=== PATIENT | female | born 2000 | race Caucasian/White ===

== ENCOUNTER 2022-12-29 16:07 | Emergency (ER) | payer BC, SELFPAY ==
--- NOTE | 2022-12-29 16:08 | US_ITS ---
[address] [address] Patient Name: EVELYN BRADLEY MRN: [id number] date: 2000 Sex: F Assigned Patient Location: ER Current Patient Location: ER Accession/Order Number: [id number] Exam Date: 12/29/2022 17:16 Report Date: 12/29/2022 18:11 At the request of: ERICA MYLES Procedure: US OB transvaginal PROCEDURE: US OB transvaginal, 12/29/2022 5:16 PM EST CLINICAL INDICATIONS: [Encounter for first trimester , vaginal bleeding for one day, pelvic pain 1 para 0 LMP 11/18/2022 Expected gestational age by LMP: 5 weeks 6 days Expected ROD by LMP: 08/25/2023 COMPARISON: None TECHNIQUE: Transvaginal first trimester obstetric sonogram, grayscale color and spectral evaluation. FINDINGS: Uterus: Intrauterine gestational saclike structure is identified. There are subtle structures within. A possible yolk sac measures up to 0.6 cm. A possible embryonic pole measures 0.2 cm. Cardiac activity could not be documented. Perigestational hemorrhage is not evident. Mean gestational sac size: 0.34 cm Embryonic crown-rump length: 0.18 cm Sonographic gestational age: Out of the available reference data range Cervix estimated at 3.2 cm. Maternal right ovary: 4.7 x 4.7 x 4.3 cm. Volume 49 mL. A 3.8 x 3.7 x 3.8 centimeters corpus luteal cyst is considered. Maternal left ovary: 1.8 x 1.7 x 2.2 cm. Volume 4 mL. Normal sonographic morphology. US/US OB transvaginal IMPRESSION: 1. Probable intrauterine uncertain viability. Intrauterine gestational saclike structure is identified. There are subtle structures within possibly early yolk sac or embryonic pole although poorly demonstrated. Cardiac activity could not be documented. Gestational sac size is below the available reference data for gestational age assessment. 14 day follow-up sonography needed. 2. No perigestational hemorrhage 3. 3.8 cm maternal right ovarian corpus luteal cyst 4. Normal maternal left ovarian sonographic morphology. Electronically authenticated by: ROXIE HALE Date: 12/29/2022 18:11
[2022-12-29 16:12] VITALS: BP 150/93; PULSE 75; RESP 14; TEMP 36.4; O2SAT 100; BMI 21.0
--- NOTE | 2022-12-29 16:21 | ED_ITS ---
HPI - General Chief complaint: Vaginal Bleeding Stated complaint: ISSUES 5 WEEKS Time Seen by Provider: 12/29/22 16:08 Source: patient Mode of arrival: walk-in Limitations: no limitations History of Present Illness HPI Narrative: patient is a 22-year-old female who presents to the emergency department for the evaluation of cramping and spotting at approximately 5-6 weeks of . Patient has not had her 1st TELE[employer] appointment yet. She states several days ago she had some low abdominal cramping which has resolved. She states in the last day she has developed spotting with wiping after urinating. She has not saturated a pad, she has not had any clots. No fevers or vomiting. No other urinary symptoms. Related Data Home Medications Medication Instructions Recorded Confirmed No Known Home Medications 12/29/22 12/29/22 Allergies Allergy/AdvReac Type Severity Reaction Status Date / Time No Known Drug Allergies Allergy Verified 12/29/22 16:15 Review of Systems ROS Constitutional Denies: fever or chills Ears, nose, mouth, and throat Denies: throat pain or nasal congestion Respiratory Denies: shortness of breath Gastrointestinal Reports: abdominal pain; Denies: nausea, vomiting or diarrhea Genitourinary Reports: pelvic pain and vaginal bleeding; Denies: painful urination Musculoskeletal Denies: back pain Integumentary/Breast Denies: rash Endocrine Denies: excessive urination Exam Narrative Exam Narrative: Gen.: Awake, alert, in no distress Head: Normocephalic, atraumatic ENT: Moist mucous membranes Respiratory: No respiratory distress Gastrointestinal: Abdomen is soft, nondistended and nontender to palpation; no CVA or flank tenderness Extremities: Moves extremities equally Psych: Normal mood and affect Neuro: No focal neuro deficit Skin: Warm, dry, intact Constitutional Vital Signs, click to edit/add: Last Vital Signs Temp 97.5 F L 12/29/22 16:12 Pulse 75 12/29/22 16:12 Resp 14 12/29/22 16:12 BP 150/93 H 12/29/22 16:12 Pulse Ox 100 12/29/22 16:12 O2 Del Method Room Air 12/29/22 16:12 Course Vital Signs Vital signs: Vital Signs Temperature 97.5 F L 12/29/22 16:12 Pulse Rate 75 12/29/22 16:12 Respiratory Rate 14 12/29/22 16:12 Blood Pressure 150/93 H 12/29/22 16:12 Pulse Oximetry 100 12/29/22 16:12 Oxygen Delivery Method Room Air 12/29/22 16:12 Temperature 97.5 F L 12/29/22 16:12 Pulse Rate 75 12/29/22 16:12 Respiratory Rate 14 12/29/22 16:12 Blood Pressure 150/93 H 12/29/22 16:12 Pulse Oximetry 100 12/29/22 16:12 Oxygen Delivery Method Room Air 12/29/22 16:12 MDM - OB/Uterine Contractions MDM Narrative Medical decision making narrative: labs show a quantitative hCG level at seven hundred, no evidence of urinary tract infection, patient with Rh positive blood type. Transvaginal ultrasound shows suspected intrauterine gestation with no evidence of ectopic , based on hCG levels and ultrasound, patient was informed that she is likely earlier in her then she realized, possibly implantation bleeding. Follow-up with [employer] office for repeat quantitative hCG levels. Return to the Emergency Room if symptoms change or worsen. Medical Records Attestation: I reviewed the patient's medical records. Lab Data Attestation: I reviewed the patient's lab results. Labs: Lab Results 12/29/22 12/29/22 Range/Units 16:15 16:22 HCG, Quant 761 mIU/mL Urine Color Lt. yellow (YELLOW) Urine Clarity Clear (CLEAR) Urine pH 6.0 (5.0-9.0) Ur Specific [place] 1.015 (1.005-1.025) Urine Protein Negative (NEG/TRACE) mg/dL Urine Glucose (UA) Negative (NEGATIVE) mg/dL Urine Ketones 40 A (NEGATIVE) mg/dL Urine Occult Blood Moderate A (NEGATIVE) Urine Nitrite Negative (NEGATIVE) Urine Bilirubin Negative (NEGATIVE) Urine Urobilinogen 1.0 (0.2-1.0) EU/dL Ur Leukocyte Esterase Negative (NEGATIVE) Urine RBC 2-5 A (0-2) #/HPF Urine WBC None seen (NONE SEEN) #/HPF Ur Squamous Epith Cells Moderate A (NONE/RARE) #/LPF Urine Crystals None seen (None Seen) #/HPF Urine Bacteria Trace A (NONE SEEN) #/HPF Urine Casts None seen (NONE SEEN) #/LPF Urine Mucus Trace A (NONE SEEN) Ur Culture Indicated? No Blood Type O Positive Discharge Plan Discharge Chief Complaint: Vaginal Bleeding Clinical Impression: Vaginal bleeding in Patient Disposition: Home, Self-Care Time of Disposition Decision: 18:26 Condition: Good Prescriptions / Home Meds: No Action No Known Home Medications Instructions: Threatened Miscarriage (ED) Stand Alone Forms: Portal Instructions Referrals: Chino Laguna DO [Physician] - As soon as possible SHRUTI TURNER [Primary Care Provider] - 1 week
[2022-12-29 16:31] LABS: Bilirubin Urine NEGATIVE (NEGATIVE); Blood Urine MODERATE (NEGATIVE); Clarity Urine CLEAR (CLEAR); Color Urine LT. YELLOW (YELLOW); Glucose Urine UA NEGATIVE (NEGATIVE); Ketones Urine 40 mg/dL (NEGATIVE); Leukocyte Esterase Urine NEGATIVE (NEGATIVE); Nitrite Urine NEGATIVE (NEGATIVE); Protein Urine NEGATIVE (NEG/TRACE); Specific Gravity Urine 1.015 (1.005-1.025)
[2022-12-29 16:32] LABS: Urine Microscopic Indicated YES
[2022-12-29 16:44] LABS: WBC Urine NONE SEEN #/HPF (NONE SEEN)
[2022-12-29 16:45] LABS: Bacteria Urine TRACE #/HPF (NONE SEEN); Cast Seen? NONE SEEN #/LPF (NONE SEEN); Crystals Seen? None Seen #/HPF (None Seen); Mucus Urine TRACE (NONE SEEN); Squamous Epithelial Cell Urine MODERATE #/LPF (NONE/RARE); Urine Culture Indicated NO
[2022-12-29 16:49] LABS: HCG Quantitative 761 mIU/mL
--- OUTSIDE RECORDS SUMMARY | 2023-02-02 19:30 | XMS_ITS | CCD ---
Author Name Unknown Address [facility] [address] [place] [address] Organization [facility] Care Team Providers Care Thread Checker Name Role Phone ELINOR PALOMO Consulting Unavailable ELINOR PALOMO Admitting Unavailable ELINOR PALOMO Attending Unavailable EBONY SWENSON Attending Unavailable Problems Problem Classification Problem Date Documented Da te Episodic/Chronic Anxiety disorders (4 sources) State of emotional shock and stress, unspecified; Translations: [STATE EMOTIONAL SHOCK AND STRESS UNS] Onset: 01-23-2019 Chronic Results Test Name Value Interpretation Reference Range Facil ity ACETAMINOPHENon 01-23-2019 Acetaminophen [Mass/Vol] <1.0 Critically low 10.1-30 .0 [facility] Comment on above: Performed By: #### A CET #### [facility] [address] [place], [place] [id number] Lou Ml CBC AUTO DIFFon 01-23-2019 Basophils (Bld) [#/Vol] 0.1 103/ul Normal 0.0-0.1 [facility] Comment on above: Performed By: #### C BC #### [facility] [address] [place] [id number] Lou Ml Basophils/100 WBC (Bld) 0.7 % Normal 0.2-2.0 [facility] Comment on above: Performed By: #### C BC #### [facility] [address] [place] [id number] Lou Ml Eosinophils (Bld) [#/Vol] 0.1 103/ul Normal 0.0-0.7 [facility] Comment on above: Performed By: #### C BC #### [facility] [address] [place], [place] [id number] Lou Ml Eosinophils/100 WBC (Bld) 1.0 % Normal 0.9-7.0 [facility] Comment on above: Performed By: #### C BC #### [facility] [address] [place], [place] [id number] Lou Bull Erythrocyte distribution wid th (RBC) [Ratio] 12.2 % Normal 11.0-15.0 [facility] Comment on above: Performed By: #### C BC #### [facility] [address] [place] [address] Lou Ml Hematocrit (Bld) [Volume fraction] 37.6 % Normal 3 6.0-48.0 [facility] Comment on above: Performed By: #### C BC #### [facility] [address] [place] [address] Lou Ml Hemoglobin (Bld) [Mass/Vol] 13.0 g/dL Normal 12.0-16. 0 [facility] Comment on above: Performed By: #### C BC #### [facility] [address] [place] [address] Lourex Cisnerosen IG # 0.03 10e3/ul Normal 0.00-0.03 [facility] Comment on above: Performed By: #### C BC #### [facility] [address] [place] [address] Lou Cisnerosen IG % 0.3 % Normal 0.0-0.5 [facility] Comment on above: Performed By: #### C BC #### [facility] [address] [place] [address] Lou Ml Lymphocytes (Bld) [#/Vol] 2.9 103/ul Normal 1.2-3.8 [facility] Comment on above: Performed By: #### C BC #### [facility] [address] [place], [place] [id number] Lou Ml Lymphocytes/100 WBC (Bld) 32.3 % Normal 20.5-60.0 [facility] Comment on above: Performed By: #### C BC #### [facility] [address] [place] [address] Lou Bull MANUAL DIFF REQ NO Normal [facility] Comment on above: Performed By: #### C BC #### [facility] [address] [place], [place] [id number] Lou Bull MCH (RBC) [Entitic mass] 31.6 pg Normal 26.7-34.0 [facility] Comment on above: Performed By: #### C BC #### [facility] [address] [place], [place] [id number] Lou Bull MCHC (RBC) [Mass/Vol] 34.6 g/dL Normal 29.9-35.2 [facility] Comment on above: Performed By: #### C BC #### [facility] [address] [place] [address] Lou Bull MCV (RBC) [Entitic vol] 91.5 fL Normal 79.1-95.6 [facility] Comment on above: Performed By: #### C BC #### [facility] [address] [place] [address] oLu Bull Monocytes (Bld) [#/Vol] 0.6 103/ul Normal 0.3-0.8 [facility] Comment on above: Performed By: #### C BC #### [facility] [address] [place] [address] Lou Bull Monocytes/100 WBC (Bld) 6.4 % Normal 1.7-12.0 [facility] Comment on above: Performed By: #### C BC #### [facility] [address] [place], [place] [address] Lou Ml Neutrophils (Bld) [#/Vol] 5.3 103/ul Normal 1.4-6.5 [facility] Comment on above: Performed By: #### C BC #### [facility] [address] [place], [place] [address] Lou Ml Neutrophils/100 WBC (Bld) 59.3 % Normal 43.0-75.0 [facility] Comment on above: Performed By: #### C BC #### [facility] [address] [place] [address] Lou Ml Platelet mean volume (Bld) [ Entitic vol] 10.6 fL Normal 9.5-13.5 [facility] Comment on above: Performed By: #### C BC #### [facility] [address] [place], [place] [address] Lou Ml Platelets (Bld) [#/Vol] 220 103/ul Normal 150-450 [facility] Comment on above: Performed By: #### C BC #### [facility] [address] [place], [place] [address] Lou Ml RBC (Bld) [#/Vol] 4.11 106/ul Normal 3.40-5.30 [facility] Comment on above: Performed By: #### C BC #### [facility] [address] [place], [place] [address] Lou Ml WBC (Bld) [#/Vol] 8.9 103/ul Normal 4.0-11.0 [facility] Comment on above: Performed By: #### C BC #### [facility] [address] [place], [place] [address] Lou Ml DRUG SCREEN RAPID (URINE)on 01-23-2019 AMP Negative Normal NEGATIVE [facility] Comment on above: Performed By: #### D RUGRPD #### [facility] [address] [place], [place] [address] Lou Ml BAR Negative Normal NEGATIVE [facility] Comment on above: Performed By: #### D RUGRPD #### [facility] [address] [place], [place] [address] Lou Ml BUP Negative Normal NEGATIVE [facility] Comment on above: Performed By: #### D RUGRPD #### [facility] [address] [place], [place] [address] Lou Ml BZO Negative Normal NEGATIVE [facility] Comment on above: Performed By: #### D RUGRPD #### [facility] [address] [place], [place] [address] Lou Ml BRITTON Negative Normal NEGATIVE [facility] Comment on above: Performed By: #### D RUGRPD #### [facility] [address] [place] [address] Lou Ml CUT-OFFS SEE BELOW Normal [facility] [place] [facility] Comment on above: Result Comment: AMP (Amphetamine): 500ng/mL, BAR (Barbituates): 200 ng/mL, BZO (Benzodiazepines): 150 ng/mL, BUP (Buprenorphine): 10 ng/mL, BRITTON (Cocaine): 150 ng/mL, mAMP (Methamphetamine): 500 ng/mL, MTD (Methadone): 200 ng/mL, OPI (Opiates): 100 ng/mL or 2000 ng/mL, OXY (Oxycodone): 100 ng/mL, PCP (Phencyclidine): 25 ng/mL, PPX (Propoxyphene): 300 ng/mL, THC (Cannabinoids): 50 ng/mL, TCA (Trycyclic Antidepressants): 300 ng/mL Performed By: #### Larry RUGRPD #### [facility] [address] [place] [address] Lou Ml DRUG CUT HEADER DRUG CLASS TEST SYST EM CUT-OFF CONCENTRATIONS ARE FOLLOWS: Normal [facility] Comment on above: Performed By: #### D RUGRPD #### [facility] [address] [place] [address] Lou Ml mAMP Negative Normal NEGATIVE [facility] [place] [facility] Comment on above: Performed By: #### Larry RUGRPD #### [facility] [address] [place] [address] Lou Ml MTD Negative Normal NEGATIVE [facility] [place] [facility] Comment on above: Performed By: #### D RUGRPD #### [facility] [address] [place] [address] Lou Ml OPI Negative Normal NEGATIVE [facility] [place] [facility] Comment on above: Performed By: #### D RUGRPD #### [facility] [address] [place] [address] Lou Ml OXY Negative Normal NEGATIVE [facility] [place] [facility] Comment on above: Performed By: #### Larry RUGRPD #### [facility] [address] [place] [address] Lou Bull PCP Negative Normal NEGATIVE [facility] [place] [facility] Comment on above: Performed By: #### D RUGRPD #### [facility] [address] [place], [place] [address] Lou Bull PPX Negative Normal NEGATIVE [facility] [place] [facility] Comment on above: Performed By: #### D RUGRPD #### [facility] [address] [place] [address] Lou Bull TCA Negative Normal NEGATIVE [facility] [place] [facility] Comment on above: Performed By: #### D RUGRPD #### [facility] [address] [place] [address] Lourex Bull THC Positive Normal NEGATIVE [facility] [place] [facility] Comment on above: Performed By: #### D RUGRPD #### [facility] [address] [place] [address] Lou Bull ETHANOL (BLD ALC)on 01-24-20 19 Ethanol [Mass/Vol] mg/dL Normal [facility] Comment on above: Performed By: #### E TH #### [facility] [address] [place], [place] [address] Lou Bull Ethanol [Mass/Vol] NOTE: 80 mg/dl is th e legal limit for a blood alcohol level Normal [facility] Comment on above: Performed By: #### E TH #### [facility] [address] [place], [place] [address] Lou Bull URon 01-23-2019 , QUAL Negative Normal NEGATIVE [facility] Comment on above: Performed By: #### P REGU #### [facility] [address] [place] [address] Lou Bull PROF 14(COMP METB)on 019 Age - Reported Normal [facility] Comment on above: Performed By: #### C MP #### [facility] [address] [place], [place] [address] Lou Bull Albumin [Mass/Vol] 4.3 g/dL Normal 3.5-5.0 [facility] Comment on above: Performed By: #### C MP #### [facility] [address] [place], [place] [address] Lou Ml Albumin/Globulin [Mass ratio] 1.6 {ratio} Normal [facility] Comment on above: Performed By: #### C MP #### [facility] [address] [place], [place] [address] Lou Ml ALP [Catalytic activity/Vol] 66 U/L Normal 65-260 [facility] Comment on above: Performed By: #### C MP #### [facility] [address] [place], [place] [address] Lou Ml ALT [Catalytic activity/Vol] 22 U/L Normal 9-52 [facility] Comment on above: Performed By: #### C MP #### [facility] [address] [place], [place] [address] Lou Ml Anion gap [Moles/Vol] 11.4 mmol/L Normal [facility] Comment on above: Performed By: #### C MP #### [facility] [address] [place], [place] [address] Lou Ml AST [Catalytic activity/Vol] 16 U/L Normal 14-36 [facility] Comment on above: Performed By: #### C MP #### [facility] [address] [place], [place] [address] Lou Ml Bilirubin Ql (U) 0.6 mg/dL Normal 0.2-1.3 [facility] Comment on above: Performed By: #### C MP #### [facility] [address] [place], [place] [address] Lou Ml Calcium [Mass/Vol] 9.7 mg/dL Normal 8.4-10.2 [facility] Comment on above: Performed By: #### C MP #### [facility] [address] [place], [place] [address] Lou Ml Chloride [Moles/Vol] 103 mmol/L Normal 98-107 [facility] Comment on above: Performed By: #### C MP #### [facility] [address] [place], [place] [address] Lou Ml CO2 [Moles/Vol] 27.2 mmol/L Normal 22.0-30.0 [facility] Comment on above: Performed By: #### C MP #### [facility] [address] [place], [place] [address] Lou Ml Creatinine [Mass/Vol] 0.59 mg/dL Normal 0.52-1.04 [facility] Comment on above: Performed By: #### C MP #### [facility] [address] [place] [id number] Lou Ml EGFR-AF GHANAIAN Normal >=60 [facility] Comment on above: Performed By: #### C MP #### [facility] [address] [place] [id number] Lou Ml EGFR-NON AF GHANAIAN Normal >=60 [facility] Comment on above: Performed By: #### C MP #### [facility] [address] [place] [address] Lou Ml Globulin (S) [Mass/Vol] 2.7 g/dL Normal [facility] Comment on above: Performed By: #### C MP #### [facility] [address] [place] [id number] Lou Ml Glucose [Mass/Vol] 90 mg/dL Normal 74-106 [facility] Comment on above: Performed By: #### C MP #### [facility] [address] [place] [address] Lou Ml Potassium [Moles/Vol] 3.6 mmol/L Normal 3.4-5.0 [facility] Comment on above: Performed By: #### C MP #### [facility] [address] [place], [place] [address] Lou Ml Protein [Mass/Vol] 7.0 g/dL Normal 6.1-8.2 [facility] Comment on above: Performed By: #### C MP #### [facility] [address] [place] [id number] Lou Ml Sodium [Moles/Vol] 138 mmol/L Normal 137-145 [facility] Comment on above: Performed By: #### C MP #### [facility] [address] [place], [place] [address] Lou Bull Urea nitrogen [Mass/Vol] 16.0 mg/dL Normal 6.4-19.3 [facility] Comment on above: Performed By: #### C MP #### [facility] [address] [place], [place] [address] Lou Bull Urea nitrogen/Creatinine [Mass ratio] 27.1 mg/mg Normal [facility] Comment on above: Performed By: #### C MP #### [facility] [address] [place], [place] [address] Lou Bull SALICYLATEon 01-23-2019 SALICYLATE 6.5 mg/dL Normal <=20.0 [facility] Comment on above: Performed By: #### S ALYC #### [facility] [address] [place], [place] [address] Lou Bull Encounters Encounter Date Encounter Type Care Provider Facility Start: 01-20-2023 End: 01-20-2023 ambulatory EBONY SWENSON Not Available Start: 01-23-2019 End: 01-23-2019 Patient encounter procedure ELINOR PALOMO Facility:[facility] Payers Date Payer Category Payer Unknown [id number] 2001 Unknown [id number] 1978 Unknown [id number] 1959 Unknown [id number] Summary Purpose Family History No Family History Records FoundNo Family History Records Found Advance Directives No Advanced Directives Records FoundNo Advanced Directives Records Found Additional Source Comments INFORMATION SOURCE (unrecogn ized section and content) DATE CREATED AUTHOR 01/25/2019 [facility] DATE CREATED AUTHOR AUTHOR'S ORGANIZ ATION 01/22/[address] [facility] EPIC FOR RECORDS PERTAINING TO PATIENTS WHO ARE OR HAVE BEEN ENROLLED IN A CHEMICAL DEPENDENCY/SUBSTANCEABUSE PROGRAM, SOME INFORMATION MAY BE OMITTED. This clinical summary was aggregated from multiple sources. Caution should be exercised in using it in the provision of clinical care. This summary normalizes information from multiple sources, and as a consequence, information in this document may materially change the coding, format and clinical context of patient data. In addition, data may be omitted in some cases. CLINICAL DECISIONS SHOULD BE BASED ON THE PRIMARY CLINICAL RECORDS. [facility] [employer] [facility]. provides no warranty or guarantee of the accuracy or completeness of information in this document.
== END 2022-12-29 18:32 | disposition home or self-care (01) ==
PROVIDERS: Physician Assistant; Emergency Provider Emergency Medicine; PCP Family Medicine
DX: O20.9 Hemorrhage in early pregnancy, unspecified (principal); Z3A.01 Less than 8 weeks gestation of pregnancy
CPT/HCPCS: 36415; 76817; 81001; 84702; 86900; 86901; 99285

== ENCOUNTER 2022-12-31 13:30 | Outpatient (OUT) | payer BC, SELFPAY ==
[2022-12-31 14:44] LABS: HCG Quantitative 769 mIU/mL
== END 2022-12-31 13:31 | disposition home or self-care (01) ==
PROVIDERS: PCP Family Medicine; Visit Provider Obstetrics & Gynecology
DX: O20.9 Hemorrhage in early pregnancy, unspecified (principal)
CPT/HCPCS: 36415; 84702

== ENCOUNTER 2023-01-02 06:49 | Outpatient (OUT) | payer BC, SELFPAY ==
[2023-01-02 08:06] LABS: HCG Quantitative 137 mIU/mL
== END 2023-01-02 06:50 | disposition home or self-care (01) ==
LOC: LAB 06:49
PROVIDERS: PCP Family Medicine; Visit Provider Obstetrics & Gynecology
DX: O20.9 Hemorrhage in early pregnancy, unspecified (principal); Z3A.00 Weeks of gestation of pregnancy not specified
CPT/HCPCS: 36415; 84702

== ENCOUNTER 2023-12-09 13:38 | Outpatient (OUT) | payer BC, SELFPAY ==
--- NOTE | 2023-12-09 13:40 | US_ITS ---
[address] [address] Patient Name: EVELYN BRADLEY MRN: [id number] date: 2000 Sex: F Assigned Patient Location: [facility] Current Patient Location: Accession/Order Number: [id number] Exam Date: 12/09/2023 13:40 Report Date: 12/10/2023 06:25 At the request of: EBONY SWENSON Procedure: US OB transvaginal EXAMINATION: US OB transvaginal HISTORY: MISSED MENSES COMPARISON: No relevant comparison available. FINDINGS: GESTATIONAL SAC: Present and normal appearing. YOLK SAC: Present and normal appearing. POLE: Present and normal appearing. CARDIAC: Present. UTERUS: Normal size and appearance. OVARIES: Right: Corpus lutein cyst. Left: Normal. CERVIX: 4.2 cm in length and closed. CUL-DE-SAC: Normal. OTHER: None. AGE BY LMP: 8 weeks 2 days ROD BY LMP: 07/18/2024 AGE BY US CRL: 8 weeks 0 days ROD BY US CRL: 07/20/2024 US/US OB transvaginal IMPRESSION: 1. Single live intrauterine . Electronically authenticated by: RIDGE JOHANSEN Date: 12/10/2023 06:25
--- OUTSIDE RECORDS SUMMARY | 2023-12-09 13:55 | XMS_ITS | CCD ---
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 [address], [place] [address] Lou Ml CBC AUTO DIFFon 01-23-2019 Basophils (Bld) [#/Vol] 0.1 103/ul Normal 0.0-0.1 [facility] Comment on above: Performed By: #### C BC #### [facility] [address], [place] [address] Lou Ml Basophils/100 WBC (Bld) 0.7 % Normal 0.2-2.0 [facility] Comment on above: Performed By: #### C BC #### [facility] [address], [place] [address] Lou Ml Eosinophils (Bld) [#/Vol] 0.1 103/ul Normal 0.0-0.7 [facility] Comment on above: Performed By: #### C BC #### [facility] [address], [place] [address] Lou Ml Eosinophils/100 WBC (Bld) 1.0 % Normal 0.9-7.0 [facility] Comment on above: Performed By: #### C BC #### [facility] [address] [place] [address] Lou Ml Erythrocyte distribution width (RBC) [Ratio] 12.2 % Normal 11.0-15.0 [facility] Comment on above: Performed By: #### C BC #### [facility] [address] [place] [address] Lou Ml Hematocrit (Bld) [Volume fraction] 37.6 % Normal 36.0-48.0 [facility] Comment on above: Performed By: #### C BC #### [facility] [address] [place] [address] Lou Ml Hemoglobin (Bld) [Mass/Vol] 13.0 g/dL Normal 12.0-16.0 [facility] Comment on above: Performed By: #### C BC #### [facility] [address] [place] [address] Lou Ml IG # 0.03 10e3/ul Normal 0.00-0.03 [facility] Comment on above: Performed By: #### C BC #### [facility] [address] [place] [address] Lou Ml IG % 0.3 % Normal 0.0-0.5 [facility] Comment on above: Performed By: #### C BC #### [facility] [address] [place] [address] Lou Ml Lymphocytes (Bld) [#/Vol] 2.9 103/ul Normal 1.2-3.8 [facility] Comment on above: Performed By: #### C BC #### [facility] [address] [place], [place] [phone] Lou Ml Lymphocytes/100 WBC (Bld) 32.3 % Normal 20.5-60.0 [facility] Comment on above: Performed By: #### C BC #### [facility] [address] [place], [place] [phone] Lou Ml MANUAL DIFF REQ NO Normal [facility] Comment on above: Performed By: #### C BC #### [facility] [address], [place] [address] Lou Ml MCH (RBC) [Entitic mass] 31.6 pg Normal 26.7-34.0 [facility] Comment on above: Performed By: #### C BC #### [facility] [address], [place] [address] Lou Ml MCHC (RBC) [Mass/Vol] 34.6 g/dL Normal 29.9-35.[address] [facility] Comment on above: Performed By: #### C BC #### [facility] [address], [place] [address] Lou Ml MCV (RBC) [Entitic vol] 91.5 fL Normal 79.1-95.[address] [facility] Comment on above: Performed By: #### C BC #### [facility] [address] [place] [address] Lou Ml Monocytes (Bld) [#/Vol] 0.6 103/ul Normal 0.3-0.[address] [facility] Comment on above: Performed By: #### C BC #### [facility] [address] [place] [address] Lou Ml Monocytes/100 WBC (Bld) 6.4 % Normal 1.7-12.0 [facility] Comment on above: Performed By: #### C BC #### [facility] [address] [place] [address] Lou Ml Neutrophils (Bld) [#/Vol] 5.3 103/ul Normal 1.4-6.[address] [facility] Comment on above: Performed By: #### C BC #### [facility] [address], [place] [address] Lou Ml Neutrophils/100 WBC (Bld) 59.3 % Normal 43.0-75.[address] [facility] Comment on above: Performed By: #### C BC #### [facility] [address], [place] [address] Lou Ml Platelet mean volume (Bld) [Entitic vol] 10.6 fL Normal 9.5-13.5 [facility] Comment on above: Performed By: #### C BC #### [facility] [address] [place] [id number] Lourex Bull Platelets (Bld) [#/Vol] 220 103/ul Normal 150-[address] [facility] Comment on above: Performed By: #### C BC #### [facility] [address] [place] [phone] Lourex Cisnerosen RBC (Bld) [#/Vol] 4.11 106/ul Normal 3.40-5.30 [facility] Comment on above: Performed By: #### C BC #### [facility] [address] [place], [place] [phone] Lourex Cisnerosen WBC (Bld) [#/Vol] 8.9 103/ul Normal 4.0-11.0 [facility] Comment on above: Performed By: #### C BC #### [facility] [address] [place], [place] [phone] Lou Ml DRUG SCREEN RAPID (URINE)on 01-23-2019 AMP Negative Normal NEGATIVE [facility] Comment on above: Performed By: #### D RUGRPD #### [facility] [address] [place] [address] Lou Ml BAR Negative Normal NEGATIVE [facility] Comment on above: Performed By: #### D RUGRPD #### [facility] [address] [place], [place] [phone] Lou Ml BUP Negative Normal NEGATIVE [facility] Comment on above: Performed By: #### D RUGRPD #### [facility] [address] [place] [address] Lou Ml BZO Negative Normal NEGATIVE [facility] Comment on above: Performed By: #### D RUGRPD #### [facility] [address] [place] [address] Lou Ml BRITTON Negative Normal NEGATIVE [facility] Comment on above: Performed By: #### D RUGRPD #### [facility] [address] [place], [place] [phone] Lou Ml CUT-OFFS SEE BELOW Normal [facility] Comment on above: Result Comment: AMP (Amphetamine): 500ng/mL, BAR (Barbituates): 200 ng/mL, BZO (Benzodiazepines): 150 ng/mL, BUP (Buprenorphine): 10 ng/mL, BRITTON (Cocaine): 150 ng/mL, mAMP (Methamphetamine): 500 ng/mL, MTD (Methadone): 200 ng/mL, OPI (Opiates): 100 ng/mL or 2000 ng/mL, OXY (Oxycodone): 100 ng/mL, PCP (Phencyclidine): 25 ng/mL, PPX (Propoxyphene): 300 ng/mL, THC (Cannabinoids): 50 ng/mL, TCA (Trycyclic Antidepressants): 300 ng/mL Performed By: #### D RUGRPD #### [facility] [address] [place] [address] DRUG CUT HEADER DRUG CLASS TEST SYSTEM CUT-OFF CONCENTRATIONS ARE FOLLOWS: Normal [facility] Comment on above: Performed By: #### D RUGRPD #### [facility] [address] [place] [address] Lou Ml mAMP Negative Normal NEGATIVE [facility] Comment on above: Performed By: #### D RUGRPD #### [facility] [address] [place] [address] Lou Ml MTD Negative Normal NEGATIVE [facility] Comment on above: Performed By: #### D RUGRPD #### [facility] [address] [place] [address] Lou Ml OPI Negative Normal NEGATIVE [facility] Comment on above: Performed By: #### D RUGRPD #### [facility] [address] [place] [address] Lou Ml OXY Negative Normal NEGATIVE [facility] Comment on above: Performed By: #### D RUGRPD #### [facility] [address] [place] [address] Lou Ml PCP Negative Normal NEGATIVE [facility] Comment on above: Performed By: #### D RUGRPD #### [facility] [address] [place] [address] Lou Ml PPX Negative Normal NEGATIVE [facility] Comment on above: Performed By: #### D RUGRPD #### [facility] [address] [place] [address] Lou Ml TCA Negative Normal NEGATIVE [facility] Comment on above: Performed By: #### D RUGRPD #### [facility] [address] [place], [place] [phone] Lou Ml THC Positive Normal NEGATIVE [facility] Comment on above: Performed By: #### D RUGRPD #### [facility] [address] [place], [place] [phone] Lou Ml ETHANOL (BLD ALC)on 01-24-20 19 Ethanol [Mass/Vol] mg/dL Normal [facility] Comment on above: Performed By: #### E TH #### [facility] [address] [place] [address] Lou Ml Ethanol [Mass/Vol] NOTE: 80 mg/dl is the legal limit for a blood alcohol level Normal [facility] Comment on above: Performed By: #### E TH #### [facility] [address] [place] [address] Lou Ml URon 01-23-2019 , QUAL Negative Normal NEGATIVE [facility] Comment on above: Performed By: #### P REGU #### [facility] [address] [place] [address] Lou Bull PROF 14(COMP METB)on 019 Age - Reported Normal [facility] Comment on above: Performed By: #### C MP #### [facility] [address] [place] [address] Lou Ml Albumin [Mass/Vol] 4.3 g/dL Normal 3.5-5.0 [facility] Comment on above: Performed By: #### C MP #### [facility] [address] [place], [place] [phone] Lou Ml Albumin/Globulin [Mass ratio] 1.6 {ratio} Normal [facility] Comment on above: Performed By: #### C MP #### [facility] [address] [place], [place] [address] Lou Ml ALP [Catalytic activity/Vol] 66 U/L Normal 65-[address] [facility] Comment on above: Performed By: #### C MP #### [facility] [address] [place], [place] [address] Lou Ml ALT [Catalytic activity/Vol] 22 U/L Normal 9-[address] [facility] Comment on above: Performed By: #### C MP #### [facility] [address] [place] [id number] Lou Ml Anion gap [Moles/Vol] 11.4 mmol/L Normal [facility] Comment on above: Performed By: #### C MP #### [facility] [address] [place] [address] Lou Ml AST [Catalytic activity/Vol] 16 U/L Normal 14-[address] [facility] Comment on above: Performed By: #### C MP #### [facility] [address] [place] [address] Lou Ml Bilirubin Ql (U) 0.6 mg/dL Normal 0.2-1.3 [facility] Comment on above: Performed By: #### C MP #### [facility] [address] [place], [place] [phone] Lou Ml Calcium [Mass/Vol] 9.7 mg/dL Normal 8.4-10.2 [facility] Comment on above: Performed By: #### C MP #### [facility] [address] [place] [address] Lou Lm Chloride [Moles/Vol] 103 mmol/L Normal 98-[address] [facility] Comment on above: Performed By: #### C MP #### [facility] [address] [place], [place] [address] Lou Ml CO2 [Moles/Vol] 27.2 mmol/L Normal 22.0-30.0 [facility] Comment on above: Performed By: #### C MP #### [facility] [address] [place], [place] [address] Lou Ml Creatinine [Mass/Vol] 0.59 mg/dL Normal 0.52-1.[address] [facility] Comment on above: Performed By: #### C MP #### [facility] [address] [place] [id number] Lou Ml EGFR-AF [place] Normal >=60 [facility] Comment on above: Performed By: #### C MP #### [facility] [address] [place] [phone] Lou Ml EGFR-NON AF [place]IZ[place] Normal >=[address] [facility] Comment on above: Performed By: #### C MP #### [facility] [address] [place] [phone] Lou Ml Globulin (S) [Mass/Vol] 2.7 g/dL Normal [facility] Comment on above: Performed By: #### C MP #### [facility] [address] [place] [address] Lou Ml Glucose [Mass/Vol] 90 mg/dL Normal 74-106 [facility] Comment on above: Performed By: #### C MP #### [facility] [address] [place] [address] Lou Ml Potassium [Moles/Vol] 3.6 mmol/L Normal 3.4-5.[address] [facility] Comment on above: Performed By: #### C MP #### [facility] [address] [place] [address] Lou Ml Protein [Mass/Vol] 7.0 g/dL Normal 6.1-8.2 [facility] Comment on above: Performed By: #### C MP #### [facility] [address] [place] [address] Lou Ml Sodium [Moles/Vol] 138 mmol/L Normal 137-145 [facility] Comment on above: Performed By: #### C MP #### [facility] [address] [place], [place] [phone] Lou Ml Urea nitrogen [Mass/Vol] 16.0 mg/dL Normal 6.4-19.[address] [facility] Comment on above: Performed By: #### C MP #### [facility] [address] [place] [address] Lou Bull Urea nitrogen/Creatinine [Mass ratio] 27.1 mg/mg Normal [facility] Comment on above: Performed By: #### C MP #### [facility] [address], [place] [address] Lou Bull SALICYLATEon 01-23-2019 SALICYLATE 6.5 mg/dL Normal <=20.0 [facility] Comment on above: Performed By: #### S ALYC #### [facility] [address], [place] [address] Lou Bull Encounters Encounter Date Encounter Type Care Provider Facility Start: 01-20-2023 End: 01-20-2023 ambulatory EBONY MESSI Not Available Start: 01-23-2019 End: 01-23-2019 Patient encounter procedure ELINOR PALOMO Facility:[id number] Payers Date Payer Category Payer Unknown [id number] 2001 Unknown [id number] 1978 Unknown [id number] 1959 Unknown [id number] Summary Purpose Family History No Family History Records FoundNo Family History Records Found Advance Directives No Advanced Directives Records FoundNo Advanced Directives Records Found Additional Source Comments INFORMATION SOURCE (unrecogn ized section and content) DATE CREATED AUTHOR 01/25/2019 [facility] DATE CREATED AUTHOR AUTHOR'S ORGANIZ ATION 01/22/2023 [facility] EPIC FOR RECORDS PERTAINING [...] BE BASED ON THE PRIMARY CLINICAL RECORDS. [email or web address] provides no warranty or guarantee of the accuracy or completeness of information in this document.
== END 2023-12-09 13:39 | disposition home or self-care (01) ==
LOC: NOMS 13:38
PROVIDERS: PCP Family Medicine; Visit Provider Obstetrics & Gynecology
DX: Z34.91 Encounter for supervision of normal pregnancy, unspecified, first trimester (principal); Z3A.08 8 weeks gestation of pregnancy; N92.6 Irregular menstruation, unspecified
CPT/HCPCS: 76817

== ENCOUNTER 2024-01-03 09:50 | Outpatient (OUT) | payer BC, SELFPAY ==
--- OUTSIDE RECORDS SUMMARY | 2024-01-03 10:12 | XMS_ITS | CCD ---
Demographics Address [address] [place] [address] Preferred Language en Marital Status Single Scientologist Affiliation Unknown Race White Ethnic Group Unknown Author Organization [place] [facility] Care Team Providers Care Patient Representative Name Role Phone ELINOR PALOMO Consulting Unavailable ELINOR PALOMO Admitting Unavailable ELINOR PALOMO Attending Unavailable Cary Ocasio MD Primary Care Provider EBONY LAGUNA Attending Unavailable PCP, NOT IN SYSTEM Primary Care Unavailable HELLEN VERDIN Attending Unavailable Medications Current Medications Medication Drug Class(es) Dates Sig (Normalized) Sig (Original) ondansetron 4 mg disintegrating oral tablet (1 source) Serotonin-3 Receptor Antagonist Start: 12-09-2023 End: 01-08-2024 take 1 tablet by mouth every six hours for nausea ondansetron ODT (Zofran-ODT) 4 MG disintegrating tablet Indications: Nausea and vomiting in Take 1 tablet (4 mg) by mouth every 6 (six) hours if needed for nausea or vomiting 30 tablet 2 12/09/2023 01/08/2024 Active vitamin (Prenatabs Rx) 29-1 MG tablet (1 source) Start: 12-09-2023 End: 12-08-2024 take 1 tablet by mouth once daily vitamin (Prenatabs Rx) 29-1 MG tablet Indications: , unspecified gestational age Take 1 tablet by mouth Daily 360 tablet 12/09/2023 12/08/2024 Active Problems Active Problems Problem Classification Problem Date Documented Da te Episodic/Chronic Allergic reactions (1 source) Atopic dermatitis; Translations: [Other atopic dermatitis] Onset: 07-08-2022 07-08-2022 Chronic Anxiety disorders (5 sources) State of emotional shock and stress, unspecified; Translations: [Anxiety disorder] Onset: 01-23-2019 07-08-2022 Chronic Attention-deficit, conduct, and disruptive behavior disorders (1 source) Oppositional defiant disorder; Translations: [Oppositional defiant disorder] Onset: 07-08-2022 07-08-2022 Chronic Menstrual disorders (1 source) Missed period; Translations: [Irregular menstruation, unspecified] 12-09-2023 Chronic Mood disorders (2 sources) Mood disorder; Translations: [Unspecified mood [affective] disorder] Onset: 07-08-2022 07-08-2022 Chronic Nonspecific chest pain (1 source) Chest pain, unspecified; Translations: [Chest pain, unspecified] Onset: 12-28-2023 Episodic Other complications of (1 source) Vomiting of , unspecified; Translations: [Unspecified vomiting of , unspecified as to episode of care or not applicable] 12-09-2023 Episodic Other and delivery including normal (2 sources) ; Translations: [Encounter for supervision of normal , unspecified, unspecified trimester] 12-09-2023 Episodic Residual codes; unclassified (1 source) 11 weeks gestation of ; Translations: [11 weeks gestation of ] Onset: 12-28-2023 Episodic Syncope (2 sources) Syncope and collapse; Translations: [Syncope] Onset: 12-28-2023 Episodic Unclassified (1 source) Ill Onset: 12-28-2023 Past or Other Problems Problem Classification Problem Date Documented Da te Episodic/Chronic Poisoning by nonmedicinal substances (1 source) Toxic effect of ethyl alcohol; Translations: [Toxic effect of ethanol, accidental (unintentional), initial encounter] Onset: 07-08-2022 07-08-2022 Episodic Substance-related disorders (1 source) Cannabis-induced organic mental disorder; 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, unspecified with unspecified cannabis-induced disorder] Onset: 07-08-2022 07-08-2022 Episodic Results Test Name Value Interpretation Reference Range Facility BASIC METABOLIC PANLon 12-27 Anion gap [Moles/Vol] 8 mmol/L Normal 5-15 [facility] Comment on above: Performed By: #### C BCA, 97620-6, BMP #### [facility] ([id number]) [address] [place] [address], [place] [address] Calcium [Mass/Vol] 8.4 mg/dL Low 8.5-10.5 [facility] Comment on above: Performed By: #### C MARY GRACE, 01389-6, BMP #### [facility] ([id number]) [address] [place] [address] 32275 Chloride [Moles/Vol] 107 mmol/L Normal 98-109 [facility] Comment on above: Performed By: #### Dorothy BRODY, 46122-3, BMP #### [facility] ([id number]) [address] [place] [address] 48619 CO2 [Moles/Vol] 22 mmol/L Normal 22-32 [facility] Comment on above: Performed By: #### Dorothy BRODY, 74260-5, BMP #### [facility] ([id number]) [address] [place] [address] 46043 Creatinine [Mass/Vol] 0.38 mg/dL Low 0.40-1.00 [facility] Comment on above: Result Comment: METH OD TRACEABLE TO IDMS STANDARD Performed By: #### Dorothy BRODY, 61692-7, BMP #### [facility] ([id number]) [address] [place] [address] 97863 eGFR (CKD-EPI) NON-RACE DEPENDENT >90 Normal >59 [facility] Comment on above: Result Comment: Reported eGFR is based on the CKD-EPI 2020 equation that does not use a race coefficient. Performed By: #### C MARY GRACE, 88191-2, BMP #### [facility] ([id number]) [address] [place] [address] 21072 Glucose [Mass/Vol] 67 mg/dL Normal 65-99 [facility] Comment on above: Performed By: #### Dorothy BRODY, 30547-8, BMP #### [facility] ([id number]) [address] [place] [address] 91538 Potassium [Moles/Vol] 3.3 mmol/L Low 3.5-5.0 [facility] Comment on above: Performed By: #### Dorothy BRODY 06052-1, BMP #### [facility] ([id number]) [address] [place] [address] 25953 Sodium [Moles/Vol] 137 mmol/L Normal 134-146 [facility] Comment on above: Performed By: #### Dorothy BRODY 14079-7, BMP #### [facility] ([id number]) [address] [place] [address] 08094 Urea nitrogen [Mass/Vol] 11 mg/dL Normal 5-23 [facility] Comment on above: Performed By: #### Dorothy BRODY 44790-7, BMP #### [facility] ([id number]) [address] [place] [address] 93664 CBC AND AUTO DIFFon 12-28-19 24 ABSOLUTE BASOPHIL 0.0 X10E9/L Normal 0.0-0.2 [facility] Comment on above: Performed By: #### Dorothy BRODY 76146-9, BMP #### [facility] ([id number]) [address] [place] [address] 63020 ABSOLUTE NEUTROPHIL 5.6 X10E9/L Normal 1.5-6.6 [facility] Comment on above: Performed By: #### Dorothy BRODY 58162-5, BMP #### [facility] ([id number]) [address] [place] [address] 49456 Basophils/100 WBC (Bld) 0.6 % Normal [facility] Comment on above: Performed By: #### Dorothy BRODY 30700-3, BMP #### [facility] ([id number]) [address] [place] [address] 89354 Eosinophils (Bld) [#/Vol] 0.1 10*3/uL Normal 0.0-0.4 [facility] Comment on above: Performed By: #### Dorothy BRODY, 35808-9, BMP #### [facility] ([id number]) [address] [place] [address] 43952 Eosinophils/100 WBC (Bld) 0.8 % Normal [facility] Comment on above: Performed By: #### Dorothy BRODY 26253-3, BMP #### [facility] ([id number]) [address] [place] [address] 79921 Erythrocyte distribution width (RBC) [Ratio] 12.4 % Normal 11.5-15.0 [facility] Comment on above: Performed By: #### Dorothy BRODY 69116-0, BMP #### [facility] ([id number]) [address] [place] [address] 13699 Hematocrit (Bld) [Volume fraction] 33.5 % Low 35-47 [facility] Comment on above: Performed By: #### Dorothy BRODY 05273-3, BMP #### [facility] ([id number]) [address] [place] [address] 48605 Hemoglobin (Bld) [Mass/Vol] 11.7 g/dL Normal 11.7-15.5 [facility] Comment on above: Performed By: #### Dorothy BRODY 42081-9, BMP #### [facility] ([id number]) [address] [place] [address] 66534 Lymphocytes (Bld) [#/Vol] 1.5 10*3/uL Normal 1.0-3.5 [facility] Comment on above: Performed By: #### Dorothy BRODY 37028-3, BMP #### [facility] ([id number]) [address] [place] [address] 21110 Lymphocytes/100 WBC (Bld) 19.7 % Normal [facility] Comment on above: Performed By: #### Dorothy BRODY 03846-6, BMP #### [facility] ([id number]) [address] [place] [address] 61413 MCH (RBC) [Entitic mass] 32.9 pg Normal 27-34 [facility] Comment on above: Performed By: #### C MARY GRACE, 04061-0, BMP #### [facility] ([id number]) [address] [place] [address] 96385 MCHC (RBC) [Mass/Vol] 35.1 g/dL Normal 32-36 [facility] Comment on above: Performed By: #### C MARY GRACE, 23590-5, BMP #### [facility] ([id number]) [address] [place] [address] 19307 MCV (RBC) [Entitic vol] 94 fL Normal 80-100 [facility] Comment on above: Performed By: #### Dorothy BRODY 76074-4, BMP #### [facility] ([id number]) [address] [place] [address] 37960 Monocytes (Bld) [#/Vol] 0.3 10*3/uL Normal 0-0.9 [facility] Comment on above: Performed By: #### Dorothy BRODY, 73798-5, BMP #### [facility] ([id number]) [address] [place] [address] 27709 Monocytes/100 WBC (Bld) 4.2 % Normal [facility] Comment on above: Performed By: #### Dorothy BRODY, 29459-1, BMP #### [facility] ([id number]) [address] [place] [address] 15274 Neutrophils/100 WBC (Bld) 74.7 % Normal [facility] Comment on above: Performed By: #### Dorothy BRODY, 50738-0, BMP #### [facility] ([id number]) [address] [place] [address] 78251 Platelet mean volume (Bld) [Entitic vol] 9.1 fL Normal 7-12 [facility] Comment on above: Performed By: #### Dorothy BRODY 84397-5, BMP #### [facility] ([id number]) [address] [place] [address] 59695 Platelets (Bld) [#/Vol] 195 10*3/uL Normal 150-450 [facility] Comment on above: Performed By: #### Dorothy BRODY 73142-0, BMP #### [facility] ([id number]) [address] [place] [address] 63744 RBC COUNT 3.57 X10E12/L Low 3.80-5.20 [facility] Comment on above: Performed By: #### Dorothy BRODY 87025-2, BMP #### [facility] ([id number]) [address] [place] [address] 41792 WBC (Bld) [#/Vol] 7.5 10*3/uL Normal 4.0-11.0 [facility] Comment on above: Performed By: #### Dorothy BRODY 78549-1, BMP #### [facility] ([id number]) [address] [place] [address] 88466 Troponin I.cardiac High sens itivity method [Mass/Vol]on 12-28-2023 1 HOUR TROP I, HIGH SENSITIVITY <2 Normal <16 [facility] Comment on above: Performed By: #### 8 9579-7 #### [facility] ([id number]) [address] [place] [address] 59655 TROPONIN I, HIGH SENSITIVITY <2 Normal <16 [facility] Comment on above: Performed By: #### Dorothy BRODY 15725-5, BMP #### [facility] ([id number]) [address] [place] [address] 54880 HCG ( test) Ql (U)o n 12-09-2023 Interpretation and review of laboratory results Abnormal [facility] Preg Test, Ur Positive [facility] Urinalysis macro (dipstick) panel (U)on 12-09-2023 Bilirubin, UA Negative Negative - 4(70) +++ mg/dL [facility] Blood, UA Negative Negative - 50 Haroon/mcL [facility] Clarity, UA Clear [facility] Color, UA Yellow [facility] Glucose, UA Negative Negative - 1999(110) ++++ mg/dL [facility] Interpretation and review of laboratory results Normal [facility] Ketones, UA Negative Negative - 160(16) ++++ mg/dL [facility] Leukocytes, UA Negative Negative - 500+++ Robert/mcL [facility] Nitrite, UA Negative Negative - Positive [facility] pH, UA 7.5 5 - 9 [facility] e Protein, UA Negative Negative - 1999(20) ++++ mg/dL [facility] Spec Grav, UA 1.015 1 - 1.03 [facility] Urobilinogen, UA 0.2 0.2 - 12 mg/dL [facility] ACETAMINOPHENon 01-23-2019 Acetaminophen [Mass/Vol] <1.0 Critically low 10.1-30.[address] [facility] Comment on above: Performed By: #### A CET #### [facility] [address] [place] [address] 60165 Lou Ml CBC AUTO DIFFon 01-23-2019 Basophils (Bld) [#/Vol] 0.1 103/ul Normal 0.0-0.[address] [facility] Comment on above: Performed By: #### C BC #### [facility] [address] [place], [place] [address] Lou Ml Basophils/100 WBC (Bld) 0.7 % Normal 0.2-2.[address] [facility] Comment on above: Performed By: #### C BC #### [facility] [address] [place] [address] 02399 Lou Ml Eosinophils (Bld) [#/Vol] 0.1 103/ul Normal 0.0-0.[address] [facility] Comment on above: Performed By: #### C BC #### [facility] [address] [place], [place] [address] Lou Ml Eosinophils/100 WBC (Bld) 1.0 % Normal 0.9-7.0 [facility] Comment on above: Performed By: #### C BC #### [facility] [address] [place], [place] [address] Lou Ml Erythrocyte distribution width (RBC) [Ratio] 12.2 % Normal 11.0-15.[address] [facility] Comment on above: Performed By: #### C BC #### [facility] [address] [place], [place] [address] Lou Ml Hematocrit (Bld) [Volume fraction] 37.6 % Normal 36.0-48.0 [facility] Comment on above: Performed By: #### C BC #### [facility] [address] [place] [address] Lou Ml Hemoglobin (Bld) [Mass/Vol] 13.0 g/dL Normal 12.0-16.0 [facility] Comment on above: Performed By: #### C BC #### [facility] [address] [place], [place] [address] Lou Ml IG # 0.03 10e3/ul Normal 0.00-0.03 [facility] Comment on above: Performed By: #### C BC #### [facility] [address] [place] [address] Lou Ml IG % 0.3 % Normal 0.0-0.[address] [facility] Comment on above: Performed By: #### C BC #### [facility] [address] [place], [place] [address] Lou Ml Lymphocytes (Bld) [#/Vol] 2.9 103/ul Normal 1.2-3.[address] [facility] Comment on above: Performed By: #### C BC #### [facility] [address] [place], [place] [address] Lou Ml Lymphocytes/100 WBC (Bld) 32.3 % Normal 20.5-60.[address] [facility] Comment on above: Performed By: #### C BC #### [facility] [address] [place], [place] [address] Lou Ml MANUAL DIFF REQ NO Normal [facility] Comment on above: Performed By: #### C BC #### [facility] [address] [place], [place] [address] Lou Ml MCH (RBC) [Entitic mass] 31.6 pg Normal 26.7-34.[address] [facility] Comment on above: Performed By: #### C BC #### [facility] [address] [place] [address] 71087 Lou Ml MCHC (RBC) [Mass/Vol] 34.6 g/dL Normal 29.9-35.[address] [facility] Comment on above: Performed By: #### C BC #### [facility] [address] [place], [place] [address] Lou Ml MCV (RBC) [Entitic vol] 91.5 fL Normal 79.1-95.[address] [facility] Comment on above: Performed By: #### C BC #### [facility] [address] [place] [address] 90294 Lou Ml Monocytes (Bld) [#/Vol] 0.6 103/ul Normal 0.3-0.[address] [facility] Comment on above: Performed By: #### C BC #### [facility] [address] [place] [address] 27004 Lou Ml Monocytes/100 WBC (Bld) 6.4 % Normal 1.7-12.[address] [facility] Comment on above: Performed By: #### C BC #### [facility] [address] [place] [address] 03897 Lou Ml Neutrophils (Bld) [#/Vol] 5.3 103/ul Normal 1.4-6.[address] [facility] Comment on above: Performed By: #### C BC #### [facility] [address] [place], [place] [address] Lou Ml Neutrophils/100 WBC (Bld) 59.3 % Normal 43.0-75.[address] [facility] Comment on above: Performed By: #### C BC #### [facility] [address] [place] [address] 97544 Lou Ml Platelet mean volume (Bld) [Entitic vol] 10.6 fL Normal 9.5-13.5 [facility] Comment on above: Performed By: #### C BC #### [facility] [address] [place] [address] Lou Ml Platelets (Bld) [#/Vol] 220 103/ul Normal 150-[address] [facility] Comment on above: Performed By: #### C BC #### [facility] [address] [place], [place] [address] Lou Ml RBC (Bld) [#/Vol] 4.11 106/ul Normal 3.40-5.[address] [facility] Comment on above: Performed By: #### C BC #### [facility] [address] [place], [place] [address] Lou Ml WBC (Bld) [#/Vol] 8.9 103/ul Normal 4.0-11.0 [facility] Comment on above: Performed By: #### C BC #### [facility] [address] [place], [place] [address] Lou Ml DRUG SCREEN RAPID (URINE)on 01-23-2019 AMP Negative Normal NEGATIVE [facility] Comment on above: Performed By: #### D RUGRPD #### [facility] [address] [place], [place] [address] Lou Ml BAR Negative Normal NEGATIVE [facility] Comment on above: Performed By: #### D RUGRPD #### [facility] [address] [place], [place] [address] Lou Ml BUP Negative Normal NEGATIVE [facility] Comment on above: Performed By: #### D RUGRPD #### [facility] [address] [place], [place] [address] Lou Ml BZO Negative Normal NEGATIVE [facility] Comment on above: Performed By: #### D RUGRPD #### [facility] [address] [place], [place] [address] Lou Ml BRITTON Negative Normal NEGATIVE [facility] Comment on above: Performed By: #### D RUGRPD #### [facility] [address] [place] [address] Lou Ml CUT-OFFS SEE BELOW Normal [facility] Comment on above: Result Comment: AMP [...] Performed By: #### D RUGRPD #### [facility] [address] [place] [address] DRUG CUT HEADER DRUG CLASS TEST SYSTEM CUT-OFF CONCENTRATIONS ARE FOLLOWS: Normal [facility] Comment on above: Performed By: #### D RUGRPD #### [facility] [address] [place] [address] Lou Ml mAMP Negative Normal NEGATIVE [facility] Comment on above: Performed By: #### D RUGRPD #### [facility] [address] [place] [address] Lou Ml MTD Negative Normal NEGATIVE [facility] Comment on above: Performed By: #### D RUGRPD #### [facility] [address] [place] [address] Lou Ml OPI Negative Normal NEGATIVE [facility] Comment on above: Performed By: #### D RUGRPD #### [facility] [address] [place] [address] Lou Ml OXY Negative Normal NEGATIVE [facility] Comment on above: Performed By: #### D RUGRPD #### [facility] [address] [place] [address] Lou Ml PCP Negative Normal NEGATIVE [facility] Comment on above: Performed By: #### D RUGRPD #### [facility] [address] [place] [address] Lou Ml PPX Negative Normal NEGATIVE [facility] Comment on above: Performed By: #### D RUGRPD #### [facility] [address] [place] [address] Lou Ml TCA Negative Normal NEGATIVE [facility] Comment on above: Performed By: #### D RUGRPD #### [facility] [address] [place] [address] Lou Ml THC Positive Normal NEGATIVE [facility] Comment on above: Performed By: #### D RUGRPD #### [facility] [address] [place] [address] Lou Ml ETHANOL (BLD ALC)on 01-24-20 19 Ethanol [Mass/Vol] mg/dL Normal [facility] Comment on above: Performed By: #### E TH #### [facility] [address] [place] [address] Lou Ml Ethanol [Mass/Vol] NOTE: 80 mg/dl is the legal limit for a blood alcohol level Normal [facility] Comment on above: Performed By: #### E TH #### [facility] [address] [place] [address] Lou Ml URon 01-23-2019 , QUAL Negative Normal NEGATIVE [facility] Comment on above: Performed By: #### P REGU #### [facility] [address] [place] [address] Lourex Cisnerosen PROF 14(COMP METB)on 019 Age - Reported Normal [facility] Comment on above: Performed By: #### C MP #### [facility] [address] [place] [address] Lou Ml Albumin [Mass/Vol] 4.3 g/dL Normal 3.5-5.[address] [facility] Comment on above: Performed By: #### C MP #### [facility] [address] [place] [address] Lou Ml Albumin/Globulin [Mass ratio] 1.6 {ratio} Normal [facility] Comment on above: Performed By: #### C MP #### [facility] [address] [place] [address] Lou Ml ALP [Catalytic activity/Vol] 66 U/L Normal 65-260 [facility] Comment on above: Performed By: #### C MP #### [facility] [address] [place], [place] [address] Lou Ml ALT [Catalytic activity/Vol] 22 U/L Normal 9-52 [facility] Comment on above: Performed By: #### C MP #### [facility] [address] [place] [address] Lou Ml Anion gap [Moles/Vol] 11.4 mmol/L Normal [facility] Comment on above: Performed By: #### C MP #### [facility] [address] [place] [address] Lou Ml AST [Catalytic activity/Vol] 16 U/L Normal 14-36 [facility] Comment on above: Performed By: #### C MP #### [facility] [address] [place] [address] Lou Ml Bilirubin Ql (U) 0.6 mg/dL Normal 0.2-1.3 [facility] Comment on above: Performed By: #### C MP #### [facility] [address] [place] [address] Lou Ml Calcium [Mass/Vol] 9.7 mg/dL Normal 8.4-10.[address] [facility] Comment on above: Performed By: #### C MP #### [facility] [address] [place] [address] Lou Ml Chloride [Moles/Vol] 103 mmol/L Normal 98-107 [facility] Comment on above: Performed By: #### C MP #### [facility] [address] [place], [place] [address] Lou Ml CO2 [Moles/Vol] 27.2 mmol/L Normal 22.0-30.0 [facility] Comment on above: Performed By: #### C MP #### [facility] [address] [place] [address] Lou Ml Creatinine [Mass/Vol] 0.59 mg/dL Normal 0.52-1.[address] [facility] Comment on above: Performed By: #### C MP #### [facility] [address] [place] [address] Lou Ml EGFR-AF TUNISIAN Normal >=60 [facility] Comment on above: Performed By: #### C MP #### [facility] [address] [place], [place] [address] Lou Ml EGFR-NON AF TUNISIAN Normal >=[address] [facility] Comment on above: Performed By: #### C MP #### [facility] [address] [place] [address] Lou Ml Globulin (S) [Mass/Vol] 2.7 g/dL Normal [facility] Comment on above: Performed By: #### C MP #### [facility] [address] [place] [address] Lou Ml Glucose [Mass/Vol] 90 mg/dL Normal 74-106 [facility] Comment on above: Performed By: #### C MP #### [facility] [address] [place] [address] Lou Ml Potassium [Moles/Vol] 3.6 mmol/L Normal 3.4-5.[address] [facility] Comment on above: Performed By: #### C MP #### [facility] [address] [place] [address] Lou Ml Protein [Mass/Vol] 7.0 g/dL Normal 6.1-8.2 [facility] Comment on above: Performed By: #### C MP #### [facility] [address] [place] [address] Lou Ml Sodium [Moles/Vol] 138 mmol/L Normal 137-145 [facility] Comment on above: Performed By: #### C MP #### [facility] [address] [place] [address] Lou Ml Urea nitrogen [Mass/Vol] 16.0 mg/dL Normal 6.4-19.3 [facility] Comment on above: Performed By: #### C MP #### [facility] [address] [address] Lou Bull Urea nitrogen/Creatinine [Mass ratio] 27.1 mg/mg Normal [facility] Comment on above: Performed By: #### C MP #### [facility] [address] [id number] Lou Bull SALICYLATEon 01-23-2019 SALICYLATE 6.5 mg/dL Normal <=20.0 [facility] Comment on above: Performed By: #### S ALYC #### [facility] [address] [address] Lou Bull Vital Signs Date Time Vital Sign Value Performing Clinician Faci lity 12-09-2023 14:51-0400 Body mass index (BMI) [Ratio] 22.12 kg/m2 [facility] 12-09-2023 14:51-0400 Body weight 61.24 kg [facility] 12-09-2023 14:51-0400 Diastolic blood pressure 66 mm[Hg] [facility] 12-09-2023 14:51-0400 Systolic blood pressure 100 mm[Hg] [facility] Nurse [facility] Encounters Encounter Date Encounter Type Care Provider Facility Start: 12-28-2023 End: 12-28-2023 Emergency department patient visit NOT IN SYSTEM [facility] Start: 12-09-2023 End: 12-09-2023 ambulatory [facility] Luz Elena Nurse [facility] Comment on above: GA: 8w2d Start: 01-20-2023 End: 01-20-2023 ambulatory EBONY LUZ ELENA Not Available Start: 01-23-2019 End: 01-23-2019 Patient encounter procedure ELINOR PALOMO Facility:[facility]1 Procedures Date Procedure Procedure Detail Performing Clinician Start: 12-09-2023 Urnls dip stick/tabl et rgnt non-auto w/o micrscp Ebony Luz Elena DO Work Phone: Plan of Treatment Date Care Activity Detail Author Start: 01-10-2024 End: 01-10-2024 Patient encounter procedure 01/10/2024 1:40 PM EST Routine [facility] [address] [place] [id number] Ebony Laguna DO [address] [place] [address] [facility] Start: 12-09-2023 End: 12-08-2024 ABO/Rh ABO/Rh Lab Routine Missed menses , unspecified gestational age Expected: 12/09/2023 (Approximate), Expires: 12/08/2024 [facility] Comment on above: Expected: 12/09/2023 (Approximate), Expires: 12/08/2024 Start: 12-09-2023 End: 12-08-2024 Blood type and Indirect antibody screen panel - Blood Type and screen Lab Routine Missed menses , unspecified gestational age Expected: 12/09/2023 (Approximate), Expires: 12/08/2024 [facility] Work Phone: Comment on above: Expected: 12/09/2023 (Approximate), Expires: 12/08/2024 Start: 12-09-2023 End: 12-08-2024 Drugs of abuse panel - Urine by Screen method Rapid drug screen, urine Lab Routine , unspecified gestational age Encounter for supervision of normal first in first trimester Expected: 12/09/2023 (Approximate), Expires: 12/08/2024 [facility] Comment on above: Expected: 12/09/2023 (Approximate), Expires: 12/08/2024 Start: 12-09-2023 End: 12-08-2024 US Pelvis transvaginal US OB transvaginal Imaging Routine Missed menses Expected: 12/09/2023 (Approximate), Expires: 12/08/2024 [facility] Comment on above: Expected: 12/09/2023 (Approximate), Expires: 12/08/2024 Start: 10-17-2023 Influenza vaccination Influenza Vacc ine (#1) [facility] Bacteria identified in Urine by Culture Urine culture Microbiology Routine Missed menses Ordered: 12/09/2023 [facility] Comment on above: Ordered: 12/09/2023 CBC W Auto Different ial panel - Blood CBC and differential Lab Routine Missed menses , unspecified gestational age Ordered: 12/09/2023 [facility] Comment on above: Ordered: 12/09/2023 Hemoglobin A1c/Hemoglobin.total in Blood Hemoglobin A1c Lab Routine Missed menses , unspecified gestational age Ordered: 12/09/2023 [facility] Comment on above: Ordered: 12/09/2023 Hepatitis B virus surface Ag [Presence] in Serum or Plasma by Immunoassay Hepatitis B surface antigen Lab Routine Missed menses , unspecified gestational age Ordered: 12/09/2023 [facility] Comment on above: Ordered: 12/09/2023 Hepatitis C virus Ab [Presence] in Serum or Plasma by Immunoassay Hepatitis C antibody Lab Routine Missed menses , unspecified gestational age Ordered: 12/09/2023 [facility] Comment on above: Ordered: 12/09/2023 HIV-1/HIV-2 antigen/antibody combination immunoassay HIV-1 and HIV-2 antibodies Lab Routine Missed menses , unspecified gestational age Ordered: 12/09/2023 [facility] Comment on above: Ordered: 12/09/2023 Reagin Ab [Presence] in Serum by RPR RPR Lab Routine Missed menses , unspecified gestational age Ordered: 12/09/2023 [facility] Comment on above: Ordered: 12/09/2023 Rubella antibody, IgG Rubella an tibody, IgG Lab Routine Missed menses , unspecified gestational age Ordered: 12/09/2023 [facility] Comment on above: Ordered: 12/09/2023 Payers Date Payer Category Payer [facility] [id number] 2019 Unknown [id number] 2001 Unknown [id number] 2001 Unknown [id number] 2001 Unknown [id number] 1978 Unknown [id number] 1959 Unknown [id number] Social History Date Type Detail Facility Start: 01-19-2023 Tobacco smoking stat [facility] Smokes tobacco daily [facility] History of tobacco use Cigarette Smoker [facility] Start: 01-19-2023 Tobacco use and exposure Smokeless t obacco non-user [facility] Start: 12-09-2023 Alcoholic beverage intake Curr ent drinker of alcohol (finding) [facility] Start: 07-08-2022 End: 01-19-2023 History of Social function [facility] Start: 07-08-2022 End: 01-19-2023 Tobacco use panel [facility] Start: 07-08-2022 Alcohol Comment once a month [facility] Start: 10-26-2023 [facility] Start: 2001 Sex assigned at Not on file [facility] Start: 04-29-2022 Gender identity Identifies as female gender (finding) [facility] History of Present illness Narrative 12-09-2023 Meaghan Prado MA - 12/09/2023 2:00 PM EDT Note Date & Type Note Facility 12-09-2023 History of Presen t illness Narrative Reason for Appointment: Patient ID: Evelyn Carranza is a 23 y.o. female who presents for Amenorrhea Patient presents today for a Nurse OB Intake appointment. Patient is 8w2d with a Estimated Date of Delivery: 07/18/24 OB History Para Term AB Living 1 SAB IAB Ectopic Multiple Live Births # Outcome Date GA Lbr Miguelangel/2nd Weight Sex Type Anes PTL Lv 1 Current Current Medications: has a current medication list which includes the following prescription(s): ondansetron odt and vitamin. Medical History: Active Ambulatory Problems Diagnosis Date Noted Anxiety disorder 07/08/2022 Mood disorder ([facility]) 07/08/2022 Cannabis use, 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[facility]) 07/08/2022 Moderate episode of recurrent major depressive disorder ([facility]) 07/08/2022 Oppositional defiant disorder (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) 07/08/2022 Resolved Ambulatory Problems Diagnosis Date Noted No Resolved Ambulatory Problems Past Medical History: Diagnosis Date Hematuria UTI (urinary tract infection) 2001 Family History Problem Relation Name Age of Onset Alcohol abuse Father ADD / ADHD Brother Alcohol abuse Maternal Grandmother Cancer Maternal Grandmother Cancer Paternal Grandmother Alcohol abuse Paternal Grandfather Hypertension Paternal Grandfather Bipolar disorder Mother's Sister Social History Tobacco Use Smoking status: Every Day Types: Cigarettes Smokeless tobacco: Never Substance Use Topics Alcohol use: Yes Comment: once a month Drug use: Never History reviewed. No pertinent surgical history. No Known Allergies Vitals: Estimated body mass index is 22.12 kg/m as calculated from the following: Height as of 07/08/22: 5' 5.5 . Weight as of this encounter: 135 lb. BP: 100/66 Patient's last menstrual period was 10/12/2023. Assessment/Plan Diagnoses and all orders for this visit: Missed menses - Type and screen; Future - ABO/Rh; Future - CBC and differential - Hemoglobin A1c - RPR - Rubella antibody, IgG - Hepatitis B surface antigen - Hepatitis C antibody - HIV-1 and HIV-2 antibodies - Urine culture - US OB transvaginal; Future - POCT , urine manually resulted - POCT urinalysis dipstick manually resulted , unspecified gestational age - Type and screen; Future - ABO/Rh; Future - CBC and differential - Hemoglobin A1c - RPR - Rubella antibody, IgG - Hepatitis B surface antigen - Hepatitis C antibody - HIV-1 and HIV-2 antibodies - Rapid drug screen, urine; Future - vitamin (Prenatabs Rx) 29-1 MG tablet; Take 1 tablet by mouth Daily Encounter for supervision of normal first in first trimester - Rapid drug screen, urine; Future Nausea and vomiting in - ondansetron ODT (Zofran-ODT) 4 MG disintegrating tablet; Take 1 tablet (4 mg) by mouth every 6 (six) hours if needed for nausea or vomiting Nurse Note: Pt will contemplate if she will do [place]. Pt was advised if she does want [place] to have it done w/ labs so only poked one time. Pt verbally understood. Pt currently vapes daily and does marijuana. Pt has a h/o a miscarriage in 12/2022. Follow Up: Patient is to have labs drawn at directed and return to office for initial OB appointment with provider. Patient may call office as needed with any concerns or questions. Nurse Visit Completed by: Meaghan Prado MA documented in this encounter [facility] Evaluation note Note Date & Type Note Facility Evaluation note Diagnosis Missed menses , unspecified gestational age Encounter for supervision of normal first in first trimester Nausea and vomiting in Unspecified vomiting of , unspecified as to episode of care documented in this encounter [facility] Summary Purpose Family History No Family History Records FoundNo Family History Records FoundNo Family History Records Found Advance Directives No Advanced Directives Records FoundNo Advanced Directives Records FoundNo Advanced Directives Records Found Additional Source Comments INFORMATION SOURCE (unrecogn ized section and content) DATE CREATED AUTHOR 01/25/2019 [facility] DATE CREATED AUTHOR AUTHOR'S ORGANIZ ATION 12/11/2023 [facility] DATE CREATED AUTHOR AUTHOR'S ORGANIZ ATION 12/29/2023 [facility] Reason for Visit (unrecogniz ed section and content) Reason Comments Amenorrhea Care Teams (unrecognized sec tion and content) Patient Representative Relationship Specialty Start Date End Date Cary Ocasio MD [address] [place] [address] PCP - General Family Medicine 07/07/22 FOR RECORDS PERTAINING TO PATIENTS WHO ARE [...] BE BASED ON THE PRIMARY CLINICAL RECORDS. [facility] [employer] [facility]. provides no warranty or guarantee of the accuracy or completeness of information in this document.
[2024-01-03 10:50] LABS: Estimated Average Glucose 82 mg/dL; Glycohemoglobin A1C 4.5 % (4.5-6.2)
[2024-01-03 10:57] LABS: Basophils Percent Auto 0.3 % (0.2-2.0); Eosinophils Absolute Auto 0.3 10^3/uL (0.0-0.7); Eosinophils Percent Auto 2.2 % (0.9-7.0); Immature Granulocytes Abs Auto 0.04 10^3/uL (0.00-0.03); Immature Granulocytes Pct Auto 0.3 % (0.0-0.5); Lymphocytes Absolute Auto 1.4 10^3/uL (1.2-3.8); Lymphocytes Percent Auto 11.9 % (20.5-60.0); Mean Corpuscular HGB Conc 35.1 g/dL (29.9-35.2); Mean Corpuscular Hemoglobin 32.9 pg (26.7-34.0); Mean Corpuscular Volume 93.7 fL (81.0-99.0); Mean Platelet Volume 10.9 fL (9.5-13.5); Monocytes Absolute Auto 0.4 10^3/uL (0.3-0.8); Monocytes Percent Auto 3.4 % (1.7-12.0); Neutrophils Absolute Auto 9.5 10^3/uL (1.4-6.5); Neutrophils Percent Auto 81.9 % (43.0-75.0); Platelet Count 232 10^3/uL (150-450); Red Blood Count 3.95 10^6/uL (4.20-5.40); Red Cell Distribution Width 11.9 % (11.0-15.0); White Blood Count 11.7 10^3/uL (4.0-11.0)
[2024-01-03 12:16] LABS: Amphetamine Screen Urine NEGATIVE (NEGATIVE); Barbiturates Screen Urine NEGATIVE (NEGATIVE); Benzodiazepines Screen Urine NEGATIVE (NEGATIVE); Buprenorphine Screen Urine NEGATIVE (NEGATIVE); Cannabinoid Screen Urine POSITIVE (NEGATIVE); Cocaine Screen Urine NEGATIVE (NEGATIVE); Methadone Screen Urine NEGATIVE (NEGATIVE); Methamphetamines Screen Urine NEGATIVE (NEGATIVE); Opiate Screen Urine NEGATIVE (NEGATIVE); Oxycodone Screen Urine NEGATIVE (NEGATIVE); Phencyclidine Screen Urine NEGATIVE (NEGATIVE); Tricyclic Antidepressant Urine NEGATIVE (NEGATIVE)
[2024-01-03 14:29] LABS: BOX Test Reference Lab UNITY; BOX Test Sent Out UNITY
[2024-01-04 06:19] LABS: HBsAg Screen Negative (Negative); HCV Ab Non Reactive (Non Reactive); HIV Ab/p24 Ag Screen Non Reactive (Non Reactive)
[2024-01-04 07:08] LABS: Rubella Antibodies, IgG 2.02 index (Immune >0.99)
[2024-01-04 13:08] LABS: Rapid Plasma Reagin, Quant Non Reactive titer (NonRea<1:1)
== END 2024-01-03 09:51 | disposition home or self-care (01) ==
LOC: LAB 09:54
PROVIDERS: PCP Family Medicine; Visit Provider Obstetrics & Gynecology
DX: Z34.01 Encounter for supervision of normal first pregnancy, first trimester (principal); Z36.0 Encounter for antenatal screening for chromosomal anomalies; N92.6 Irregular menstruation, unspecified
CPT/HCPCS: 36415; 80307; 80349; 83036; 85025; 86592; 86762; 86803; 86850; 86900; 86901; 87086; 87340; 87389

== ENCOUNTER 2024-02-07 21:03 | Outpatient (REF) | payer BC, SELFPAY ==
--- OUTSIDE RECORDS SUMMARY | 2024-02-07 21:06 | XMS_ITS | CCD ---
Author Organization [facility] Care Team Providers Care Typing Bookkeeper Name Role Phone ELINOR PALOMO Consulting Unavailable ELINOR PALOMO Admitting Unavailable ELINOR PALOMO Attending Unavailable Cary Ocasio MD Primary Care Provider PCP, NOT IN SYSTEM Primary Care Unavailable HELLEN VERDIN Attending Unavailable EBONY LAGUNA Attending Unavailable EBONY LAGUNA Attending Unavailable Medications Current Medications Medication Drug Class(es) Dates Sig (Normalized) Sig (Original) metoclopramide 10 mg oral tablet (5 sources) Dopamine-2 Receptor Antagonist Start: 01-10-2024 End: 02-09-2024 metoclopramide (Reglan) 10 MG tablet Indications: Nausea and vomiting in Take 1 tablet (10 mg) by mouth in the morning and 1 tablet (10 mg) at noon and 1 tablet (10 mg) in the evening. Take before meals. Take 1 tablet by mouth 30 minutes prior to meals 3 times daily as needed for nausea.. 90 tablet 1 01/10/2024 02/09/2024 Active ondansetron 4 mg disintegrating oral tablet (4 sources) Serotonin-3 Receptor Antagonist Start: 12-09-2023 End: 01-26-2024 take 1 tablet by mouth every six hours for nausea ondansetron ODT (Zofran-ODT) 4 MG disintegrating tablet Indications: Nausea and vomiting in Take 1 tablet (4 mg) by mouth every 6 (six) hours if needed for nausea or vomiting 30 tablet 2 12/27/2023 01/26/2024 Active vitamin (Prenatabs Rx) 29-1 MG tablet (7 sources) Start: 12-09-2023 End: 12-08-2024 take 1 tablet by mouth once daily vitamin (Prenatabs Rx) 29-1 MG tablet Indications: , unspecified gestational age Take 1 tablet by mouth Daily 360 tablet 12/09/2023 12/08/2024 Active Problems Active Problems Problem Classification Problem Date Documented Da te Episodic/Chronic Allergic reactions (7 sources) Atopic dermatitis; Translations: [Other atopic dermatitis] Onset: 07-08-2022 07-08-2022 Chronic Anxiety disorders (11 sources) State of emotional shock and stress, unspecified; Translations: [Anxiety disorder] Onset: 01-23-2019 07-08-2022 Chronic Attention-deficit, conduct, and disruptive behavior disorders (7 sources) Oppositional defiant disorder; Translations: [Oppositional defiant disorder] Onset: 07-08-2022 07-08-2022 Chronic Menstrual disorders (1 source) Missed period; Translations: [Irregular menstruation, unspecified] 12-09-2023 Chronic Mood disorders (14 sources) Mood disorder; Translations: [Unspecified mood [affective] disorder] Onset: 07-08-2022 07-08-2022 Chronic Nonspecific chest pain (1 source) Chest pain, unspecified; Translations: [Chest pain, unspecified] Onset: 12-28-2023 Episodic Other complications of (3 sources) Vomiting of , unspecified; Translations: [Unspecified vomiting of , unspecified as to episode of care or not applicable] 12-09-2023 Episodic Other and delivery including normal (9 sources) ; Translations: [Encounter for supervision of normal , unspecified, unspecified trimester] Onset: 02-07-2024 12-09-2023 Episodic Other screening for suspected conditions (not mental disorders or infectious disease) (5 sources) Patient encounter status; Translations: [Encounter for other specified screening] Onset: 02-07-2024 02-07-2024 Episodic Residual codes; unclassified (1 source) 11 weeks gestation of ; Translations: [11 weeks gestation of ] Onset: 12-28-2023 Episodic Residual codes; unclassified (2 sources) Gestation period, 12 weeks; Translations: [12 weeks gestation of ] 01-10-2024 Episodic Residual codes; unclassified (5 sources) Gestation period, 16 weeks; Translations: [16 weeks gestation of ] Onset: 02-07-2024 02-07-2024 Episodic Syncope (2 sources) Syncope and collapse; Translations: [Syncope] Onset: 12-28-2023 Episodic Unclassified (1 source) Ill Onset: 12-28-2023 Past or Other Problems Problem Classification Problem Date Documented Da te Episodic/Chronic Poisoning by nonmedicinal substances (7 sources) Toxic effect of ethyl alcohol; Translations: [Toxic effect of ethanol, accidental (unintentional), initial encounter] Onset: 07-08-2022 07-08-2022 Episodic Substance-related disorders (7 sources) Cannabis-induced organic mental disorder; 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, unspecified with unspecified cannabis-induced disorder] Onset: 07-08-2022 07-08-2022 Episodic Results Test Name Value Interpretation Reference Range Facility Urinalysis macro (dipstick) panel (U)Ordered By: Kal Vera on 02-07-2024 Bilirubin, UA Negative Negative - 4(70) +++ mg/dL [facility] Work Phone: Blood, UA Negative Negative - 50 Haroon/mcL [facility] Work Phone: Clarity, UA Clear [facility] Work Phone: Color, UA Yellow [facility] Work Phone: Glucose, UA Negative Negative - 1999(110) ++++ mg/dL [facility] Work Phone: Interpretation and review of laboratory results Normal [facility] Work Phone: Ketones, UA Negative Negative - 160(16) ++++ mg/dL [facility] Work Phone: Leukocytes, UA Negative Negative - 500+++ Robert/mcL [facility] Work Phone: Nitrite, UA Negative Negative - Positive [facility] Work Phone: pH, UA 7.5 5 - 9 [facility] Work Phone: Protein, UA Negative Negative - 2000(20) ++++ mg/dL [facility] Work Phone: Spec Grav, UA 1.02 1 - 1.03 [facility] Work Phone: Urobilinogen, UA 1.0 0.2 - 12 mg/dL [facility] Work Phone: [facility] Work Phone: Urinalysis macro (dipstick) panel (U)on 01-10-2024 Bilirubin, UA Negative Negative - 4(70) +++ mg/dL [facility] Blood, UA Positive Negative - 50 Haroon/mcL [facility] Comment on above: trace Clarity, UA Clear [facility] Color, UA Yellow [facility] Glucose, UA Negative Negative - 1999(110) ++++ mg/dL [facility] Interpretation and review of laboratory results Abnormal [facility] Ketones, UA Negative Negative - 160(16) ++++ mg/dL [facility] Leukocytes, UA Negative Negative - 500+++ Robert/mcL [facility] Nitrite, UA Negative Negative - Positive [facility] pH, UA 7 5 - 9 [facility] Protein, UA Negative Negative - 1999(20) ++++ mg/dL [facility] Spec Grav, UA 1.025 1 - 1.03 [facility] Urobilinogen, UA 0.2 0.2 - 12 mg/dL [facility] CANNABINOID CONF, MS, URon 1 03-09-2023 CANNABINOID Positive Abnormal . [facility] CARBOXY THC CONF, MS, UR 446 ng/mL Cutoff=10 [facility] Comment on above: Performed at: [facility] [address] [place], [place] [id number] Breaker Machine Operator: Bala Carpenter PhD, Phone: [phone] Interpretation and review of laboratory results Abnormal [facility] ALL RUBELLA IGG ABon 024 RUBELLA ANTIBODIES, IGG 2.02 Immune >0.99 index [facility] Comment on above: Non-immune <0.90 Equivocal 0.90 - 0.99 Immune >0.99 Performed at: [facility] [address] [id number] Breaker Machine Operator: Colten Caceres PhD, Phone: [phone] HBSAG SCREENon 01-04-2024 HBSAG SCREEN Negative Negative [facility] Comment on above: Performed at: [facility] [address] [id number] Breaker Machine Operator: Colten Caceres PhD, Phone: [phone] HCV ANTIBODY RFX TO QUANT PC Kevin 01-04-2024 HCV AB Non-Reactive Non Reactive [facility] INTERPRETATION: Comment . [facility] Comment on above: Not infected with HC V unless early or acute infection is suspected (which may be delayed in an immunocompromised individual), or other evidence exists to indicate HCV infection. HIV AB/P24 AG WITH REFLEXon 01-04-2024 HIV AB/P24 AG SCREEN Non-Reactive Non Reactive [facility] Comment on above: HIV-1/HIV-2 antibodi es and HIV-1 p24 antigen were NOT detected. There is no laboratory evidence of HIV infection. HIV Negative Performed at: [address] [id number] Breaker Machine Operator: Colten Caceres PhD, Phone: [phone] No [facility] 01-[facility] RAPID PLASMA REAGIN, QUANTon 01-04-2024 RAPID PLASMA REAGIN, QUANT Non-Reactive NonRea<1:1 titer [facility] Comment on above: Please Note: This te st does not meet current guidelines for screening and diagnosis of syphilis. This test is intended for following treatment response in patients being treated for syphilis infection. To screen for syphilis infection, a reflex cascade that includes both RPR and a treponema-specific assay should be utilized, such as Treponema pallidum (Syphilis) Screening [place] (986294) or Rapid Plasma Reagin (RPR) Test With Reflex to Quantitative RPR and Confirmatory Treponema pallidum Antibodies (355839). Performed at: [address] [id number] Breaker Machine Operator: Colten Caceres PhD, Phone: [phone] URINE CULTURE, ROUTINEon Bacteria identified Cx Nom (U) Urine Culture, Routine [facility] Bacteria identified Cx Nom (U) Mixed urogenital татьяна [facility] Bacteria identified Cx Nom (U) Less than 10,000 colonies/mL [facility] Bacteria identified Cx Nom (U) Performed at: [facility] Bacteria identified Cx Nom (U) [address] [place] [phone] [facility] Bacteria identified Cx Nom (U) Breaker Machine Operator: Colten Caceres PhD, Phone: [phone] [facility] ALL CBC WITH AUTO DIFFon BASOPHILS ABSOLUTE AUTO 0 [facility] Basophils/100 WBC (Bld) 0.3 % 0.2 - 2.0 % [facility] Eosinophils/100 WBC (Bld) 2.2 % 0.9 - 7.0 % [facility] Erythrocyte distribution width (RBC) [Ratio] 11.9 % 11.0 - 15.0 % [facility] Hematocrit (Bld) [Volume fraction] 37 % 36.0 - 48.0 % [facility] Hemoglobin (Bld) [Mass/Vol] 13 g/dL 12.0 - 16.0 g/dL [facility] IMMATURE GRANULOCYTES ABS AUTO 0.04 High [facility] Immature granulocytes/100 WBC (Bld) 0.3 % 0.0 - 0.5 % [facility] Interpretation and review of laboratory results Abnormal [facility] LYMPHOCYTES ABSOLUTE AUTO 1.4 [facility] Lymphocytes/100 WBC (Bld) 11.9 % Low 20.5 - 60.0 % [facility] MCH (RBC) [Entitic mass] 32.9 pg 26.7 - 34.0 pg [facility] MCHC (RBC) [Mass/Vol] 35.1 g/dL 29.9 - 35.2 g/dL [facility] MCV (RBC) [Entitic vol] 93.7 fL 81.0 - 99.0 fL [facility] MONOCYTES ABSOLUTE AUTO 0.4 [facility] Monocytes/100 WBC (Bld) 3.4 % 1.7 - 12.0 % [facility] NEUTROPHILS ABSOLUTE AUTO 9.5 High [facility] Neutrophils/100 WBC (Bld) 81.9 % High 43.0 - 75.0 % [facility] Platelet mean volume (Bld) [Entitic vol] 10.9 fL 9.5 - 13.5 fL [facility] TBH EO # 0.3 [facility] TBH PLT 232 [facility] TB RBC 3.95 Low [facility] TB WBC 11.7 High [facility] ALL TYPE AND SCREENon 2023 ABO and Rh group Nom (Bld) Blood group O Rh(D) positive [facility]on 01-03-2024 BOX TEST SENT OUT [facility] BOX1 [facility] BOX2 01/03/24 [facility] MLR HEMOGLOBIN A1Con 024 Glucose [Mass/Vol] 82 mg/dL [facility] HbA1c (Bld) [Mass fraction] 4.5 % 4.5 - 6.2 % [facility] Comment on above: ADA RECOMMENDED LIMI T 4.0 - 6.0 ADA THERAPEUTIC TARGET < 7.0 ACTION SUGGESTED > 7.0 [facility] DRUG S[facility]EN RAPID (URINE )on 01-03-2024 AMPHETAMINE SCREEN URINE Negative NEGATIVE [facility] BARBITURATES SCREEN URINE Negative NEGATIVE [facility] BENZODIAZEPINES SCREEN URINE Negative NEGATIVE [facility] BUPRENORPHINE SCREEN URINE Negative NEGATIVE [facility] Comment on above: DRUG CLASS TEST SYST EM CUT-OFF CONCENTRATIONS ARE FOLLOWS: AMP (Amphetamine): 500 ng/mL BAR (Barbiturates): 200 ng/mL BZO (Benzodiazepines): 150 ng/mL BUP (Buprenorphine): 10 ng/mL BRITTON (Cocaine): 150 ng/mL mAMP (Methamphetamine): 500 ng/mL MTD (Methadone): 200 ng/mL OPI (Opiates): 100 ng/mL OXY (Oxycodone): 100 ng/mL PCP (Phencyclidine): 25 ng/mL THC (Cannabinoids): 50 ng/mL TCA (Trycyclic Antidepressants): 300 ng/mL CANNABINOID SCREEN URINE Positive Abnormal NEGATIVE [facility] COCAINE SCREEN URINE Negative NEGATIVE [facility] Interpretation and review of laboratory results Abnormal [facility] METHADONE SCREEN URINE Negative NEGATIVE [facility] METHAMPHETAMINES SCREEN URINE Negative NEGATIVE [facility] OPIATE SCREEN URINE Negative NEGATIVE [facility] OXYCODONE SCREEN URINE Negative NEGATIVE [facility] PHENCYCLIDINE SCREEN URINE Negative NEGATIVE [facility] TRICYCLIC ANTIDEPRESSANT URINE Negative NEGATIVE [facility] BASIC METABOLIC PANLon 12-27 Anion gap [Moles/Vol] 8 mmol/L Normal 5-15 [facility] Comment on above: Performed By: #### C MARY GRACE, 99218-5, BMP #### [facility] ([id number]) [address] [place] [address], [place] [address] Calcium [Mass/Vol] 8.4 mg/dL Low 8.5-10.5 [facility] Comment on above: Performed By: #### C MARY GRACE, 81545-5, BMP #### [facility] ([id number]) [address] [place] [address] Chloride [Moles/Vol] 107 mmol/L Normal 98-109 [facility] Comment on above: Performed By: #### C MARY GRACE, 49554-5, BMP #### [facility] ([id number]) [address] [place] [address]56 CO2 [Moles/Vol] 22 mmol/L Normal 22-32 [facility] Comment on above: Performed By: #### Dorothy BRODY, 25731-6, BMP #### [facility] ([id number]) [address] [place] [address]157 Creatinine [Mass/Vol] 0.38 mg/dL Low 0.40-1.00 [facility] Comment on above: Result Comment: METH OD TRACEABLE TO IDMS STANDARD Performed By: #### Dorothy BRODY, 58895-2, BMP #### [facility] ([id number]) [address] [place] [address]876 eGFR (CKD-EPI) NON-RACE DEPENDENT >90 Normal >59 [facility] Comment on above: Result Comment: Reported eGFR is based on the CKD-EPI 2021 equation that does not use a race coefficient. Performed By: #### Dorothy BRODY, 37889-2, BMP #### [facility] ([id number]) [address] [place] [address] Glucose [Mass/Vol] 67 mg/dL Normal 65-99 [facility] Comment on above: Performed By: #### Dorothy BRODY, 19727-1, BMP #### [facility] ([id number]) [address] [place] [address] Potassium [Moles/Vol] 3.3 mmol/L Low 3.5-5.0 [facility] Comment on above: Performed By: #### Dorothy BRODY, 92679-0, BMP #### [facility] ([id number]) [address] [place] [address] 18915 Sodium [Moles/Vol] 137 mmol/L Normal 134-146 [facility] Comment on above: Performed By: #### Dorothy BRODY, 82930-4, BMP #### [facility] ([id number]) [address] [place] [address]245 Urea nitrogen [Mass/Vol] 11 mg/dL Normal 5-23 [facility] Comment on above: Performed By: #### Dorothy BRODY 03060-0, BMP #### [facility] ([id number]) [address] [place] [address] CBC AND AUTO DIFFon 11-12-20 24 ABSOLUTE BASOPHIL 0.0 X10E9/L Normal 0.0-0.2 [facility] Comment on above: Performed By: #### Dorothy BRODY, 86277-4, BMP #### [facility] ([id number]) [address] [place] [address]79[address] ABSOLUTE NEUTROPHIL 5.6 X10E9/L Normal 1.5-6.6 [facility] Comment on above: Performed By: #### Dorothy BRODY 30035-5, BMP #### [facility] ([id number]) [address] [place] [address]4280 Basophils/100 WBC (Bld) 0.6 % Normal [facility] Comment on above: Performed By: #### Dorothy BRODY, 64739-7, BMP #### [facility] ([id number]) [address] [place] [address]04 Eosinophils (Bld) [#/Vol] 0.1 10*3/uL Normal 0.0-0.4 [facility] Comment on above: Performed By: #### Dorothy BRODY, 29123-2, BMP #### [facility] ([id number]) [address] [place] [address]258 Eosinophils/100 WBC (Bld) 0.8 % Normal [facility] Comment on above: Performed By: #### Dorothy BRODY, 24261-8, BMP #### [facility] ([id number]) [address] [place] [address] Erythrocyte distribution width (RBC) [Ratio] 12.4 % Normal 11.5-15.0 [facility] Comment on above: Performed By: #### Dorothy BRODY, 94491-4, BMP #### [facility] ([id number]) [address] [place] [address]29 Hematocrit (Bld) [Volume fraction] 33.5 % Low 35-47 [facility] Comment on above: Performed By: #### Dorothy BRODY 70297-4, BMP #### [facility] ([id number]) [address] [place] [address] 14863 Hemoglobin (Bld) [Mass/Vol] 11.7 g/dL Normal 11.7-15.5 [facility] Comment on above: Performed By: #### Dorothy BRODY, 12163-8, BMP #### [facility] ([id number]) [address] [place] [address] 98709 Lymphocytes (Bld) [#/Vol] 1.5 10*3/uL Normal 1.0-3.5 [facility] Comment on above: Performed By: #### Dorothy BRODY, 73998-9, BMP #### [facility] ([id number]) [address] [place] [address] 32805 Lymphocytes/100 WBC (Bld) 19.7 % Normal [facility] Comment on above: Performed By: #### Dorothy BRODY, 97268-5, BMP #### [facility] ([id number]) [address] [place] [address] 87265 MCH (RBC) [Entitic mass] 32.9 pg Normal 27-34 [facility] Comment on above: Performed By: #### Dorothy BRODY 51719-5, BMP #### [facility] ([id number]) [address] [place] [address] 70694 MCHC (RBC) [Mass/Vol] 35.1 g/dL Normal 32-36 [facility] Comment on above: Performed By: #### Dorothy BRODY 92395-5, BMP #### [facility] ([id number]) [address] [place] [address] 05857 MCV (RBC) [Entitic vol] 94 fL Normal 80-100 [facility] Comment on above: Performed By: #### Dorothy BRODY 80839-9, BMP #### [facility] ([id number]) [address] [place] [address]5825 Monocytes (Bld) [#/Vol] 0.3 10*3/uL Normal 0-0.9 [facility] Comment on above: Performed By: #### Dorothy BRODY 13765-0, BMP #### [facility] ([id number]) [address] [place] [address] 57984 Monocytes/100 WBC (Bld) 4.2 % Normal [facility] Comment on above: Performed By: #### Dorothy BRODY 83108-1, BMP #### [facility] ([id number]) [address] [place] [address] 52497 Neutrophils/100 WBC (Bld) 74.7 % Normal [facility] Comment on above: Performed By: #### Dorothy BRODY 29554-6, BMP #### [facility] ([id number]) [address] [place] [address] 32697 Platelet mean volume (Bld) [Entitic vol] 9.1 fL Normal 7-12 [facility] Comment on above: Performed By: #### Dorothy BRODY, 46757-9, BMP #### [facility] ([id number]) [address] [place] [address] 89281 Platelets (Bld) [#/Vol] 195 10*3/uL Normal 150-450 [facility] Comment on above: Performed By: #### Dorothy BRODY, 70566-9, BMP #### [facility] ([id number]) [address] [place] [address] 77648 RBC COUNT 3.57 X10E12/L Low 3.80-5.20 [facility] Comment on above: Performed By: #### Dorothy BRODY, 27373-2, BMP #### [facility] ([id number]) [address] [place] [address] 28458 WBC (Bld) [#/Vol] 7.5 10*3/uL Normal 4.0-11.0 [facility] Comment on above: Performed By: #### Dorothy BRODY, 05217-9, BMP #### [facility] ([id number]) [address] [place] [address] 45778 Troponin I.cardiac High sens itivity method [Mass/Vol]on 12-28-2023 1 HOUR TROP I, HIGH SENSITIVITY <2 Normal <16 [facility] Comment on above: Performed By: #### 8 9579-7 #### [facility] ([id number]) [address] [place] [address] 63386 TROPONIN I, HIGH SENSITIVITY <2 Normal <16 [facility] Comment on above: Performed By: #### Dorothy BRODY, 71160-9, BMP #### [facility] ([id number]) [address] [place] [address] 90753 HCG ( test) Ql (U)o n 12-09-2023 Interpretation and review of laboratory results Abnormal [facility] Preg Test, Ur Positive [facility] Urinalysis macro (dipstick) panel (U)on 12-09-2023 Bilirubin, UA Negative Negative - 4(70) +++ mg/dL [facility] Blood, UA Negative Negative - 50 Haroon/mcL [facility] Clarity, UA Clear [facility] Color, UA Yellow [facility] Glucose, UA Negative Negative - 1999(110) ++++ mg/dL [facility] Interpretation and review of laboratory results Normal [facility] Ketones, UA Negative Negative - 160(16) ++++ mg/dL [facility] Leukocytes, UA Negative Negative - 500+++ Robert/mcL [facility] Nitrite, UA Negative Negative - Positive [facility] pH, UA 7.5 5 - 9 [facility] Protein, UA Negative Negative - 1999(20) ++++ mg/dL [facility] Spec Grav, UA 1.015 1 - 1.03 [facility] Urobilinogen, UA 0.2 0.2 - 12 mg/dL [facility] ACETAMINOPHENon 01-23-2019 Acetaminophen [Mass/Vol] <1.0 Critically low 10.1-30.0 [facility] Comment on above: Performed By: #### A CET #### [facility] [address] [place], [place] [address] Lou Ml CBC AUTO DIFFon 01-23-2019 Basophils (Bld) [#/Vol] 0.1 103/ul Normal 0.0-0.1 [facility] Comment on above: Performed By: #### C BC #### [facility] [address] [place], [place] [address] Lou Ml Basophils/100 WBC (Bld) 0.7 % Normal 0.2-2.0 [facility] Comment on above: Performed By: #### C BC #### [facility] [address] [place], [place] [address] Lou Ml Eosinophils (Bld) [#/Vol] 0.1 103/ul Normal 0.0-0.7 [facility] Comment on above: Performed By: #### C BC #### [facility] [address] [place], [place] [address] Lou Ml Eosinophils/100 WBC (Bld) 1.0 % Normal 0.9-7.0 [facility] Comment on above: Performed By: #### C BC #### [facility] [address] [place] [address] Lou Ml Erythrocyte distribution width (RBC) [Ratio] 12.2 % Normal 11.0-15.0 [facility] Comment on above: Performed By: #### C BC #### [facility] [address] [place] [address] Lou Ml Hematocrit (Bld) [Volume fraction] 37.6 % Normal 36.0-48.0 [facility] Comment on above: Performed By: #### C BC #### [facility] [address] [place] [address] Lou Ml Hemoglobin (Bld) [Mass/Vol] 13.0 g/dL Normal 12.0-16.0 [facility] Comment on above: Performed By: #### C BC #### [facility] [address] [place] [address] Lou Ml IG # 0.03 10e3/ul Normal 0.00-0.03 [facility] Comment on above: Performed By: #### C BC #### [facility] [address] [place] [address] Lou Ml IG % 0.3 % Normal 0.0-0.5 [facility] Comment on above: Performed By: #### C BC #### [facility] [address] [place] [address] Lou Ml Lymphocytes (Bld) [#/Vol] 2.9 103/ul Normal 1.2-3.8 [facility] Comment on above: Performed By: #### C BC #### [facility] [address] [place], [place] [phone] Lou Ml Lymphocytes/100 WBC (Bld) 32.3 % Normal 20.5-60.0 [facility] Comment on above: Performed By: #### C BC #### [facility] [address] [place], [place] [phone] Lou Ml MANUAL DIFF REQ NO Normal [facility] Comment on above: Performed By: #### C BC #### [facility] [address] [place], [place] [address] Lou Ml MCH (RBC) [Entitic mass] 31.6 pg Normal 26.7-34.0 [facility] Comment on above: Performed By: #### C BC #### [facility] [address] [place], [place] [address] Lou Ml MCHC (RBC) [Mass/Vol] 34.6 g/dL Normal 29.9-35.[address] [facility] Comment on above: Performed By: #### C BC #### [facility] [address] [place], [place] [address] Lou Ml MCV (RBC) [Entitic vol] 91.5 fL Normal 79.1-95.[address] [facility] Comment on above: Performed By: #### C BC #### [facility] [address] [place] [address] Lou Ml Monocytes (Bld) [#/Vol] 0.6 103/ul Normal 0.3-0.[address] [facility] Comment on above: Performed By: #### C BC #### [facility] [address] [place] [address] Lou Ml Monocytes/100 WBC (Bld) 6.4 % Normal 1.7-12.[address] [facility] Comment on above: Performed By: #### C BC #### [facility] [address] [place] [address] Lou Ml Neutrophils (Bld) [#/Vol] 5.3 103/ul Normal 1.4-6.[address] [facility] Comment on above: Performed By: #### C BC #### [facility] [address] [place], [place] [address] Lou Ml Neutrophils/100 WBC (Bld) 59.3 % Normal 43.0-75.[address] [facility] Comment on above: Performed By: #### C BC #### [facility] [address] [place], [place] [address] Lou Ml Platelet mean volume (Bld) [Entitic vol] 10.6 fL Normal 9.5-13.5 [facility] Comment on above: Performed By: #### C BC #### [facility] [address] [phone] Lourex Bull Platelets (Bld) [#/Vol] 220 103/ul Normal 150-450 [facility] Comment on above: Performed By: #### C BC #### [facility] [address] [phone] Lourex Cisnerosen RBC (Bld) [#/Vol] 4.11 106/ul Normal 3.40-5.30 [facility] Comment on above: Performed By: #### C BC #### [facility] [address] [place], [place] [phone] Lourex Cisnerosen WBC (Bld) [#/Vol] 8.9 103/ul Normal 4.0-11.0 [facility] Comment on above: Performed By: #### C BC #### [facility] [address] [place], [place] [phone] Lou Ml DRUG SCREEN RAPID (URINE)on 01-23-2019 AMP Negative Normal NEGATIVE [facility] Comment on above: Performed By: #### D RUGRPD #### [facility] [address] [place] [address] Lou Ml BAR Negative Normal NEGATIVE [facility] Comment on above: Performed By: #### D RUGRPD #### [facility] [address] [place], [place] [phone] Lou Ml BUP Negative Normal NEGATIVE [facility] Comment on above: Performed By: #### D RUGRPD #### [facility] [address] [place] [address] Lou Ml BZO Negative Normal NEGATIVE [facility] Comment on above: Performed By: #### D RUGRPD #### [facility] [address] [place] [address] Lou Ml BRITTON Negative Normal NEGATIVE [facility] Comment on above: Performed By: #### D RUGRPD #### [facility] [address] [place], [place] [phone] Lou Ml CUT-OFFS SEE BELOW Normal [facility] Comment on above: Result Comment: AMP [...] ng/mL Performed By: #### D RUGRPD #### [facility] [address] [place] [address] DRUG CUT HEADER DRUG CLASS TEST SYST EM CUT-OFF CONCENTRATIONS ARE FOLLOWS: Normal [facility] Comment on above: Performed By: #### D RUGRPD #### [facility] [address] [place] [address] Lou Ml mAMP Negative Normal NEGATIVE [facility] Comment on above: Performed By: #### D RUGRPD #### [facility] [address] [place] [address] Lou Ml MTD Negative Normal NEGATIVE [facility] Comment on above: Performed By: #### D RUGRPD #### [facility] [address] [place] [address] Lou Lm OPI Negative Normal NEGATIVE [facility] Comment on above: Performed By: #### D RUGRPD #### [facility] [address] [place] [address] Lou Ml OXY Negative Normal NEGATIVE [facility] Comment on above: Performed By: #### D RUGRPD #### [facility] [address] [place] [address] Lou Ml PCP Negative Normal NEGATIVE [facility] Comment on above: Performed By: #### D RUGRPD #### [facility] [address] [place] [address] Lou Ml PPX Negative Normal NEGATIVE [facility] Comment on above: Performed By: #### D RUGRPD #### [facility] [address] [address] Lourex Bull TCA Negative Normal NEGATIVE [facility] Comment on above: Performed By: #### D RUGRPD #### [facility] [address] [phone] Lourex Bull THC Positive Normal NEGATIVE [facility] Comment on above: Performed By: #### D RUGRPD #### [facility] [address] [phone] Lou Bull ETHANOL (BLD ALC)on 01-24-20 19 Ethanol [Mass/Vol] mg/dL Normal [facility] Comment on above: Performed By: #### E TH #### [facility] [address] [place], [place] [phone] Lou Ml Ethanol [Mass/Vol] NOTE: 80 mg/dl is th e legal limit for a blood alcohol level Normal [facility] Comment on above: Performed By: #### E TH #### [facility] [address] [place] [address] Lourex Bull URon 01-23-2019 , QUAL Negative Normal NEGATIVE [facility] Comment on above: Performed By: #### P REGU #### [facility] [address] [place], [place] [phone] Lou Bull PROF 14(COMP METB)on 019 Age - Reported Normal [facility] Comment on above: Performed By: #### C MP #### [facility] [address] [place] [address] Lou Ml Albumin [Mass/Vol] 4.3 g/dL Normal 3.5-5.0 [facility] Comment on above: Performed By: #### C MP #### [facility] [address] [place], [place] [phone] Lourex Cisnerosen Albumin/Globulin [Mass ratio] 1.6 {ratio} Normal [facility] Comment on above: Performed By: #### C MP #### [facility] [address] [address] Lou Ml ALP [Catalytic activity/Vol] 66 U/L Normal 65-260 [facility] Comment on above: Performed By: #### C MP #### [facility] [address] [place], [place] [phone] Lou Ml ALT [Catalytic activity/Vol] 22 U/L Normal 9-52 [facility] Comment on above: Performed By: #### C MP #### [facility] [address] [phone] Lou Ml Anion gap [Moles/Vol] 11.4 mmol/L Normal [facility] Comment on above: Performed By: #### C MP #### [facility] [address] [place] [address] Lou Ml AST [Catalytic activity/Vol] 16 U/L Normal 14-36 [facility] Comment on above: Performed By: #### C MP #### [facility] [address] [place] [address] Lou Ml Bilirubin Ql (U) 0.6 mg/dL Normal 0.2-1.3 [facility] Comment on above: Performed By: #### C MP #### [facility] [address] [place], [place] [phone] Lou Ml Calcium [Mass/Vol] 9.7 mg/dL Normal 8.4-10.2 [facility] Comment on above: Performed By: #### C MP #### [facility] [address] [place] [address] Lou Ml Chloride [Moles/Vol] 103 mmol/L Normal 98-[address] [facility] Comment on above: Performed By: #### C MP #### [facility] [address] [place], [place] [phone] Lou Ml CO2 [Moles/Vol] 27.2 mmol/L Normal 22.0-30.0 [facility] Comment on above: Performed By: #### C MP #### [facility] [address] [place], [place] [phone] Lou Ml Creatinine [Mass/Vol] 0.59 mg/dL Normal 0.52-1.04 [facility] Comment on above: Performed By: #### C MP #### [facility] [address] [phone] Lou Ml EGFR-AF NAMIBIAN Normal >=60 [facility] Comment on above: Performed By: #### C MP #### [facility] [address] [phone] Lou Ml EGFR-NON AF NAMIBIAN Normal >=[address] [facility] Comment on above: Performed By: #### C MP #### [facility] [address] [place], [place] [address] Lou Ml Globulin (S) [Mass/Vol] 2.7 g/dL Normal [facility] Comment on above: Performed By: #### C MP #### [facility] [address] [place] [address] Lou Ml Glucose [Mass/Vol] 90 mg/dL Normal 74-106 [facility] Comment on above: Performed By: #### C MP #### [facility] [address] [place] [address] Lou Ml Potassium [Moles/Vol] 3.6 mmol/L Normal 3.4-5.[address] [facility] Comment on above: Performed By: #### C MP #### [facility] [address] [place], [place] [phone] Lou Ml Protein [Mass/Vol] 7.0 g/dL Normal 6.1-8.2 [facility] Comment on above: Performed By: #### C MP #### [facility] [address] [place] [address] Lou Ml Sodium [Moles/Vol] 138 mmol/L Normal 137-145 [facility] Comment on above: Performed By: #### C MP #### [facility] [address] [place], [place] [phone] Lou Ml Urea nitrogen [Mass/Vol] 16.0 mg/dL Normal 6.4-19.[address] [facility] Comment on above: Performed By: #### C MP #### [facility] [address] [address] Lou Bull Urea nitrogen/Creatinine [Mass ratio] 27.1 mg/mg Normal [facility] Comment on above: Performed By: #### C MP #### [facility] [address] [address] Lou Bull SALICYLATEon 01-23-2019 SALICYLATE 6.5 mg/dL Normal <=20.0 [facility] Comment on above: Performed By: #### S ALYC #### [facility] [address] [address] Lou Bull Vital Signs Date Time Vital Sign Value Performing Clinician Faci lity 02-07-2024 10:59-0500 Body mass index (BMI) [Ratio] 22.84 kg/m2 Daphnie VANCE Work Phone: [facility] 02-07-2024 10:59-0500 Body weight 63.23 kg Daphnie VANCE Work Phone: [facility] 02-07-2024 10:59-0500 Diastolic blood pressure 70 mm[Hg] Daphnie VANCE Work Phone: [facility] 02-07-2024 10:59-0500 Systolic blood pressure 110 mm[Hg] Daphnie VANCE Work Phone: [facility] 12-09-2023 14:51-0400 Body mass index (BMI) [Ratio] 22.12 kg/m2 [facility] 12-09-2023 14:51-0400 Body weight 61.24 kg [facility] 12-09-2023 14:51-0400 Diastolic blood pressure 66 mm[Hg] [facility] 12-09-2023 14:51-0400 Systolic blood pressure 100 mm[Hg] [facility] Nurse [facility] Healthcare Encounters Encounter Date Encounter Type Care Provider Facility Start: 02-07-2024 End: 02-07-2024 Bamboo flowsheet Daphnie VANCE Work Phone: [facility] Start: 02-07-2024 End: 02-07-2024 Bamboo flowsheet Daphnie VANCE Work Phone: [facility] Start: 02-07-2024 End: 02-07-2024 Patient encounter procedure Daphnie VANCE Work Phone: [facility] Start: 02-07-2024 End: 02-07-2024 Periodic preventive med est patient 18-39 yrs Daphnie VANCE Work Phone: [facility] Comment on above: 16 weeks gestation o f ; Second trimester ; Screening, , for anatomic survey; Well woman exam with routine gynecological exam Start: 01-10-2024 End: 01-10-2024 ambulatory EBONY LUZ ELENA Not Available Start: 01-10-2024 End: 01-10-2024 flow sheet Ebony Luz Elena DO Work Phone: [facility] Comment on above: First trimester preg carlos alberto; 12 weeks gestation of ; Nausea and vomiting in Start: 01-03-2024 End: 01-03-2024 Clinisync Result Encounter Generic External Data Provider [facility] Unsolicited Start: 01-03-2024 End: 01-03-2024 Clinisync Result Encounter Generic External Data Provider [facility] Unsolicited Start: 12-28-2023 End: 12-28-2023 Emergency department patient visit NOT IN SYSTEM PCP [facility] Start: 12-09-2023 End: 12-09-2023 ambulatory [facility] Luz Elena Nurse [facility] Comment on above: GA: 8w2d Start: 01-20-2023 End: 01-20-2023 ambulatory EBONY LUZ ELENA Not Available Start: 01-23-2019 End: 01-23-2019 Patient encounter procedure ELINOR PALOMO Facility: Procedures Date Procedure Procedure Detail Performing Clinician Start: 02-07-2024 Urnls dip stick/tabl et rgnt non-auto w/o micrscp Daphnie VANCE Work Phone: Start: 01-10-2024 Urnls dip stick/tabl et rgnt non-auto w/o micrscp Ebony Luz Elena DO Work Phone: Start: 01-03-2024 Antibody screen Generic Provider Start: 01-03-2024 ALL CBC WITH AUTO DIFF Ebony Luz Elena DO Work Phone: Start: 01-03-2024 ALL RUBELLA IGG AB Gene best External Data Provider Start: 01-03-2024 ALL TYPE AND SCREEN Cor ey Luz Elena DO Work Phone: Start: 01-03-2024 BOX TEST Generic Ex ternal Data Provider Start: 01-03-2024 HBSAG SCREEN Ebony mcintyre DO Work Phone: Start: 01-03-2024 HCV ANTIBODY RFX TO QUANT PCR Generic External Data Provider Start: 01-03-2024 HIV AB/P24 AG WITH REFLEX Generic External Data Provider Start: 01-03-2024 MLR HEMOGLOBIN A1C Gene best External Data Provider Start: 01-03-2024 RAPID PLASMA REAGIN, QUANT Ebony Laguna DO Work Phone: Start: 01-03-2024 Bacteria identified in Urine by Culture Generic External Data Provider Start: 01-03-2024 CANNABINOID CONF, MS, UR Ebony Laguna DO Work Phone: Start: 01-03-2024 TBH DRUG SCREEN RAPI D (URINE) Ebony Laguna DO Work Phone: Start: 12-09-2023 Urnls dip stick/tabl et rgnt non-auto w/o micrscp Ebony Laguna DO Work Phone: Plan of Treatment Date Care Activity Detail Author Start: 02-14-2024 End: 02-14-2024 Patient encounter procedure 02/14/2024 11:30 AM EST Routine [facility] [address] [place] [place] [phone] Daphnie Morrow PA [address] [place] [address] [facility] Start: 02-07-2024 End: 03-09-2024 Alpha fetoprotein, maternal Alpha fetoprotein, maternal Lab Routine Second trimester Expected: 02/07/2024 (Approximate), Expires: 03/09/2024 [facility] Comment on above: Expected: 02/07/2024 (Approximate), Expires: 03/09/2024 Start: 02-07-2024 End: 02-06-2025 US for US OB ANATOMY SINGLE W US OB CERVICAL LENGTH Imaging Routine Second trimester Screening, , for anatomic survey Expected: 02/07/2024 (Approximate), Expires: 02/06/2025 [facility] Comment on above: Expected: 02/07/2024 (Approximate), Expires: 02/06/2025 Start: 02-07-2024 End: 02-07-2024 Patient encounter procedure 02/07/2024 10:20 AM EST Routine [facility] [address] [place] [phone] Daphnie Morrow PA [address] [place], [place] [id number] 16 weeks gestation of ; Second trimester ; Screening, , for anatomic survey; Well woman exam with routine gynecological exam [facility] Comment on above: 16 weeks gestation o f ; Second trimester ; Screening, , for anatomic survey; Well woman exam with routine gynecological exam Start: 01-10-2024 End: 01-10-2024 Patient encounter procedure 01/10/2024 1:40 PM EST Routine [facility] [address] [place] [address] [place] [phone] Ebony Laguna DO [address] [place] [address] [facility] Start: 12-09-2023 End: 12-08-2024 ABO/Rh ABO/Rh Lab Routine Missed menses , unspecified gestational age Expected: 12/09/2023 (Approximate), Expires: 12/08/2024 [facility] Comment on above: Expected: 12/09/2023 (Approximate), Expires: 12/08/2024 Start: 12-09-2023 End: 12-08-2024 Blood type and Indirect antibody screen panel - Blood Type and screen Lab Routine Missed menses , unspecified gestational age Expected: 12/09/2023 (Approximate), Expires: 12/08/2024 [facility] Work Phone: Comment on above: Expected: 12/09/2023 (Approximate), Expires: 12/08/2024 Start: 12-09-2023 End: 12-08-2024 Drugs of abuse panel - Urine by Screen method Rapid drug screen, urine Lab Routine , unspecified gestational age Encounter for supervision of normal first in first trimester Expected: 12/09/2023 (Approximate), Expires: 12/08/2024 [facility] Comment on above: Expected: 12/09/2023 (Approximate), Expires: 12/08/2024 Start: 12-09-2023 End: 12-08-2024 US Pelvis transvaginal US OB transvaginal Imaging Routine Missed menses Expected: 12/09/2023 (Approximate), Expires: 12/08/2024 [facility] Comment on above: Expected: 12/09/2023 (Approximate), Expires: 12/08/2024 Start: 10-17-2023 Influenza vaccination Influenza Vacc ine (#1) [facility] Bacteria identified in Urine by Culture Urine culture Microbiology Routine Missed menses Ordered: 12/09/2023 [facility] Comment on above: Ordered: 12/09/2023 CBC W Auto Different ial panel - Blood CBC and differential Lab Routine Missed menses , unspecified gestational age Ordered: 12/09/2023 [facility] Comment on above: Ordered: 12/09/2023 CHLAMYDIA TRACHOMATI S (GENITO/STI) CHLAMYDIA TRACHOMATIS (GENITO/STI) Lab Routine 16 weeks gestation of Second trimester Well woman exam with routine gynecological exam Ordered: 02/07/2024 [facility] Comment on above: Ordered: 02/07/2024 Cytology Cervical or vaginal smear or scraping study Pap Smear Pathology and Cytology Routine 16 weeks gestation of Second trimester Well woman exam with routine gynecological exam Ordered: 02/07/2024 [facility] Work Phone: Comment on above: Ordered: 02/07/2024 Hemoglobin A1c/Hemoglobin.total in Blood Hemoglobin A1c Lab Routine Missed menses , unspecified gestational age Ordered: 12/09/2023 [facility] Comment on above: Ordered: 12/09/2023 Hepatitis B virus surface Ag [Presence] in Serum or Plasma by Immunoassay Hepatitis B surface antigen Lab Routine Missed menses , unspecified gestational age Ordered: 12/09/2023 [facility] Comment on above: Ordered: 12/09/2023 Hepatitis C virus Ab [Presence] in Serum or Plasma by Immunoassay Hepatitis C antibody Lab Routine Missed menses , unspecified gestational age Ordered: 12/09/2023 [facility] Comment on above: Ordered: 12/09/2023 HIV-1/HIV-2 antigen/antibody combination immunoassay HIV-1 and HIV-2 antibodies Lab Routine Missed menses , unspecified gestational age Ordered: 12/09/2023 [facility] Comment on above: Ordered: 12/09/2023 Neisseria gonorrhoea e DNA [Presence] in Unspecified specimen by NORRIS with probe detection Neisseria gonorrhea DNA probe, direct Lab Routine 16 weeks gestation of Second trimester Well woman exam with routine gynecological exam Ordered: 02/07/2024 [facility] Comment on above: Ordered: 02/07/2024 Reagin Ab [Presence] in Serum by RPR RPR Lab Routine Missed menses , unspecified gestational age Ordered: 12/09/2023 [facility] Comment on above: Ordered: 12/09/2023 Rubella antibody, IgG Rubella an tibody, IgG Lab Routine Missed menses , unspecified gestational age Ordered: 12/09/2023 [facility] Comment on above: Ordered: 12/09/2023 SURESWAB(R) ADVANCED VAGINITIS PLUS, TMA SURESWAB(R) ADVANCED VAGINITIS PLUS, TMA Pathology and Cytology Routine 16 weeks gestation of Second trimester Well woman exam with routine gynecological exam Ordered: 02/07/2024 [facility] Comment on above: Ordered: 02/07/2024 Payers Date Payer Category Payer [facility] [id number] 2019 Unknown [id number] 2001 Unknown [id number] 2001 Unknown [id number] 2001 Unknown [id number] 2001 Unknown [id number] 1978 Unknown [id number] 1959 Unknown [id number] Social History Date Type Detail Facility Start: 01-19-2023 [facility] History of tobacco use Cigarette Smoker [facility] Start: 01-19-2023 Tobacco use and exposure Smokeless t obacco non-user [facility] Start: 12-09-2023 End: 02-07-2024 Alcoholic beverage intake Current drinker of alcohol (finding) [facility] Start: [...] [facility] History of Present illness Narrative 02-07-2024 RAJIV Hernandez - 02/07/2024 10:20 AM EST Note Date & Type Note Facility 02-07-2024 History of Presen t illness Narrative Reason for Appointment: Patient ID: Felipe Bradley is a 23 y.o. female who presents for Routine Visit Patient presents today for Annual Exam. and Return OB appointment. MEDICATIONS Current Outpatient Medications Medication Instructions metoclopramide (REGLAN) 10 mg, Oral, 3 times daily before meals, Take 1 tablet by mouth 30 minutes prior to meals 3 times daily as needed for nausea. vitamin (Prenatabs Rx) 29-1 MG tablet 1 tablet, Oral, Daily ALLERGIES No Known Allergies PROBLEMS Active Ambulatory Problems Diagnosis Date Noted Anxiety disorder 07/08/2022 Mood disorder ([facility]/H[facility]) 07/08/2022 Cannabis use, 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[facility]) 07/08/2022 Moderate episode of recurrent major depressive disorder ([facility]) 07/08/2022 Oppositional defiant disorder ([facility]) 07/08/2022 Other atopic dermatitis 07/08/2022 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 16 weeks gestation of 02/07/2024 Second trimester 02/07/2024 Screening, , for anatomic survey 02/07/2024 Well woman exam with routine gynecological exam 02/07/2024 Resolved Ambulatory Problems Diagnosis Date Noted No Resolved Ambulatory Problems Past Medical History: Diagnosis Date Hematuria UTI (urinary tract infection) 2001 HISTORY PAST MEDICAL HISTORY SOCIAL HISTORY Past Medical History: Diagnosis Date Hematuria UTI (urinary tract infection) 2001 Social History Tobacco Use Smoking status: Every Day Types: Cigarettes Smokeless tobacco: Never Substance Use Topics Alcohol use: Yes Comment: once a month Drug use: Never FAMILY HISTORY Family History Problem Relation Name Age of Onset Alcohol abuse Father ADD / ADHD Brother Alcohol abuse Maternal Grandmother Cancer Maternal Grandmother Cancer Paternal Grandmother Alcohol abuse Paternal Grandfather Hypertension Paternal Grandfather Bipolar disorder Mother's Sister SURGICAL HISTORY History reviewed. No pertinent surgical history. REVIEW OF SYSTEMS Review of Systems: Review of Systems Constitutional: Negative. HENT: Negative. Eyes: Negative. Respiratory: Negative. Cardiovascular: Negative. Gastrointestinal: Negative. Genitourinary: Negative. Musculoskeletal: Negative. Skin: Negative. Neurological: Negative. All other systems reviewed and are negative. Hematological: Negative. Endocrine: Negative. Allergic/Immunologic: Negative. OBJECTIVE Objective: Physical Exam Constitutional: Appearance: Normal appearance. Genitourinary: Right Adnexa: not tender and no mass present. Left Adnexa: not tender and no mass present. No cervical discharge. Breasts: Breasts are soft. Right: Normal. Left: Normal. HENT: Head: Normocephalic. Nose: Nose normal. Mouth/Throat: Mouth: Mucous membranes are moist. Cardiovascular: Rate and Rhythm: Normal rate. Pulmonary: Effort: Pulmonary effort is normal. Abdominal: General: Bowel sounds are normal. Palpations: Abdomen is soft. Musculoskeletal: General: Normal range of motion. Cervical back: Normal range of motion. Neurological: General: No focal deficit present. Mental Status: She is alert. Skin: General: Skin is warm and dry. Psychiatric: Mood and Affect: Mood normal. Vitals and nursing note reviewed. Exam conducted with a sawmilling operator present. Vitals: Estimated body mass index is 22.84 kg/m as calculated from the following: Height as of 07/08/22: 5' 5.5 . Weight as of this encounter: 139 lb 6.4 oz. BP: 110/70 Patient's last menstrual period was 10/12/2023. ASSESSMENT & PLAN ICD-10-CM 1. 16 weeks gestation of Z3A.16 Pap Smear SURESWAB(R) ADVANCED VAGINITIS PLUS, TMA CHLAMYDIA TRACHOMATIS (GENITO/STI) Neisseria gonorrhea DNA probe, direct 2. Second trimester Z34.92 POCT urinalysis dipstick manually resulted Pap Smear SURESWAB(R) ADVANCED VAGINITIS PLUS, TMA CHLAMYDIA TRACHOMATIS (GENITO/STI) Neisseria gonorrhea DNA probe, direct Alpha fetoprotein, maternal US OB ANATOMY SINGLE W US OB CERVICAL LENGTH Alpha fetoprotein, maternal 3. Screening, , for anatomic survey Z36.89 US OB ANATOMY SINGLE W US OB CERVICAL LENGTH 4. Well woman exam with routine gynecological exam Z01.419 Pap Smear SURESWAB(R) ADVANCED VAGINITIS PLUS, TMA CHLAMYDIA TRACHOMATIS (GENITO/STI) Neisseria gonorrhea DNA probe, direct Return OB/Annual Exam: Patient presents today for an annual exam/routine obstetrics appointment. Patient is currently 16w6d . Patient is doing well and states she has no complaints. Pap/cultures was obtained without difficulty and patient was given [facility] order to have obtained. Orders Placed This Encounter Procedures US OB ANATOMY SINGLE W US OB CERVICAL LENGTH CHLAMYDIA TRACHOMATIS (GENITO/STI) Neisseria gonorrhea DNA probe, direct Alpha fetoprotein, maternal POCT urinalysis dipstick manually resulted Follow Up: Patient is to return to our office in 4 weeks for routine OB appointment Documented by RAJIV Hernandez on behalf of: RAJIV Hernandez documented in this encounter [facility] History of Present illness Narrative 01-10-2024 Sandie Caldwell LPN - 01/10/2024 1:40 PM EST Note Date & Type Note Facility 01-10-2024 History of Presen t illness Narrative Reason for Appointment: Patient ID: Felipe Bradley is a 23 y.o. female who presents for Routine Visit Patient presents today for Return OB appointment. MEDICATIONS Current Outpatient Medications Medication Instructions ondansetron ODT (ZOFRAN-ODT) 4 mg, Oral, Every 6 hours PRN vitamin (Prenatabs Rx) 29-1 MG tablet 1 tablet, Oral, Daily ALLERGIES No Known Allergies PROBLEMS Active Ambulatory Problems Diagnosis Date Noted Anxiety disorder 07/08/2022 Mood disorder ([facility]) 07/08/2022 Cannabis use, 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[facility]) 07/08/2022 Moderate episode of recurrent major depressive disorder ([facility]) 07/08/2022 Oppositional defiant disorder ([facility]) 07/08/2022 Other atopic dermatitis 07/08/2022 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 Resolved Ambulatory Problems Diagnosis Date Noted No Resolved Ambulatory Problems Past Medical History: Diagnosis Date Hematuria UTI (urinary tract infection) 2001 HISTORY PAST MEDICAL HISTORY SOCIAL HISTORY Past Medical History: Diagnosis Date Hematuria UTI (urinary tract infection) 2001 Social History Tobacco Use Smoking status: Every Day Types: Cigarettes Smokeless tobacco: Never Substance Use Topics Alcohol use: Yes Comment: once a month Drug use: Never FAMILY HISTORY Family History Problem Relation Name Age of Onset Alcohol abuse Father ADD / ADHD Brother Alcohol abuse Maternal Grandmother Cancer Maternal Grandmother Cancer Paternal Grandmother Alcohol abuse Paternal Grandfather Hypertension Paternal Grandfather Bipolar disorder Mother's Sister SURGICAL HISTORY History reviewed. No pertinent surgical history. REVIEW OF SYSTEMS Review of Systems: Review of Systems All other systems reviewed and are negative. OBJECTIVE Objective: Physical Exam Constitutional: Appearance: Normal appearance. She is well-developed. Cardiovascular: Rate and Rhythm: Normal rate and regular rhythm. Pulmonary: Effort: Pulmonary effort is normal. Breath sounds: Normal breath sounds. Abdominal: General: Bowel sounds are normal. There is no distension. Palpations: Abdomen is soft. Tenderness: There is no abdominal tenderness. There is no guarding or rebound. Musculoskeletal: General: No swelling. Normal range of motion. Right lower leg: No edema. Left lower leg: No edema. Neurological: Mental Status: She is alert and oriented to person, place, and time. Skin: General: Skin is warm and dry. Psychiatric: Mood and Affect: Mood normal. Behavior: Behavior normal. Vitals and nursing note reviewed. Exam conducted with a sawmilling operator present. Vitals: Estimated body mass index is 22.12 kg/m as calculated from the following: Height as of 07/08/22: 5' 5.5 . Weight as of 12/09/23: 135 lb. BP: Patient's last menstrual period was 10/12/2023. ASSESSMENT & PLAN ICD-10-CM 1. First trimester Z34.91 POCT urinalysis dipstick manually resulted 2. 12 weeks gestation of Z3A.12 New OB: Patient presents today for 1st time obstetrics appointment with provider. Patient is currently 12w6d . Patients history has been reviewed in great detail including any potential risks. Patient stated she currently has no complaints. Expectations throughout regarding labs, ultrasounds, and appointments have been discussed with the patient in detail. It was reiterated that the patient is to drink 6-8 glasses of water a day, eat 6 small meals a day, do not consume raw or undercooked meat, and stay away from [facility]. Patient has been consulted regarding any further do's and don'ts of . Patient voiced understanding and all questions and concerns were answered. Discussed patients recent visit to ER and prescribed Reglan to take 30 minutes prior to meal to help with symptoms. Orders Placed This Encounter Procedures POCT urinalysis dipstick manually resulted Follow Up: Patient is to return in 4 weeks for routine OB appointment. Documented by Sandie Caldwell LPN on behalf of: Ebony Laguna DO documented in this encounter [facility] History of Present illness Narrative 12-09-2023 Meaghan Prado MA - 12/09/2023 2:00 PM EDT Note Date & Type Note Facility 12-09-2023 History of Presen t illness Narrative Reason for Appointment: Patient ID: Felipe Bradley is a 23 y.o. 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 Pt was advised if she does want [place] [facility] to have it done w/ labs [...] care documented in this encounter [facility] Evaluation note Note Date & Type Note Facility Evaluation note Diagnosis First trimester state, incidental 12 weeks gestation of Nausea and vomiting in Unspecified vomiting of , unspecified as to episode of care documented in this encounter [facility] Evaluation note Note Date & Type Note Facility Evaluation note Diagnosis 16 weeks gestation of Second trimester state, incidental Screening, , for anatomic survey Encounter for anatomic survey Well woman exam with routine gynecological exam Routine gynecological examination documented in this encounter [facility] Summary Purpose Family History No Family History Records FoundNo Family History Records FoundNo Family History Records Found Advance Directives No Advanced Directives Records FoundNo Advanced Directives Records FoundNo Advanced Directives Records Found Additional Source Comments INFORMATION SOURCE (unrecogn ized section and content) DATE CREATED AUTHOR 01/25/2019 [facility] DATE CREATED AUTHOR AUTHOR'S ORGANIZ ATION 12/29/2023 [facility] DATE CREATED AUTHOR AUTHOR'S ORGANIZ ATION 01/12/2024 [facility] EPIC Reason for Visit (unrecogniz ed section and content) Reason Comments Amenorrhea Reason Comments Routine Visit Care Teams (unrecognized sec tion and content) 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 Specialty Start Date End Date Cary Ocasio MD [address] [place] [address] PCP - General Family Medicine 07/07/22 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 [facility]. provides no warranty or guarantee of the accuracy or completeness of information in this document.
[2024-02-17 16:08] LABS: Age Gdln ACOG Testing Note (.); IGP, rfx Aptima HPV ASCU Note (.)
== END 2024-02-07 21:04 | disposition home or self-care (01) ==
LOC: LAB 21:03
PROVIDERS: PCP Family Medicine; Visit Provider Physician Assistant
DX: Z34.92 Encounter for supervision of normal pregnancy, unspecified, second trimester (principal); Z3A.16 16 weeks gestation of pregnancy
CPT/HCPCS: 88175

== ENCOUNTER 2024-02-11 13:00 | Outpatient (OUT) | payer BC, SELFPAY ==
--- OUTSIDE RECORDS SUMMARY | 2024-02-11 13:19 | XMS_ITS | CCD ---
Author Organization [facility] CliniSyin Care Team Providers Care Marriage And Family Social Worker Name Role Phone ELINOR PALOMO Consulting Unavailable LEINOR PALOMO Admitting Unavailable ELINOR PALOMO Attending Unavailable Cary Ocasio MD Primary Care Provider PCP, NOT IN SYSTEM Primary Care Unavailable HELLEN VERDIN Attending Unavailable EBONY LAGUNA Attending Unavailable DAPHNIE KEMP Attending Unavailable Medications Current Medications Medication Drug Class(es) Dates Sig (Normalized) Sig (Original) metoclopramide 10 mg oral tablet (6 sources) Dopamine-2 Receptor Antagonist Start: 01-10-2024 End: [...] needed for nausea.. 90 tablet 1 01/10/2024 Active ondansetron 4 mg disintegrating oral tablet [...] Active vitamin (Prenatabs Rx) 29-1 MG tablet (8 sources) Start: 12-09-2023 End: 12-08-2024 take 1 tablet by mouth once daily vitamin (Prenatabs Rx) 29-1 MG tablet Indications: , unspecified gestational age Take 1 tablet by mouth Daily 360 tablet 12/09/2023 12/08/2024 Active Problems Active Problems Problem Classification Problem Date Documented Da te Episodic/Chronic Allergic reactions (8 sources) Atopic dermatitis; Translations: [Other atopic dermatitis] Onset: 07-08-2022 07-08-2022 Chronic Anxiety disorders (12 sources) State of emotional shock and stress, unspecified; Translations: [Anxiety disorder] Onset: 01-23-2019 07-08-2022 Chronic Attention-deficit, conduct, and disruptive behavior disorders (8 sources) Oppositional defiant disorder; Translations: [Oppositional defiant disorder] Onset: 07-08-2022 07-08-2022 Chronic Menstrual disorders (1 source) Missed period; Translations: [Irregular menstruation, unspecified] 12-09-2023 Chronic Mood disorders (16 sources) Mood disorder; Translations: [Unspecified mood [affective] disorder] Onset: 07-08-2022 07-08-2022 Chronic Nonspecific chest pain (1 source) Chest pain, unspecified; Translations: [Chest pain, unspecified] Onset: 12-28-2023 Episodic Other complications of (3 sources) Vomiting of , unspecified; Translations: [Unspecified vomiting of , unspecified as to episode of care or not applicable] 12-09-2023 Episodic Other and delivery including normal (10 sources) ; Translations: [Encounter for supervision of normal , unspecified, unspecified trimester] Onset: 02-07-2024 12-09-2023 Episodic Other screening for suspected conditions (not mental disorders or infectious disease) (6 sources) Patient encounter status; Translations: [Encounter for other specified screening] Onset: 02-07-2024 02-07-2024 Episodic Residual codes; unclassified (1 source) 11 weeks gestation of ; Translations: [11 weeks gestation of ] Onset: 12-28-2023 Episodic Residual codes; unclassified (2 sources) Gestation period, 12 weeks; Translations: [12 weeks gestation of ] 01-10-2024 Episodic Residual codes; unclassified (6 sources) Gestation period, 16 weeks; Translations: [16 weeks gestation of ] Onset: 02-07-2024 02-07-2024 Episodic Syncope (2 sources) Syncope and collapse; Translations: [Syncope] Onset: 12-28-2023 Episodic Unclassified (1 source) Ill Onset: 12-28-2023 Past or Other Problems Problem Classification Problem Date Documented Da te Episodic/Chronic Poisoning by nonmedicinal substances (8 sources) Toxic effect of ethyl alcohol; Translations: [Toxic effect of ethanol, accidental (unintentional), initial encounter] Onset: 07-08-2022 07-08-2022 Episodic Substance-related disorders (8 sources) Cannabis-induced organic mental disorder; 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, unspecified with unspecified cannabis-induced disorder] Onset: 07-08-2022 07-08-2022 Episodic Results Test Name Value Interpretation Reference Range Facility RECURRENT VAGINITIS (HTRX)on 02-11-2024 ATOPOBIUM VAGINAE 0 [facility] ATOPOBIUM VAGINAE Not detected [facility] BVAB 2,3 (BACTERIAL VAGINOSIS ASSOCIATED BACTERIA 2, 3); MOBILUNCUS SPP 0 [facility] BVAB 2,3 (BACTERIAL VAGINOSIS ASSOCIATED BACTERIA 2, 3); MOBILUNCUS SPP Not detected [facility] ROGELIO ALBICANS, PARAPSILOSIS, TROPICALIS 0 [facility] ROGELIO ALBICANS, PARAPSILOSIS, TROPICALIS Not detected [facility] ROGELIO GLABRATA 0 [facility] Healthcare ROGELIO GLABRATA Not detected [facility] ROGELIO KRUSEI 0 [facility] ROGELIO KRUSEI Not detected [facility] CHLAMYDIA TRACHOMATIS 0 [facility] CHLAMYDIA TRACHOMATIS Not detected [facility] GARDNERELLA VAGINALIS 0 [facility] Healthcare GARDNERELLA VAGINALIS Not detected N [facility] MEGASPHAERA (TYPES 1, 2) 0 [facility] Healthcare MEGASPHAERA (TYPES 1, 2) Not detected [facility] MYCOPLASMA GENITALIUM 0 [facility] MYCOPLASMA GENITALIUM Not detected N [facility] NEISSERIA GONORRHOEAE 0 [facility] NEISSERIA GONORRHOEAE Not detected N [facility] TRICHOMONAS VAGINALIS 0 [facility] TRICHOMONAS VAGINALIS Not detected [facility] Urinalysis macro (dipstick) panel (U)Ordered By: Kal Vera on 02-07-2024 Bilirubin, UA Negative Negative - 4(70) +++ mg/dL [facility] Work Phone: Blood, UA Negative Negative - 50 Haroon/mcL [facility] Work Phone: Clarity, UA Clear [facility] Work Phone: Color, UA Yellow [facility] Work Phone: Glucose, UA Negative Negative - 1999(110) ++++ mg/dL [facility] [employer] Work Phone: Interpretation and review of laboratory results Normal [facility] Work Phone: Ketones, UA Negative Negative - 160(16) ++++ mg/dL [facility] Work Phone: Leukocytes, UA Negative Negative - 500+++ Robert/mcL [facility] Work Phone: Nitrite, UA Negative Negative - Positive [facility] Work Phone: pH, UA 7.5 5 - 9 [facility] Work Phone: Protein, UA Negative Negative - 1999(20) ++++ mg/dL [facility] Work Phone: Spec Grav, UA 1.02 1 - 1.03 [facility] Work Phone: Urobilinogen, UA 1.0 0.2 - 12 mg/dL [facility] Work Phone: [facility] Work Phone: Urinalysis macro (dipstick) panel (U)on 01-10-2024 Bilirubin, UA Negative Negative - 4(70) +++ mg/dL [facility] Blood, UA Positive Negative - 50 Haroon/mcL [facility] Comment on above: trace Clarity, UA Clear [facility] Color, UA Yellow [facility] Glucose, UA Negative Negative - 1999(110) ++++ mg/dL [facility] Interpretation and review of laboratory results Abnormal [facility] Ketones, UA Negative Negative - 160(16) ++++ mg/dL [facility] Leukocytes, UA Negative Negative - 500+++ Robert/mcL [facility] Nitrite, UA Negative Negative - Positive [facility] pH, UA 7 5 - 9 [facility] Protein, UA Negative Negative - 1999(20) ++++ mg/dL [facility] Spec Grav, UA 1.025 1 - 1.03 [facility] Urobilinogen, UA 0.2 0.2 - 12 mg/dL [facility] CANNABINOID CONF, MS, URon 1 03-09-2023 CANNABINOID Positive Abnormal . [facility] CARBOXY THC CONF, MS, UR 446 ng/mL Cutoff=10 [facility] Comment on above: Performed at: [facility] [employer] [address] [place], [place] [id number] Secretary Specialist: Bala Carpenter PhD, Phone: [phone] Interpretation and review of laboratory results Abnormal [facility] RUBELLA IGG ABon 024 RUBELLA ANTIBODIES, IGG 2.02 Immune >0.99 index [facility] Comment on above: Non-immune <0.90 Equivocal 0.90 - 0.99 Immune >0.99 Performed at: [employer] [id number] Secretary Specialist: Colten Caceres PhD, Phone: [phone] HBSAG SCREENon 01-04-2024 HBSAG SCREEN Negative Negative [facility] Comment on above: Performed at: [facility] [address] [id number] Secretary Specialist: Colten Caceres PhD, Phone: [phone] HCV ANTIBODY RFX TO QUANT PC Kevin 01-04-2024 HCV AB Non-Reactive Non Reactive [facility] INTERPRETATION: Comment . [facility] Comment on above: Not infected with HC V unless early or acute infection is suspected (which may be delayed in an immunocompromised individual), or other evidence exists to indicate HCV infection. HIV AB/P24 AG WITH REFLEXon 01-04-2024 HIV AB/P24 AG SCREEN Non-Reactive Non Reactive [facility] Comment on above: HIV-1/HIV-2 antibodi es and HIV-1 p24 antigen were NOT detected. There is no laboratory evidence of HIV infection. HIV Negative Performed at: [employer] [address] [id number] Secretary Specialist: Colten Caceres PhD, Phone: [phone] No Panel Informationon 01-03 [facility] RAPID PLASMA REAGIN, QUANTon 01-04-2024 RAPID PLASMA REAGIN, QUANT Non-Reactive NonRea<1:1 titer [facility] Comment on above: Please Note: This te st does not meet current guidelines for screening and diagnosis of syphilis. This test is intended for following treatment response in patients being treated for syphilis infection. To screen for syphilis infection, a reflex cascade that includes both RPR and a treponema-specific assay should be utilized, such as Treponema pallidum (Syphilis) Screening [place] (045859) or Rapid Plasma Reagin (RPR) Test With Reflex to Quantitative RPR and Confirmatory Treponema pallidum Antibodies (770363). Performed at: [facility] [address] [place] [id number] Secretary Specialist: Colten Caceres PhD, Phone: [phone] URINE CULTURE, ROUTINEon Bacteria identified Cx Nom (U) Urine Culture, Routine [facility] Bacteria identified Cx Nom (U) Mixed urogenital татьяна [facility] Bacteria identified Cx Nom (U) Less than 10,000 colonies/mL [facility] Bacteria identified Cx Nom (U) Performed at: [facility] Bacteria identified Cx Nom (U) [address] [place] [phone] [facility] Bacteria identified Cx Nom (U) Secretary Specialist: Colten Caceres PhD, Phone: [phone] [facility] ALL CBC WITH AUTO DIFFon BASOPHILS ABSOLUTE AUTO 0 [facility] Basophils/100 WBC (Bld) 0.3 % 0.2 - 2.0 % [facility] Eosinophils/100 WBC (Bld) 2.2 % 0.9 - 7.0 % [facility] Erythrocyte distribution width (RBC) [Ratio] 11.9 % 11.0 - 15.0 % [facility] Hematocrit (Bld) [Volume fraction] 37 % 36.0 - 48.0 % [facility] Hemoglobin (Bld) [Mass/Vol] 13 g/dL 12.0 - 16.0 g/dL [facility] IMMATURE GRANULOCYTES ABS AUTO 0.04 High [facility] Immature granulocytes/100 WBC (Bld) 0.3 % 0.0 - 0.5 % [facility] Interpretation and review of laboratory results Abnormal [facility] LYMPHOCYTES ABSOLUTE AUTO 1.4 [facility] Lymphocytes/100 WBC (Bld) 11.9 % Low 20.5 - 60.0 % [facility] MCH (RBC) [Entitic mass] 32.9 pg 26.7 - 34.0 pg [facility] MCHC (RBC) [Mass/Vol] 35.1 g/dL 29.9 - 35.2 g/dL [facility] MCV (RBC) [Entitic vol] 93.7 fL 81.0 - 99.0 fL [facility] MONOCYTES ABSOLUTE AUTO 0.4 [facility] Monocytes/100 WBC (Bld) 3.4 % 1.7 - 12.0 % [facility] NEUTROPHILS ABSOLUTE AUTO 9.5 High [facility] Neutrophils/100 WBC (Bld) 81.9 % High 43.0 - 75.0 % [facility] Platelet mean volume (Bld) [Entitic vol] 10.9 fL 9.5 - 13.5 fL [facility] TB EO # 0.3 [facility] TB PLT [address] [facility] RBC 3.95 Low [facility] WBC 11.7 High On license of [facility] ALL TYPE AND SCREENon 2023 ABO and Rh group Nom (Bld) Blood group O Rh(D) positive [facility] BOX TESTon 01-03-2024 BOX TEST SENT OUT [facility] BOX1 [facility] BOX2 01/03/24 On license of [facility] MLR HEMOGLOBIN A1Con 024 Glucose [Mass/Vol] 82 mg/dL [facility] HbA1c (Bld) [Mass fraction] 4.5 % 4.5 - 6.2 % [facility] Comment on above: ADA RECOMMENDED LIMI T 4.0 - 6.0 ADA THERAPEUTIC TARGET < 7.0 ACTION SUGGESTED > 7.0 [facility] DRUG SCREEN RAPID (URINE )on 01-03-2024 AMPHETAMINE SCREEN URINE Negative NEGATIVE [facility] BARBITURATES SCREEN URINE Negative NEGATIVE [facility] BENZODIAZEPINES SCREEN URINE Negative NEGATIVE [facility] BUPRENORPHINE SCREEN URINE Negative NEGATIVE [facility] Comment on above: DRUG CLASS TEST [...] ng/mL CANNABINOID SCREEN URINE Positive Abnormal NEGATIVE [facility] COCAINE SCREEN URINE Negative NEGATIVE [facility] Interpretation and review of laboratory results Abnormal [facility] METHADONE SCREEN URINE Negative NEGATIVE [facility] METHAMPHETAMINES SCREEN URINE Negative NEGATIVE [facility] OPIATE SCREEN URINE Negative NEGATIVE [facility] OXYCODONE SCREEN URINE Negative NEGATIVE [facility] PHENCYCLIDINE SCREEN URINE Negative NEGATIVE [facility] TRICYCLIC ANTIDEPRESSANT URINE Negative NEGATIVE [facility] BASIC METABOLIC PANLon 12-27 Anion gap [Moles/Vol] 8 mmol/L Normal 5-15 [facility] Comment on above: Performed By: #### Dorothy BRODY, 26833-5, BMP #### [facility] ([id number]) [address] [place] [address]887 Calcium [Mass/Vol] 8.4 mg/dL Low 8.5-10.5 [facility] Comment on above: Performed By: #### Dorothy BRODY, 52179-4, BMP #### [facility] ([id number]) [address] [place] [address]1369 Chloride [Moles/Vol] 107 mmol/L Normal 98-109 [facility] Comment on above: Performed By: #### Dorothy BRODY, 97067-1, BMP #### [facility] ([id number]) [address] [place] [address] 15718 CO2 [Moles/Vol] 22 mmol/L Normal 22-32 [facility] Comment on above: Performed By: #### Dorothy BRODY, 71757-3, BMP #### [facility] ([id number]) [address] [place] [address] 31673 Creatinine [Mass/Vol] 0.38 mg/dL Low 0.40-1.00 [facility] Comment on above: Result Comment: METH OD TRACEABLE TO IDMS STANDARD Performed By: #### Dorothy BRODY, 61400-3, BMP #### [facility] ([id number]) [address] [place] [address]4838 eGFR (CKD-EPI) NON-RACE DEPENDENT >90 Normal >59 [facility] Comment on above: Result Comment: Reported eGFR is based on the CKD-EPI 2020 equation that does not use a race coefficient. Performed By: #### Dorothy BRODY, 64758-9, BMP #### [facility] ([id number]) [address] [place] [address]61 Glucose [Mass/Vol] 67 mg/dL Normal 65-99 [facility] Comment on above: Performed By: #### Dorothy BRODY 59023-1, BMP #### [facility] ([id number]) [address] [place] [address] 87015 Potassium [Moles/Vol] 3.3 mmol/L Low 3.5-5.0 [facility] Comment on above: Performed By: #### Dorothy BRODY, 13072-7, BMP #### [facility] ([id number]) [address] [place] [address] 56196 Sodium [Moles/Vol] 137 mmol/L Normal 134-146 [facility] Comment on above: Performed By: #### Dorothy BRODY 10487-9, BMP #### [facility] ([id number]) [address] [place] [address] 33366 Urea nitrogen [Mass/Vol] 11 mg/dL Normal 5-23 [facility] Comment on above: Performed By: #### Dorothy BRODY, 85289-8, BMP #### [facility] ([id number]) [address] [place] [address] 69080 CBC AND AUTO DIFFon 11-12-20 24 ABSOLUTE BASOPHIL 0.0 X10E9/L Normal 0.0-0.2 [facility] Comment on above: Performed By: #### Dorothy BRODY 11651-4, BMP #### [facility] ([id number]) [address] [place] [address] 14817 ABSOLUTE NEUTROPHIL 5.6 X10E9/L Normal 1.5-6.6 [facility] Comment on above: Performed By: #### Dorothy BRODY, 56609-5, BMP #### [facility] ([id number]) [address] [place] [address] 70949 Basophils/100 WBC (Bld) 0.6 % Normal [facility] Comment on above: Performed By: #### Dorothy BRODY, 10377-5, BMP #### [facility] ([id number]) [address] [place] [address] 23397 Eosinophils (Bld) [#/Vol] 0.1 10*3/uL Normal 0.0-0.4 [facility] Comment on above: Performed By: #### Dorothy BRODY, 36502-6, BMP #### [facility] ([id number]) [address] [place] [address] 31712 Eosinophils/100 WBC (Bld) 0.8 % Normal [facility] Comment on above: Performed By: #### Dorothy BRODY, 38194-2, BMP #### [facility] ([id number]) [address] [place] [address] 88654 Erythrocyte distribution width (RBC) [Ratio] 12.4 % Normal 11.5-15.0 [facility] Comment on above: Performed By: #### Dorothy BRODY, 95946-3, BMP #### [facility] ([id number]) [address] [place] [address] 80261 Hematocrit (Bld) [Volume fraction] 33.5 % Low 35-47 [facility] Comment on above: Performed By: #### Dorothy BRODY, 66799-0, BMP #### [facility] ([id number]) [address] [place] [address] 28546 Hemoglobin (Bld) [Mass/Vol] 11.7 g/dL Normal 11.7-15.5 [facility] Comment on above: Performed By: #### Dorothy BRODY, 64516-5, BMP #### [facility] ([id number]) [address] [place] [address] 87237 Lymphocytes (Bld) [#/Vol] 1.5 10*3/uL Normal 1.0-3.5 [facility] Comment on above: Performed By: #### Dorothy BRODY, 32110-6, BMP #### [facility] ([id number]) [address] [place] [address] 55912 Lymphocytes/100 WBC (Bld) 19.7 % Normal [facility] Comment on above: Performed By: #### Dorothy BRODY 03597-9, BMP #### [facility] ([id number]) [address] [place] [address] 55016 MCH (RBC) [Entitic mass] 32.9 pg Normal 27-34 [facility] Comment on above: Performed By: #### Dorothy BRODY, 09157-3, BMP #### [facility] ([id number]) [address] [place] [address] 85852 MCHC (RBC) [Mass/Vol] 35.1 g/dL Normal 32-36 [facility] Comment on above: Performed By: #### Dorothy BRODY, 31294-6, BMP #### [facility] ([id number]) [address] [place] [address] 97800 MCV (RBC) [Entitic vol] 94 fL Normal 80-100 [facility] Comment on above: Performed By: #### Dorothy BRODY, 54942-3, BMP #### [facility] ([id number]) [address] [place] [address] 76182 Monocytes (Bld) [#/Vol] 0.3 10*3/uL Normal 0-0.9 [facility] Comment on above: Performed By: #### Dorothy BRODY 84021-0, BMP #### [facility] ([id number]) [address] [place] [address] 98698 Monocytes/100 WBC (Bld) 4.2 % Normal [facility] Comment on above: Performed By: #### Dorothy BRODY 14080-2, BMP #### [facility] ([id number]) [address] [place] [address] 06283 Neutrophils/100 WBC (Bld) 74.7 % Normal [facility] Comment on above: Performed By: #### Dorothy BRODY 92029-8, BMP #### [facility] ([id number]) [address] [place] [address] 86676 Platelet mean volume (Bld) [Entitic vol] 9.1 fL Normal 7-12 [facility] Comment on above: Performed By: #### Dorothy BRODY 13923-4, BMP #### [facility] ([id number]) [address] [place] [address] 40861 Platelets (Bld) [#/Vol] 195 10*3/uL Normal 150-450 [facility] Comment on above: Performed By: #### Dorothy BRODY 22497-6, BMP #### [facility] ([id number]) [address] [place] [address] [place] [address] RBC COUNT 3.57 X10E12/L Low 3.80-5.20 [facility] Comment on above: Performed By: #### Dorothy BRODY 38251-8, BMP #### [facility] ([id number]) [address] [place] [address] 34958 WBC (Bld) [#/Vol] 7.5 10*3/uL Normal 4.0-11.0 [facility] Comment on above: Performed By: #### C MARY GRACE, 28510-5, BMP #### [facility] ([id number]) [address] [place] [address] 01095 Troponin I.cardiac High sens itivity method [Mass/Vol]on 12-28-2023 1 HOUR TROP I, HIGH SENSITIVITY <2 Normal <16 [facility] Comment on above: Performed By: #### 8 9579-7 #### [facility] ([id number]) [address] [place] [address], [place] [address] TROPONIN I, HIGH SENSITIVITY <2 Normal <16 [facility] Comment on above: Performed By: #### C MARY GRACE, 92017-0, BMP #### [facility] ([id number]) [address] [place] [address] 31715 HCG ( test) Ql (U)o n 12-09-2023 Interpretation and review of laboratory results Abnormal [facility] Preg Test, Ur Positive [facility] Urinalysis macro (dipstick) panel (U)on 12-09-2023 Bilirubin, UA Negative Negative - 4(70) +++ mg/dL [facility] Blood, UA Negative Negative - 50 Haroon/mcL [facility] Clarity, UA Clear [facility] Color, UA Yellow [facility] Glucose, UA Negative Negative - 2000(110) ++++ mg/dL [facility] Interpretation and review of laboratory results Normal [facility] Ketones, UA Negative Negative - 160(16) ++++ mg/dL [facility] Leukocytes, UA Negative Negative - 500+++ Robert/mcL [facility] Nitrite, UA Negative Negative - Positive [facility] pH, UA 7.5 5 - 9 [facility] Protein, UA Negative Negative - 2000(20) ++++ mg/dL [facility] Spec Grav, UA 1.015 1 - 1.03 [facility] Urobilinogen, UA 0.2 0.2 - 12 mg/dL [facility] ACETAMINOPHENon 01-23-2019 Acetaminophen [Mass/Vol] <1.0 Critically low 10.1-30.0 [facility] Comment on above: Performed By: #### A CET #### [facility] [address] [place], [place] [id number] Lou Ml CBC AUTO DIFFon 01-23-2019 Basophils (Bld) [#/Vol] 0.1 103/ul Normal 0.0-0.1 [facility] Comment on above: Performed By: #### C BC #### [facility] [address] [place], [place] [id number] Lou Ml Basophils/100 WBC (Bld) 0.7 % Normal 0.2-2.0 [facility] Comment on above: Performed By: #### C BC #### [facility] [address] [place], [place] [id number] Lou Ml Eosinophils (Bld) [#/Vol] 0.1 103/ul Normal 0.0-0.7 [facility] Comment on above: Performed By: #### C BC #### [facility] [address] [place] [address] Lou Ml Eosinophils/100 WBC (Bld) 1.0 % Normal 0.9-7.0 [facility] Comment on above: Performed By: #### C BC #### [facility] [address] [place] [address] Lou Ml Erythrocyte distribution width (RBC) [Ratio] 12.2 % Normal 11.0-15.0 [facility] Comment on above: Performed By: #### C BC #### [facility] Laboratory [address] [place] [address] Lou Ml Hematocrit (Bld) [Volume fraction] 37.6 % Normal 36.0-48.0 [facility] Comment on above: Performed By: #### C BC #### [facility] [address] [place], [place] [id number] Lou Ml Hemoglobin (Bld) [Mass/Vol] 13.0 g/dL Normal 12.0-16.0 [facility] Comment on above: Performed By: #### C BC #### [facility] [address] [place] [address] Lou Ml IG # 0.03 10e3/ul Normal 0.00-0.03 [facility] Comment on above: Performed By: #### C BC #### [facility] [address] [place], [place] [address] Lourex Bull IG % 0.3 % Normal 0.0-0.5 [facility] Comment on above: Performed By: #### C BC #### [facility] [address] [place], [place] [id number] Lou Ml Lymphocytes (Bld) [#/Vol] 2.9 103/ul Normal 1.2-3.8 [facility] Comment on above: Performed By: #### C BC #### [facility] [address] [place], [place] [address] Lou Ml Lymphocytes/100 WBC (Bld) 32.3 % Normal 20.5-60.0 [facility] Comment on above: Performed By: #### C BC #### [facility] [address] [place], [place] [address] Lou Ml MANUAL DIFF REQ NO Normal [facility] Comment on above: Performed By: #### C BC #### [facility] [address] [place], [place] [id number] Lou Ml MCH (RBC) [Entitic mass] 31.6 pg Normal 26.7-34.0 [facility] Comment on above: Performed By: #### C BC #### [facility] [address] [place], [place] [address] Lourex Bull MCHC (RBC) [Mass/Vol] 34.6 g/dL Normal 29.9-35.2 [facility] Comment on above: Performed By: #### C BC #### [facility] [address] [place], [place] [address] Lou Ml MCV (RBC) [Entitic vol] 91.5 fL Normal 79.1-95.6 [facility] Comment on above: Performed By: #### C BC #### [facility] [address] [place], [place] [address] Lou Ml Monocytes (Bld) [#/Vol] 0.6 103/ul Normal 0.3-0.8 [facility] Comment on above: Performed By: #### C BC #### [facility] [address] [place], [place] [address] Lou Ml Monocytes/100 WBC (Bld) 6.4 % Normal 1.7-12.0 [facility] Comment on above: Performed By: #### C BC #### [facility] [address] [place], [place] [address] Lou Ml Neutrophils (Bld) [#/Vol] 5.3 103/ul Normal 1.4-6.5 [facility] Comment on above: Performed By: #### C BC #### [facility] [address] [place], [place] [address] Lou Ml Neutrophils/100 WBC (Bld) 59.3 % Normal 43.0-75.0 [facility] Comment on above: Performed By: #### C BC #### [facility] [address] [place] [address] Lou Ml Platelet mean volume (Bld) [Entitic vol] 10.6 fL Normal 9.5-13.5 [facility] Comment on above: Performed By: #### C BC #### [facility] [address] [place] [phone] Lou Ml Platelets (Bld) [#/Vol] 220 103/ul Normal 150-450 [facility] Comment on above: Performed By: #### C BC #### [facility] [address] [place] [address] Lou Ml RBC (Bld) [#/Vol] 4.11 106/ul Normal 3.40-5.30 [facility] Comment on above: Performed By: #### C BC #### [facility] [address] [place] [address] Lou Ml WBC (Bld) [#/Vol] 8.9 103/ul Normal 4.0-11.0 [facility] Comment on above: Performed By: #### C BC #### [facility] [address] [place], [place] [address] Lou Ml DRUG SCREEN RAPID (URINE)on 01-23-2019 AMP Negative Normal NEGATIVE [facility] Comment on above: Performed By: #### D RUGRPD #### [facility] [address] [place] [address] Lou Ml BAR Negative Normal NEGATIVE [facility] Comment on above: Performed By: #### D RUGRPD #### [facility] [address] [place] [address] Lou Ml BUP Negative Normal NEGATIVE [facility] Comment on above: Performed By: #### D RUGRPD #### [facility] [address] [place] [address] Lou Ml BZO Negative Normal NEGATIVE [facility] Comment on above: Performed By: #### D RUGRPD #### [facility] [address] [place] [address] Lou Ml BRITTON Negative Normal NEGATIVE [facility] Comment on above: Performed By: #### D RUGRPD #### [facility] [address] [place] [address] Lou Ml CUT-OFFS SEE BELOW Normal [facility] Comment on above: Result Comment: AMP (Amphetamine): [...] ng/mL Performed By: #### D RUGRPD #### [facility] [address] [place] [address] Lou Ml DRUG CUT HEADER DRUG CLASS TEST SYST EM CUT-OFF CONCENTRATIONS ARE FOLLOWS: Normal [facility] Comment on above: Performed By: #### D RUGRPD #### [facility] [address] [address] Lou Ml mAMP Negative Normal NEGATIVE [facility] Comment on above: Performed By: #### D RUGRPD #### [facility] [address] [address] Lou Ml MTD Negative Normal NEGATIVE [facility] Comment on above: Performed By: #### D RUGRPD #### [facility] [address] [place], [place] [phone] Lou Ml OPI Negative Normal NEGATIVE [facility] Comment on above: Performed By: #### D RUGRPD #### [facility] [address] [place] [address] Lou Ml OXY Negative Normal NEGATIVE [facility] Comment on above: Performed By: #### D RUGRPD #### [facility] [address] [place] [address] Lou Ml PCP Negative Normal NEGATIVE [facility] Comment on above: Performed By: #### D RUGRPD #### [facility] [address] [place] [address] Lou Ml PPX Negative Normal NEGATIVE [facility] Comment on above: Performed By: #### D RUGRPD #### [facility] [address] [place] [address] Lou Ml TCA Negative Normal NEGATIVE [facility] Comment on above: Performed By: #### D RUGRPD #### [facility] [address] [place] [address] Lou Ml THC Positive Normal NEGATIVE [facility] Comment on above: Performed By: #### D RUGRPD #### [facility] [address] [place] [address] Lou Ml ETHANOL (BLD ALC)on 01-24-20 19 Ethanol [Mass/Vol] mg/dL Normal [facility] Comment on above: Performed By: #### E TH #### [facility] [address] [place], [place] [phone] Lou Ml Ethanol [Mass/Vol] NOTE: 80 mg/dl is th e legal limit for a blood alcohol level Normal [facility] Comment on above: Performed By: #### E TH #### [facility] [address] [place] [address] Lou Ml URon 01-23-2019 , QUAL Negative Normal NEGATIVE [facility] Comment on above: Performed By: #### P REGU #### [facility] [address] [place], [place] [address] Lourex Bull PROF 14(COMP METB)on 019 Age - Reported Normal [facility] Comment on above: Performed By: #### C MP #### [facility] [address] [place], [place] [address] Lou Ml Albumin [Mass/Vol] 4.3 g/dL Normal 3.5-5.0 [facility] Comment on above: Performed By: #### C MP #### [facility] [address] [place], [place] [address] Lou Ml Albumin/Globulin [Mass ratio] 1.6 {ratio} Normal [facility] Comment on above: Performed By: #### C MP #### [facility] [address] [place], [place] [address] Lou Ml ALP [Catalytic activity/Vol] 66 U/L Normal 65-260 [facility] Comment on above: Performed By: #### C MP #### [facility] [address] [place], [place] [address] Lou Ml ALT [Catalytic activity/Vol] 22 U/L Normal 9-52 [facility] Comment on above: Performed By: #### C MP #### [facility] [address] [place], [place] [address] Lou Ml Anion gap [Moles/Vol] 11.4 mmol/L Normal [facility] [place] Comment on above: Performed By: #### C MP #### [facility] [address] [place], [place] [address] Lou Ml AST [Catalytic activity/Vol] 16 U/L Normal 14-36 [facility] Comment on above: Performed By: #### C MP #### [facility] [address] [place], [place] [address] Lou Ml Bilirubin Ql (U) 0.6 mg/dL Normal 0.2-1.3 [facility] Comment on above: Performed By: #### C MP #### [facility] [address] [place] [address] Lou Ml Calcium [Mass/Vol] 9.7 mg/dL Normal 8.4-10.2 [facility] Comment on above: Performed By: #### C MP #### [facility] [address] [place] [address] Lou Ml Chloride [Moles/Vol] 103 mmol/L Normal 98-107 [facility] Comment on above: Performed By: #### C MP #### [facility] [address] [place] [address] Lou Ml CO2 [Moles/Vol] 27.2 mmol/L Normal 22.0-30.0 [facility] Comment on above: Performed By: #### C MP #### [facility] [address] [place] [address] Lou Ml Creatinine [Mass/Vol] 0.59 mg/dL Normal 0.52-1.04 [facility] Comment on above: Performed By: #### C MP #### [facility] [address] [place] [address] Lou Ml EGFR-AF MEXICAN Normal >=60 [facility] Comment on above: Performed By: #### C MP #### [facility] [address] [place] [address] Lou Ml EGFR-NON AF MEXICAN Normal >=60 [facility] Comment on above: Performed By: #### C MP #### [facility] [address] [place] [address] Lou Ml Globulin (S) [Mass/Vol] 2.7 g/dL Normal [facility] Comment on above: Performed By: #### C MP #### [facility] [address] [place] [address] Lou Ml Glucose [Mass/Vol] 90 mg/dL Normal 74-106 [facility] Comment on above: Performed By: #### C MP #### [facility] [address] [place], [place] [address] Lou Ml Potassium [Moles/Vol] 3.6 mmol/L Normal 3.4-5.0 [facility] Comment on above: Performed By: #### C MP #### [facility] [address] [place], [place] [address] Lou Ml Protein [Mass/Vol] 7.0 g/dL Normal 6.1-8.2 [facility] Comment on above: Performed By: #### C MP #### [facility] [address] [place], [place] [address] Lou Ml Sodium [Moles/Vol] 138 mmol/L Normal 137-145 [facility] Comment on above: Performed By: #### C MP #### [facility] [address] [id number] Lou Ml Urea nitrogen [Mass/Vol] 16.0 mg/dL Normal 6.4-19.3 [facility] Comment on above: Performed By: #### C MP #### [facility] [address] [id number] Lou Ml Urea nitrogen/Creatinine [Mass ratio] 27.1 mg/mg Normal [facility] Comment on above: Performed By: #### C MP #### [facility] [address] [id number] Olu Ml SALICYLATEon 01-23-2019 SALICYLATE 6.5 mg/dL Normal <=20.0 [facility] Comment on above: Performed By: #### S ALNBA #### [facility] [address] [place], [place] [address] Lou Ml Vital Signs Date Time Vital Sign Value Performing Clinician Faci lity 02-07-2024 10:59-0500 Body mass index (BMI) [Ratio] 22.84 kg/m2 Daphnie VANCE Work Phone: [facility] 02-07-2024 10:59-0500 Body weight 63.23 kg Daphnie VANCE Work Phone: [facility] 02-07-2024 10:59-0500 Diastolic blood pressure 70 mm[Hg] Daphnie VANCE Work Phone: [facility] 02-07-2024 10:59-0500 Systolic blood pressure 110 mm[Hg] Daphnie VANCE Work Phone: [facility] 12-09-2023 14:51-0400 Body mass index (BMI) [Ratio] 22.12 kg/m2 Nom Nurse [facility] 12-09-2023 14:51-0400 Body weight 61.24 kg Noms Nurse [facility] 12-09-2023 14:51-0400 Diastolic blood pressure 66 mm[Hg] Nom Nurse [facility] 12-09-2023 14:51-0400 Systolic blood pressure 100 mm[Hg] [facility] Nurse [facility] Healthcare Encounters Encounter Date Encounter Type Care Provider Facility Start: 02-07-2024 End: 02-07-2024 Bamboo flowsheet Daphnie VANCE Work Phone: [facility] Start: 02-07-2024 End: 02-11-2024 Bamboo flowsheet Daphnie VANCE Work Phone: [facility] Start: 02-07-2024 End: 02-11-2024 External Result Encounter Daphnie VANCE Work Phone: [facility] External Department Unsolicited Start: 02-07-2024 End: 02-07-2024 Patient encounter procedure Daphnie VANCE Work Phone: [facility] Start: 02-07-2024 End: 02-07-2024 Periodic preventive med est patient 18-39 yrs Daphnie VANCE Work Phone: [facility] Comment on above: 16 weeks gestation o f ; Second trimester ; Screening, , for anatomic survey; Well woman exam with routine gynecological exam Start: 02-07-2024 End: 02-07-2024 ambulatory DAPHNIE KEMP Not Available Start: 01-10-2024 End: 01-10-2024 ambulatory EBONY LUZ ELENA Not Available Start: 01-10-2024 End: 01-10-2024 flow sheet Ebony Luz Elena DO Work Phone: [facility] Comment on above: First trimester preg carlos alberto; 12 weeks gestation of ; Nausea and vomiting in Start: 01-03-2024 End: 01-03-2024 Clinisync Result Encounter Generic External Data Provider [facility] External Department Unsolicited Start: 01-03-2024 End: 01-03-2024 Clinisync Result Encounter Generic External Data Provider [facility] External Department Unsolicited Start: 12-28-2023 End: 12-28-2023 Emergency department patient visit NOT IN SYSTEM PCP [facility] Start: 12-09-2023 End: 12-09-2023 ambulatory [facility] Luz Elena Nurse [facility] Comment on above: GA: 8w2d Start: 01-23-2019 End: 01-23-2019 Patient encounter procedure ELINOR PALOMO Facility: Procedures Date Procedure Procedure Detail Performing Clinician Start: 02-07-2024 RECURRENT VAGINITIS (HTRX) Daphnie VANCE Work Phone: Start: 02-07-2024 Urnls dip stick/tabl et rgnt [...] Data Provider Start: 01-03-2024 HBSAG SCREEN Ebony Fazi o DO Work Phone: Start: 01-03-2024 HCV ANTIBODY RFX TO QUANT PCR Generic External Data Provider Start: 01-03-2024 HIV AB/P24 AG WITH REFLEX Generic External Data Provider Start: 01-03-2024 MLR HEMOGLOBIN A1C Gene best External Data Provider Start: 01-03-2024 RAPID PLASMA REAGIN, QUANT Ebony Luz Elena DO Work Phone: Start: 01-03-2024 Bacteria identified in Urine by Culture Generic External Data Provider Start: 01-03-2024 CANNABINOID CONF, MS, UR Ebony Laguna DO Work Phone: Start: 01-03-2024 [facility] DRUG SCREEN RAPI D (URINE) Ebony Foxzio DO Work Phone: Start: 12-09-2023 Urnls dip stick/tabl et rgnt non-auto w/o micrscp Ebony Heado DO Work Phone: Plan of Treatment Date Care Activity Detail Author Start: 03-15-2024 End: 03-15-2024 Patient encounter procedure 03/15/2024 3:40 PM EST Routine [facility] [address] [place] [phone] Ebony Laguna, [facility] [address] [place], [place] [id number] [facility] Start: 03-15-2024 End: 03-15-2024 Professional / ancillary services management 03/15/2024 2:30 PM EST Ancillary Procedure [facility] [address] [place] [id number] [facility] Start: 02-14-2024 End: 02-14-2024 Patient encounter procedure 02/14/2024 11:30 AM EST Routine [facility] [address] [place] [id number] Daphnie Kemp PA [address] [place] [address] [facility] Start: 02-07-2024 End: 03-09-2024 Alpha fetoprotein, maternal Alpha fetoprotein, maternal Lab Routine Second trimester Expected: 02/07/2024 (Approximate), Expires: 03/09/2024 [facility] Comment on above: Expected: 02/07/2024 (Approximate), Expires: 03/09/2024 Start: 02-07-2024 End: 02-06-2025 US for US OB ANATOMY SINGLE W US OB CERVICAL LENGTH Imaging Routine Second trimester Screening, , for anatomic survey Expected: 02/07/2024 (Approximate), Expires: 02/06/2025 [facility] Healthcare Comment on above: Expected: 02/07/2024 (Approximate), Expires: 02/06/2025 Start: 02-07-2024 End: 02-07-2024 Patient encounter procedure 02/07/2024 10:20 AM EST Routine [facility] [address] [place] [id number] Daphnie Kemp PA [address] [facility] [facility] [address] [place], [place] [phone] 16 weeks gestation of ; Second trimester ; Screening, , for anatomic survey; Well woman exam with routine gynecological exam [facility] Comment on above: 16 weeks gestation o f ; Second trimester ; Screening, , for anatomic survey; Well woman exam with routine gynecological exam Start: 01-10-2024 End: 01-10-2024 Patient encounter procedure 01/10/2024 1:40 PM EST Routine [facility] [address] [place] [id number] Ebony Laguna DO [address] [facility] [place] [address] [facility] Start: 12-09-2023 End: 12-08-2024 ABO/Rh ABO/Rh Lab Routine Missed menses , unspecified gestational age Expected: 12/09/2023 (Approximate), Expires: 12/08/2024 [facility] Comment on above: Expected: 12/09/2023 (Approximate), Expires: 12/08/2024 Start: 12-09-2023 End: 12-08-2024 Blood type and Indirect antibody screen panel - Blood Type and screen Lab Routine Missed menses , unspecified gestational age Expected: 12/09/2023 (Approximate), Expires: 12/08/2024 [facility] Work Phone: Comment on above: Expected: 12/09/2023 (Approximate), Expires: 12/08/2024 Start: 12-09-2023 End: 12-08-2024 Drugs of abuse panel - Urine by Screen method Rapid drug screen, urine Lab Routine , unspecified gestational age Encounter for supervision of normal first in first trimester Expected: 12/09/2023 (Approximate), Expires: 12/08/2024 [facility] Comment on above: Expected: 12/09/2023 (Approximate), Expires: 12/08/2024 Start: 12-09-2023 End: 12-08-2024 US Pelvis transvaginal US OB transvaginal Imaging Routine Missed menses Expected: 12/09/2023 (Approximate), Expires: 12/08/2024 [facility] Comment on above: Expected: 12/09/2023 (Approximate), Expires: 12/08/2024 Start: 10-17-2023 Influenza vaccination Influenza Vacc ine (#1) [facility] Bacteria identified in Urine by Culture Urine culture Microbiology Routine Missed menses Ordered: 12/09/2023 [facility] Comment on above: Ordered: 12/09/2023 CBC W Auto Different ial panel - Blood CBC and differential Lab Routine Missed menses , unspecified gestational age Ordered: 12/09/2023 [facility] Comment on above: Ordered: 12/09/2023 CHLAMYDIA TRACHOMATI S (GENITO/STI) CHLAMYDIA TRACHOMATIS (GENITO/STI) Lab Routine 16 weeks gestation of Second trimester Well woman exam with routine gynecological exam Ordered: 02/07/2024 [facility] Comment on above: Ordered: 02/07/2024 Cytology Cervical or vaginal smear or scraping study Pap Smear Pathology and Cytology Routine 16 weeks gestation of Second trimester Well woman exam with routine gynecological exam Ordered: 02/07/2024 [facility] Work Phone: Comment on above: Ordered: 02/07/2024 Hemoglobin A1c/Hemoglobin.total in Blood Hemoglobin A1c Lab Routine Missed menses , unspecified gestational age Ordered: 12/09/2023 [facility] Comment on above: Ordered: 12/09/2023 Hepatitis B virus surface Ag [Presence] in Serum or Plasma by Immunoassay Hepatitis B surface antigen Lab Routine Missed menses , unspecified gestational age Ordered: 12/09/2023 [facility] Comment on above: Ordered: 12/09/2023 Hepatitis C virus Ab [Presence] in Serum or Plasma by Immunoassay Hepatitis C antibody Lab Routine Missed menses , unspecified gestational age Ordered: 12/09/2023 [facility] Comment on above: Ordered: 12/09/2023 HIV-1/HIV-2 antigen/antibody combination immunoassay HIV-1 and HIV-2 antibodies Lab Routine Missed menses , unspecified gestational age Ordered: 12/09/2023 [facility] Comment on above: Ordered: 12/09/2023 Neisseria gonorrhoea e DNA [Presence] in Unspecified specimen by NORRIS with probe detection Neisseria gonorrhea DNA probe, direct Lab Routine 16 weeks gestation of Second trimester Well woman exam with routine gynecological exam Ordered: 02/07/2024 [facility] Comment on above: Ordered: 02/07/2024 Reagin Ab [Presence] in Serum by RPR RPR Lab Routine Missed menses , unspecified gestational age Ordered: 12/09/2023 [facility] Comment on above: Ordered: 12/09/2023 Rubella antibody, IgG Rubella an tibody, IgG Lab Routine Missed menses , unspecified gestational age Ordered: 12/09/2023 [facility] Comment on above: Ordered: 12/09/2023 SURESWAB(R) ADVANCED VAGINITIS PLUS, TMA SURESWAB(R) ADVANCED VAGINITIS PLUS, TMA Pathology and Cytology Routine 16 weeks gestation of Second trimester Well woman exam with routine gynecological exam Ordered: 02/07/2024 [facility] Comment on above: Ordered: 02/07/2024 Payers Date Payer Category Payer [facility] [id number] 2019 Unknown [id number] 2001 Unknown [id number] 2001 Unknown [id number] 2001 Unknown [id number] 2001 Unknown [id number] 1978 Unknown [id number] 1959 Unknown [id number] Social History Date Type Detail Facility Start: 01-19-[facility]23 [facility] History [...] Date Noted Anxiety disorder 07/08/2022 Mood disorder ([facility]) 07/08/2022 Cannabis use, 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[facility]) 07/08/2022 Moderate episode of recurrent major depressive disorder ([facility]) 07/08/2022 Oppositional defiant disorder ([facility]) 07/08/2022 Other atopic dermatitis 07/08/2022 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 Exam conducted with a stencil cutter machine present. Vitals: Estimated body mass index is [...] obtained without difficulty and patient was given [facility] order to have obtained. 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 Exam conducted with a stencil cutter machine present. Vitals: Estimated body mass index is [...] or undercooked meat, and stay away from [facility]. 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 Pt was advised if she does want [facility] to have it done w/ labs [...] Meaghan Prado MA documented in this encounter [facility] Evaluation note Note Date & Type Note Facility Evaluation note Diagnosis Missed menses , unspecified gestational age Encounter for supervision of normal first in first trimester Nausea and vomiting in Unspecified vomiting of , unspecified as to episode of care documented in this encounter [facility] Evaluation note Note Date & Type Note Facility Evaluation note Diagnosis First trimester state, incidental 12 weeks gestation of Nausea and vomiting in Unspecified vomiting of , unspecified as to episode of care documented in this encounter [facility] Evaluation note Note Date & Type [...] and content) DATE CREATED AUTHOR 01/25/2019 [facility] DATE CREATED AUTHOR AUTHOR'S ORGANIZ ATION 12/29/2023 [facility] DATE CREATED AUTHOR AUTHOR'S ORGANIZ ATION 02/09/2024 [facility] EPIC Reason for Visit (unrecogniz ed section and content) Reason Comments Amenorrhea Reason Comments Routine Visit Care Teams (unrecognized sec tion and content) Marriage And Family Social Worker Relationship Specialty Start Date End Date Cary Ocasio MD [address] [facility] [place] [address] PCP - General Family Medicine 07/07/22 Marriage And Family Social Worker Relationship Specialty Start Date End Date Cary Ocasio MD [address] [place] [address] PCP - General Family Medicine 07/07/22 Marriage And Family Social Worker Relationship Specialty Start Date End Date Cary Ocasio MD [address] [place] [address] PCP - General Family Medicine 07/07/22 Marriage And Family Social Worker Relationship Specialty Start Date End Date Cary Ocasio MD [address] [place] [address] PCP - General Family Medicine 07/07/22 Marriage And Family Social Worker Relationship Specialty Start Date End Date Cary Ocasio MD [address] [place] [address] PCP - General Family Medicine 07/07/22 Marriage And Family Social Worker Relationship Specialty Start Date End Date Cary Ocasio MD [address] [place] [address] PCP - General Family Medicine 07/07/22 FOR [...] BE BASED ON THE PRIMARY CLINICAL RECORDS. [facility]. provides no warranty or guarantee of the accuracy or completeness of information in this document.
[2024-02-13 01:09] LABS: AFP Value 37.9 ng/mL (.); Gest. Age on Collection Date 17.4 weeks (.); Insulin Dep Diabetes No (.); Maternal Age At EDD 22.9 yr (.); OSBR Risk 1 IN 10000 (.); Results Report (.)
== END 2024-02-11 13:01 | disposition home or self-care (01) ==
LOC: LAB 13:02
PROVIDERS: PCP Family Medicine; Visit Provider Physician Assistant
DX: Z34.92 Encounter for supervision of normal pregnancy, unspecified, second trimester (principal)
CPT/HCPCS: 36415; 82105

== ENCOUNTER 2024-03-13 05:50 | Observation (INO) | payer BC, SELFPAY ==
--- OUTSIDE RECORDS SUMMARY | 2024-03-13 05:54 | XMS_ITS | CCD ---
Demographics Address [address] [place] [address] Preferred Language en Marital Status Single Tenriism Affiliation Unknown Race White Ethnic Group Unknown Author Organization [facility] Inform ion Partnership [facility] Care Team Providers Care Buyer Tobacco Head Name Role Phone ELINOR PALOMO Consulting Unavailable ELINOR PALOMO Admitting Unavailable ELINOR PALOMO Attending Unavailable Cary Ocasio MD Primary Care Provider EBONY LAGUNA Attending Unavailable DAPHNIE KEMP Attending Unavailable PCP, NOT IN SYSTEM Primary Care Unavailable HELLEN VERDIN Attending Unavailable PCP, NOT IN SYSTEM Primary Care Unavailable Medications Current Medications Medication Drug Class(es) Dates Sig (Normalized) Sig (Original) metoclopramide 10 mg oral tablet (8 sources) Dopamine-2 Receptor Antagonist Start: 01-10-2024 End: [...] Active vitamin (Prenatabs Rx) 29-1 MG tablet (10 sources) Start: 12-09-2023 End: 12-08-2024 take 1 tablet by mouth once daily vitamin (Prenatabs Rx) 29-1 MG tablet Indications: , unspecified gestational age Take 1 tablet by mouth Daily 360 tablet 12/09/2023 12/08/2024 Active Problems Active Problems Problem Classification Problem Date Documented Da te Episodic/Chronic Allergic reactions (10 sources) Atopic dermatitis; Translations: [Other atopic dermatitis] Onset: 07-08-2022 07-08-2022 Chronic Anxiety disorders (14 sources) State of emotional shock and stress, unspecified; Translations: [Anxiety disorder] Onset: 01-23-2019 07-08-2022 Chronic Attention-deficit, conduct, and disruptive behavior disorders (10 sources) Oppositional defiant disorder; Translations: [Oppositional defiant disorder] Onset: 07-08-2022 07-08-2022 Chronic Hemorrhage during ; abruptio placenta; placenta previa (1 source) Antepartum hemorrhage, unspecified, unspecified trimester; Translations: [Antepartum hemorrhage, unspecified, unspecified trimester] Onset: 02-22-2024 Episodic Menstrual disorders (1 source) Missed period; Translations: [Irregular menstruation, unspecified] 12-09-2023 Chronic Mood disorders (20 sources) Mood disorder; Translations: [Unspecified mood [affective] disorder] Onset: 07-08-2022 07-08-2022 Chronic Nonspecific chest pain (1 source) Chest pain, unspecified; Translations: [Chest pain, unspecified] Onset: 12-28-2023 Episodic Other complications of (3 sources) Vomiting of , unspecified; Translations: [Unspecified vomiting of , unspecified as to episode of care or not applicable] 12-09-2023 Episodic Other female genital disorders (1 source) Vaginal bleeding Onset: 02-22-2024 Chronic Other and delivery including normal (12 sources) ; Translations: [Encounter for supervision of normal , unspecified, unspecified trimester] Onset: 02-07-2024 12-09-2023 Episodic Other screening for suspected conditions (not mental disorders or infectious disease) (8 sources) Patient encounter status; Translations: [Encounter for other specified screening] Onset: 02-07-2024 02-07-2024 Episodic Residual codes; unclassified (2 sources) Gestation period, 12 weeks; Translations: [12 weeks gestation of ] 01-10-2024 Episodic Residual codes; unclassified (8 sources) Gestation period, 16 weeks; Translations: [16 weeks gestation of ] Onset: 02-07-2024 02-07-2024 Episodic Residual codes; unclassified (1 source) 11 weeks gestation of ; Translations: [11 weeks gestation of ] Onset: 12-28-2023 Episodic Syncope (2 sources) Syncope and collapse; Translations: [Syncope] Onset: 12-28-2023 Episodic Unclassified (1 source) Ill Onset: 12-28-2023 Past or Other Problems Problem Classification Problem Date Documented Da te Episodic/Chronic Poisoning by nonmedicinal substances (10 sources) Toxic effect of ethyl alcohol; Translations: [Toxic effect of ethanol, accidental (unintentional), initial encounter] Onset: 07-08-2022 07-08-2022 Episodic Substance-related disorders (10 sources) Cannabis-induced organic mental disorder; 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, unspecified with unspecified cannabis-induced disorder] Onset: 07-08-2022 07-08-2022 Episodic Results Test Name Value Interpretation Reference Range Facility URN MACROSCOPIC NURon 2024 BILIRUBIN DANIEL Negative Normal [facility] Comment on above: Performed By: #### N UM #### [facility] ([id number]) [address] [place] [address] BLOOD/HGB DANIEL Trace Abnormal [facility] Comment on above: Performed By: #### N UM #### [facility] ([id number]) [address] [place] [address] 19593 GLUCOSE DANIEL Negative Normal [facility]G [facility] Comment on above: Performed By: #### N UM #### [facility] ([id number]) [address] [place] [address] [place] [address] KETONES DANIEL 15 mg/dL Abnormal [facility] Comment on above: Performed By: #### N UM #### [facility] ([id number]) [address] [place] [address] 05620 LEUKOCYTE ESTERASE DANIEL Negative Normal [facility] Comment on above: Performed By: #### N UM #### [facility] ([id number]) [address] [place] [address] 45944 NITRITE DANIEL Negative Normal NEG [facility] Comment on above: Performed By: #### N UM #### [facility] ([id number]) [address] [place] [address] 52711 PH DANIEL 6.0 Normal 5.0-8.5 [facility] Comment on above: Performed By: #### N UM #### [facility] ([id number]) [address] [place] [address] 64455 PROTEIN DANIEL Negative Normal NEG [facility] Comment on above: Performed By: #### N UM #### [facility] ([id number]) [address] [place] [address] 89221 SPECIFIC GRAVITY DANIEL 1.025 Normal 1.003-1.035 [facility] Comment on above: Performed By: #### N UM #### [facility] ([id number]) [address] [place] [address] 56742 UROBILINOGEN DANIEL 0.2 eu/dL Normal <1.1 [facility] Comment on above: Performed By: #### N UM #### [facility] ([id number]) [address] [place] [address] IGP,APTIMA HPV,AGE GDLNon AGE GDLN ACOG TESTING Note . [facility] Comment on above: TESTS RESULT FLAG UN ITS REF RANGE LAB Clinician Provided Cytology Information Source.............Cervix No. of containers..01 ThinPrep Vial Age Algo ACOG Mariam... FLAG LEGEND: L-Low Normal,H-High Normal,LL-Alert Low,HH-Alert High <-Panic Low,>-Panic High,A-Abnormal,AA-Critical Abnormal Performed at: 01 [address] [address] Yael Field MD, IGP, RFX APTIMA HPV ASCU Note . [facility] Comment on above: TESTS RESULT FLAG UN ITS REF RANGE LAB DIAGNOSIS: 02 NEGATIVE FOR INTRAEPITHELIAL LESION OR MALIGNANCY. REACTIVE CELLULAR CHANGES AND/OR REPAIR ARE PRESENT. Specimen adequacy: 02 Satisfactory for evaluation. No endocervical component is identified. Performed by: 02 Lenin Walters, Jack Setter (ASC) Electronically si... 02 Yael Field MD, Pathologist . 02 Note: Note 02 The Pap smear is a screening test designed to aid in the detection of premalignant and malignant conditions of the uterine cervix. It is not a diagnostic procedure and should not be used as the sole means of detecting cervical cancer. Both false-positive and false-negative reports do occur. Test Methodology: Note 02 This liquid based ThinPrep(R) pap test was screened with the use of an image guided system. . 02 The HPV DNA reflex criteria were not met with this specimen result therefore, no HPV testing was performed. FLAG LEGEND: L-Low Normal,H-High Normal,LL-Alert Low,HH-Alert High <-Panic Low,>-Panic High,A-Abnormal,AA-Critical Abnormal Performed at: [address] [address] Yael Field MD, Performed at: =[address] [id number] Quality Assurance Supervisor Chassis: Yael Field MD, Phone: [phone] Performed at: [address] [id number] Quality Assurance Supervisor Chassis: Yael Field MD, Phone: [phone] SPATULA-ALONE CERVIX [facility] AFP, SERUM, OPEN SPINA BIFID Aon 02-13-2024 AFP MOM 0.91 . [facility] AFP VALUE 37.9 ng/mL . [facility] COMMENT: Comment . [facility] Comment on above: Giana Tenorio , Ph.D., [facility] Director References: Available Upon Request. Multiples Of Median Cutoffs For AFP Elevations Mares 2.5 Black 2.8 IDD 2.0 Twins 4.5 Abbreviation Definitions IDD - Insulin Dep Diabetes OSBR - Open Spina Bifida Risk For further inquiries contact [facility] at [phone]. This test was developed and its performance characteristics determined by [facility]. It has not been cleared or approved by the Food and Drug Administration. Performed at: [facility] [address] [place], [place] [id number] Quality Assurance Supervisor Chassis: Junior Munoz [facility], Phone: [phone] GEST. AGE ON COLLECTION DATE 17.4 . weeks [facility] GESTAT. AGE BASED ON LMP . [facility] Comment on above: Recalculations are n ot recommended when gestational dating by LMP and ultrasound are within 10 days. INSULIN DEP DIABETES No . [facility] INTERPRETATION Comment . [facility] Comment on above: Interpretation: Scre en Negative This result is screen negative for OSB. The AFP MoM calculated is based on the gestational age provided. MS-AFP can identify up to 80% of open neural tube defects. Closed neural tube defects and some open defects may not be detected by this test. This test does not screen for Down Syndrome or Trisomy 18. If screening for Down Syndrome or Trisomy 18 is desired, contact [facility] to discuss available options. The [employer] recommends amniocentesis be offered to women age 35 and older. [age] [facility] MULTIPLE GESTATION No . [facility] [place] [address] . [facility] RACE . [facility] RESULTS Report . [facility] TEST RESULTS: Negative . [facility] WEIGHT 139 . lbs [facility] N N LMP [id number] 6 16 N 1 Y 139 N N N N N White/ [facility] RECURRENT VAGINITIS (HTRX)on 02-11-2024 ATOPOBIUM VAGINAE 0 [facility] ATOPOBIUM VAGINAE Not detected [facility] BVAB 2,3 (BACTERIAL VAGINOSIS ASSOCIATED BACTERIA 2, 3); MOBILUNCUS SPP 0 [facility] BVAB 2,3 (BACTERIAL VAGINOSIS ASSOCIATED BACTERIA 2, 3); MOBILUNCUS SPP Not detected [facility] ROGELIO ALBICANS, PARAPSILOSIS, TROPICALIS 0 [facility] ROGELIO ALBICANS, PARAPSILOSIS, TROPICALIS Not detected [facility] ROGELIO GLABRATA 0 [facility] ROGELIO GLABRATA Not detected [facility] ROGELIO KRUSEI 0 [facility] ROGELIO KRUSEI Not detected [facility] CHLAMYDIA TRACHOMATIS 0 [facility] CHLAMYDIA TRACHOMATIS Not detected N [facility] GARDNERELLA VAGINALIS 0 [facility] GARDNERELLA VAGINALIS Not detected N [facility] MEGASPHAERA (TYPES 1, 2) 0 [facility] MEGASPHAERA (TYPES 1, 2) Not detected [facility] MYCOPLASMA GENITALIUM 0 [facility] MYCOPLASMA GENITALIUM Not detected N [facility] NEISSERIA GONORRHOEAE 0 [facility] NEISSERIA GONORRHOEAE Not detected N [facility] TRICHOMONAS VAGINALIS 0 [facility] TRICHOMONAS VAGINALIS Not detected N [facility] Urinalysis macro (dipstick) panel (U)Ordered By: Kal Vera on 02-07-2024 Bilirubin, UA Negative Negative - 4(70) +++ mg/dL [facility] Work Phone: Blood, UA Negative Negative - 50 Haroon/mcL [facility] Work Phone: Clarity, UA Clear [facility] Work Phone: Color, UA Yellow [facility] Work Phone: Glucose, UA Negative Negative - 1999(110) ++++ mg/dL [facility] Work Phone: Interpretation and review of laboratory results Normal [facility] Work Phone: Ketones, UA Negative Negative - 160(16) ++++ mg/dL [facility] Work Phone: Leukocytes, UA Negative Negative - 500+++ Robert/mcL [facility] Work Phone: Nitrite, UA Negative Negative - Positive [facility] Work Phone: pH, UA 7.5 5 - 9 [facility] Work Phone: Protein, UA Negative Negative - 1999(20) ++++ mg/dL [facility] Work Phone: Spec Grav, UA 1.02 1 - 1.03 [facility] Work Phone: Urobilinogen, UA 1.0 0.2 - 12 mg/dL [facility] Work Phone: [facility] Work Phone: Urinalysis macro (dipstick) panel (U)on 01-10-2024 Bilirubin, UA Negative Negative - 4(70) +++ mg/dL [facility] Blood, UA Positive Negative - 50 Haroon/mcL [facility] Comment on above: trace Clarity, UA Clear [facility] Color, UA Yellow [facility] Glucose, UA Negative Negative - 1999(110) ++++ mg/dL [facility] Interpretation and review of laboratory results Abnormal [facility] Ketones, UA Negative Negative - 160(16) ++++ mg/dL [facility] Leukocytes, UA Negative Negative - 500+++ Robert/mcL [facility] Nitrite, UA Negative Negative - Positive [facility] pH, UA 7 5 - 9 [facility] Protein, UA Negative Negative - 2000(20) ++++ mg/dL [facility] Spec Grav, UA 1.025 1 - 1.03 [facility] Urobilinogen, UA 0.2 0.2 - 12 mg/dL [facility] CANNABINOID CONF, MS, URon 1 03-09-2023 CANNABINOID Positive Abnormal . [facility] CARBOXY THC CONF, MS, UR 446 ng/mL Cutoff=10 [facility] Comment on above: Performed at: [facility] [place], [place] [id number] Quality Assurance Supervisor Chassis: Bala Carpenter PhD, Phone: [phone] Interpretation and review of laboratory results Abnormal [facility] ALL RUBELLA IGG ABon 024 RUBELLA ANTIBODIES, IGG 2.02 Immune >0.99 index [facility] Comment on above: Non-immune <0.90 Equivocal 0.90 - 0.99 Immune >0.99 Performed at: [facility] [address] [id number] Quality Assurance Supervisor Chassis: Colten Caceres PhD, Phone: [phone] HBSAG SCREENon 01-04-2024 HBSAG SCREEN Negative Negative [facility] Comment on above: Performed at: [facility] [address] [id number] Quality Assurance Supervisor Chassis: Colten Caceres PhD, Phone: [phone] HCV ANTIBODY RFX TO QUANT PC Kevin 01-04-2024 HCV AB Non-Reactive Non Reactive [facility] INTERPRETATION: Comment . [facility] Comment on above: Not infected with HC V unless early or acute infection is suspected (which may be delayed in an immunocompromised individual), or other evidence exists to indicate HCV infection. HIV AB/P24 AG WITH REFLEXon 01-04-2024 HIV AB/P24 AG SCREEN Non-Reactive Non Reactive [facility] Comment on above: HIV-1/HIV-2 antibodi es and HIV-1 p24 antigen were NOT detected. There is no laboratory evidence of HIV infection. HIV Negative Performed at: [facility] [address] [id number] Quality Assurance Supervisor Chassis: Colten Caceres PhD, Phone: [phone] No Panel [facility]on 01-03 [facility] RAPID PLASMA REAGIN, QUANTon 01-04-2024 RAPID PLASMA REAGIN, QUANT Non-Reactive NonRea<1:1 titer [facility] Comment on above: Please Note: This te st does not meet current guidelines for screening and diagnosis of syphilis. This test is intended for following treatment response in patients being treated for syphilis infection. To screen for syphilis infection, a reflex cascade that includes both RPR and a treponema-specific assay should be utilized, such as Treponema pallidum (Syphilis) Screening [place] (031825) or Rapid Plasma Reagin (RPR) Test With Reflex to Quantitative RPR and Confirmatory Treponema pallidum Antibodies (770127). Performed at: [address] [id number] Quality Assurance Supervisor Chassis: Colten Caceres PhD, Phone: [phone] URINE CULTURE, ROUTINEon Bacteria identified Cx Nom (U) Urine Culture, Routine [facility] Bacteria identified Cx Nom (U) Mixed urogenital татьяна [facility] Bacteria identified Cx Nom (U) Less than 10,000 colonies/mL [facility] Bacteria identified Cx Nom (U) Performed at: [facility] Bacteria identified Cx Nom (U) [address] [place] [id number] [place] [address] Bacteria identified Cx Nom (U) Quality Assurance Supervisor Chassis: Colten Caceres PhD, Phone: [phone] [facility] ALL CBC WITH AUTO DIFFon BASOPHILS ABSOLUTE AUTO 0 [facility] Basophils/100 WBC (Bld) 0.3 % 0.2 - 2.0 % [facility] Eosinophils/100 WBC (Bld) 2.2 % 0.9 - 7.0 % [facility] Erythrocyte distribution width (RBC) [Ratio] 11.9 % 11.0 - 15.0 % [facility] Hematocrit (Bld) [Volume fraction] 37 % 36.0 - 48.0 % [facility] Hemoglobin (Bld) [Mass/Vol] 13 g/dL 12.0 - 16.0 g/dL [facility] IMMATURE GRANULOCYTES ABS AUTO 0.04 High [facility] Immature granulocytes/100 WBC (Bld) 0.3 % 0.0 - 0.5 % [facility] Interpretation and review of laboratory results Abnormal [facility] LYMPHOCYTES ABSOLUTE AUTO 1.4 [facility] Lymphocytes/100 WBC (Bld) 11.9 % Low 20.5 - 60.0 % [facility] MCH (RBC) [Entitic mass] 32.9 pg 26.7 - 34.0 pg [facility] MCHC (RBC) [Mass/Vol] 35.1 g/dL 29.9 - 35.2 g/dL [facility] MCV (RBC) [Entitic vol] 93.7 fL 81.0 - 99.0 fL [facility] MONOCYTES ABSOLUTE AUTO 0.4 [facility] Monocytes/100 WBC (Bld) 3.4 % 1.7 - 12.0 % [facility] NEUTROPHILS ABSOLUTE AUTO 9.5 High [facility] Neutrophils/100 WBC (Bld) 81.9 % High 43.0 - 75.0 % [facility] Platelet mean volume (Bld) [Entitic vol] 10.9 fL 9.5 - 13.5 fL [facility] TB EO # 0.3 [facility] TB PLT 232 [facility] RBC 3.95 Low [facility] WBC 11.7 High [facility] ALL TYPE AND SCREENon 2023 ABO and Rh group Nom (Bld) Blood group O Rh(D) positive [facility] BOX TESTon 01-03-2024 BOX TEST SENT OUT [facility] BOX1 [facility] BOX2 01/03/24 [facility] MLR HEMOGLOBIN A1Con 024 Glucose [Mass/Vol] 82 mg/dL [facility] HbA1c (Bld) [Mass fraction] 4.5 % 4.5 - 6.2 % [facility] Comment on above: ADA RECOMMENDED LIMI T 4.0 - 6.0 ADA THERAPEUTIC TARGET < 7.0 ACTION SUGGESTED > 7.0 [facility] DRUG SCREEN RAPID (URINE )on 01-03-2024 AMPHETAMINE SCREEN URINE Negative NEGATIVE [facility] BARBITURATES SCREEN URINE Negative NEGATIVE [facility] BENZODIAZEPINES SCREEN URINE Negative NEGATIVE [facility] BUPRENORPHINE SCREEN URINE Negative NEGATIVE [facility] Comment on above: DRUG CLASS TEST SYST [...] ng/mL CANNABINOID SCREEN URINE Positive Abnormal NEGATIVE [facility] COCAINE SCREEN URINE Negative NEGATIVE [facility] Interpretation and review of laboratory results Abnormal [facility] METHADONE SCREEN URINE Negative NEGATIVE [facility] METHAMPHETAMINES SCREEN URINE Negative NEGATIVE [facility] OPIATE SCREEN URINE Negative NEGATIVE [facility] OXYCODONE SCREEN URINE Negative NEGATIVE [facility] PHENCYCLIDINE SCREEN URINE Negative NEGATIVE [facility] TRICYCLIC ANTIDEPRESSANT URINE Negative NEGATIVE [facility] BASIC METABOLIC PANLon 12-27 Anion gap [Moles/Vol] 8 mmol/L Normal 5-15 [facility] Comment on above: Performed By: #### C SHWETA BRODY, 30237-7 #### [facility] ([id number]) [address] [place] [address] Calcium [Mass/Vol] 8.4 mg/dL Low 8.5-10.5 [facility] Comment on above: Performed By: #### SHWETA De La Cruz BCA, 18998-1 #### [facility] ([id number]) [address] [place] [address] 31293 Chloride [Moles/Vol] 107 mmol/L Normal 98-109 [facility] Comment on above: Performed By: #### SHWETA De La Cruz BCA, 50759-5 #### [facility] ([id number]) [address] [place] [address]507 CO2 [Moles/Vol] 22 mmol/L Normal 22-32 [facility] Comment on above: Performed By: #### SHWETA De La Cruz BCA, 33234-9 #### [facility] ([id number]) [address] [place] [address]168 Creatinine [Mass/Vol] 0.38 mg/dL Low 0.40-1.00 [facility] Comment on above: Result Comment: METH OD TRACEABLE TO IDMS STANDARD Performed By: #### C SHWETA BRODY, 84094-5 #### [facility] ([id number]) [address] [place] [address]876 eGFR (CKD-EPI) NON-RACE DEPENDENT >90 Normal >59 [facility] Comment on above: Result Comment: Reported eGFR is based on the CKD-EPI 2020 equation that does not use a race coefficient. Performed By: #### C SHWETA BRODY, 93237-9 #### [facility] ([id number]) [address] [place] [address]203 Glucose [Mass/Vol] 67 mg/dL Normal 65-99 [facility] Comment on above: Performed By: #### C SHWETA BRODY, 86546-8 #### [facility] ([id number]) [address] [place] [address] 01126 Potassium [Moles/Vol] 3.3 mmol/L Low 3.5-5.0 [facility] Comment on above: Performed By: #### C SHWETA BRODY, 85684-0 #### [facility] ([id number]) [address] [place] [address] 28498 Sodium [Moles/Vol] 137 mmol/L Normal 134-146 [facility] Comment on above: Performed By: #### C SHWETA BRODY, 83510-5 #### [facility] ([id number]) [address] [place] [address] 35839 Urea nitrogen [Mass/Vol] 11 mg/dL Normal 5-23 [facility] Comment on above: Performed By: #### C SHWETA BRODY, 01578-7 #### [facility] ([id number]) [address] [place] [address]126 CBC AND AUTO DIFFon 12-28-19 24 ABSOLUTE BASOPHIL 0.0 X10E9/L Normal 0.0-0.2 [facility] Comment on above: Performed By: #### SHWETA De La Cruz BCA, 10965-2 #### [facility] ([id number]) [address] [place] [address]02 ABSOLUTE NEUTROPHIL 5.6 X10E9/L Normal 1.5-6.6 [facility] Comment on above: Performed By: #### SHWETA De La Cruz BCA, 50118-2 #### [facility] ([id number]) [address] [place] [address]246 Basophils/100 WBC (Bld) 0.6 % Normal [facility] Comment on above: Performed By: #### Dorothy BRODY [facility], 07011-2 #### [facility] [facility] ([id number]) [address] [place] [address] 32463 Eosinophils (Bld) [#/Vol] 0.1 10*3/uL Normal 0.0-0.4 [facility] Comment on above: Performed By: #### SHWETA De La Cruz BCA, 07351-8 #### [facility] ([id number]) [address] [place] [address] 27149 Eosinophils/100 WBC (Bld) 0.8 % Normal [facility] Comment on above: Performed By: #### SHWETA De La Cruz BCA, 35995-4 #### [facility] ([id number]) [address] [place] [address] 80481 Erythrocyte distribution width (RBC) [Ratio] 12.4 % Normal 11.5-15.0 [facility] Comment on above: Performed By: #### SHWETA De La Cruz BCA, 45469-8 #### [facility] ([id number]) [address] [place] [address] 81235 Hematocrit (Bld) [Volume fraction] 33.5 % Low 35-47 [facility] Comment on above: Performed By: #### SHWETA De La Cruz BCA, 75631-2 #### [facility] ([id number]) [address] [place] [address] 30631 Hemoglobin (Bld) [Mass/Vol] 11.7 g/dL Normal 11.7-15.5 [facility] Comment on above: Performed By: #### SHWETA De La Cruz BCA, 43894-9 #### [facility] ([id number]) [address] [place] [address] 34371 Lymphocytes (Bld) [#/Vol] 1.5 10*3/uL Normal 1.0-3.5 [facility] Comment on above: Performed By: #### SHWETA De La Cruz BCA, 48840-6 #### [facility] ([id number]) [address] [place] [address] 75864 Lymphocytes/100 WBC (Bld) 19.7 % Normal [facility] Comment on above: Performed By: #### SHWETA De La Cruz BCA, 30008-8 #### [facility] ([id number]) [address] [place] [address] 32967 MCH (RBC) [Entitic mass] 32.9 pg Normal 27-34 [facility] Comment on above: Performed By: #### SHWETA De La Cruz BCA, 85843-8 #### [facility] ([id number]) [address] [place] [address] 59194 MCHC (RBC) [Mass/Vol] 35.1 g/dL Normal 32-36 [facility] Comment on above: Performed By: #### SHWETA De La Cruz BCA, 93376-5 #### [facility] ([id number]) [address] [place] [address] 45144 MCV (RBC) [Entitic vol] 94 fL Normal 80-100 [facility] Comment on above: Performed By: #### SHWETA De La Cruz BCA, 13586-1 #### [facility] ([id number]) [address] [place] [address] 77087 Monocytes (Bld) [#/Vol] 0.3 10*3/uL Normal 0-0.9 [facility] Comment on above: Performed By: #### SHWETA De La Cruz BCA, 14798-1 #### [facility] ([id number]) [address] [place] [address] 10606 Monocytes/100 WBC (Bld) 4.2 % Normal [facility] Comment on above: Performed By: #### SHWETA De La Cruz BCA, 05632-5 #### [facility] ([id number]) [address] [place] [address] 95555 Neutrophils/100 WBC (Bld) 74.7 % Normal [facility] Comment on above: Performed By: #### Dorothy BRODY [facility], 77361-7 #### [facility] ([id number]) [address] [place] [address] 40829 Platelet mean volume (Bld) [Entitic vol] 9.1 fL Normal 7-12 [facility] Comment on above: Performed By: #### SHWETA De La Cruz BCA, 92373-2 #### [facility] ([id number]) [address] [place] [address] 21363 Platelets (Bld) [#/Vol] 195 10*3/uL Normal 150-450 [facility] Comment on above: Performed By: #### SHWETA De La Cruz BCA, 21184-0 #### [facility] ([id number]) [address] [place] [address] 79183 RBC COUNT 3.57 X10E12/L Low 3.80-5.20 [facility] Comment on above: Performed By: #### C MARY GRACE, BMP, 43953-1 #### [facility] ([id number]) [address] [place] [address] 71853 WBC (Bld) [#/Vol] 7.5 10*3/uL Normal 4.0-11.0 [facility] Comment on above: Performed By: #### C MARY GRACE, BMP, 32632-0 #### [facility] ([id number]) [address] [place] [address] 79605 Troponin I.cardiac High sens itivity method [Mass/Vol]on 12-28-2023 1 HOUR TROP I, HIGH SENSITIVITY <2 Normal <16 [facility] Comment on above: Performed By: #### 8 9579-7 #### [facility] ([id number]) [address] [place] [address] 59190 TROPONIN I, HIGH SENSITIVITY <2 Normal <16 [facility] Comment on above: Performed By: #### C MARY GRACE, [facility], 61929-1 #### [facility] ([id number]) [address] [place] [address] 78333 HCG ( test) Ql (U)o n 12-09-2023 Interpretation and review of laboratory results Abnormal [facility] Preg Test, Ur Positive [facility] Urinalysis macro (dipstick) panel (U)on 12-09-2023 Bilirubin, UA Negative Negative - 4(70) +++ mg/dL [facility] Blood, UA Negative Negative - 50 Haroon/mcL [facility] Clarity, UA Clear [facility] Color, UA Yellow [facility] Glucose, UA Negative Negative - 2000(110) ++++ mg/dL [facility] Interpretation and review of laboratory results Normal [facility] Ketones, UA Negative Negative - 160(16) ++++ mg/dL [facility] Leukocytes, UA Negative Negative - 500+++ Robert/mcL [facility] Nitrite, UA Negative Negative - Positive [facility] pH, UA 7.5 5 - 9 [facility] Protein, UA Negative Negative - 1999(20) ++++ mg/dL [facility] Spec Grav, UA 1.015 1 - 1.03 [facility] Urobilinogen, UA 0.2 0.2 - 12 mg/dL [facility] ACETAMINOPHENon 01-23-2019 Acetaminophen [Mass/Vol] <1.0 Critically low 10.1-30.0 [facility] Comment on above: Performed By: #### A CET #### [facility] [address] [place], [place] [id number] Lou Ml CBC AUTO DIFFon 01-23-2019 Basophils (Bld) [#/Vol] 0.1 103/ul Normal 0.0-0.1 [facility] Comment on above: Performed By: #### C BC #### [facility] [address] [place], [place] [id number] Lou Ml Basophils/100 WBC (Bld) 0.7 % Normal 0.2-2.0 [facility] Comment on above: Performed By: #### C BC #### [facility] [address] [place], [place] [id number] Lou Ml Eosinophils (Bld) [#/Vol] 0.1 103/ul Normal 0.0-0.7 [facility] Comment on above: Performed By: #### C BC #### [facility] [address] [place], [place] [id number] Lou Ml Eosinophils/100 WBC (Bld) 1.0 % Normal 0.9-7.0 [facility] Comment on above: Performed By: #### C BC #### [facility] [address] [place], [place] [address] Lou Ml Erythrocyte distribution width (RBC) [Ratio] 12.2 % Normal 11.0-15.0 [facility] Comment on above: Performed By: #### C BC #### [facility] [address] [place], [place] [id number] Lou Ml Hematocrit (Bld) [Volume fraction] 37.6 % Normal 36.0-48.0 [facility] Comment on above: Performed By: #### C BC #### [facility] [address] [id number] Lou Ml Hemoglobin (Bld) [Mass/Vol] 13.0 g/dL Normal 12.0-16.0 [facility] Comment on above: Performed By: #### C BC #### [facility] [address] [id number] Lou Ml IG # 0.03 10e3/ul Normal 0.00-0.03 [facility] Comment on above: Performed By: #### C BC #### [facility] [address] [id number] Lou Ml IG % 0.3 % Normal 0.0-0.5 [facility] Comment on above: Performed By: #### C BC #### [facility] [address] [place], [place] [id number] Lou Ml Lymphocytes (Bld) [#/Vol] 2.9 103/ul Normal 1.2-3.8 [facility] Comment on above: Performed By: #### C BC #### [facility] [address] [place], [place] [id number] Lou Ml Lymphocytes/100 WBC (Bld) 32.3 % Normal 20.5-60.0 [facility] Comment on above: Performed By: #### C BC #### [facility] [address] [place], [place] [id number] Lou Ml MANUAL DIFF REQ NO Normal [facility] Comment on above: Performed By: #### C BC #### [facility] [address] [place], [place] [id number] Lou Ml MCH (RBC) [Entitic mass] 31.6 pg Normal 26.7-34.0 [facility] Comment on above: Performed By: #### C BC #### [facility] [address] [place], [place] [address] Lou Ml MCHC (RBC) [Mass/Vol] 34.6 g/dL Normal 29.9-35.2 [facility] Comment on above: Performed By: #### C BC #### [facility] [address] [place], [place] [id number] Lou Ml MCV (RBC) [Entitic vol] 91.5 fL Normal 79.1-95.6 [facility] Comment on above: Performed By: #### C BC #### [facility] [address] [id number] Lou Ml Monocytes (Bld) [#/Vol] 0.6 103/ul Normal 0.3-0.8 [facility] Comment on above: Performed By: #### C BC #### [facility] [address] [place], [place] [address] Lou Ml Monocytes/100 WBC (Bld) 6.4 % Normal 1.7-12.0 [facility] Comment on above: Performed By: #### C BC #### [facility] [address] [place], [place] [address] Lou Ml Neutrophils (Bld) [#/Vol] 5.3 103/ul Normal 1.4-6.5 [facility] Comment on above: Performed By: #### C BC #### [facility] [address] [place], [place] [address] Lou Ml Neutrophils/100 WBC (Bld) 59.3 % Normal 43.0-75.0 [facility] Comment on above: Performed By: #### C BC #### [facility] [address] [place], [place] [id number] Lou Ml Platelet mean volume (Bld) [Entitic vol] 10.6 fL Normal 9.5-13.5 [facility] Comment on above: Performed By: #### C BC #### [facility] [address] [place], [place] [address] Lou Ml Platelets (Bld) [#/Vol] 220 103/ul Normal 150-450 [facility] Comment on above: Performed By: #### C BC #### [facility] [address] [place], [place] [address] Lou Ml RBC (Bld) [#/Vol] 4.11 106/ul Normal 3.40-5.30 [facility] Comment on above: Performed By: #### C BC #### [facility] [address] [place] [address] Lou Bull WBC (Bld) [#/Vol] 8.9 103/ul Normal 4.0-11.0 [facility] Comment on above: Performed By: #### C BC #### [facility] [address] [place] [address] Lou Bull DRUG SCREEN RAPID (URINE)on 01-23-2019 AMP Negative Normal NEGATIVE [facility] Comment on above: Performed By: #### D RUGRPD #### [facility] [address] [place] [address] Lou Ml BAR Negative Normal NEGATIVE [facility] Comment on above: Performed By: #### D RUGRPD #### [facility] [address] [place] [address] Lourex Bull BUP Negative Normal NEGATIVE [facility] Comment on above: Performed By: #### D RUGRPD #### [facility] [address] [place] [address] Lou Ml BZO Negative Normal NEGATIVE [facility] Comment on above: Performed By: #### D RUGRPD #### [facility] [address] [place] [address] Lou Bull BRITTON Negative Normal NEGATIVE [facility] Comment on above: Performed By: #### D RUGRPD #### [facility] [address] [place] [address] Lou Bull CUT-OFFS SEE BELOW Normal [facility] Comment on above: Result Comment: AMP [...] ng/mL Performed By: #### D RUGRPD #### [facility] [address] [place] [address] Lou Ml DRUG CUT HEADER DRUG CLASS TEST SYST EM CUT-OFF CONCENTRATIONS ARE FOLLOWS: Normal [facility] Comment on above: Performed By: #### D RUGRPD #### [facility] [address] [place] [address] Lou Ml mAMP Negative Normal NEGATIVE [facility] Comment on above: Performed By: #### D RUGRPD #### [facility] [address] [address] Lou Ml MTD Negative Normal NEGATIVE [facility] Comment on above: Performed By: #### D RUGRPD #### [facility] [address] [place] [address] Lou Ml OPI Negative Normal NEGATIVE [facility] Comment on above: Performed By: #### D RUGRPD #### [facility] [address] [address] Lou Ml OXY Negative Normal NEGATIVE [facility] Comment on above: Performed By: #### D RUGRPD #### [facility] [address] [place] [address] Lou Ml PCP Negative Normal NEGATIVE [facility] Comment on above: Performed By: #### D RUGRPD #### [facility] [address] [place] [address] Lou Ml PPX Negative Normal NEGATIVE [facility] Comment on above: Performed By: #### D RUGRPD #### [facility] [address] [place] [address] Lou Ml TCA Negative Normal NEGATIVE [facility] Comment on above: Performed By: #### D RUGRPD #### [facility] [address] [place] [address] Lou Ml THC Positive Normal NEGATIVE [facility] Comment on above: Performed By: #### D RUGRPD #### [facility] [address] [address] Lou Ml ETHANOL (BLD ALC)on 01-24-20 19 Ethanol [Mass/Vol] mg/dL Normal [facility] Comment on above: Performed By: #### E TH #### [facility] [address] [place] [address] Lou Ml Ethanol [Mass/Vol] NOTE: 80 mg/dl is th e legal limit for a blood alcohol level Normal [facility] Comment on above: Performed By: #### E TH #### [facility] [address] [place], [place] [id number] Lou Bull URon 01-23-2019 , QUAL Negative Normal NEGATIVE [facility] Comment on above: Performed By: #### P REGU #### [facility] [address] [place], [place] [id number] Lou Bull PROF 14(COMP METB)on 019 Age - Reported Normal [facility] Comment on above: Performed By: #### C MP #### [facility] [address] [place], [place] [address] Lou Ml Albumin [Mass/Vol] 4.3 g/dL Normal 3.5-5.0 [facility] Comment on above: Performed By: #### C MP #### [facility] [address] [place], [place] [address] Lou Ml Albumin/Globulin [Mass ratio] 1.6 {ratio} Normal [facility] Comment on above: Performed By: #### C MP #### [facility] [address] [place], [place] [address] Lou Ml ALP [Catalytic activity/Vol] 66 U/L Normal 65-260 [facility] Comment on above: Performed By: #### C MP #### [facility] [address] [place], [place] [address] Lou Ml ALT [Catalytic activity/Vol] 22 U/L Normal 9-52 [facility] Comment on above: Performed By: #### C MP #### [facility] [address] [place], [place] [address] Lourex Bull Anion gap [Moles/Vol] 11.4 mmol/L Normal [facility] Comment on above: Performed By: #### C MP #### [facility] [address] [id number] Lou Ml AST [Catalytic activity/Vol] 16 U/L Normal 14-36 [facility] Comment on above: Performed By: #### C MP #### [facility] [address] [id number] Lou Ml Bilirubin Ql (U) 0.6 mg/dL Normal 0.2-1.3 [facility] Comment on above: Performed By: #### C MP #### [facility] [address] [address] Lou Ml Calcium [Mass/Vol] 9.7 mg/dL Normal 8.4-10.2 [facility] Comment on above: Performed By: #### C MP #### [facility] [address] [place] [address] Lou Ml Chloride [Moles/Vol] 103 mmol/L Normal 98-107 [facility] Comment on above: Performed By: #### C MP #### [facility] [address] [address] Lou Ml CO2 [Moles/Vol] 27.2 mmol/L Normal 22.0-30.0 [facility] Comment on above: Performed By: #### C MP #### [facility] [address] [place], [place] [address] Lou Ml Creatinine [Mass/Vol] 0.59 mg/dL Normal 0.52-1.04 [facility] Comment on above: Performed By: #### C MP #### [facility] [address] [address] Lou Ml EGFR-AF MOZAMBICAN Normal >=60 [facility] Comment on above: Performed By: #### C MP #### [facility] [address] [place], [place] [address] Lou Ml EGFR-NON AF MOZAMBICAN Normal >=60 [facility] Comment on above: Performed By: #### C MP #### [facility] [address] [place], [place] [address] Lou Ml Globulin (S) [Mass/Vol] 2.7 g/dL Normal [facility] Comment on above: Performed By: #### C MP #### [facility] [address], [place] [address] Lou Ml Glucose [Mass/Vol] 90 mg/dL Normal 74-106 [facility] Comment on above: Performed By: #### C MP #### [facility] [address] [id number] Lou Ml Potassium [Moles/Vol] 3.6 mmol/L Normal 3.4-5.0 [facility] Comment on above: Performed By: #### C MP #### [facility] [address] [id number] Lou Ml Protein [Mass/Vol] 7.0 g/dL Normal 6.1-8.2 [facility] Comment on above: Performed By: #### C MP #### [facility] [address] [id number] Lou Ml Sodium [Moles/Vol] 138 mmol/L Normal 137-145 [facility] Comment on above: Performed By: #### C MP #### [facility] [address] [id number] Lou Ml Urea nitrogen [Mass/Vol] 16.0 mg/dL Normal 6.4-19.3 [facility] Comment on above: Performed By: #### C MP #### [facility] [address] [id number] Lou Ml Urea nitrogen/Creatinine [Mass ratio] 27.1 mg/mg Normal [facility] Comment on above: Performed By: #### C MP #### [facility] [address], [place] [address] Lou Ml SALICYLATEon 01-23-2019 SALICYLATE 6.5 mg/dL Normal <=20.0 [facility] Comment on above: Performed By: #### S ALYC #### [facility] [address], [place] [address] Lou Ml Vital Signs Date Time Vital Sign Value Performing Clinician Cynthia mayen 02-07-2024 10:59-0500 Body mass index (BMI) [Ratio] 22.84 kg/m2 Daphnie VANCE Work Phone: [facility] 02-07-2024 10:59-0500 Body weight 63.23 kg Daphnie VANCE Work Phone: [facility] 02-07-2024 10:59-0500 Diastolic blood pressure 70 mm[Hg] Daphnie VANCE Work Phone: [facility] 02-07-2024 10:59-0500 Systolic blood pressure 110 mm[Hg] Daphnie VANCE Work Phone: [facility] 12-09-2023 14:51-0400 Body mass index (BMI) [Ratio] 22.12 kg/m2 Noms Nurse [facility] 12-09-2023 14:51-0400 Body weight 61.24 kg Noms Nurse [facility] 12-09-2023 14:51-0400 Diastolic blood pressure 66 mm[Hg] Noms Nurse [facility] 12-09-2023 14:51-0400 Systolic blood pressure 100 mm[Hg] Nom Nurse [facility] Healthcare Encounters Encounter Date Encounter Type Care Provider Facility Start: 02-22-2024 End: 02-22-2024 Emergency department patient visit NOT IN SYSTEM [facility] Start: 02-11-2024 End: 02-13-2024 Clinisync Result Encounter Generic External Data Provider [facility] External Department Unsolicited Start: 02-11-2024 End: 02-13-2024 Clinisync Result Encounter Generic External Data Provider [facility] External Department Unsolicited Start: 02-07-2024 End: 02-07-2024 Bamboo flowsheet Daphnie VANCE Work Phone: [facility] Start: 02-07-2024 End: 02-17-2024 Bamboo flowsheet Daphnie VANCE Work Phone: [facility] Start: 02-07-2024 End: 02-17-2024 Clinisync Result Encounter Generic External Data Provider [facility] External Department Unsolicited Start: 02-07-2024 End: 02-11-2024 External Result Encounter Daphnie VANCE Work Phone: [facility] External Department Unsolicited Start: 02-07-2024 End: 02-07-2024 Patient encounter procedure Daphnie VANCE Work Phone: [facility] Healthcare Start: 02-07-2024 End: 02-07-2024 Periodic preventive med est patient 18-39 yrs Daphnie VANCE Work Phone: [facility] Comment on above: 16 weeks gestation o f ; Second trimester ; Screening, , for anatomic survey; Well woman exam with routine gynecological exam Start: 02-07-2024 End: 02-07-2024 ambulatory DAPHNEI KEMP Not Available Start: 01-10-2024 End: 01-10-2024 ambulatory EBONY LAGUNA Not Available Start: 01-10-2024 End: 01-10-2024 flow sheet Ebony Laguna DO Work Phone: [facility] Comment [...] department patient visit NOT IN SYSTEM [facility]CP [facility] Start: 12-09-2023 End: 12-09-2023 ambulatory [facility] Luz Elena Nurse [facility] Comment on above: GA: 8w2d Start: 01-23-2019 End: 01-23-2019 Patient encounter procedure ELINOR PALOMO Facility:[facility]1 Procedures Date Procedure Procedure Detail Performing Clinician Start: 02-11-2024 AFP, SERUM, OPEN SPI NA BIFIDA Daphnie VANCE Work Phone: Start: 02-07-2024 RECURRENT VAGINITIS (HTRX) Daphnie VANCE Work Phone: Start: 02-07-2024 Urnls dip stick/tabl et rgnt non-auto w/o micrscp Daphnie VANCE Work Phone: Start: 02-07-2024 IGP,APTIMA HPV,AGE GDLN Daphnie Cristhian PA Work Phone: Start: 01-10-2024 Urnls dip stick/tabl [...] Start: 01-03-2024 CANNABINOID CONF, MS, UR Ebony Luz Elena DO Work Phone: Start: 01-03-2024 [facility] DRUG SCREEN RAPI D (URINE) Ebony Luz Elena DO Work Phone: Start: 12-09-2023 Urnls dip stick/tabl et rgnt non-auto w/o micrscp Ebony Luz Elena DO Work Phone: Plan of Treatment Date Care Activity Detail Author Start: 03-15-2024 End: 03-15-2024 Patient encounter procedure 03/15/2024 3:40 PM EST Routine [facility] [address] [place] [address] Ebony Laguna, DO [address] [place] [address] [facility] Start: 03-15-2024 End: 03-15-2024 Professional / ancillary services management 03/15/2024 2:30 PM EST Ancillary Procedure [facility] [address] [place] [id number] [facility] Start: 02-14-2024 End: 02-14-2024 Patient encounter procedure 02/14/2024 11:30 AM EST Routine [facility] [address] [place] [id number] Daphnie Kemp PA [address] [facility] [address] [place], [place] [id number] [facility] Start: 02-07-2024 End: 03-09-2024 [...] AM EST Routine [facility] [address] [facility] [place] [phone] Daphnie Kemp, PA [address] [facility] [address] [place], [place] [id number] 16 weeks gestation of ; Second trimester ; Screening, , for anatomic survey; Well woman exam with routine gynecological exam [facility] Comment on above: 16 weeks gestation o f ; Second trimester ; Screening, , for anatomic survey; Well woman exam with routine gynecological exam Start: 01-10-2024 End: 01-10-2024 Patient encounter procedure 01/10/2024 1:40 PM EST Routine [facility] [address] [place] [phone] Ebony Laguna DO [address] [facility] [place] [address] [facility] Start: 12-09-2023 End: 12-08-2024 ABO/Rh ABO/Rh Lab Routine Missed menses , unspecified gestational age Expected: 12/09/2023 (Approximate), Expires: 12/08/2024 [facility] Comment on above: Expected: 12/09/2023 (Approximate), Expires: 12/08/2024 Start: 12-09-2023 End: 12-08-2024 Blood type and Indirect antibody screen panel - Blood Type and screen Lab Routine Missed menses , unspecified gestational age Expected: 12/09/2023 (Approximate), Expires: 12/08/2024 [facility] Work Phone: Comment on above: Expected: 12/09/2023 (Approximate), Expires: 12/08/2024 Start: 12-09-2023 End: 12-08-2024 Drugs of abuse panel - Urine by Screen method Rapid drug screen, urine Lab Routine , unspecified gestational age Encounter for supervision of normal first in first trimester Expected: 12/09/2023 (Approximate), Expires: 12/08/2024 [facility] Comment on above: Expected: 12/09/2023 (Approximate), Expires: 12/08/2024 Start: 12-09-2023 End: 12-08-2024 US Pelvis transvaginal US OB transvaginal Imaging Routine Missed menses Expected: 12/09/2023 (Approximate), Expires: 12/08/2024 [facility] Comment on above: Expected: 12/09/2023 (Approximate), Expires: 12/08/2024 Start: 10-17-2023 Influenza vaccination Influenza Vacc ine (#1) [facility] Bacteria identified in Urine by Culture Urine culture Microbiology Routine Missed menses Ordered: 12/09/2023 [facility] Comment on above: Ordered: 12/09/2023 CBC W Auto Different ial panel - Blood CBC and differential Lab Routine Missed menses , unspecified gestational age Ordered: 12/09/2023 [facility] Comment on above: Ordered: 12/09/2023 CHLAMYDIA TRACHOMATI S (GENITO/STI) CHLAMYDIA TRACHOMATIS (GENITO/STI) Lab Routine 16 weeks gestation of Second trimester Well woman exam with routine gynecological exam Ordered: 02/07/2024 [facility] Comment on above: Ordered: 02/07/2024 Cytology Cervical or vaginal smear or scraping study Pap Smear Pathology and Cytology Routine 16 weeks gestation of Second trimester Well woman exam with routine gynecological exam Ordered: 02/07/2024 [facility] Work Phone: Comment on above: Ordered: 02/07/2024 Hemoglobin A1c/Hemoglobin.total in Blood Hemoglobin A1c Lab Routine Missed menses , unspecified gestational age Ordered: 12/09/2023 [facility] Comment on above: Ordered: 12/09/2023 Hepatitis B virus surface Ag [Presence] in Serum or Plasma by Immunoassay Hepatitis B surface antigen Lab Routine Missed menses , unspecified gestational age Ordered: 12/09/2023 [facility] Comment on above: Ordered: 12/09/2023 Hepatitis C virus Ab [Presence] in Serum or Plasma by Immunoassay Hepatitis C antibody Lab Routine Missed menses , unspecified gestational age Ordered: 12/09/2023 [facility] Comment on above: Ordered: 12/09/2023 HIV-1/HIV-2 antigen/antibody combination immunoassay HIV-1 and HIV-2 antibodies Lab Routine Missed menses , unspecified gestational age Ordered: 12/09/2023 [facility] Comment on above: Ordered: 12/09/2023 Neisseria gonorrhoea e DNA [Presence] in Unspecified specimen by NORRIS with probe detection Neisseria gonorrhea DNA probe, direct Lab Routine 16 weeks gestation of Second trimester Well woman exam with routine gynecological exam Ordered: 02/07/2024 [facility] Comment on above: Ordered: 02/07/2024 Reagin Ab [Presence] in Serum by RPR RPR Lab Routine Missed menses , unspecified gestational age Ordered: 12/09/2023 [facility] Comment on above: Ordered: 12/09/2023 Rubella antibody, IgG Rubella an tibody, IgG Lab Routine Missed menses , unspecified gestational age Ordered: 12/09/2023 [facility] Comment on above: Ordered: 12/09/2023 SURESWAB(R) ADVANCED VAGINITIS PLUS, TMA SURESWAB(R) ADVANCED VAGINITIS PLUS, TMA Pathology and Cytology Routine 16 weeks gestation of Second trimester Well woman exam with routine gynecological exam Ordered: 02/07/2024 [facility] Comment on above: Ordered: 02/07/2024 Payers Date Payer Category Payer [facility] er [id number] 2019 Unknown [id number] 2001 Unknown [id number] 2001 Unknown [id number] 2001 Unknown [id number] 2001 Unknown [id number] 2001 Unknown [id number] 1978 Unknown [id number] 1959 Unknown [id number] Social History Date Type Detail Facility Start: [facility] History of [...] Gender identity Identifies as female gender (finding) [facility] History of Present illness Narrative 02-07-2024 RAJIV Hernandez - 02/07/2024 10:20 AM EST Note Date & Type Note Facility 02-07-2024 History of Presen t illness Narrative Reason for Appointment: Patient ID: Evelyn Bradley is a 23 y.o. 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 Exam conducted with a drop forge hand present. Vitals: Estimated body mass index is [...] obtained without difficulty [facility] Orders Placed This [...] Narrative Reason for Appointment: Patient ID: Evelyn Bradley is a 23 y.o. female who presents for Routine Visit Patient presents today for Return OB appointment. MEDICATIONS Current Outpatient Medications Medication Instructions ondansetron ODT (ZOFRAN-ODT) 4 mg, Oral, Every 6 hours PRN vitamin (Prenatabs Rx) 29-1 MG tablet 1 tablet, Oral, Daily ALLERGIES No Known Allergies PROBLEMS Active Ambulatory Problems Diagnosis Date Noted Anxiety disorder 07/08/2022 Mood disorder ([facility]) 07/08/2022 Cannabis use, 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[facility]) 07/08/2022 Moderate episode of recurrent major depressive disorder ([facility]) 07/08/2022 Oppositional defiant disorder ([facility]) 07/08/2022 Other atopic dermatitis 07/08/2022 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 Exam conducted with a drop forge hand present. Vitals: Estimated body mass index is 22.12 kg/m as calculated from the following: Height as of 5/24/23: 5' 5.5 . Weight as of 12/09/23: [...] or undercooked meat, and stay away from [facility]. Patient has been consulted regarding any [...] Narrative Reason for Appointment: Patient ID: Evelyn Bradley is a 23 y.o. female who [...] Date Noted Anxiety disorder 07/08/2022 Mood disorder ([facility]) 07/08/2022 Cannabis use, 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[facility]) 07/08/2022 Moderate episode of recurrent major depressive disorder ([facility]) 07/08/2022 Oppositional defiant disorder ([facility]) 07/08/2022 Other atopic dermatitis 07/08/2022 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 Pt was advised if she does want [place] [address] to have it done w/ labs [...] Meaghan Prado MA documented in this encounter [facility] Evaluation note Note Date & Type Note Facility Evaluation note Diagnosis Missed menses , unspecified gestational age Encounter for supervision of normal first in first trimester Nausea and vomiting in Unspecified vomiting of , unspecified as to episode of care documented in this encounter [facility] Evaluation note Note Date & Type Note Facility Evaluation note Diagnosis First trimester state, incidental 12 weeks gestation of Nausea and vomiting in Unspecified vomiting of , unspecified as to episode of care documented in this encounter [facility] Evaluation note Note Date & Type [...] and content) DATE CREATED AUTHOR 01/25/2019 [facility] DATE CREATED AUTHOR AUTHOR'S ORGANIZ ATION 02/09/2024 [facility] EPIC DATE CREATED AUTHOR AUTHOR'S ORGANIZ ATION 02/28/2024 [facility] Reason for Visit (unrecogniz ed section and content) Reason Comments Amenorrhea Reason Comments Routine Visit Care Teams (unrecognized sec tion and content) Buyer Tobacco Head Relationship Specialty Start Date End Date Cary Ocasio MD [address] [place] [address] PCP - General Family Medicine 07/07/22 Buyer Tobacco Head Relationship Specialty Start Date End Date Cary Ocasio MD [address] [place] [address] PCP - General Family Medicine 07/07/22 Buyer Tobacco Head Relationship Specialty Start Date End Date Cary Ocasio MD [address] [place] [address] PCP - General Family Medicine 07/07/22 Buyer Tobacco Head Relationship Specialty Start Date End Date Cary Ocasio MD [address] [place] [address] PCP - General Family Medicine 07/07/22 Buyer Tobacco Head Relationship Specialty Start Date End Date Cary Ocasio MD [address] [place] [address] PCP - General Family Medicine 07/07/22 Buyer Tobacco Head Relationship Specialty Start Date End Date Cary Ocasio MD [address] [place] [address] PCP - General Family Medicine 07/07/22 FOR [...] BE BASED ON THE PRIMARY CLINICAL RECORDS. [facility] provides no warranty or guarantee of the accuracy or completeness of information in this document.
[2024-03-13 06:10] VITALS: BP 106/55; PULSE 90; TEMP 36.4
--- NOTE | 2024-03-13 06:44 | US_ITS ---
[address] [address] Patient Name: EVELYN BRADLEY MRN: [id number] date: 2000 Sex: F Assigned Patient Location: [facility] Current Patient Location: [facility] Accession/Order Number: [id number] Exam Date: 03/13/2024 07:00 Report Date: 03/13/2024 08:12 At the request of: EBONY SWENSON Procedure: US OB placenta EXAMINATION: US OB placenta, US OB cervical length HISTORY: vaginal bleeding COMPARISON: Ultrasound OB transvaginal 12/09/2023 FINDINGS: PLACENTA: Posterior-fundal, grade 0. No abruption or subchorionic hematoma. Lower margin is 6.2 cm from internal os. CERVIX LENGTH: 4.0 cm; closed. HEART RATE: 140 bpm OTHER: None. GA: 21 weeks 6 days ROD: 07/18/2024 US/US OB placenta IMPRESSION: 1. Single live intrauterine . 2. Posterior-fundal placenta without abruption or subchorionic hematoma. No previa. Electronically authenticated by: RIDGE JOHANSEN Date: 03/13/2024 08:12
--- NOTE | 2024-03-13 06:45 | US_ITS ---
[address] [address] Patient Name: EVELYN BRADLEY MRN: [id number] date: 2000 Sex: F Assigned Patient Location: [facility] Current Patient Location: [facility] Accession/Order Number: [id number] Exam Date: 03/13/2024 07:00 Report Date: 03/13/2024 08:12 At the request of: EBONY SWENSON Procedure: US OB cervical length EXAMINATION: US OB placenta, US OB cervical length HISTORY: vaginal bleeding COMPARISON: Ultrasound OB transvaginal 12/09/2023 FINDINGS: PLACENTA: Posterior-fundal, grade 0. No abruption or subchorionic hematoma. Lower margin is 6.2 cm from internal os. CERVIX LENGTH: 4.0 cm; closed. HEART RATE: 140 bpm OTHER: None. GA: 21 weeks 6 days ROD: 07/18/2024 US/US OB cervical length IMPRESSION: 1. Single live intrauterine . 2. Posterior-fundal placenta without abruption or subchorionic hematoma. No previa. Electronically authenticated by: RIDGE JOHANSEN Date: 03/13/2024 08:12
[2024-03-13 07:49] LABS: Bilirubin Urine NEGATIVE (NEGATIVE); Blood Urine TRACE-I (NEGATIVE); Clarity Urine CLEAR (CLEAR); Color Urine LT. YELLOW (YELLOW); Glucose Urine UA NEGATIVE (NEGATIVE); Ketones Urine TRACE mg/dL (NEGATIVE); Leukocyte Esterase Urine LARGE (NEGATIVE); Nitrite Urine NEGATIVE (NEGATIVE); Protein Urine NEGATIVE (NEG/TRACE); Urobilinogen Urine 0.2 EU/dL (0.2-1.0)
[2024-03-13 08:00] LABS: Urine Microscopic Indicated YES
[2024-03-13 08:05] LABS: Bacteria Urine LARGE #/HPF (NONE SEEN); Mucus Urine NONE SEEN (NONE SEEN)
[2024-03-13 08:06] LABS: Squamous Epithelial Cell Urine MANY #/LPF (NONE/RARE); Urine Culture Indicated YES
[2024-03-13 08:57] VITALS: BP 113/56; PULSE 83
== END 2024-03-13 10:15 | disposition home or self-care (01) ==
LOC: FBC 05:52
PROVIDERS: Admitting Provider Obstetrics & Gynecology; PCP Family Medicine; Visit Provider Obstetrics & Gynecology
DX: O46.92 Antepartum hemorrhage, unspecified, second trimester (principal); Z3A.21 21 weeks gestation of pregnancy
CPT/HCPCS: 76815; 76817; 81001; 87086; 87150; G0378; G0379

== ENCOUNTER 2024-04-18 09:34 | Outpatient (OUT) | payer BC, SELFPAY ==
--- OUTSIDE RECORDS SUMMARY | 2024-04-18 09:46 | XMS_ITS | CCD ---
Author Organization [facility] Care Team Providers Care Ribbon Cutter Name Role Phone ELINOR PALOMO Consulting ELINOR Ford Admitting Unavailable ELINOR PALOMO Attending Unavailable Cary Ocasio MD Primary Care Provider PCP, NOT IN SYSTEM Primary Care Unavailable HELLEN VERDIN Attending Unavailable PCP, NOT IN SYSTEM Primary Care Unavailable DAPHNIE KEMP Attending Unavailable DAPHNIE KEMP Attending Unavailable EBONY LAGUNA Attending Unavailable EBONY LAGUNA Attending Unavailable Medications Current Medications Medication Drug Class(es) Dates Sig (Normalized) Sig (Original) nitrofurantoin, macrocrystals 25 mg / nitrofurantoin, monohydrate 75 mg oral capsule (2 sources) Nitrofuran Antibacterial Start: 03-14-2024 End: 03-21-2024 take 1 capsule by mouth in the morning nitrofurantoin, macrocrystal-monohy drate, (Macrobid) 100 MG capsule Indications: UTI symptoms Take 1 capsule (100 mg) by mouth in the morning and 1 capsule (100 mg) before bedtime. Do all this for 7 days. 14 capsule 03/14/2024 03/21/2024 Active ondansetron 4 mg disintegrating oral tablet [...] Active vitamin (Prenatabs Rx) 29-1 MG tablet (16 sources) Start: 12-09-2023 End: 12-08-2024 take 1 tablet by mouth once daily vitamin (Prenatabs Rx) 29-1 MG tablet Indications: , unspecified gestational age Take 1 tablet by mouth Daily 360 tablet 12/09/2023 12/08/2024 Active Completed/Discontinued Medications Medication Drug Class(es) Dates Sig (Normalized) Sig (Original) metoclopramide 10 mg oral tablet (11 sources) Dopamine-2 Receptor Antagonist Start: 01-10-2024 End: 03-15-2024 metoclopramide (Reglan) 10 MG tablet Indications: Nausea and vomiting in Take 1 tablet (10 mg) by mouth in the morning and 1 tablet (10 mg) at noon and 1 tablet (10 mg) in the evening. Take before meals. Take 1 tablet by mouth 30 minutes prior to meals 3 times daily as needed for nausea.. 90 tablet 1 01/10/2024 03/15/2024 Discontinued Problems Active Problems Problem Classification Problem Date Documented Da te Episodic/Chronic Allergic reactions (16 sources) Atopic dermatitis; Translations: [Other atopic dermatitis] Onset: 07-08-2022 07-08-2022 Chronic Anxiety disorders (20 sources) State of emotional shock and stress, unspecified; Translations: [Anxiety disorder] Onset: 01-23-2019 07-08-2022 Chronic Attention-deficit, conduct, and disruptive behavior disorders (16 sources) Oppositional defiant disorder; Translations: [Oppositional defiant [...] care or not applicable] 12-09-2023 Episodic Other complications of (2 sources) size does not accord with dates; Translations: [Uterine size-date discrepancy, unspecified trimester] 04-13-2024 Episodic Other female genital disorders (1 source) Vaginal bleeding Onset: 02-22-2024 Chronic Other and delivery including normal (20 sources) ; Translations: [Encounter for supervision of normal , unspecified, unspecified trimester] Onset: 02-07-2024 12-09-2023 Episodic Other screening for suspected conditions (not mental disorders or infectious disease) (16 sources) Patient encounter status; Translations: [Encounter for other specified screening] Onset: 02-07-2024 02-07-2024 Episodic Residual codes; unclassified (2 sources) Gestation period, 12 weeks; Translations: [12 weeks gestation of ] 01-10-2024 Episodic Residual codes; unclassified (14 sources) Gestation period, 16 weeks; Translations: [16 weeks gestation of ] Onset: 02-07-2024 02-07-2024 Episodic Residual codes; unclassified (1 source) 11 weeks gestation of ; Translations: [11 weeks gestation of ] Onset: 12-28-2023 Episodic Residual codes; unclassified (2 sources) Gestation period, 22 weeks; Translations: [22 weeks gestation of ] 03-15-2024 Episodic Residual codes; unclassified (2 sources) Gestation period, 26 weeks; Translations: [26 weeks gestation of ] 04-13-2024 Episodic Syncope (2 sources) Syncope and collapse; Translations: [Syncope] Onset: 12-28-2023 Episodic Unclassified (1 source) Ill Onset: 12-28-2023 Past or Other Problems Problem Classification Problem Date Documented Da te Episodic/Chronic Poisoning by nonmedicinal substances (16 sources) Toxic effect of ethyl alcohol; Translations: [Toxic effect of ethanol, accidental (unintentional), initial encounter] Onset: 07-08-2022 07-08-2022 Episodic Substance-related disorders (16 sources) Cannabis-induced organic mental disorder; 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 COMPARISON: None TECHNIQUE: Grayscale and M-mode Doppler imaging is performed. FINDINGS: BPD: 5.5 cm HC: 20.2 cm AC: 18.5 cm FL: 3.9 cm GA for sonogram: 22.3 wk (20.9-23.7) Hadlock Cervix length: 4.0 cm ROD: 07/18/2024 Weight Estimate: Weight: 537 gm / 1 lbs, 2 oz (459-616 gm) Hadlock Normal: 487 gm (405-570 gm) Hadlock Wt%: 79% for 22.1 wks Presentation: Cephalic Lie: Longitudinal Amniotic Fluid: Subjectively normal Placental Location: Posterior, fundal Distance from Placenta edge to Cervical os: 5.6 cm Cervical Length: 4.0 cm Closed Heart Rate: Present Anatomy Observed: Lateral Ventricles: Visualized Cerebellum: Visualized Posterior Fossa: Visualized Nose Lips: Visualized Orbits: Visualized 4 Chamber heart: Visualized RVOT/LVOT: Visualized Diaphragm: Visualized Stomach: Visualized Kidneys: Visualized Abd Cord Insert: Visualized Bladder: Visualized Umbilical Arteries: Visualized 3 Vessel Cord: Visualized Spine: Visualized Extremities: Visualized Gender: XY IMPRESSION: 1. Single living intrauterine gestation. 22.1 weeks gestational age based on LMP. 79th percentile weight based on LMP. AUA based on ultrasound 22 weeks 5 days. Size equals dates. 2. No gross anatomic abnormalities. *This report is generated using voice recognition reporting (GoodData). On occasion [email or web address] erroneously drops words from the report or replaces the spoken word with similar sounding words. Please call with any questions/concerns regarding this report.* Dictated and transcribed 03/15/24/dpd This report has been electronically signed and approved by the interpreting radiologist. Normal Not Available Comment on above: Order Comment: US OB ANATOMY SINGLE W US OB CERVICAL LENGTH Estimated Date of Delivery: 07/18/24 Gestational Age as of 02/07/2024: 22w1d Urinalysis macro (dipstick) panel (U)on 03-15-2024 Bilirubin, UA Negative Negative - 4(70) +++ mg/dL [facility] Blood, UA Negative Negative - 50 Haroon/mcL [facility] Clarity, UA Clear [facility] Color, UA Yellow [facility] Glucose, UA Negative Negative - 2000(110) ++++ mg/dL [facility] Interpretation and review of laboratory results Abnormal [facility] Ketones, UA Negative Negative - 160(16) ++++ mg/dL [facility] Leukocytes, UA Positive Negative - 500+++ Robert/mcL [facility] Comment on above: small Nitrite, UA Negative Negative - Positive [facility] pH, UA 7.5 5 - 9 [facility] Protein, UA Negative Negative - 2000(20) ++++ mg/dL [facility] Spec Grav, UA 1.02 1 - 1.03 [facility] Urobilinogen, UA 1.0 0.2 - 12 mg/dL [facility] UA (CLEAN/CATCH) HIDE BUFFER/FABIOLA RO IF IND.on 03-13-[address] NEGATIVE [facility] BLOOD URINE TRACE-I NEGATIVE [facility] Clarity (U) CLEAR CLEAR [facility] Color (U) LT. YELLOW YELLOW [facility] GLUCOSE URINE UA Negative NEGATIVE mg/dL [facility] Interpretation and review of laboratory results Abnormal [facility] Ketones Ql (U) TRACE Abnormal NEGATIVE mg/dL [facility] Leukocyte esterase Test strip Ql (U) LARGE Abnormal NEGATIVE [facility] NITRITE URINE Negative NEGATIVE [facility] pH (U) 6.0 [pH] 5.0 - 9.0 [facility] PROTEIN URINE Negative NEG/TRACE mg/dL [facility] SPECIFIC GRAVITY URINE 1.020 1.005 - 1.025 [facility] URINE MICROSCOPIC INDICATED YES [facility] UROBILINOGEN URINE 0.2 EU/dL 0.2 - 1.0 EU/dL [facility] URN MACROSCOPIC NURon 2024 BILIRUBIN DANIEL Negative Normal NEG [facility] Comment on above: Performed By: #### N UM #### [facility] ([id number]) [address] [place] [address] BLOOD/HGB DANIEL Trace Abnormal NEG [facility] Comment on above: Performed By: #### N UM #### [facility] ([id number]) [address] [place] [address], [place] [address] GLUCOSE DANIEL Negative Normal NEG [facility] Comment on above: Performed By: #### N UM #### [facility] ([id number]) [address] [place] [address] [place] [address] KETONES DANIEL 15 mg/dL Abnormal NEG [facility] Comment on above: Performed By: #### N UM #### [facility] ([id number]) [address] [place] [address] LEUKOCYTE ESTERASE DANIEL Negative Normal NEG [facility] Comment on above: Performed By: #### N UM #### [facility] ([id number]) [address] [place] [address] [place] [address] NITRITE DANIEL Negative Normal NEG [facility] Comment on above: Performed By: #### N UM #### [facility] ([id number]) [address] [place] [address] PH DANIEL 6.0 Normal 5.0-8.5 [facility] Comment on above: Performed By: #### N UM #### [facility] ([id number]) [address] [place] [address] PROTEIN DANIEL Negative Normal NEG [facility] Comment on above: Performed By: #### N UM #### [facility] ([id number]) [address] [place] [address] SPECIFIC GRAVITY DANIEL 1.025 Normal 1.003-1.035 [facility] Comment on above: Performed By: #### N UM #### [facility] ([id number]) [address] [place] [address], [place] [address] UROBILINOGEN DANIEL 0.2 eu/dL Normal <1.1 [facility] Comment on above: Performed By: #### N UM #### [facility] ([id number]) [address] [place] [address] IGP,APTIMA HPV,AGE GDLNon AGE GDLN ACOG TESTING Note . [facility] Comment on above: TESTS RESULT FLAG UN ITS REF RANGE LAB Clinician Provided Cytology Information Source.............Cervix No. of containers..01 ThinPrep Vial Age Ayleeno ACOG Mariam... FLAG LEGEND: L-Low Normal,H-High Normal,LL-Alert Low,HH-Alert High <-Panic Low,>-Panic High,A-Abnormal,AA-Critical Abnormal Performed at: 01 =G [facility] [address] [place] [address] Yael Field MD, IGP, RFX APTIMA HPV ASCU Note . [facility] Comment on above: TESTS RESULT FLAG [facility] REF RANGE LAB DIAGNOSIS: 02 NEGATIVE FOR INTRAEPITHELIAL LESION OR MALIGNANCY. REACTIVE CELLULAR CHANGES AND/OR REPAIR ARE PRESENT. Specimen adequacy: 02 Satisfactory for evaluation. No endocervical component is identified. Performed by: 02 Lenin Walters, Transformation Lead ([facility]) Electronically si... 02 Yael Field MD, Pathologist [...] <-Panic Low,>-Panic High,A-Abnormal,AA-Critical Abnormal Performed at: [address] [address] Yael Field MD, Performed at: =G - [address] [id number] Insurance Salesman: Yael Field MD, Phone: [phone] Performed at: [address] [id number] Insurance Salesman: Yael Field MD, Phone: [phone] SPATULA-ALONE CERVIX [facility] AFP, SERUM, OPEN SPINA BIFID Aon 02-13-[address] [facility] AFP VALUE 37.9 ng/mL . [facility] COMMENT: Comment . [facility] Comment on above: Giana Tenorio , Ph.D., [facility] Director References: Available Upon Request. Multiples Of Median Cutoffs For AFP Elevations Mares 2.5 Black 2.8 IDD 2.0 Twins 4.5 Abbreviation Definitions IDD - Insulin Dep Diabetes OSBR - Open Spina Bifida Risk For further inquiries contact [employer] [facility] at [phone]. This test was developed and its performance characteristics determined by [facility]. It has not been cleared or approved by the Food and Drug Administration. Performed at: [facility] [address] [place], [place] [id number] Insurance Salesman: Junior Munoz [facility], Phone: [phone] GEST. AGE ON COLLECTION DATE 18.[address] [facility] GESTAT. AGE BASED ON LMP . [facility] Comment on above: Recalculations are n ot recommended when gestational dating by LMP and ultrasound are within 10 days. INSULIN DEP DIABETES No . [facility] INTERPRETATION Comment . [facility] Comment on above: Interpretation: Scre en Negative [...] Customer Services to discuss available options. The [employer] recommends amniocentesis be offered to women age 35 and older. MATERNAL [age] ROD 23.[address] [facility] MULTIPLE GESTATION No . [facility] [place] [address] [place] [id number] [address] [facility] RACE . [facility] RESULTS Report . [facility] TEST RESULTS: Negative . [facility] WEIGHT [address] [facility] N N LMP [id number] 16 N 1 Y 139 N N N N N White/ [facility]IS[facility] RECURRENT VAGINITIS (HTRX)on 02-11-[address] [facility] ATOPOBIUM VAGINAE Not detected [facility] BVAB 2,3 (BACTERIAL VAGINOSIS ASSOCIATED BACTERIA 2, 3); MOBILUNCUS SPP 0 [facility] BVAB 2,3 (BACTERIAL VAGINOSIS ASSOCIATED BACTERIA 2, 3); MOBILUNCUS SPP Not detected [facility] ROGELIO ALBICANS, PARAPSILOSIS, TROPICALIS 0 [facility] ROGELIO ALBICANS, PARAPSILOSIS, TROPICALIS Not detected [facility] ROGELIO GLABRATA 0 [facility] ROGELIO GLABRATA Not detected [facility] ROGELIO KRUSEI 0 [facility] ROGELIO KRUSEI Not detected [facility] CHLAMYDIA TRACHOMATIS 0 [facility] CHLAMYDIA TRACHOMATIS Not detected [facility] GARDNERELLA VAGINALIS 0 [facility] GARDNERELLA VAGINALIS Not detected [facility] MEGASPHAERA (TYPES 1, 2) 0 [facility] MEGASPHAERA (TYPES 1, 2) Not detected [facility] MYCOPLASMA GENITALIUM 0 [facility] MYCOPLASMA GENITALIUM Not detected [facility] NEISSERIA GONORRHOEAE 0 [facility] NEISSERIA GONORRHOEAE Not detected [facility] TRICHOMONAS VAGINALIS 0 [facility] TRICHOMONAS VAGINALIS Not detected [facility] Urinalysis macro (dipstick) panel (U)Ordered By: Kal Vera on 02-07-2024 Bilirubin, UA Negative Negative - 4(70) +++ mg/dL [facility] Work Phone: Blood, UA Negative Negative - 50 Haroon/mcL [facility] Work Phone: Clarity, UA Clear [facility] Work Phone: Color, UA Yellow [facility] [employer] Work Phone: Glucose, UA Negative Negative - 1999(110) ++++ mg/dL [facility] [employer] Work Phone: Interpretation and review of laboratory results Normal [facility] [employer] Work Phone: Ketones, UA Negative Negative - 160(16) ++++ mg/dL [facility] Work Phone: Leukocytes, UA Negative Negative - 500+++ Robert/mcL [facility] Work Phone: Nitrite, UA Negative Negative - Positive [facility] Work Phone: pH, UA 7.5 5 - 9 [facility] Work Phone: Protein, UA Negative Negative - 1999(20) ++++ mg/dL [facility] Work Phone: Spec Grav, UA 1.02 1 - 1.03 [facility] [employer] Work Phone: Urobilinogen, UA 1.0 0.2 - 12 mg/dL [facility] Work Phone: [facility] Work Phone: Urinalysis macro (dipstick) panel (U)on 01-10-2024 Bilirubin, UA Negative Negative - 4(70) +++ mg/dL [facility] Blood, UA Positive Negative - 50 Haroon/mcL [facility] Comment on above: trace Clarity, UA Clear [facility] Color, UA Yellow [facility] Glucose, UA Negative Negative - 1999(110) ++++ mg/dL [facility] Interpretation and review of laboratory results Abnormal [facility] Ketones, UA Negative Negative - 160(16) ++++ mg/dL [facility] Leukocytes, UA Negative Negative - 500+++ Robert/mcL [facility] Nitrite, UA Negative Negative - Positive [facility] pH, UA 7 5 - 9 [facility] Protein, UA Negative Negative - 1999(20) ++++ mg/dL [facility] Spec Grav, UA 1.025 1 - 1.03 [facility] Urobilinogen, UA 0.2 0.2 - 12 mg/dL [facility] CANNABINOID CONF, MS, URon 1 03-09-2023 CANNABINOID Positive Abnormal . [facility] CARBOXY THC CONF, MS, UR 446 ng/mL Cutoff=10 [facility] Comment on above: Performed at: [facility] [address] [place], [place] [id number] Insurance Salesman: Bala Carpenter PhD, Phone: [phone] Interpretation and review of laboratory results Abnormal [facility] ALL RUBELLA IGG ABon 024 RUBELLA ANTIBODIES, IGG 2.02 Immune >0.[address] [facility] Comment on above: Non-immune <0.90 Equivocal 0.90 - 0.99 Immune >0.99 Performed at: [facility] [address] [id number] Insurance Salesman: Colten Caceres PhD, Phone: [phone] HBSAG SCREENon 01-04-[address] Negative [facility] Comment on above: Performed at: [facility] [address] [id number] Insurance Salesman: Colten Caceres PhD, Phone: [phone] HCV ANTIBODY RFX TO QUANT PC Kevin 01-04-2024 HCV AB Non-Reactive Non Reactive [facility] INTERPRETATION: Comment . [facility] Comment on above: Not infected with HC V unless early or acute infection is suspected (which may be delayed in an immunocompromised individual), or other evidence exists to indicate HCV infection. HIV AB/P24 AG WITH REFLEXon 01-04-2024 HIV AB/P24 AG SCREEN Non-Reactive Non Reactive [facility] Comment on above: HIV-1/HIV-2 antibodi es and HIV-1 p24 antigen were NOT detected. There is no laboratory evidence of HIV infection. HIV Negative Performed at: [address] [id number] Insurance Salesman: Colten Caceres PhD, Phone: [phone] No [facility] RAPID PLASMA REAGIN, QUANTon 01-04-2024 RAPID PLASMA REAGIN, QUANT Non-Reactive NonRea<1:[address] [facility] Comment on above: Please Note: This te st does not meet current guidelines for screening and diagnosis of syphilis. This test is intended for following treatment response in patients being treated for syphilis infection. To screen for syphilis infection, a reflex cascade that includes both RPR and a treponema-specific assay should be utilized, such as Treponema pallidum (Syphilis) Screening [place] (123128) or Rapid Plasma Reagin (RPR) Test With Reflex to Quantitative RPR and Confirmatory Treponema pallidum Antibodies (869767). Performed at: [address] [id number] Insurance Salesman: Colten Caceres PhD, Phone: [phone] URINE CULTURE, ROUTINEon Bacteria identified Cx Nom (U) Urine Culture, Routine [facility] Bacteria identified Cx Nom (U) Mixed urogenital татьяна [facility] Bacteria identified Cx Nom (U) Less than 10,000 colonies/mL [facility] Bacteria identified Cx Nom (U) Performed at: [facility] Bacteria identified Cx Nom (U) [address] [place] [phone] [facility] Bacteria identified Cx Nom (U) Insurance Salesman: Colten Caceres PhD, Phone: [phone] [facility] ALL CBC WITH AUTO DIFFon BASOPHILS ABSOLUTE AUTO 0 [facility] Basophils/100 WBC (Bld) 0.3 % 0.2 - 2.0 % [facility] Eosinophils/100 WBC (Bld) 2.2 % 0.9 - 7.0 % [facility] Erythrocyte distribution width (RBC) [Ratio] 11.9 % 11.0 - 15.0 % [facility] Hematocrit (Bld) [Volume fraction] 37 % 36.0 - 48.0 % [facility] Hemoglobin (Bld) [Mass/Vol] 13 g/dL 12.0 - 16.0 g/dL [facility] IMMATURE GRANULOCYTES ABS AUTO 0.[address] [facility] Immature granulocytes/100 WBC (Bld) 0.3 % 0.0 - 0.5 % [facility] Interpretation and review of laboratory results Abnormal [facility] LYMPHOCYTES ABSOLUTE AUTO 1.4 [facility] Lymphocytes/100 WBC (Bld) 11.9 % Low 20.5 - 60.0 % [facility] MCH (RBC) [Entitic mass] 32.9 pg 26.7 - 34.[address] [facility] MCHC (RBC) [Mass/Vol] 35.1 g/dL 29.9 - 35.2 g/dL [facility] MCV (RBC) [Entitic vol] 93.7 fL 81.0 - 99.[address] [facility] MONOCYTES ABSOLUTE AUTO 0.4 [facility] Monocytes/100 WBC (Bld) 3.4 % 1.7 - 12.0 % [facility] NEUTROPHILS ABSOLUTE AUTO 9.[address] [facility] Neutrophils/100 WBC (Bld) 81.9 % High 43.0 - 75.0 % [facility] Platelet mean volume (Bld) [Entitic vol] 10.9 fL 9.5 - 13.[address] [facility] TB[facility] EO # 0.3 [facility] PLT 232 [facility] RBC 3.95 Low [facility] WBC 11.[address] [facility] TYPE AND SCREENon 2023 ABO and Rh group Nom (Bld) Blood group O Rh(D) positive [facility] BOX TESTon 01-03-2024 BOX TEST SENT OUT [facility] BOX1 [facility] BOX2 01/03/24 [facility] MLR HEMOGLOBIN A1Con 024 Glucose [Mass/Vol] 82 mg/dL [facility] HbA1c (Bld) [Mass fraction] 4.5 % 4.5 - 6.2 % [facility] Comment on above: ADA RECOMMENDED LIMI T 4.0 - 6.0 ADA THERAPEUTIC TARGET < 7.0 ACTION SUGGESTED > 7.0 [facility] DRUG SCREEN RAPID (URINE )on 01-03-2024 AMPHETAMINE SCREEN URINE Negative NEGATIVE [facility] BARBITURATES SCREEN URINE Negative NEGATIVE [facility] BENZODIAZEPINES SCREEN URINE Negative NEGATIVE [facility] BUPRENORPHINE SCREEN URINE Negative NEGATIVE [facility] Comment on above: DRUG CLASS TEST SYST [...] ng/mL CANNABINOID SCREEN URINE Positive Abnormal NEGATIVE [facility] COCAINE SCREEN URINE Negative NEGATIVE [facility] Interpretation and review of laboratory results Abnormal [facility] METHADONE SCREEN URINE Negative NEGATIVE [facility] METHAMPHETAMINES SCREEN URINE Negative NEGATIVE [facility] OPIATE SCREEN URINE Negative NEGATIVE [facility] OXYCODONE SCREEN URINE Negative NEGATIVE [facility] PHENCYCLIDINE SCREEN URINE Negative NEGATIVE [facility] TRICYCLIC ANTIDEPRESSANT URINE Negative NEGATIVE [facility] BASIC METABOLIC PANLon 12-27 Anion gap [Moles/Vol] 8 mmol/L Normal 5-[address] [facility] Comment on above: Performed By: #### C SHWETA BRODY, [id number] #### [facility] ([id number]) [address] [place] [address] Calcium [Mass/Vol] 8.4 mg/dL Low 8.5-10.5 [facility] Comment on above: Performed By: #### C BCA BMP, 06646-4 #### [facility] ([id number]) [address] [place] [address] Chloride [Moles/Vol] 107 mmol/L Normal 98-109 [facility] Comment on above: Performed By: #### C SHWETA BRODY, 90022-7 #### [facility] ([id number]) [address] [place] [address] 93158 CO2 [Moles/Vol] 22 mmol/L Normal 22-32 [facility] Comment on above: Performed By: #### C SHWETA BRODY, 05918-3 #### [facility] ([id number]) [address] [place] [address] 19397 Creatinine [Mass/Vol] 0.38 mg/dL Low 0.40-1.00 [facility] Comment on above: Result Comment: METH OD TRACEABLE TO IDMS STANDARD Performed By: #### C SHWETA BRODY, 77053-0 #### [facility] ([id number]) [address] [place] [address] 73819 eGFR (CKD-EPI) NON-RACE DEPENDENT >90 Normal >59 [facility] Comment on above: Result Comment: Reported eGFR is based on the CKD-EPI 2020 equation that does not use a race coefficient. Performed By: #### C SHWETA BRODY, 23556-1 #### [facility] ([id number]) [address] [place] [address] 88621 Glucose [Mass/Vol] 67 mg/dL Normal 65-99 [facility] Comment on above: Performed By: #### C SHWETA BRODY, 38370-5 #### [facility] ([id number]) [address] [place] [address] 50382 Potassium [Moles/Vol] 3.3 mmol/L Low 3.5-5.0 [facility] Comment on above: Performed By: #### C SHWETA BRODY, 30314-1 #### [facility] ([id number]) [address] [place] [address] Sodium [Moles/Vol] 137 mmol/L Normal 134-146 [facility] Comment on above: Performed By: #### SHWETA De La Cruz BCA, 49539-6 #### [facility] ([id number]) [address] [place] [address] 78180 Urea nitrogen [Mass/Vol] 11 mg/dL Normal 5-23 [facility] Comment on above: Performed By: #### Dorothy BRODY [facility], 36178-9 #### [facility] ([id number]) [address] [place] [address] 07440 CBC AND AUTO DIFFon 12-28-19 24 ABSOLUTE BASOPHIL 0.0 X10E9/L Normal 0.0-0.2 [facility] Comment on above: Performed By: #### SHWETA De La Cruz BCA, 13289-4 #### [facility] ([id number]) [address] [place] [address] 05398 ABSOLUTE NEUTROPHIL 5.6 X10E9/L Normal 1.5-6.6 [facility] Comment on above: Performed By: #### Dorothy BRODY [facility], 81179-6 #### [facility] ([id number]) [address] [place] [address] 40141 Basophils/100 WBC (Bld) 0.6 % Normal [facility] Comment on above: Performed By: #### Dorothy BRODY [facility], 83557-8 #### [facility] ([id number]) [address] [place] [address] 18334 Eosinophils (Bld) [#/Vol] 0.1 10*3/uL Normal 0.0-0.4 [facility] Comment on above: Performed By: #### SHWETA De La Cruz BCA, 76097-8 #### [facility] ([id number]) [address] [place] [address] 23400 Eosinophils/100 WBC (Bld) 0.8 % Normal [facility] Comment on above: Performed By: #### Dorothy BRODY [facility], 97537-6 #### [facility] ([id number]) [address] [place] [address] 88897 Erythrocyte distribution width (RBC) [Ratio] 12.4 % Normal 11.5-15.0 [facility] Comment on above: Performed By: #### Dorothy BRODY [facility], 85917-6 #### [facility] ([id number]) [address] [place] [address] 66167 Hematocrit (Bld) [Volume fraction] 33.5 % Low 35-47 [facility] Comment on above: Performed By: #### SHWETA De La Cruz BCA, 33183-8 #### [facility] ([id number]) [address] [place] [address] 20523 Hemoglobin (Bld) [Mass/Vol] 11.7 g/dL Normal 11.7-15.5 [facility] Comment on above: Performed By: #### Dorothy BRODY [facility], 31042-4 #### [facility] ([id number]) [address] [place] [address] 29610 Lymphocytes (Bld) [#/Vol] 1.5 10*3/uL Normal 1.0-3.5 [facility] Comment on above: Performed By: #### Dorothy BRODY [facility], 08223-4 #### [facility] ([id number]) [address] [place] [address] 38004 Lymphocytes/100 WBC (Bld) 19.7 % Normal [facility] Comment on above: Performed By: #### SHWETA De La Cruz BCA, 24015-9 #### [facility] ([id number]) [address] [place] [address] 91170 MCH (RBC) [Entitic mass] 32.9 pg Normal 27-34 [facility] Comment on above: Performed By: #### SHWETA De La Cruz BCA, 77683-2 #### [facility] ([id number]) [address] [place] [address] 21327 MCHC (RBC) [Mass/Vol] 35.1 g/dL Normal 32-36 [facility] Comment on above: Performed By: #### SHWETA De La Cruz BCA, 63732-2 #### [facility] ([id number]) [address] [place] [address] 87070 MCV (RBC) [Entitic vol] 94 fL Normal 80-100 [facility] Comment on above: Performed By: #### SHWETA De La Cruz BCA, 98345-3 #### [facility] ([id number]) [address] [place] [address] 60507 Monocytes (Bld) [#/Vol] 0.3 10*3/uL Normal 0-0.9 [facility] Comment on above: Performed By: #### SHWETA De La Cruz BCA, 11804-3 #### [facility] ([id number]) [address] [place] [address] 14513 Monocytes/100 WBC (Bld) 4.2 % Normal [facility] Comment on above: Performed By: #### SHWETA De La Cruz BCA, 10064-8 #### [facility] ([id number]) [address] [place] [address] 58142 Neutrophils/100 WBC (Bld) 74.7 % Normal [facility] Comment on above: Performed By: #### SHWETA De La Cruz BCA, 52348-9 #### [facility] ([id number]) [address] [place] [address] 12038 Platelet mean volume (Bld) [Entitic vol] 9.1 fL Normal 7-12 [facility] Comment on above: Performed By: #### SHWETA De La Cruz BCA, 37823-8 #### [facility] ([id number]) [address] [place] [address] 21479 Platelets (Bld) [#/Vol] 195 10*3/uL Normal 150-450 [facility] Comment on above: Performed By: #### C SHWETA BRODY, 38061-9 #### [facility] ([id number]) [address] [place] [address] 48142 RBC COUNT 3.57 X10E12/L Low 3.80-5.20 [facility] Comment on above: Performed By: #### C SHWETA BRODY, 67400-9 #### [facility] ([id number]) [address] [place] [address] 11934 WBC (Bld) [#/Vol] 7.5 10*3/uL Normal 4.0-11.0 [facility] Comment on above: Performed By: #### SHWETA De La Cruz BCA, 15763-3 #### [facility] ([id number]) [address] [place] [address] 53488 Troponin I.cardiac High sens itivity method [Mass/Vol]on 12-28-2023 1 HOUR TROP I, HIGH SENSITIVITY <2 Normal <16 [facility] Comment on above: Performed By: #### 8 9579-7 #### [facility] ([id number]) [address] [place] [address] 25693 TROPONIN I, HIGH SENSITIVITY <2 Normal <16 [facility] Comment on above: Performed By: #### SHWETA De La Cruz BCA, 83841-3 #### [facility] ([id number]) [address] [place] [address] 34309 HCG ( test) Ql (U)o n 12-09-2023 Interpretation and review of laboratory results Abnormal [facility] Preg Test, Ur Positive [facility] Urinalysis macro (dipstick) panel (U)on 12-09-2023 Bilirubin, UA Negative Negative - 4(70) +++ mg/dL [facility] Blood, UA Negative Negative - 50 Haroon/mcL [facility] Clarity, UA Clear [facility] Color, UA Yellow [facility] Glucose, UA Negative Negative - 2000(110) ++++ mg/dL [facility] Interpretation and review of laboratory results Normal [facility] Ketones, UA Negative Negative - 160(16) ++++ mg/dL [facility] Leukocytes, UA Negative Negative - 500+++ Robert/mcL [facility] Nitrite, UA Negative Negative - Positive [facility] pH, UA 7.5 5 - 9 [facility] Protein, UA Negative Negative - 1999(20) ++++ mg/dL [facility] Spec Grav, UA 1.015 1 - 1.03 [facility] Urobilinogen, UA 0.2 0.2 - 12 mg/dL [facility] ACETAMINOPHENon 01-23-2019 Acetaminophen [Mass/Vol] <1.0 Critically low 10.1-30.0 [facility] Comment on above: Performed By: #### A CET #### [facility] [address] [place], [place] [address] Lou Ml CBC AUTO DIFFon 01-23-2019 Basophils (Bld) [#/Vol] 0.1 103/ul Normal 0.0-0.1 [facility] Comment on above: Performed By: #### C BC #### [facility] [address] [place], [place] [address] Lou Ml Basophils/100 WBC (Bld) 0.7 % Normal 0.2-2.0 [facility] Comment on above: Performed By: #### C BC #### [facility] [address] [place], [place] [address] Lou Ml Eosinophils (Bld) [#/Vol] 0.1 103/ul Normal 0.0-0.7 [facility] Comment on above: Performed By: #### C BC #### [facility] [address] [place], [place] [address] Lou Ml Eosinophils/100 WBC (Bld) 1.0 % Normal 0.9-7.0 [facility] Comment on above: Performed By: #### C BC #### [facility] [address] [id number] Lou Ml Erythrocyte distribution width (RBC) [Ratio] 12.2 % Normal 11.0-15.0 [facility] Comment on above: Performed By: #### C BC #### [facility] [address] [place], [place] [address] Lou Ml Hematocrit (Bld) [Volume fraction] 37.6 % Normal 36.0-48.0 [facility] Comment on above: Performed By: #### C BC #### [facility] [address] [place], [place] [address] Lou Ml Hemoglobin (Bld) [Mass/Vol] 13.0 g/dL Normal 12.0-16.0 [facility] Comment on above: Performed By: #### C BC #### [facility] [address] [place] [address] Lou Ml IG # 0.03 10e3/ul Normal 0.00-0.03 [facility] Comment on above: Performed By: #### C BC #### [facility] [address] [place] [address] Lou Ml IG % 0.3 % Normal 0.0-0.5 [facility] Comment on above: Performed By: #### C BC #### [facility] [address] [place], [place] [address] Lou Ml Lymphocytes (Bld) [#/Vol] 2.9 103/ul Normal 1.2-3.8 [facility] Comment on above: Performed By: #### C BC #### [facility] [address] [place], [place] [address] Lou Ml Lymphocytes/100 WBC (Bld) 32.3 % Normal 20.5-60.0 [facility] Comment on above: Performed By: #### C BC #### [facility] [address] [place], [place] [address] Lou Ml MANUAL DIFF REQ NO Normal [facility] Comment on above: Performed By: #### C BC #### [facility] [address] [place], [place] [address] Lou Ml MCH (RBC) [Entitic mass] 31.6 pg Normal 26.7-34.0 [facility] Comment on above: Performed By: #### C BC #### [facility] [address] [place], [place] [address] Lou Bull MCHC (RBC) [Mass/Vol] 34.6 g/dL Normal 29.9-35.2 [facility] Comment on above: Performed By: #### C BC #### [facility] [address] [place], [place] [address] Lourex Bull MCV (RBC) [Entitic vol] 91.5 fL Normal 79.1-95.6 [facility] Comment on above: Performed By: #### C BC #### [facility] [address] [place], [place] [address] Lou Ml Monocytes (Bld) [#/Vol] 0.6 103/ul Normal 0.3-0.8 [facility] Comment on above: Performed By: #### C BC #### [facility] [address] [place], [place] [address] Lourex Cisnerosen Monocytes/100 WBC (Bld) 6.4 % Normal 1.7-12.0 [facility] Comment on above: Performed By: #### C BC #### [facility] [address] [place], [place] [address] Lou Ml Neutrophils (Bld) [#/Vol] 5.3 103/ul Normal 1.4-6.5 [facility] Comment on above: Performed By: #### C BC #### [facility] [address] [place], [place] [address] Lou Ml Neutrophils/100 WBC (Bld) 59.3 % Normal 43.0-75.0 [facility] Comment on above: Performed By: #### C BC #### [facility] [address] [place], [place] [address] Lou Ml Platelet mean volume (Bld) [Entitic vol] 10.6 fL Normal 9.5-13.5 [facility] Comment on above: Performed By: #### C BC #### [facility] [address] [address] Lourex Bull Platelets (Bld) [#/Vol] 220 103/ul Normal 150-450 [facility] Comment on above: Performed By: #### C BC #### [facility] [address] [place], [place] [address] Lourex Bull RBC (Bld) [#/Vol] 4.11 106/ul Normal 3.40-5.30 [facility] Comment on above: Performed By: #### C BC #### [facility] [address] [address] Lourex Bull WBC (Bld) [#/Vol] 8.9 103/ul Normal 4.0-11.0 [facility] Comment on above: Performed By: #### C BC #### [facility] [address] [place], [place] [address] Lou Ml DRUG SCREEN RAPID (URINE)on 01-23-2019 AMP Negative Normal NEGATIVE [facility] Comment on above: Performed By: #### D RUGRPD #### [facility] [address] [place] [address] Lou Ml BAR Negative Normal NEGATIVE [facility] Comment on above: Performed By: #### D RUGRPD #### [facility] [address] [place] [address] Lou Ml BUP Negative Normal NEGATIVE [facility] Comment on above: Performed By: #### D RUGRPD #### [facility] [address] [place] [address] Lou Ml BZO Negative Normal NEGATIVE [facility] Comment on above: Performed By: #### D RUGRPD #### [facility] [address] [place] [address] Lou Ml BRITTON Negative Normal NEGATIVE [facility] Comment on above: Performed By: #### D RUGRPD #### [facility] [address] [place] [address] Lou Ml CUT-OFFS SEE BELOW Normal [facility] Comment on above: Result Comment: [...] ng/mL Performed By: #### D RUGRPD #### [facility] [address] [place] [address] DRUG CUT HEADER DRUG CLASS TEST SYST EM CUT-OFF CONCENTRATIONS ARE FOLLOWS: Normal [facility] Comment on above: Performed By: #### D RUGRPD #### [facility] [address] [place] [address] Lou Ml mAMP Negative Normal NEGATIVE [facility] Comment on above: Performed By: #### D RUGRPD #### [facility] [address] [place] [address] Lou Ml MTD Negative Normal NEGATIVE [facility] Comment on above: Performed By: #### D RUGRPD #### [facility] [address] [place] [address] Lou Ml OPI Negative Normal NEGATIVE [facility] Comment on above: Performed By: #### D RUGRPD #### [facility] [address] [place] [address] Lou Ml OXY Negative Normal NEGATIVE [facility] Comment on above: Performed By: #### D RUGRPD #### [facility] [address] [place] [address] PCP Negative Normal NEGATIVE [facility] Comment on above: Performed By: #### D RUGRPD #### [facility] [address] [place] [address] [facility] PP[facility] Negative Normal NEGATIVE [facility] Comment on above: Performed By: #### D RUGRPD #### [facility] [address] [place], [place] [address] Lou Ml TCA Negative Normal NEGATIVE [facility] Comment on above: Performed By: #### D RUGRPD #### [facility] [address] [place], [place] [address] Lou Ml THC Positive Normal NEGATIVE [facility] Comment on above: Performed By: #### D RUGRPD #### [facility] [address] [place], [place] [address] Lou Ml ETHANOL (BLD ALC)on 01-24-20 19 Ethanol [Mass/Vol] mg/dL Normal [facility] Comment on above: Performed By: #### E TH #### [facility] [address] [place], [place] [address] Lou Ml Ethanol [Mass/Vol] NOTE: 80 mg/dl is th e legal limit for a blood alcohol level Normal [facility] Comment on above: Performed By: #### E TH #### [facility] [address] [place], [place] [address] Lou Ml URon 01-23-2019 , QUAL Negative Normal NEGATIVE [facility] Comment on above: Performed By: #### P REGU #### [facility] [address] [place], [place] [address] Lou Bull PROF 14(COMP METB)on 019 Age - Reported Normal [facility] Comment on above: Performed By: #### C MP #### [facility] [address] [place], [place] [address] Lou Ml Albumin [Mass/Vol] 4.3 g/dL Normal 3.5-5.0 [facility] Comment on above: Performed By: #### C MP #### [facility] [address] [place], [place] [address] Lou Ml Albumin/Globulin [Mass ratio] 1.6 {ratio} Normal [facility] Comment on above: Performed By: #### C MP #### [facility] [address] [place], [place] [address] Lou Ml ALP [Catalytic activity/Vol] 66 U/L Normal 65-260 [facility] Comment on above: Performed By: #### C MP #### [facility] [address] [place], [place] [address] Lou Ml ALT [Catalytic activity/Vol] 22 U/L Normal 9-52 [facility] Comment on above: Performed By: #### C MP #### [facility] [address] [place], [place] [address] Lou Ml Anion gap [Moles/Vol] 11.4 mmol/L Normal [facility] Comment on above: Performed By: #### C MP #### [facility] [address] [address] Lou Ml AST [Catalytic activity/Vol] 16 U/L Normal 14-36 [facility] Comment on above: Performed By: #### C MP #### [facility] [address] [address] Lou Ml Bilirubin Ql (U) 0.6 mg/dL Normal 0.2-1.3 [facility] Comment on above: Performed By: #### C MP #### [facility] [address] [address] Lou Ml Calcium [Mass/Vol] 9.7 mg/dL Normal 8.4-10.2 [facility] Comment on above: Performed By: #### C MP #### [facility] [address] [place] [address] Lou Ml Chloride [Moles/Vol] 103 mmol/L Normal 98-107 [facility] Comment on above: Performed By: #### C MP #### [facility] [address] [address] Lou Ml CO2 [Moles/Vol] 27.2 mmol/L Normal 22.0-30.0 [facility] Comment on above: Performed By: #### C MP #### [facility] [address] [address] Lou Ml Creatinine [Mass/Vol] 0.59 mg/dL Normal 0.52-1.04 [facility] Comment on above: Performed By: #### C MP #### [facility] [address] [place], [place] [address] Lou Ml EGFR-AF BURMESE Normal >=60 [facility] Comment on above: Performed By: #### C MP #### [facility] [address] [place], [place] [address] Lou Ml EGFR-NON AF BURMESE Normal >=60 [facility] Comment on above: Performed By: #### C MP #### [facility] [address] [address] Lou Ml Globulin (S) [Mass/Vol] 2.7 g/dL Normal [facility] Comment on above: Performed By: #### C MP #### [facility] [address] [place], [place] [address] Lou Ml Glucose [Mass/Vol] 90 mg/dL Normal 74-106 [facility] Comment on above: Performed By: #### C MP #### [facility] [address] [place] [address] Lou Ml Potassium [Moles/Vol] 3.6 mmol/L Normal 3.4-5.0 [facility] Comment on above: Performed By: #### C MP #### [facility] [address] [place], [place] [address] Lou Ml Protein [Mass/Vol] 7.0 g/dL Normal 6.1-8.2 [facility] Comment on above: Performed By: #### C MP #### [facility] [address] [place], [place] [address] Lou Ml Sodium [Moles/Vol] 138 mmol/L Normal 137-145 [facility] Comment on above: Performed By: #### C MP #### [facility] [address] [place], [place] [address] Lou Ml Urea nitrogen [Mass/Vol] 16.0 mg/dL Normal 6.4-19.3 [facility] Comment on above: Performed By: #### C MP #### [facility] [address] [place], [place] [address] Lou Ml Urea nitrogen/Creatinine [Mass ratio] 27.1 mg/mg Normal [facility] Comment on above: Performed By: #### C MP #### [facility] [address] [place], [place] [address] Lou Bull SALICYLATEon 01-23-2019 SALICYLATE 6.5 mg/dL Normal <=20.0 [facility] Comment on above: Performed By: #### S ALYC #### [facility] [address] [place], [place] [address] Lou Bull Vital Signs Date Time Vital Sign Value Performing Clinician Faci lity 04-13-2024 09:42-0500 Body mass index (BMI) [Ratio] 26.01 kg/m2 Daphnie VANCE Work Phone: [facility] 04-13-2024 09:42-0500 Body weight 71.99 kg Daphnie VANCE Work Phone: [facility] 04-13-2024 09:42-0500 Diastolic blood pressure 66 mm[Hg] Daphnie VANCE Work Phone: [facility] 04-13-2024 09:42-0500 Systolic blood pressure 108 mm[Hg] Daphnie Kemp PA Work Phone: [facility] 03-15-2024 15:58-0500 Body mass index (BMI) [Ratio] 24.81 kg/m2 Ebony Luz Elena DO Work Phone: [facility] 03-15-2024 15:58-0500 Body weight 68.67 kg Ebony Luz Elena DO Work Phone: [facility] 03-15-2024 15:58-0500 Diastolic blood pressure 64 mm[Hg] Ebony Luz Elena DO Work Phone: [facility] 03-15-2024 15:58-0500 Systolic blood pressure 104 mm[Hg] Ebony Luz Elena DO Work Phone: [facility] 02-07-2024 10:59-0500 Body mass index (BMI) [Ratio] 22.84 kg/m2 Daphnie VANCE Work Phone: [facility] 02-07-2024 10:59-0500 Body weight 63.23 kg Daphnie VANCE Work Phone: [facility] 02-07-2024 10:59-0500 Diastolic blood pressure 70 mm[Hg] Daphnie VANCE Work Phone: [facility] 02-07-2024 10:59-0500 Systolic blood pressure 110 mm[Hg] Daphnie VANCE Work Phone: [facility] 12-09-2023 14:51-0400 Body mass index (BMI) [Ratio] 22.12 kg/m2 [facility] 12-09-2023 14:51-0400 Body weight 61.24 kg [facility] Nurse [facility] 12-09-2023 14:51-0400 Diastolic blood pressure 66 mm[Hg] [facility] Nurse [facility] 12-09-2023 14:51-0400 Systolic blood pressure 100 mm[Hg] [facility] Nurse [facility] Healthcare Encounters Encounter Date Encounter Type Care Provider Facility Start: 04-13-2024 End: 04-13-2024 Bamboo flowsheet Daphnie VANCE Work Phone: [facility] Start: 04-13-2024 End: 04-13-2024 Bamboo flowsheet Daphnie VANCE Work Phone: [facility] Start: 04-13-2024 End: 04-13-2024 flow sheet Daphnie VANCE Work Phone: [facility] Comment on above: Second trimester pre gnancy; 26 weeks gestation of ; size inconsistent with dates Start: 04-13-2024 End: 04-13-2024 ambulatory DAPHNIE KEMP Not Available Start: 03-15-2024 End: 03-15-2024 ambulatory EBONY LUZ ELENA Not Available Start: 03-15-2024 End: 03-15-2024 flow sheet Ebony Luz Elena DO Work Phone: [facility] Comment on above: 22 weeks gestation o f ; Second trimester ; Diabetes mellitus screening Start: 03-15-2024 End: 03-15-2024 ambulatory DAPHNIE KEMP Not Available Start: 03-13-2024 End: 03-13-2024 Clinisync Result Encounter Ebony Luz Elena DO Work Phone: [facility] Unsolicited Start: 03-13-2024 End: 03-13-2024 Clinisync Result Encounter Ebony Heado DO Work Phone: [facility] Unsolicited Start: 02-22-2024 End: 02-22-2024 Emergency department patient visit NOT IN SYSTEM [facility] Start: 02-11-2024 End: 02-13-2024 Clinisync Result Encounter Generic External Data Provider [facility] Unsolicited Start: 02-11-2024 End: 02-13-2024 Clinisync Result Encounter Generic External Data Provider [facility] Unsolicited Start: 02-07-2024 End: 02-07-2024 Bamboo flowsheet Daphnie VANCE Work Phone: [facility] Start: 02-07-2024 End: 02-17-2024 Bamboo flowsheet Daphnie VANCE Work Phone: [facility] Start: 02-07-2024 End: 02-17-2024 Clinisync Result Encounter Generic External Data Provider [facility] Unsolicited Start: 02-07-2024 End: 02-11-2024 External Result Encounter Daphnie VANCE Work Phone: [facility] Unsolicited Start: 02-07-2024 End: 02-07-2024 Patient encounter procedure Daphnie VANCE Work Phone: [facility] Start: 02-07-2024 End: 02-07-2024 Periodic preventive [...] Start: 01-10-2024 End: 01-10-2024 flow sheet Ebony Heado DO Work Phone: [facility] Comment [...] department patient visit NOT IN SYSTEM PCP [facility] Start: 12-09-2023 End: 12-09-2023 ambulatory [facility] Luz Elena Nurse [facility] Comment on above: GA: 8w2d Start: 01-23-2019 End: 01-23-2019 Patient encounter procedure ELINOR PALOMO Facility: Procedures Date Procedure Procedure Detail Performing Clinician Start: 03-15-2024 Urnls dip stick/tabl et rgnt non-auto w/o micrscp Ebony Luz Elena DO Work Phone: Start: 03-13-2024 TBH UA (CLEAN/CATCH) HIDE BUFFER/MICRO IF IND. Ebony Luz Elena DO Work Phone: Start: 02-11-2024 AFP, SERUM, OPEN SPI NA BIFIDA Daphnie VANCE Work Phone: Start: 02-07-2024 RECURRENT VAGINITIS (HTRX) Daphnie VANCE Work Phone: Start: 02-07-2024 Urnls dip stick/tabl et rgnt non-auto w/o micrscp Daphnie VANCE Work Phone: Start: 02-07-2024 IGP,APTIMA HPV,AGE GDLN Daphnie VANCE Work Phone: Start: 01-10-2024 Urnls [...] ternal Data Provider Start: 01-03-2024 HBSAG SCREEN Ebonywillis Head o DO Work Phone: Start: 01-03-2024 HCV [...] Treatment Date Care Activity Detail Author Start: 04-27-2024 End: 04-27-2024 Patient encounter procedure 04/27/2024 1:30 PM EDT Routine [facility] [address] [place] [address] Daphnie Kemp PA [address] [place] [address] [facility] Start: 04-13-2024 End: 04-13-2025 US for US OB follow up transabdominal approach Imaging Routine size inconsistent with dates Expected: 04/13/2024, Expires: 04/13/2025 [facility] Work Phone: Comment on above: Expected: 04/13/2024 , Expires: 04/13/2025 Start: 04-13-2024 End: 04-13-2024 Patient encounter procedure [facility] Comment on above: Arrived Start: 03-15-2024 End: 03-15-2024 Patient encounter procedure 03/15/2024 3:40 PM EST Routine [facility] [address] [facility] [phone] Ebony Laguna DO [address] [place], [place] [id number] [facility] Start: 03-15-2024 End: 03-15-2024 Professional / ancillary services management 03/15/2024 2:30 PM EST Ancillary Procedure [facility] [address] [place] [phone] [facility] Start: 03-15-2024 End: 03-15-2025 CBC panel - Blood by Automated count CBC Lab Routine Diabetes mellitus screening Expected: 03/15/2024 (Approximate), Expires: 03/15/2025 [facility] Work Phone: Comment on above: Expected: 03/15/2024 (Approximate), Expires: 03/15/2025 Start: 03-15-2024 End: 03-15-2025 Measurement of glucose 1 hour after glucose challenge for glucose tolerance test Glucose tolerance, 1 hour Lab Routine Diabetes mellitus screening Expected: 03/15/2024 (Approximate), Expires: 03/15/2025 [facility] Comment on above: Expected: 03/15/2024 (Approximate), Expires: 03/15/2025 Start: 02-14-2024 End: 02-14-2024 Patient encounter procedure 02/14/2024 11:30 AM EST Routine [facility] [address] [facility] [phone] Daphnie Kemp PA [address] [place] [address] [facility] Start: 02-07-2024 End: 03-09-2024 [...] AM EST Routine [facility] [address] [place] [address] Daphnie Kemp PA [address] [place] [address] 16 weeks gestation of ; Second trimester ; Screening, , for anatomic survey; Well woman exam with routine gynecological exam [facility] Comment on above: 16 weeks gestation o f ; Second trimester ; Screening, , for anatomic survey; Well woman exam with routine gynecological exam Start: 01-10-2024 End: 01-10-2024 Patient encounter procedure 01/10/2024 1:40 PM EST Routine [facility] [address] [place] [address] [place] [phone] Ebony Laguna DO [address] [place] [address] [facility] Start: 12-09-2023 End: 12-08-2024 ABO/Rh ABO/Rh Lab Routine Missed menses , unspecified gestational age Expected: 12/09/2023 (Approximate), Expires: 12/08/2024 [facility] Comment on above: Expected: 12/09/2023 (Approximate), Expires: 12/08/2024 Start: 12-09-2023 End: 12-08-2024 Blood type and Indirect antibody screen panel - Blood Type and screen Lab Routine Missed menses , unspecified gestational age Expected: 12/09/2023 (Approximate), Expires: 12/08/2024 [facility] Work Phone: Comment on above: Expected: 12/09/2023 (Approximate), Expires: 12/08/2024 Start: 12-09-2023 End: 12-08-2024 Drugs of abuse panel - Urine by Screen method Rapid drug screen, urine Lab Routine , unspecified gestational age Encounter for supervision of normal first in first trimester Expected: 12/09/2023 (Approximate), Expires: 12/08/2024 [facility] Comment on above: Expected: 12/09/2023 (Approximate), Expires: 12/08/2024 Start: 12-09-2023 End: 12-08-2024 US Pelvis transvaginal US OB transvaginal Imaging Routine Missed menses Expected: 12/09/2023 (Approximate), Expires: 12/08/2024 [facility] Comment on above: Expected: 12/09/2023 (Approximate), Expires: 12/08/2024 Start: 10-17-2023 Influenza vaccination Influenza Vacc ine (#1) [facility] Bacteria identified in Urine by Culture Urine culture Microbiology Routine Missed menses Ordered: 12/09/2023 [facility] Comment on above: Ordered: 12/09/2023 CBC W Auto Different ial panel - Blood CBC and differential Lab Routine Missed menses , unspecified gestational age Ordered: 12/09/2023 [facility] Comment on above: Ordered: 12/09/2023 CHLAMYDIA TRACHOMATI S (GENITO/STI) CHLAMYDIA TRACHOMATIS (GENITO/STI) Lab Routine 16 weeks gestation of Second trimester Well woman exam with routine gynecological exam Ordered: 02/07/2024 [facility] Comment on above: Ordered: 02/07/2024 Cytology Cervical or vaginal smear or scraping study Pap Smear Pathology and Cytology Routine 16 weeks gestation of Second trimester Well woman exam with routine gynecological exam Ordered: 02/07/2024 [facility] Work Phone: Comment on above: Ordered: 02/07/2024 Hemoglobin A1c/Hemoglobin.total in Blood Hemoglobin A1c Lab Routine Missed menses , unspecified gestational age Ordered: 12/09/2023 [facility] Comment on above: Ordered: 12/09/2023 Hepatitis B virus surface Ag [Presence] in Serum or Plasma by Immunoassay Hepatitis B surface antigen Lab Routine Missed menses , unspecified gestational age Ordered: 12/09/2023 [facility] Comment on above: Ordered: 12/09/2023 Hepatitis C virus Ab [Presence] in Serum or Plasma by Immunoassay Hepatitis C antibody Lab Routine Missed menses , unspecified gestational age Ordered: 12/09/2023 [facility] Comment on above: Ordered: 12/09/2023 HIV-1/HIV-2 antigen/antibody combination immunoassay HIV-1 and HIV-2 antibodies Lab Routine Missed menses , unspecified gestational age Ordered: 12/09/2023 [facility] Comment on above: Ordered: 12/09/2023 Neisseria gonorrhoea e DNA [Presence] in Unspecified specimen by NORRIS with probe detection Neisseria gonorrhea DNA probe, direct Lab Routine 16 weeks gestation of Second trimester Well woman exam with routine gynecological exam Ordered: 02/07/2024 [facility] Comment on above: Ordered: 02/07/2024 Reagin Ab [Presence] in Serum by RPR RPR Lab Routine Missed menses , unspecified gestational age Ordered: 12/09/2023 [facility] Comment on above: Ordered: 12/09/2023 Rubella antibody, IgG Rubella an tibody, IgG Lab Routine Missed menses , unspecified gestational age Ordered: 12/09/2023 [facility] Comment on above: Ordered: 12/09/2023 SURESWAB(R) ADVANCED VAGINITIS PLUS, TMA SURESWAB(R) ADVANCED VAGINITIS PLUS, TMA Pathology and Cytology Routine 16 weeks gestation of Second trimester Well woman exam with routine gynecological exam Ordered: 02/07/2024 [facility] Comment on above: Ordered: 02/07/2024 Payers Date Payer Category Payer [facility] [employer]BS [id number] 2019 Unknown [id number] 2001 Unknown [id number] 2001 Unknown [id number] 2001 Unknown [id number] 2001 Unknown [id number] 2001 Unknown [id number] 2001 Unknown [id number] 2001 Unknown [id number] 2001 Unknown [id number] 1978 Unknown [id number] 1959 Unknown [id number] Social History Date Type Detail Facility Start: [facility]23 [facility] History of tobacco use Cigarette Smoker [facility] Start: 01-19-2023 Tobacco use and exposure Smokeless t obacco non-user [facility] Start: 12-09-2023 End: 04-13-2024 Alcoholic beverage intake Current drinker of alcohol (finding) [facility] Start: 07-08-2022 End: 01-19-2023 History of Social function [facility] Start: 07-08-2022 End: 01-19-2023 Tobacco use panel [facility] Start: 07-08-2022 Alcohol Comment once a month [facility] Start: 10-26-2023 [facility] Start: 2001 Sex assigned at Not on file [facility] Start: 04-29-2022 Gender identity Identifies as female gender (finding) [facility] History of Present illness Narrative 04-13-2024 RAJIV Hernandez - 04/13/2024 9:30 AM EST Note Date & Type Note Facility 04-13-2024 History of Presen t illness Narrative Reason for Appointment: Patient ID: Felipe Bradley is a 23 y.o. female who presents for Routine Visit Patient presents today for Return OB appointment. 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 She is normal weight. HENT: Head: Normocephalic. Cardiovascular: Rate and Rhythm: Normal rate. Pulses: Normal pulses. Pulmonary: Effort: Pulmonary effort is normal. Breath sounds: Normal breath sounds. Abdominal: Palpations: Abdomen is soft. Musculoskeletal: General: Normal range of motion. Neurological: General: No focal deficit present. Mental Status: She is alert and oriented to person, place, and time. Psychiatric: Mood and Affect: Mood normal. Behavior: Behavior normal. Thought Content: Thought content normal. Judgment: Judgment normal. Vitals and nursing note reviewed. Vitals: Estimated body mass index is 26.01 kg/m as calculated from the following: Height as of 07/08/22: 5' 5.5 . Weight as of this encounter: 158 lb 11.2 oz. BP: 108/66 Patient's last menstrual period was 10/12/2023. ASSESSMENT & PLAN ICD-10-CM 1. Second trimester Z34.92 2. 26 weeks gestation of Z3A.26 3. size inconsistent with dates O26.849 US OB follow up transabdominal approach Return OB: Patient presents today for a routine obstetrics appointment. Patient is currently 26w2d . Patient states she is doing well but has complaints of being tired due to current . Patient has verbalizes frequent movement. labor precautions was discussed/given and patient was instructed to perform kick counts three times a day. Orders Placed This Encounter Procedures US OB follow up transabdominal approach Follow Up: Patient is to return to office in 2 week for routine OB appointment. Documented by RAJIV Hernandez on behalf of: RAJIV Hernandez documented in this encounter [facility] History of Present illness Narrative 03-15-2024 Ebony Laguna DO - 03/15/2024 3:40 PM EST Note Date & Type Note Facility 03-15-2024 History of Presen t illness Narrative Reason for Appointment: Patient ID: Felipe Bradley is a 23 y.o. female who presents for Routine Visit Patient presents today for Return OB appointment. Current Medications: has a current medication list which includes the following prescription(s): nitrofurantoin (macrocrystal-monohydrate) and vitamin. Medical History: Active Ambulatory Problems Diagnosis Date Noted Anxiety disorder 07/08/2022 Mood disorder (CMS/HCC) 07/08/2022 Cannabis use, 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CMS/HCC) 07/08/2022 Moderate episode of recurrent major depressive disorder (CMS/HCC) 07/08/2022 Oppositional defiant disorder (CMS/HCC) 07/08/2022 Other atopic dermatitis 07/08/2022 Toxic effect of ethyl alcohol (CMS/HCC) 07/08/2022 16 weeks gestation of 02/07/2024 Second [...] No pertinent surgical history. No Known Allergies Review of Systems: Review of Systems All other systems reviewed and are negative. Objective Physical Exam Constitutional: Appearance: Normal appearance. She [...] nursing note reviewed. Exam conducted with a livestock haulier present. Vitals: Estimated body mass index is 24.81 kg/m as calculated from the following: Height as of 07/08/22: 5' 5.5 . Weight as of this encounter: 151 lb 6.4 oz. BP: 104/64 Patient's last menstrual period was 10/12/2023. Assessment/Plan Encounter Diagnosis: ICD-10-CM 1. 22 weeks gestation of Z3A.22 POCT urinalysis dipstick manually resulted 2. Second trimester Z34.92 POCT urinalysis dipstick manually resulted 3. Diabetes mellitus screening Z13.1 CBC Glucose tolerance, 1 hour CBC Glucose tolerance, 1 hour Return OB: Patient presents today for a routine obstetrics appointment. Patient is currently 22w1d . Patient states she is doing well but has complaints of being tired due to current . Patient has verbalizes frequent movement. labor precautions was discussed/given and patient was instructed to perform kick counts three times a day. Orders Placed This Encounter Procedures CBC Glucose tolerance, 1 hour POCT urinalysis dipstick manually resulted Follow Up: Patient is to return to office in 4 week for routine OB appointment. Documented by Ebony Laguna DO on behalf of: Ebony Laguna DO documented [...] Date Noted Anxiety disorder 07/08/2022 Mood disorder ([facility]) 07/08/2022 Cannabis use, 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[facility]) 07/08/2022 Moderate episode of recurrent major depressive disorder ([facility]) 07/08/2022 Oppositional defiant disorder ([facility]) 07/08/2022 Other atopic dermatitis 07/08/2022 Toxic effect of ethyl alcohol ([facility]) 07/08/2022 16 weeks gestation of 02/07/2024 Second [...] nursing note reviewed. Exam conducted with a livestock haulier present. Vitals: Estimated body mass index is [...] obtained without difficulty and patient was given msAFP order to have obtained. Orders Placed This [...] Date Noted Anxiety disorder 07/08/2022 Mood disorder ([facility]) 07/08/2022 Cannabis use, 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[facility]) 07/08/2022 Moderate episode of recurrent major depressive disorder ([facility]) 07/08/2022 Oppositional defiant disorder ([facility]) 07/08/2022 Other atopic dermatitis 07/08/2022 Toxic effect of ethyl alcohol ([facility]) 07/08/2022 Resolved Ambulatory Problems Diagnosis Date Noted [...] nursing note reviewed. Exam conducted with a livestock haulier present. Vitals: Estimated body mass index is [...] or undercooked meat, and stay away from [facility]. Patient has been consulted regarding any [...] Date Noted Anxiety disorder 07/08/2022 Mood disorder ([facility]) 07/08/2022 Cannabis use, 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[facility]) 07/08/2022 Moderate episode of recurrent major depressive disorder ([facility]) 07/08/2022 Oppositional defiant disorder ([facility]) 07/08/2022 Other atopic dermatitis 07/08/2022 Toxic effect of ethyl alcohol ([facility]) 07/08/2022 Resolved Ambulatory Problems Diagnosis Date Noted [...] Pt will contemplate if she will do [facility] 21. Pt was advised if she does want [place] 21 to have it done w/ labs [...] Meaghan Prado MA documented in this encounter [facility] Evaluation note Note Date & Type Note Facility Evaluation note Diagnosis Missed menses , unspecified gestational age Encounter for supervision of normal first in first trimester Nausea and vomiting in Unspecified vomiting of , unspecified as to episode of care documented in this encounter [facility] Evaluation note Note Date & Type Note Facility Evaluation note Diagnosis First trimester state, incidental 12 weeks gestation of Nausea and vomiting in Unspecified vomiting of , unspecified as to episode of care documented in this encounter [facility] Evaluation note Note Date & Type Note Facility Evaluation note Diagnosis 16 weeks gestation of Second trimester state, incidental Screening, , for anatomic survey Encounter for anatomic survey Well woman exam with routine gynecological exam Routine gynecological examination documented in this encounter [facility] Evaluation note Note Date & Type Note Facility Evaluation note Diagnosis 22 weeks gestation of Second trimester state, incidental Diabetes mellitus screening Screening for diabetes mellitus documented in this encounter [facility] Evaluation note Note Date & Type Note Facility Evaluation note Diagnosis Second trimester state, incidental 26 weeks gestation of size inconsistent with dates documented in this encounter [facility] Summary Purpose Family History No Family History Records FoundNo Family History Records FoundNo Family History Records Found Advance Directives No Advanced Directives Records FoundNo Advanced Directives Records FoundNo Advanced Directives Records Found Additional Source Comments INFORMATION SOURCE (unrecogn ized section and content) DATE CREATED AUTHOR 01/25/2019 [facility] DATE CREATED AUTHOR AUTHOR'S ORGANIZ ATION 02/28/2024 [facility] DATE CREATED AUTHOR AUTHOR'S ORGANIZ ATION 04/15/2024 [facility] EPIC Reason for Visit (unrecogniz ed section and content) Reason Comments Amenorrhea Reason Comments Routine Visit Care Teams (unrecognized sec tion and content) Ribbon Cutter Relationship Specialty Start Date End Date Cary Ocasio MD [address] [place] [address] PCP - General Family Medicine 07/07/22 Ribbon Cutter Relationship Specialty Start Date End Date Cayr Ocasio MD [address] [place] [address] PCP - General Family Medicine 07/07/22 Ribbon Cutter Relationship Specialty Start Date End Date Cary Ocasio MD [address] [place] [address] PCP - General Family Medicine 07/07/22 Ribbon Cutter Relationship Specialty Start Date End Date Cary Ocasio MD [address] [facility] [place] [address] PCP - General Family Medicine 07/07/22 Ribbon Cutter Relationship Specialty Start Date End Date Cary Ocasio MD [address] [place] [address] PCP - General Family Medicine 07/07/22 Ribbon Cutter Relationship Specialty Start Date End Date Cary Ocasio MD [address] [facility] [place] [address] PCP - General Family Medicine 07/07/22 Ribbon Cutter Relationship Specialty Start Date End Date Cary Ocasio MD [address] [facility] [place] [address] PCP - General Family Medicine 07/07/22 Ribbon Cutter Relationship Specialty Start Date End Date Cary Ocasio MD [address] [facility] [address] [place], [place] [phone] PCP - General Family Medicine 07/07/22 FOR [...] BE BASED ON THE PRIMARY CLINICAL RECORDS. [facility] [employer] [facility]. provides no warranty or guarantee of the accuracy or completeness of information in this document.
[2024-04-18 11:10] LABS: Basophils Absolute Auto 0.1 10^3/uL (0.0-0.1); Basophils Percent Auto 0.5 % (0.2-2.0); Eosinophils Absolute Auto 0.1 10^3/uL (0.0-0.7); Eosinophils Percent Auto 0.9 % (0.9-7.0); Hemoglobin 12.7 g/dL (12.0-16.0); Immature Granulocytes Abs Auto 0.07 10^3/uL (0.00-0.03); Immature Granulocytes Pct Auto 0.7 % (0.0-0.5); Lymphocytes Absolute Auto 1.6 10^3/uL (1.2-3.8); Lymphocytes Percent Auto 15.4 % (20.5-60.0); Mean Corpuscular HGB Conc 35.3 g/dL (29.9-35.2); Mean Corpuscular Hemoglobin 33.1 pg (26.7-34.0); Mean Corpuscular Volume 93.8 fL (81.0-99.0); Monocytes Absolute Auto 0.4 10^3/uL (0.3-0.8); Monocytes Percent Auto 3.5 % (1.7-12.0); Neutrophils Absolute Auto 8.4 10^3/uL (1.4-6.5); Platelet Count 212 10^3/uL (150-450); Red Blood Count 3.84 10^6/uL (4.20-5.40); Red Cell Distribution Width 11.9 % (11.0-15.0); White Blood Count 10.6 10^3/uL (4.0-11.0)
[2024-04-18 11:28] LABS: Glucose 1 Hour 137 mg/dL (<130)
== END 2024-04-18 09:35 | disposition home or self-care (01) ==
PROVIDERS: PCP Family Medicine; Visit Provider Obstetrics & Gynecology
DX: Z13.1 Encounter for screening for diabetes mellitus (principal)
CPT/HCPCS: 36415; 82950; 85025

== ENCOUNTER 2024-04-27 10:52 | Outpatient (OUT) | payer BC, SELFPAY ==
--- OUTSIDE RECORDS SUMMARY | 2024-04-27 10:56 | XMS_ITS | CCD ---
Demographics Address [address] [place] [address] Preferred Language en Marital Status Single Quaker Affiliation Unknown Race White Ethnic Group Unknown Author Organization [facility]ly [facility] Care Team Providers Care Miller Head Name Role Phone ELINOR PALOMO Consulting Unavailable ELINOR PALOMO Admitting Unavailable ELINOR PALOMO Attending Unavailable Cary Ocasio MD Primary Care Provider DAPHNIE KEMP Attending Unavailable DAPHNIE KEMP Attending Unavailable EBONY LAGUNA Attending Unavailable EBONY LAGUNA Attending Unavailable PCP, NOT IN SYSTEM Primary Care Unavailable HELLEN VERDIN Attending Unavailable PCP, NOT IN SYSTEM Primary Care Unavailable SANDIE RIOS Admitting Unavailable SANDIE RIOS Attending Unavailable PCP, NOT IN SYSTEM Primary Care Unavailable Medications Current Medications Medication Drug Class(es) Dates Sig (Normalized) Sig (Original) cephalexin 500 mg oral capsule (1 source) Cephalosporin Antibacterial Start: 04-14-2024 End: 04-24-2024 take 1 capsule by mouth in the morning, then take 1 capsule by mouth in the evening, then take 1 capsule by mouth at bedtime cephalexin (Keflex) 500 MG capsule Indications: Streptococcus agalactiae infection Take 1 capsule (500 mg) by mouth in the morning and 1 capsule (500 mg) in the evening and 1 capsule (500 mg) before bedtime. Do all this for 10 days. 30 capsule 04/14/2024 04/24/2024 Active nitrofurantoin, macrocrystals 25 mg / nitrofurantoin, monohydrate [...] Active vitamin (Prenatabs Rx) 29-1 MG tablet (17 sources) Start: 12-09-2023 End: 12-08-2024 take 1 [...] Date Documented Da te Episodic/Chronic Allergic reactions (17 sources) Atopic dermatitis; Translations: [Other atopic dermatitis] Onset: 07-08-2022 07-08-2022 Chronic Anxiety disorders (20 sources) State of emotional shock and stress, unspecified; Translations: [Anxiety disorder] Onset: 01-23-2019 07-08-2022 Chronic Attention-deficit, conduct, and disruptive behavior disorders (17 sources) Oppositional defiant disorder; Translations: [Oppositional defiant disorder] Onset: 07-08-2022 07-08-2022 Chronic Conditions associated with dizziness or vertigo (1 source) Dizziness Onset: 04-24-2024 Episodic Hemorrhage during ; abruptio placenta; placenta previa (1 source) Antepartum hemorrhage, unspecified, unspecified trimester; Translations: [Antepartum hemorrhage, unspecified, unspecified trimester] Onset: 02-22-2024 Episodic Menstrual disorders (1 source) Missed period; Translations: [Irregular menstruation, unspecified] 12-09-2023 Chronic Mood disorders (20 sources) Mood disorder; Translations: [Unspecified mood [affective] disorder] Onset: 07-08-2022 07-08-2022 Chronic Other complications of (3 sources) Vomiting of [...] conditions (not mental disorders or infectious disease) (17 sources) Patient encounter status; Translations: [Encounter for other specified screening] Onset: 02-07-2024 02-07-2024 Episodic Residual codes; unclassified (2 sources) Gestation period, 12 weeks; Translations: [12 weeks gestation of ] 01-10-2024 Episodic Residual codes; unclassified (15 sources) Gestation period, 16 weeks; Translations: [16 weeks gestation of ] Onset: 02-07-2024 02-07-2024 Episodic Residual codes; unclassified (2 sources) Gestation period, 22 weeks; Translations: [22 weeks gestation of ] 03-15-2024 Episodic Residual codes; unclassified (2 sources) Gestation period, 26 weeks; Translations: [26 weeks gestation of ] 04-13-2024 Episodic Unclassified (1 source) Ill Onset: 12-28-2023 Past or Other Problems Problem Classification Problem Date Documented Da te Episodic/Chronic Nonspecific chest pain (1 source) Chest pain, unspecified; Translations: [Chest pain, unspecified] Onset: 12-28-2023 Episodic Poisoning by nonmedicinal substances (17 sources) Toxic effect of ethyl alcohol; Translations: [Toxic effect of ethanol, accidental (unintentional), initial encounter] Onset: 07-08-2022 07-08-2022 Episodic Residual codes; unclassified (1 source) 11 weeks gestation of ; Translations: [11 weeks gestation of ] Onset: 12-28-2023 Episodic Substance-related disorders (17 sources) Cannabis-induced organic mental disorder; 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, unspecified with unspecified cannabis-induced disorder] Onset: 07-08-2022 07-08-2022 Episodic Syncope (2 sources) Syncope and collapse; Translations: [Syncope] Onset: 12-28-2023 Episodic Results Test Name Value Interpretation Reference Range Facility ALL CBC WITH AUTO DIFFon BASOPHILS ABSOLUTE AUTO 0.1 [facility] Basophils/100 WBC (Bld) 0.5 % 0.2 - 2.0 % [facility] Eosinophils/100 WBC (Bld) 0.9 % 0.9 - 7.0 % [facility] Erythrocyte distribution width (RBC) [Ratio] 11.9 % 11.0 - 15.0 % [facility] Hematocrit (Bld) [Volume fraction] 36 % 36.0 - 48.0 % [facility] Hemoglobin (Bld) [Mass/Vol] 12.7 g/dL 12.0 - 16.0 g/dL [facility] IMMATURE GRANULOCYTES ABS AUTO 0.07 High [facility] Immature granulocytes/100 WBC (Bld) 0.7 % High 0.0 - 0.5 % [facility] Interpretation and review of laboratory results Abnormal [facility] LYMPHOCYTES ABSOLUTE AUTO 1.6 [facility] Lymphocytes/100 WBC (Bld) 15.4 % Low 20.5 - 60.0 % [facility] MCH (RBC) [Entitic mass] 33.1 pg 26.7 - 34.0 pg [facility] MCHC (RBC) [Mass/Vol] 35.3 g/dL High 29.9 - 35.2 g/dL [facility] MCV (RBC) [Entitic vol] 93.8 fL 81.0 - 99.0 fL [facility] MONOCYTES ABSOLUTE AUTO 0.4 [facility] Monocytes/100 WBC (Bld) 3.5 % 1.7 - 12.0 % [facility] NEUTROPHILS ABSOLUTE AUTO 8.4 High [facility] Neutrophils/100 WBC (Bld) 79 % High 43.0 - 75.0 % [facility] Platelet mean volume (Bld) [Entitic vol] 10 fL 9.5 - 13.5 fL [facility] EO # 0.1 [facility] PLT 212 [facility] RBC 3.84 Low [facility] WBC 10.6 [facility] US OB 14+ WEEKS ANATOMY SCAN on [...] report is generated using voice recognition reporting (LK FREEMAN). On occasion MOVE Guidescribe erroneously drops words from the report or [...] - 4(70) +++ mg/dL [facility] Blood, UA Negative Negative - 50 Haroon/mcL [facility] Clarity, UA Clear [facility] Color, UA Yellow [facility] Glucose, UA Negative Negative - 1999(110) ++++ mg/dL [facility] Interpretation and review of laboratory results Abnormal [facility] Ketones, UA Negative Negative - 160(16) ++++ mg/dL [facility] Leukocytes, UA Positive Negative - 500+++ Robert/mcL [facility] Comment on above: small Nitrite, UA Negative Negative - Positive [facility] pH, UA 7.5 5 - 9 [facility] Protein, UA Negative Negative - 1999(20) ++++ mg/dL [facility] Spec Grav, UA 1.02 1 - 1.03 [facility] Urobilinogen, UA 1.0 0.2 - 12 mg/dL [facility] UA (CLEAN/CATCH) CALIBRATION TESTER/FABIOLA RO IF IND.on 03-13-2024 BILIRUBIN URINE Negative NEGATIVE [facility] BLOOD URINE TRACE-I NEGATIVE [facility] Clarity (U) CLEAR CLEAR [facility] Color (U) LT. YELLOW YELLOW [facility] GLUCOSE URINE UA Negative NEGATIVE mg/dL [facility] Interpretation and review of laboratory results Abnormal [facility] Ketones Ql (U) TRACE Abnormal NEGATIVE mg/dL [facility] Leukocyte esterase Test strip Ql (U) LARGE Abnormal NEGATIVE [facility] NITRITE URINE Negative NEGATIVE [facility] pH (U) 6.0 [pH] 5.0 - 9.0 [facility] PROTEIN URINE Negative NEG/TRACE mg/dL [facility] SPECIFIC GRAVITY URINE 1.020 1.005 - 1.025 [facility] URINE MICROSCOPIC INDICATED YES [facility] UROBILINOGEN URINE 0.2 EU/dL 0.2 - 1.0 EU/dL [facility] URN MACROSCOPIC NURon 2024 BILIRUBIN DANIEL Negative Normal NEG [facility] Comment on above: Performed By: #### N #### [facility] ([id number]) [address] [place] [address] [place] [address] BLOOD/HGB DANIEL Trace Abnormal NEG [facility] Comment on above: Performed By: #### N UM #### [facility] ([id number]) [address] [place] [address] GLUCOSE DANIEL Negative Normal NEG [facility] Comment on above: Performed By: #### N UM #### [facility] ([id number]) [address] [place] [address] KETONES DANIEL 15 mg/dL Abnormal NEG [facility] Comment on above: Performed By: #### N UM #### [facility] ([id number]) [address] [place] [address] LEUKOCYTE ESTERASE DANIEL Negative Normal NEG [facility] Comment on above: Performed By: #### N UM #### [facility] ([id number]) [address] [place] [address] NITRITE DANIEL Negative Normal NEG [facility] Comment on above: Performed By: #### N UM #### [facility] ([id number]) [address] [place] [address] PH DANIEL 6.0 Normal 5.0-8.5 [facility] Comment on above: Performed By: #### N UM #### [facility] ([id number]) [address] [place] [address] PROTEIN DANIEL Negative Normal NEG [facility] Comment on above: Performed By: #### N UM #### [facility] ([id number]) [address] [place] [address] SPECIFIC GRAVITY DANIEL 1.025 Normal 1.003-1.035 [facility] Comment on above: Performed By: #### N UM #### [facility] ([id number]) [address] [place] [address] UROBILINOGEN DANIEL 0.2 eu/dL Normal <1.1 [facility] Comment on above: Performed By: #### N UM #### [facility] ([id number]) [address] [place] [address] IGP,APTIMA HPV,AGE GDLNon AGE GDLN ACOG TESTING Note . [facility] Comment on above: TESTS RESULT FLAG UN ITS REF RANGE LAB Clinician Provided Cytology Information Source.............Cervix No. of containers..01 ThinPrep Vial Age Algo ACOG Mariam... FLAG LEGEND: L-Low Normal,H-High Normal,LL-Alert Low,HH-Alert High <-Panic Low,>-Panic High,A-Abnormal,AA-Critical Abnormal Performed at: 01 =[facility] [address] [facility] [place] [address] Yael Field MD, IGP, RFX APTIMA HPV ASCU Note . [facility] Comment on above: TESTS RESULT FLAG UN ITS REF RANGE LAB DIAGNOSIS: 02 NEGATIVE FOR INTRAEPITHELIAL LESION OR MALIGNANCY. REACTIVE CELLULAR CHANGES AND/OR REPAIR ARE PRESENT. Specimen adequacy: 02 Satisfactory for evaluation. No endocervical component is identified. Performed by: 02 Lenin Walters, Service Delivery Analyst ([facility]) Electronically si... 02 Yael Field MD, [...] <-Panic Low,>-Panic High,A-Abnormal,AA-Critical Abnormal Performed at: [address] [facility] [address] [place] [address] Yael Field MD, Performed at: =G - [facility] [address], [place] [id number] Elementary Vocal Music Teacher: Yael Field MD, Phone: [phone] Performed at: - [facility] [id number] Elementary Vocal Music Teacher: Yael Field MD, Phone: [phone] [facility] AFP, SERUM, OPEN SPINA BIFID Aon 02-13-2024 AFP MOM 0.91 . [facility] AFP VALUE 37.9 ng/mL . [facility] COMMENT: Comment . [facility] Comment on above: Giana Tenorio , Ph.D., [facility] Director References: Available Upon Request. Multiples Of Median Cutoffs For AFP Elevations Mares 2.5 Black 2.8 IDD 2.0 Twins 4.5 Abbreviation Definitions IDD - Insulin Dep Diabetes OSBR - Open Spina Bifida Risk For further inquiries contact [employer] [facility] at [phone]. This test was developed and its performance characteristics determined by [employer]. It has not been cleared or approved by the Food and Drug Administration. Performed at: [facility] [address] [place], [place] [id number] Elementary Vocal Music Teacher: Junior Munoz [facility], Phone: [phone] GEST. AGE ON COLLECTION DATE 17.4 . weeks [facility] GESTAT. AGE BASED ON LMP . [facility] Comment on above: Recalculations are n ot recommended when gestational dating by LMP and ultrasound are within 10 days. INSULIN DEP DIABETES No . [facility] INTERPRETATION Comment . [facility] Comment on above: Interpretation: Scre en Negative [...] Customer Services to discuss available options. The [employer] recommends amniocentesis be offered to women age 35 and older. [age] [facility] MULTIPLE GESTATION No . [facility] [place] [phone] . [facility] RACE . [facility] RESULTS Report . [facility] TEST RESULTS: Negative . [facility] WEIGHT 139 . lbs [facility] N N LMP [id number] 16 N 1 Y 139 N N N N N White/ [facility] RECURRENT VAGINITIS (HTRX)on 02-11-2024 ATOPOBIUM VAGINAE 0 [facility] ATOPOBIUM VAGINAE Not detected [facility] BVAB 2,3 (BACTERIAL VAGINOSIS ASSOCIATED BACTERIA 2, 3); MOBILUNCUS SPP 0 [facility] BVAB 2,3 (BACTERIAL VAGINOSIS ASSOCIATED BACTERIA 2, 3); MOBILUNCUS SPP Not detected [facility] ROGELIO ALBICANS, PARAPSILOSIS, TROPICALIS 0 [facility] ROGELIO ALBICANS, PARAPSILOSIS, TROPICALIS Not detected [facility] ROGELIO GLABRATA 0 [facility] ROGELIO GLABRATA Not detected [facility] ROGELIO KRUSEI 0 [facility] ROGELIO KRUSEI Not detected [facility] CHLAMYDIA TRACHOMATIS 0 [facility] CHLAMYDIA TRACHOMATIS Not detected [facility] GARDNERELLA VAGINALIS 0 [facility] GARDNERELLA VAGINALIS Not detected [facility] MEGASPHAERA (TYPES 1, 2) 0 [facility] MEGASPHAERA (TYPES 1, 2) Not detected [facility] MYCOPLASMA GENITALIUM 0 [facility] MYCOPLASMA GENITALIUM Not detected [facility] NEISSERIA GONORRHOEAE 0 [facility] NEISSERIA GONORRHOEAE Not detected [facility] TRICHOMONAS VAGINALIS 0 [facility] TRICHOMONAS VAGINALIS Not detected [facility] Urinalysis macro (dipstick) panel (U)Ordered By: Kal Vera on 02-07-2024 Bilirubin, UA Negative Negative - 4(70) +++ mg/dL [facility] Work Phone: Blood, UA Negative Negative - 50 Haroon/mcL [facility] Work Phone: Clarity, UA Clear [facility] Work Phone: Color, UA Yellow [facility] Work Phone: Glucose, UA Negative Negative - 1999(110) ++++ mg/dL [facility] Work Phone: Interpretation and review of laboratory results Normal [facility] Work Phone: Ketones, UA Negative Negative - 160(16) ++++ mg/dL [facility] Work Phone: Leukocytes, UA Negative Negative - 500+++ Robert/mcL [facility] Work Phone: Nitrite, UA Negative Negative - Positive [facility] Work Phone: pH, UA 7.5 5 - 9 [facility] Work Phone: Protein, UA Negative Negative - 1999(20) ++++ mg/dL [facility] Work Phone: Spec Grav, UA 1.02 1 - 1.03 [facility] Work Phone: Urobilinogen, UA 1.0 0.2 - 12 mg/dL [facility] Work Phone: [facility] Work Phone: Urinalysis macro (dipstick) panel (U)on 01-10-2024 Bilirubin, UA Negative Negative - 4(70) +++ mg/dL [facility] Blood, UA Positive Negative - 50 Haroon/mcL [facility] Comment on above: trace Clarity, UA Clear [facility] Color, UA Yellow [facility] Glucose, UA Negative Negative - 1999(110) ++++ mg/dL [facility] Interpretation and review of laboratory results Abnormal [facility] Ketones, UA Negative Negative - 160(16) ++++ mg/dL [facility] Leukocytes, UA Negative Negative - 500+++ Robert/mcL [facility] Nitrite, UA Negative Negative - Positive [facility] pH, UA 7 5 - 9 [facility] Protein, UA Negative Negative - 1999(20) ++++ mg/dL [facility] Spec Grav, UA 1.025 1 - 1.03 [facility] Urobilinogen, UA 0.2 0.2 - 12 mg/dL [facility] CANNABINOID CONF, MS, URon 1 03-09-2023 CANNABINOID Positive Abnormal . [facility] CARBOXY THC CONF, MS, UR 446 ng/mL Cutoff=10 [facility] Comment on above: Performed at: CASTRO navarro [facility] [address] [place], [place] [id number] Elementary Vocal Music Teacher: Bala Carpenter PhD, Phone: [phone] Interpretation and review of laboratory results Abnormal [facility] ALL RUBELLA IGG ABon 024 RUBELLA ANTIBODIES, IGG 2.02 Immune >0.99 index [facility] Comment on above: Non-immune <0.90 Equivocal 0.90 - 0.99 Immune >0.99 Performed at: [facility] [id number] Elementary Vocal Music Teacher: Colten Caceres PhD, Phone: [phone] HBSAG SCREENon 01-04-2024 HBSAG SCREEN Negative Negative [facility] Comment on above: Performed at: [address] [id number] Elementary Vocal Music Teacher: Colten Caceres PhD, Phone: [phone] HCV ANTIBODY RFX TO QUANT PC Kevin 01-04-2024 HCV AB Non-Reactive Non Reactive [facility] INTERPRETATION: Comment . [facility] Comment on above: Not infected with HC V unless early or acute infection is suspected (which may be delayed in an immunocompromised individual), or other evidence exists to indicate HCV infection. HIV AB/P24 AG WITH REFLEXon 01-04-2024 HIV AB/P24 AG SCREEN Non-Reactive Non Reactive [facility] Comment on above: HIV-1/HIV-2 antibodi es and HIV-1 p24 antigen were NOT detected. There is no laboratory evidence of HIV infection. HIV Negative Performed at: [facility] [id number] Elementary Vocal Music Teacher: Colten Caceres PhD, Phone: [phone] No Panel Informationon 01-03 [facility] RAPID PLASMA REAGIN, QUANTon 01-04-2024 RAPID PLASMA REAGIN, QUANT Non-Reactive NonRea<1:1 titer [facility] Comment on above: Please Note: This te st does not meet current guidelines for screening and diagnosis of syphilis. This test is intended for following treatment response in patients being treated for syphilis infection. To screen for syphilis infection, a reflex cascade that includes both RPR and a treponema-specific assay should be utilized, such as Treponema pallidum (Syphilis) Screening [place] (285367) or Rapid Plasma Reagin (RPR) Test With Reflex to Quantitative RPR and Confirmatory Treponema pallidum Antibodies (110150). Performed at: [facility] [id number] Elementary Vocal Music Teacher: Colten Caceres PhD, Phone: [phone] URINE CULTURE, ROUTINEon Bacteria identified Cx Nom (U) Urine Culture, Routine [facility] Bacteria identified Cx Nom (U) Mixed urogenital татьяна [facility] Bacteria identified Cx Nom (U) Less than 10,000 colonies/mL [facility] Bacteria identified Cx Nom (U) Performed at: - [facility] Bacteria identified Cx Nom (U) [address] [place], [place] [id number] [facility] Bacteria identified Cx Nom (U) Elementary Vocal Music Teacher: Colten Caceres PhD, Phone: [phone] [facility] ALL CBC WITH AUTO DIFFon BASOPHILS ABSOLUTE AUTO 0 [facility] Basophils/100 WBC (Bld) 0.3 % 0.2 - 2.0 % [facility] Eosinophils/100 WBC (Bld) 2.2 % 0.9 - 7.0 % [facility] Erythrocyte distribution width (RBC) [Ratio] 11.9 % 11.0 - 15.0 % [facility] Hematocrit (Bld) [Volume fraction] 37 % 36.0 - 48.0 % [facility] Hemoglobin (Bld) [Mass/Vol] 13 g/dL 12.0 - 16.0 g/dL [facility] IMMATURE GRANULOCYTES ABS AUTO 0.04 High [facility] Immature granulocytes/100 WBC (Bld) 0.3 % 0.0 - 0.5 % [facility] Interpretation and review of laboratory results Abnormal [facility] LYMPHOCYTES ABSOLUTE AUTO 1.4 [facility] Lymphocytes/100 WBC (Bld) 11.9 % Low 20.5 - 60.0 % [facility] MCH (RBC) [Entitic mass] 32.9 pg 26.7 - 34.0 pg [facility] MCHC (RBC) [Mass/Vol] 35.1 g/dL 29.9 - 35.2 g/dL [facility] MCV (RBC) [Entitic vol] 93.7 fL 81.0 - 99.0 fL [facility] MONOCYTES ABSOLUTE AUTO 0.4 [facility] Monocytes/100 WBC (Bld) 3.4 % 1.7 - 12.0 % [facility] NEUTROPHILS ABSOLUTE AUTO 9.5 High [facility] Neutrophils/100 WBC (Bld) 81.9 % High 43.0 - 75.0 % [facility] Platelet mean volume (Bld) [Entitic vol] 10.9 fL 9.5 - 13.5 fL [facility] EO # 0.3 [facility] PLT 232 [facility] RBC 3.95 Low [facility] WBC 11.7 High [facility] TYPE AND SCREENon 2023 ABO and Rh group Nom (Bld) Blood group O Rh(D) positive [facility] TESTon 01-03-2024 BOX TEST SENT OUT [facility] BOX1 KP [facility] BOX2 01/03/24 [facility] MLR HEMOGLOBIN A1Con 024 Glucose [Mass/Vol] 82 mg/dL [facility] HbA1c (Bld) [Mass fraction] 4.5 % 4.5 - 6.2 % [facility] Comment on above: ADA RECOMMENDED LIMI T 4.0 - 6.0 ADA THERAPEUTIC TARGET < 7.0 ACTION SUGGESTED > 7.0 [facility] DRUG SCREEN RAPID (URINE )on 01-03-2024 AMPHETAMINE SCREEN URINE Negative NEGATIVE [facility] BARBITURATES SCREEN URINE Negative NEGATIVE [facility] BENZODIAZEPINES SCREEN URINE Negative NEGATIVE [facility] BUPRENORPHINE SCREEN URINE Negative NEGATIVE [facility] Comment on above: DRUG CLASS TEST SYST [...] CANNABINOID SCREEN URINE Positive Abnormal NEGATIVE [facility] COCAINE SCREEN URINE Negative NEGATIVE [facility] Interpretation and review of laboratory results Abnormal [facility] METHADONE SCREEN URINE Negative NEGATIVE [facility] METHAMPHETAMINES SCREEN URINE Negative NEGATIVE [facility] OPIATE SCREEN URINE Negative NEGATIVE [facility] OXYCODONE SCREEN URINE Negative NEGATIVE [facility] PHENCYCLIDINE SCREEN URINE Negative NEGATIVE [facility] TRICYCLIC ANTIDEPRESSANT URINE Negative NEGATIVE [facility] BASIC METABOLIC PANLon 12-27 Anion gap [Moles/Vol] 8 mmol/L Normal 5-15 [facility] [facility] Comment on above: Performed By: #### C BCA, BMP, 57737-2 #### [facility] ([id number]) [address] [place] [address] 71992 Calcium [Mass/Vol] 8.4 mg/dL Low 8.5-10.5 [facility] Comment on above: Performed By: #### C SHWETA BRODY, 17345-1 #### [facility] ([id number]) [address] [place] [address] 57779 Chloride [Moles/Vol] 107 mmol/L Normal 98-109 [facility] Comment on above: Performed By: #### C SHWETA BRODY, 54193-4 #### [facility] ([id number]) [address] [place] [address] 52018 CO2 [Moles/Vol] 22 mmol/L Normal 22-32 [facility] Comment on above: Performed By: #### C SHWETA BRODY, 33114-9 #### [facility] ([id number]) [address] [place] [address] 23782 Creatinine [Mass/Vol] 0.38 mg/dL Low 0.40-1.00 [facility] Comment on above: Result Comment: METH OD TRACEABLE TO IDMS STANDARD Performed By: #### C SHWETA BRODY, 15904-0 #### [facility] ([id number]) [address] [place] [address] 39141 eGFR (CKD-EPI) NON-RACE DEPENDENT >90 Normal >59 [facility] Comment on above: Result Comment: Reported eGFR is based on the CKD-EPI 2020 equation that does not use a race coefficient. Performed By: #### C SHWETA BRODY, 69492-2 #### [facility] ([id number]) [address] [place] [address] 74208 Glucose [Mass/Vol] 67 mg/dL Normal 65-99 [facility] Comment on above: Performed By: #### C SHWETA BRODY, 44256-5 #### [facility] ([id number]) [address] [place] [address] 91729 Potassium [Moles/Vol] 3.3 mmol/L Low 3.5-5.0 [facility] Comment on above: Performed By: #### SHWETA De La Cruz BCA, 88718-3 #### [facility] ([id number]) [address] [place] [address] 09655 Sodium [Moles/Vol] 137 mmol/L Normal 134-146 [facility] Comment on above: Performed By: #### SHWETA De La Cruz BCA, 97993-1 #### [facility] ([id number]) [address] [place] [address] 83382 Urea nitrogen [Mass/Vol] 11 mg/dL Normal 5-23 [facility] Comment on above: Performed By: #### SHWETA De La Cruz BCA, 02287-6 #### [facility] ([id number]) [address] [place] [address] 18633 CBC AND AUTO DIFFon 12-27-20 24 ABSOLUTE BASOPHIL 0.0 X10E9/L Normal 0.0-0.2 [facility] Comment on above: Performed By: #### SHWETA De La Cruz BCA, 02251-1 #### [facility] ([id number]) [address] [place] [address] 00514 ABSOLUTE NEUTROPHIL 5.6 X10E9/L Normal 1.5-6.6 [facility] Comment on above: Performed By: #### SHWETA De La Cruz BCA, 69661-9 #### [facility] ([id number]) [address] [place] [address] 42373 Basophils/100 WBC (Bld) 0.6 % Normal [facility] Comment on above: Performed By: #### SHWETA De La Cruz BCA, 58091-5 #### [facility] ([id number]) [address] [place] [address] 99582 Eosinophils (Bld) [#/Vol] 0.1 10*3/uL Normal 0.0-0.4 [facility] Comment on above: Performed By: #### SHWETA De La Cruz BCA, 37034-9 #### [facility] ([id number]) [address] [place] [address] 24084 Eosinophils/100 WBC (Bld) 0.8 % Normal [facility] Comment on above: Performed By: #### Dorothy BRODY [facility], 56103-0 #### [facility] ([id number]) [address] [place] [address] 65321 Erythrocyte distribution width (RBC) [Ratio] 12.4 % Normal 11.5-15.0 [facility] Comment on above: Performed By: #### Dorothy BRODY [facility], 19432-9 #### [facility] ([id number]) [address] [place] [address] 30988 Hematocrit (Bld) [Volume fraction] 33.5 % Low 35-47 [facility] Comment on above: Performed By: #### Dorothy BRODY [facility], 52027-0 #### [facility] ([id number]) [address] [place] [address] 08661 Hemoglobin (Bld) [Mass/Vol] 11.7 g/dL Normal 11.7-15.5 [facility] Comment on above: Performed By: #### Dorothy BRODY [facility], 68138-8 #### [facility] ([id number]) [address] [place] [address] 25933 Lymphocytes (Bld) [#/Vol] 1.5 10*3/uL Normal 1.0-3.5 [facility] Comment on above: Performed By: #### SHWETA De La Cruz BCA, 86903-4 #### [facility] ([id number]) [address] [place] [address] Lymphocytes/100 WBC (Bld) 19.7 % Normal [facility] Comment on above: Performed By: #### SHWETA De La Cruz BCA, 74530-3 #### [facility] ([id number]) [address] [place] [address] 76083 MCH (RBC) [Entitic mass] 32.9 pg Normal 27-34 [facility] Comment on above: Performed By: #### SHWETA De La Cruz BCA, 89375-4 #### [facility] ([id number]) [address] [place] [address] 54225 MCHC (RBC) [Mass/Vol] 35.1 g/dL Normal 32-36 [facility] Comment on above: Performed By: #### SHWETA De La Cruz BCA, 96189-7 #### [facility] ([id number]) [address] [place] [address] 02746 MCV (RBC) [Entitic vol] 94 fL Normal 80-100 [facility] Comment on above: Performed By: #### SHWETA De La Cruz BCA, 80871-3 #### [facility] ([id number]) [address] [place] [address] 39837 Monocytes (Bld) [#/Vol] 0.3 10*3/uL Normal 0-0.9 [facility] Comment on above: Performed By: #### SHWETA De La Cruz BCA, 77253-2 #### [facility] ([id number]) [address] [place] [address] 98818 Monocytes/100 WBC (Bld) 4.2 % Normal [facility] Comment on above: Performed By: #### SHWETA De La Cruz BCA, 22434-0 #### [facility] ([id number]) [address] [place] [address] 03394 Neutrophils/100 WBC (Bld) 74.7 % Normal [facility] Comment on above: Performed By: #### SHWETA De La Cruz BCA, 64049-4 #### [facility] ([id number]) [address] [place] [address] 79323 Platelet mean volume (Bld) [Entitic vol] 9.1 fL Normal 7-12 [facility] Comment on above: Performed By: #### Dorothy BRODY [facility], 64211-2 #### [facility] ([id number]) [address] [place] [address] 55788 Platelets (Bld) [#/Vol] 195 10*3/uL Normal 150-450 [facility] Comment on above: Performed By: #### SHWETA De La Cruz BCA, 15347-4 #### [facility] ([id number]) [address] [place] [address] 68641 RBC COUNT 3.57 X10E12/L Low 3.80-5.20 [facility] Comment on above: Performed By: #### SHWETA De La Cruz BCA, 35280-8 #### [facility] ([id number]) [address] [place] [address] 60286 WBC (Bld) [#/Vol] 7.5 10*3/uL Normal 4.0-11.0 [facility] Comment on above: Performed By: #### SHWETA De La Cruz BCA, 67159-8 #### [facility] ([id number]) [address] [place] [address] 68390 Troponin I.cardiac High sens itivity method [Mass/Vol]on 12-28-2023 1 HOUR TROP I, HIGH SENSITIVITY <2 Normal <16 [facility] Comment on above: Performed By: #### 8 9579-7 #### [facility] ([id number]) [address] [place] [address] 91648 TROPONIN I, HIGH SENSITIVITY <2 Normal <16 [facility] Comment on above: Performed By: #### SHWETA De La Cruz BCA, 40539-5 #### [facility] ([id number]) [address] [place] [address], [place] [address] HCG ( test) Ql (U)o n 12-09-2023 Interpretation and review of laboratory results Abnormal [facility] Preg Test, Ur Positive [facility] Urinalysis macro (dipstick) panel (U)on 12-09-2023 Bilirubin, UA Negative Negative - 4(70) +++ mg/dL [facility] Blood, UA Negative Negative - 50 Haroon/mcL [facility] Clarity, UA Clear [facility] Color, UA Yellow [facility] Glucose, UA Negative Negative - 2000(110) ++++ mg/dL [facility] Interpretation and review of laboratory results Normal [facility] Ketones, UA Negative Negative - 160(16) ++++ mg/dL [facility] Leukocytes, UA Negative Negative - 500+++ Robert/mcL [facility] Nitrite, UA Negative Negative - Positive [facility] pH, UA 7.5 5 - 9 [facility] Protein, UA Negative Negative - 2000(20) ++++ mg/dL [facility] Spec Grav, UA 1.015 1 - 1.03 [facility] Urobilinogen, UA 0.2 0.2 - 12 mg/dL [facility] ACETAMINOPHENon 01-23-2019 Acetaminophen [Mass/Vol] <1.0 Critically low 10.1-30.0 [facility] Comment on above: Performed By: #### A CET #### [facility] [address] [place], [place] [id number] Lou Ml CBC AUTO DIFFon 01-23-2019 Basophils (Bld) [#/Vol] 0.1 103/ul Normal 0.0-0.1 [facility] Comment on above: Performed By: #### C BC #### [facility] [address] [place] [address] 20348 Lou Ml Basophils/100 WBC (Bld) 0.7 % Normal 0.2-2.0 [facility] Comment on above: Performed By: #### C BC #### [facility] [address] [place] [address] 63430 Lou Ml Eosinophils (Bld) [#/Vol] 0.1 103/ul Normal 0.0-0.7 [facility] Comment on above: Performed By: #### C BC #### [facility] [address] [place], [place] [address] Lou Ml Eosinophils/100 WBC (Bld) 1.0 % Normal 0.9-7.0 [facility] Comment on above: Performed By: #### C BC #### [facility] [address] [place] [address] Lou Ml Erythrocyte distribution width (RBC) [Ratio] 12.2 % Normal 11.0-15.0 [facility] Comment on above: Performed By: #### C BC #### [facility] [address] [place] [address] Lou Ml Hematocrit (Bld) [Volume fraction] 37.6 % Normal 36.0-48.0 [facility] Comment on above: Performed By: #### C BC #### [facility] [address] [place] [address] Lou Ml Hemoglobin (Bld) [Mass/Vol] 13.0 g/dL Normal 12.0-16.0 [facility] Comment on above: Performed By: #### C BC #### [facility] [address] [place] [address] Lou Ml IG # 0.03 10e3/ul Normal 0.00-0.03 [facility] Comment on above: Performed By: #### C BC #### [facility] [address] [place] [address] Lou Ml IG % 0.3 % Normal 0.0-0.5 [facility] Comment on above: Performed By: #### C BC #### [facility] [address] [place], [place] [phone] Lou Ml Lymphocytes (Bld) [#/Vol] 2.9 103/ul Normal 1.2-3.8 [facility] Comment on above: Performed By: #### C BC #### [facility] [address] [place], [place] [address] Lou Ml Lymphocytes/100 WBC (Bld) 32.3 % Normal 20.5-60.0 [facility] Comment on above: Performed By: #### C BC #### [facility] [address] [place], [place] [address] Lourex Cisnerosen MANUAL DIFF REQ NO Normal [facility] Comment on above: Performed By: #### C BC #### [facility] [address] [place], [place] [address] Lou Ml MCH (RBC) [Entitic mass] 31.6 pg Normal 26.7-34.0 [facility] Comment on above: Performed By: #### C BC #### [facility] [address] [place], [place] [address] Lou Ml MCHC (RBC) [Mass/Vol] 34.6 g/dL Normal 29.9-35.2 [facility] Comment on above: Performed By: #### C BC #### [facility] [address] [place], [place] [address] Lou Ml MCV (RBC) [Entitic vol] 91.5 fL Normal 79.1-95.6 [facility] Comment on above: Performed By: #### C BC #### [facility] [address] [place], [place] [address] Lou Ml Monocytes (Bld) [#/Vol] 0.6 103/ul Normal 0.3-0.8 [facility] Comment on above: Performed By: #### C BC #### [facility] [address] [place], [place] [address] Lou Ml Monocytes/100 WBC (Bld) 6.4 % Normal 1.7-12.0 [facility] Comment on above: Performed By: #### C BC #### [facility] [address] [place], [place] [address] Lou Ml Neutrophils (Bld) [#/Vol] 5.3 103/ul Normal 1.4-6.5 [facility] Comment on above: Performed By: #### C BC #### [facility] [address] [place], [place] [address] Lou Ml Neutrophils/100 WBC (Bld) 59.3 % Normal 43.0-75.0 [facility] Comment on above: Performed By: #### C BC #### [facility] [address] [place], [place] [address] Lourex Bull Platelet mean volume (Bld) [Entitic vol] 10.6 fL Normal 9.5-13.5 [facility] Comment on above: Performed By: #### C BC #### [facility] [address] [place], [place] [address] Lou Ml Platelets (Bld) [#/Vol] 220 103/ul Normal 150-450 [facility] Comment on above: Performed By: #### C BC #### [facility] [address] [place], [place] [address] Lou Ml RBC (Bld) [#/Vol] 4.11 106/ul Normal 3.40-5.30 [facility] Comment on above: Performed By: #### C BC #### [facility] [address] [place] [address] Lou Ml WBC (Bld) [#/Vol] 8.9 103/ul Normal 4.0-11.0 [facility] Comment on above: Performed By: #### C BC #### [facility] [address] [place], [place] [address] Lourex Bull DRUG SCREEN RAPID (URINE)on 01-23-2019 AMP Negative Normal NEGATIVE [facility] Comment on above: Performed By: #### D RUGRPD #### [facility] [address] [place] [address] Lou Ml BAR Negative Normal NEGATIVE [facility] Comment on above: Performed By: #### D RUGRPD #### [facility] [address] [place], [place] [address] Lou Ml BUP Negative Normal NEGATIVE [facility] Comment on above: Performed By: #### D RUGRPD #### [facility] [address] [place], [place] [address] Lou Ml BZO Negative Normal NEGATIVE [facility] Comment on above: Performed By: #### D RUGRPD #### [facility] [address] [place] [address] Lou Ml BRITTON Negative Normal NEGATIVE [facility] Comment on above: Performed By: #### D RUGRPD #### [facility] [address] [place] [address] Lou Ml CUT-OFFS SEE BELOW Normal [facility] Comment on above: Result Comment: AMP [...] ng/mL Performed By: #### D RUGRPD #### [facility] [address] [place] [address] Lou Ml DRUG CUT HEADER DRUG CLASS TEST SYST EM CUT-OFF CONCENTRATIONS ARE FOLLOWS: Normal [facility] Comment on above: Performed By: #### D RUGRPD #### [facility] [address] [place] [address] Lou Ml mAMP Negative Normal NEGATIVE [facility] Comment on above: Performed By: #### D RUGRPD #### [facility] [address] [place] [address] Lou Ml MTD Negative Normal NEGATIVE [facility] Comment on above: Performed By: #### D RUGRPD #### [facility] [address] [place] [address] Lou Ml OPI Negative Normal NEGATIVE [facility] Comment on above: Performed By: #### D RUGRPD #### [facility] [address] [place] [address] Lou Ml OXY Negative Normal NEGATIVE [facility] Comment on above: Performed By: #### D RUGRPD #### [facility] [address] [place] [address] Lourex Bull PCP Negative Normal NEGATIVE [facility] Comment on above: Performed By: #### D RUGRPD #### [facility] [address] [place] [address] Lourex Bull PPX Negative Normal NEGATIVE [facility] Comment on above: Performed By: #### D RUGRPD #### [facility] [address] [id number] Lou Ml TCA Negative Normal NEGATIVE [facility] Comment on above: Performed By: #### D RUGRPD #### [facility] [address] [place] [address] Lou Ml THC Positive Normal NEGATIVE [facility] Comment on above: Performed By: #### D RUGRPD #### [facility] [address] [place], [place] [address] Lou Ml ETHANOL (BLD ALC)on 01-24-20 19 Ethanol [Mass/Vol] mg/dL Normal [facility] Comment on above: Performed By: #### E TH #### [facility] [address] [place], [place] [address] Lourex Bull Ethanol [Mass/Vol] NOTE: 80 mg/dl is th e legal limit for a blood alcohol level Normal [facility] Comment on above: Performed By: #### E TH #### [facility] [address] [place], [place] [address] Lou Cisnerosen URon 01-23-2019 , QUAL Negative Normal NEGATIVE [facility] Comment on above: Performed By: #### P REGU #### [facility] [address] [place] [address] Lou Bull PROF 14(COMP METB)on 019 Age - Reported Normal [facility] Comment on above: Performed By: #### C MP #### [facility] [address] [place], [place] [address] Lourex Cisnerosen Albumin [Mass/Vol] 4.3 g/dL Normal 3.5-5.0 [facility] Comment on above: Performed By: #### C MP #### [facility] [address] [place], [place] [address] Lou Ml Albumin/Globulin [Mass ratio] 1.6 {ratio} Normal [facility] Comment on above: Performed By: #### C MP #### [facility] [address] [place], [place] [address] Lou Ml ALP [Catalytic activity/Vol] 66 U/L Normal 65-260 [facility] Comment on above: Performed By: #### C MP #### [facility] [address] [id number] Lou Ml ALT [Catalytic activity/Vol] 22 U/L Normal 9-52 [facility] Comment on above: Performed By: #### C MP #### [facility] [address] [id number] Lou Ml Anion gap [Moles/Vol] 11.4 mmol/L Normal [facility] Comment on above: Performed By: #### C MP #### [facility] [address] [place], [place] [address] Lou Ml AST [Catalytic activity/Vol] 16 U/L Normal 14-36 [facility] Comment on above: Performed By: #### C MP #### [facility] [address] [place], [place] [address] Lou Ml Bilirubin Ql (U) 0.6 mg/dL Normal 0.2-1.3 [facility] [place] [facility] Comment on above: Performed By: #### C MP #### [facility] [address] [place], [place] [address] Lou Ml Calcium [Mass/Vol] 9.7 mg/dL Normal 8.4-10.2 [facility] Comment on above: Performed By: #### C MP #### [facility] [address] [place], [place] [address] Lou Ml Chloride [Moles/Vol] 103 mmol/L Normal 98-107 [facility] Comment on above: Performed By: #### C MP #### [facility] [address] [place], [place] [address] Lou Ml CO2 [Moles/Vol] 27.2 mmol/L Normal 22.0-30.0 [facility] [place] [facility] Comment on above: Performed By: #### C MP #### [facility] [address] [id number] Lou Ml Creatinine [Mass/Vol] 0.59 mg/dL Normal 0.52-1.04 [facility] Comment on above: Performed By: #### C MP #### [facility] [address] [id number] Lou Ml EGFR-AF SENEGALESE Normal >=60 [facility] [place] [facility] Comment on above: Performed By: #### C MP #### [facility] [address] [address] Lou Ml EGFR-NON AF [place]ENEGALESE Normal >=60 [facility] Comment on above: Performed By: #### C MP #### [facility] [address] [place] [address] Lou Ml Globulin (S) [Mass/Vol] 2.7 g/dL Normal [facility] Comment on above: Performed By: #### C MP #### [facility] [address] [address] Lou Ml Glucose [Mass/Vol] 90 mg/dL Normal 74-106 [facility] Comment on above: Performed By: #### C MP #### [facility] [address] [place] [address] Lou Ml Potassium [Moles/Vol] 3.6 mmol/L Normal 3.4-5.0 [facility] Comment on above: Performed By: #### C MP #### [facility] [address] [place], [place] [address] Lou Ml Protein [Mass/Vol] 7.0 g/dL Normal 6.1-8.2 [facility] Comment on above: Performed By: #### C MP #### [facility] [address] [place], [place] [address] Lou Ml Sodium [Moles/Vol] 138 mmol/L Normal 137-145 [facility] Comment on above: Performed By: #### C MP #### [facility] [address] [place], [place] [address] Lou Ml Urea nitrogen [Mass/Vol] 16.0 mg/dL Normal 6.4-19.3 [facility] Comment on above: Performed By: #### C MP #### [facility] [address] [place], [place] [address] Lou Ml Urea nitrogen/Creatinine [Mass ratio] 27.1 mg/mg Normal [facility] Comment on above: Performed By: #### C MP #### [facility] [address] [place], [place] [address] Lou Ml SALICYLATEon 01-23-2019 SALICYLATE 6.5 mg/dL Normal <=20.0 [facility] Comment on above: Performed By: #### S ALYC #### [facility] [address] [place], [place] [address] Lou Ml Vital Signs Date Time Vital Sign Value Performing Clinician Cynthia mayen 04-13-2024 09:42-0500 Body mass index (BMI) [Ratio] 26.01 kg/m2 Daphnie VANCE Work Phone: [facility] 04-13-2024 09:42-0500 Body weight 71.99 kg Daphnie Kemp PA Work Phone: [facility] 04-13-2024 09:42-0500 Diastolic blood pressure 66 mm[Hg] Daphnie Kemp PA Work Phone: [facility] 04-13-2024 09:42-0500 Systolic blood pressure 108 mm[Hg] Daphnie Kemp PA Work Phone: [facility] 03-15-2024 15:58-0500 Body mass index (BMI) [Ratio] 24.81 kg/m2 Ebony Ulz Elena DO Work Phone: [facility] 03-15-2024 15:58-0500 Body weight 68.67 kg Ebony Luz Elena DO Work Phone: [facility] 03-15-2024 15:58-0500 Diastolic blood pressure 64 mm[Hg] Ebony Luz Elena DO Work Phone: [facility] 03-15-2024 15:58-0500 Systolic blood pressure 104 mm[Hg] Ebony Laguna DO Work Phone: [facility] 02-07-2024 10:59-0500 Body mass index (BMI) [Ratio] 22.84 kg/m2 Daphnie VANCE Work Phone: [facility] 02-07-2024 10:59-0500 Body weight 63.23 kg Daphnie VANCE Work Phone: [facility] 02-07-2024 10:59-0500 Diastolic blood pressure 70 mm[Hg] Daphnie VANCE Work Phone: [facility] 02-07-2024 10:59-0500 Systolic blood pressure 110 mm[Hg] Daphnie VANCE Work Phone: [facility] 12-09-2023 14:51-0400 Body mass index (BMI) [Ratio] 22.12 kg/m2 [facility] 12-09-2023 14:51-0400 Body weight 61.24 kg [facility] 12-09-2023 14:51-0400 Diastolic blood pressure 66 mm[Hg] [facility] 12-09-2023 14:51-0400 Systolic blood pressure 100 mm[Hg] [facility]oms Nurse [facility] Healthcare Encounters Encounter Date Encounter Type Care Provider Facility Start: 04-24-2024 End: 04-24-2024 [facility] Start: 04-18-2024 End: 04-18-2024 Clinisync Result Encounter Generic External Data Provider [facility] External Department Unsolicited Start: 04-18-2024 End: 04-18-2024 Clinisync Result Encounter Generic External Data Provider [facility] External Department Unsolicited Start: 04-13-2024 End: 04-13-2024 Bamboo flowsheet Daphnie VANCE Work Phone: [facility] Start: 04-13-2024 End: 04-13-2024 Bamboo flowsheet Daphnie VANCE Work Phone: [facility] Start: 04-13-2024 End: 04-13-2024 flow sheet Daphnie VANCE Work Phone: [facility] Comment on above: Second trimester pre gnancy; 26 weeks gestation of ; size inconsistent with dates Start: 04-13-2024 End: 04-13-2024 ambulatory DAPHNIE KEMP Not Available Start: 03-15-2024 End: 03-15-2024 ambulatory EBONY LUZ ELENA Not Available Start: 03-15-2024 End: 03-15-2024 flow sheet Ebony Luz Elena DO Work Phone: [facility] Comment on above: 22 weeks [...] Emergency department patient visit NOT IN SYSTEM [facility] Start: 02-11-2024 End: 02-13-2024 Clinisync Result [...] department patient visit NOT IN SYSTEM PCP [facility] Start: 12-09-2023 End: 12-09-2023 ambulatory [facility] Luz Elena Nurse [facility] Comment on above: GA: 8w2d Start: 01-23-2019 End: 01-23-2019 Patient encounter procedure ELINOR Briseno DEWEY Facility:H1 Procedures Date Procedure Procedure Detail Performing Clinician Start: 04-18-2024 ALL CBC WITH AUTO DIFF Ebony Luz Elena DO Work Phone: Start: 03-15-2024 Urnls dip stick/tabl et rgnt non-auto w/o micrscp Ebony Luz Elena DO Work Phone: Start: 03-13-2024 [facility] UA (CLEAN/CATCH) CALIBRATION TESTER/MICRO IF IND. Ebony Luz Elena DO Work [...] w/o micrscp Ebony Heado DO Work Phone: Start: 01-03-2024 Antibody screen Generic Provider Start: 01-03-2024 ALL CBC WITH AUTO DIFF Ebony Laguna DO Work Phone: Start: 01-03-2024 ALL RUBELLA IGG AB Gene best External Data Provider Start: 01-03-2024 ALL TYPE AND SCREEN Cor og Laguna DO Work Phone: Start: 01-03-2024 BOX TEST Generic Ex ternal Data Provider Start: 01-03-2024 HBSAG SCREEN Ebony [employer] francisco javier DO Work Phone: Start: 01-03-2024 HCV ANTIBODY [...] Start: 01-03-2024 CANNABINOID CONF, MS, UR Ebony Heado DO Work Phone: Start: 01-03-2024 [facility] DRUG SCREEN RAPI D (URINE) Ebony Heado DO Work Phone: Start: 12-09-2023 Urnls dip stick/tabl et rgnt non-auto w/o micrscp Ebony Laguna DO Work Phone: Plan of Treatment Date Care Activity Detail Author Start: 04-27-2024 End: 04-27-2024 Patient encounter procedure 04/27/2024 1:30 PM EDT Routine [facility] [address] [place] [address] Daphnie Kemp PA [address] [place] [address] [facility] Start: 04-13-2024 End: 04-13-2025 US for [...] PM EST Routine [facility] [address] [address] Ebony Laguna, [address] [place] [address] [place] [address] [facility] Start: 03-15-2024 End: 03-15-2024 Professional / ancillary services management 03/15/2024 2:30 PM EST Ancillary Procedure [facility] [address] [address] [facility] Start: 03-15-2024 End: 03-15-2025 CBC panel - Blood by Automated count CBC Lab Routine Diabetes mellitus screening Expected: 03/15/2024 (Approximate), Expires: 03/15/2025 [facility] Work Phone: Comment on above: Expected: 03/15/2024 (Approximate), Expires: 03/15/2025 Start: 03-15-2024 End: 03-15-2025 Measurement of glucose 1 hour after glucose challenge for glucose tolerance test Glucose tolerance, 1 hour Lab Routine Diabetes mellitus screening Expected: 03/15/2024 (Approximate), Expires: 03/15/2025 [facility] Comment on above: Expected: 03/15/2024 (Approximate), Expires: 03/15/2025 Start: 02-14-2024 End: 02-14-2024 Patient encounter procedure 02/14/2024 11:30 AM EST Routine [facility] [address] [place] [id number] Daphnie Kemp PA [address] [place], [place] [id number] [facility] Start: 02-07-2024 End: 03-09-2024 [...] Routine [facility] [address] [place] [id number] Daphnie Kemp, PA [address] [place], [place] [id number] 16 weeks gestation of ; Second trimester ; Screening, , for anatomic survey; Well woman exam with routine gynecological exam [facility] Comment on above: 16 weeks gestation o f ; Second trimester ; Screening, , for anatomic survey; Well woman exam with routine gynecological exam Start: 01-10-2024 End: 01-10-2024 Patient encounter procedure 01/10/2024 1:40 PM EST Routine [facility] [address] [place] [id number] Ebony Laguna DO [address] [place] [address] [facility] Start: 12-09-2023 End: 12-08-2024 ABO/Rh ABO/Rh Lab Routine Missed menses , unspecified gestational age Expected: 12/09/2023 (Approximate), Expires: 12/08/2024 [facility] Comment on above: Expected: 12/09/2023 (Approximate), Expires: 12/08/2024 Start: 12-09-2023 End: 12-08-2024 Blood type and Indirect antibody screen panel - Blood Type and screen Lab Routine Missed menses , unspecified gestational age Expected: 12/09/2023 (Approximate), Expires: 12/08/2024 [facility] Work Phone: Comment on above: Expected: 12/09/2023 (Approximate), Expires: 12/08/2024 Start: 12-09-2023 End: 12-08-2024 Drugs of abuse panel - Urine by Screen method Rapid drug screen, urine Lab Routine , unspecified gestational age Encounter for supervision of normal first in first trimester Expected: 12/09/2023 (Approximate), Expires: 12/08/2024 [facility] Comment on above: Expected: 12/09/2023 (Approximate), Expires: 12/08/2024 Start: 12-09-2023 End: 12-08-2024 US Pelvis transvaginal US OB transvaginal Imaging Routine Missed menses Expected: 12/09/2023 (Approximate), Expires: 12/08/2024 [facility] Comment on above: Expected: 12/09/2023 (Approximate), Expires: 12/08/2024 Start: 10-17-2023 Influenza vaccination Influenza Vacc ine (#1) [facility] Bacteria identified in Urine by Culture Urine culture Microbiology Routine Missed menses Ordered: 12/09/2023 [facility] Comment on above: Ordered: 12/09/2023 CBC W Auto Different ial panel - Blood CBC and differential Lab Routine Missed menses , unspecified gestational age Ordered: 12/09/2023 [facility] Comment on above: Ordered: 12/09/2023 CHLAMYDIA TRACHOMATI S (GENITO/STI) CHLAMYDIA TRACHOMATIS (GENITO/STI) Lab Routine 16 weeks gestation of Second trimester Well woman exam with routine gynecological exam Ordered: 02/07/2024 [facility] Comment on above: Ordered: 02/07/2024 Cytology Cervical or vaginal smear or scraping study Pap Smear Pathology and Cytology Routine 16 weeks gestation of Second trimester Well woman exam with routine gynecological exam Ordered: 02/07/2024 [facility] Work Phone: Comment on above: Ordered: 02/07/2024 Hemoglobin A1c/Hemoglobin.total in Blood Hemoglobin A1c Lab Routine Missed menses , unspecified gestational age Ordered: 12/09/2023 [facility] Comment on above: Ordered: 12/09/2023 Hepatitis B virus surface Ag [Presence] in Serum or Plasma by Immunoassay Hepatitis B surface antigen Lab Routine Missed menses , unspecified gestational age Ordered: 12/09/2023 [facility] Comment on above: Ordered: 12/09/2023 Hepatitis C virus Ab [Presence] in Serum or Plasma by Immunoassay Hepatitis C antibody Lab Routine Missed menses , unspecified gestational age Ordered: 12/09/2023 [facility] Comment on above: Ordered: 12/09/2023 HIV-1/HIV-2 antigen/antibody combination immunoassay HIV-1 and HIV-2 antibodies Lab Routine Missed menses , unspecified gestational age Ordered: 12/09/2023 [facility] Comment on above: Ordered: 12/09/2023 Neisseria gonorrhoea e DNA [Presence] in Unspecified specimen by NORRIS with probe detection Neisseria gonorrhea DNA probe, direct Lab Routine 16 weeks gestation of Second trimester Well woman exam with routine gynecological exam Ordered: 02/07/2024 [facility] Comment on above: Ordered: 02/07/2024 Reagin Ab [Presence] in Serum by RPR RPR Lab Routine Missed menses , unspecified gestational age Ordered: 12/09/2023 [facility] Comment on above: Ordered: 12/09/2023 Rubella antibody, IgG Rubella an tibody, IgG Lab Routine Missed menses , unspecified gestational age Ordered: 12/09/2023 [facility] Comment on above: Ordered: 12/09/2023 SURESWAB(R) ADVANCED VAGINITIS PLUS, TMA SURESWAB(R) ADVANCED VAGINITIS PLUS, TMA Pathology and Cytology Routine 16 weeks gestation of Second trimester Well woman exam with routine gynecological exam Ordered: 02/07/2024 [facility] Comment on above: Ordered: 02/07/2024 Payers Date Payer Category Payer [facility] er [id number] 2019 Unknown [id number] 2001 Unknown [id number] 2001 Unknown [id number] 2001 Unknown [id number] 2001 Unknown [id number] 2001 Unknown [id number] 2001 Unknown [id number] 2001 Unknown [id number] 2001 Unknown [id number] 2001 Unknown [id number] 1978 Unknown [id number] 1959 Unknown [id number] Social History Date Type Detail Facility Start: 01-19-2023 Tobacco smoking stat [facility] Smokes tobacco daily [facility] [...] [facility] History of Present illness Narrative 04-13-2024 [...] Date Noted Anxiety disorder 07/08/2022 Mood disorder ([facility]) 07/08/2022 Cannabis use, 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[facility]) 07/08/2022 Moderate episode of recurrent major depressive disorder ([facility]) 07/08/2022 Oppositional defiant disorder ([facility]) 07/08/2022 Other atopic dermatitis 07/08/2022 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 Exam conducted with a pulp and paper tester present. Vitals: Estimated body mass index is [...] Date Noted Anxiety disorder 07/08/2022 Mood disorder ([facility]/HCC) 07/08/2022 Cannabis use, 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CMS/HCC) 07/08/2022 Moderate episode of recurrent major depressive disorder ([facility]) 07/08/2022 Oppositional defiant disorder (CMS/[facility]) 07/08/2022 Other atopic dermatitis 07/08/2022 Toxic effect of ethyl alcohol ([facility]) 07/08/2022 16 weeks gestation of 02/07/2024 Second trimester 02/07/2024 Screening, , for anatomic survey 02/07/2024 Well woman exam with routine gynecological exam 02/07/2024 Resolved Ambulatory Problems Diagnosis Date Noted No Resolved Ambulatory Problems Past Medical History: Diagnosis Date Hematuria UTI (urinary tract infection) 2002 HISTORY PAST MEDICAL HISTORY SOCIAL HISTORY Past [...] nursing note reviewed. Exam conducted with a pulp and paper tester present. Vitals: Estimated body mass index is [...] Date Noted Anxiety disorder 07/08/2022 Mood disorder ([facility]) 07/08/2022 Cannabis use, 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[facility]) 07/08/2022 Moderate episode of recurrent major depressive disorder ([facility]) 07/08/2022 Oppositional defiant disorder ([facility]) 07/08/2022 Other atopic dermatitis 07/08/2022 Toxic effect of ethyl alcohol ([facility]) 07/08/2022 Resolved Ambulatory Problems Diagnosis Date Noted [...] nursing note reviewed. Exam conducted with a pulp and paper tester present. Vitals: Estimated body mass index is [...] undercooked meat, and stay away from [facility]. Patient has been consulted regarding any [...] Toxic effect of ethyl alcohol (CMS/HCC) 07/08/2022 Resolved Ambulatory Problems Diagnosis Date Noted [...] Pt will contemplate if she will do [place] [facility]. Pt was advised if she does want [place] [facility] to have it done w/ labs [...] Meaghan Prado MA documented in this encounter [facility] Evaluation note Note Date & [...] episode of care documented in this encounter [facility] Evaluation note Note Date & Type Note Facility Evaluation note Diagnosis 16 weeks gestation of Second trimester state, incidental Screening, , for anatomic survey Encounter for anatomic survey Well woman exam with routine gynecological exam Routine gynecological examination documented in this encounter [facility] Evaluation note Note Date & [...] and content) DATE CREATED AUTHOR [facility]/2019 [facility] DATE CREATED AUTHOR AUTHOR'S ORGANIZ ATION 04/15/2024 [facility] EPIC DATE CREATED AUTHOR AUTHOR'S ORGANIZ ATION 04/26/2024 [facility] Reason for Visit (unrecogniz ed section and content) Reason Comments Amenorrhea Reason Comments Routine Visit Care Teams (unrecognized sec tion and content) Miller Head Relationship Specialty Start Date End Date Cary Ocasio MD [address] [place] [address] PCP - General Family Medicine 07/07/22 Miller Head Relationship Specialty Start Date End Date Cary Ocasio MD [address] [place] [address] PCP - General Family Medicine 07/07/22 Miller Head Relationship Specialty Start Date End Date Cary Ocasio MD [address] [place] [address] PCP - General Family Medicine 07/07/22 Miller Head Relationship Specialty Start Date End Date Cary Ocasio MD [address] [place] [address] PCP - General Family Medicine 07/07/22 Miller Head Relationship Specialty Start Date End Date Cary Ocasio MD [address] [place] [address] PCP - General Family Medicine 07/07/22 Miller Head Relationship Specialty Start Date End Date Cary Ocasio MD [address] [place] [address] PCP - General Family Medicine 07/07/22 Miller Head Relationship Specialty Start Date End Date Cary Ocasio MD [address] [place] [address] PCP - General Family Medicine 07/07/22 Miller Head Relationship Specialty Start Date End Date Cary Ocasio MD [address] [place] [address] PCP - General Family Medicine 07/07/22 Miller Head Relationship Specialty Start Date End Date Cary Ocasio MD [address] [place] [address] PCP - General Family Medicine 07/07/22 FOR [...] BE BASED ON THE PRIMARY CLINICAL RECORDS. [facility] [facility]. provides no warranty or guarantee of the accuracy or completeness of information in this document.
--- NOTE | 2024-04-27 10:58 | US_ITS ---
The [address] [address] Patient Name: EVELYN BRADLEY MRN: [id number] date: 2000 Sex: F Assigned Patient Location: Current Patient Location: US Accession/Order Number: [id number] Exam Date: 04/27/2024 11:30 Report Date: 04/27/2024 11:35 At the request of: ANGEL KEMP Procedure: US OB growth ULTRASOUND OB GROWTH COMPARISON: 12/10/2023 CLINICAL DATA: size and consistent with dates There is a single live intrauterine gestation in breech presentation. There is cardiac and somatic activity with heart rate of 148 bpm. Amniotic fluid index measures 13.4 cm which is in low-normal range. The following measurements were obtained: Biparietal diameter 7.2 cm 28 weeks 5 days 52% Head circumference 26.6 cm 29 weeks 0 days 40% Abdominal circumference 24.5 cm 28 weeks 5 days 56% Femur length 5.1 cm 27 weeks 3 days 13% The composite ultrasound age based on these measurements is 28 weeks 3 days +/- 2 weeks 0 days. This correlates with dates based on last menstrual period. The ratios are normal range. US/US OB growth IMPRESSION: SINGLE LIVE INTRAUTERINE GESTATION WITH ULTRASOUND AGE OF 28 WEEKS 3 DAYS. NORMAL INTERVAL GROWTH. Impression dictated by: Ml Hoyt M.D.04/27/2024 11:35 AM Dictation Location: [place] [address] Electronically authenticated by: [id number] Y Date: 04/27/2024 11:35
== END 2024-04-27 10:53 | disposition home or self-care (01) ==
LOC: US 10:52
PROVIDERS: PCP Family Medicine; Visit Provider Physician Assistant
DX: O26.849 Uterine size-date discrepancy, unspecified trimester (principal); Z3A.28 28 weeks gestation of pregnancy
CPT/HCPCS: 76816

== ENCOUNTER 2024-05-25 07:49 | Outpatient (OUT) | payer BC, SELFPAY ==
--- OUTSIDE RECORDS SUMMARY | 2024-05-25 07:53 | XMS_ITS | CCD ---
Author Organization [facility] CliniSyoh Care Team Providers Care Manager Government Name Role Phone ELINOR PALOMO Consulting ELINOR Ford Admitting Unavailable ELINOR PALOMO Attending Unavailable Cary Turner MD Primary Care Provider PCP, NOT IN SYSTEM Primary Care Unavailable HELLEN VERDIN Attending Unavailable PCP, NOT IN SYSTEM Primary Care Unavailable SANDIE RIOS Admitting Unavailable SANDIE RIOS Attending Unavailable PCP, NOT IN SYSTEM Primary Care Unavailable EBONY LAGUNA Attending Unavailable DAPHNIE KEMP Attending Unavailable DAPHNIE KEMP Attending Unavailable EBONY LAGUNA Attending Unavailable EBONY LAGUNA Attending Unavailable DAPHNIE [...] Active vitamin (Prenatabs Rx) 29-1 MG tablet (20 sources) Start: 12-09-2023 End: 12-08-2024 take 1 [...] Date Documented Da te Episodic/Chronic Allergic reactions (20 sources) Atopic dermatitis; Translations: [Other atopic dermatitis] Onset: 07-08-2022 07-08-2022 Chronic Anxiety disorders (20 sources) State of emotional shock and stress, unspecified; Translations: [Anxiety disorder] Onset: 01-23-2019 07-08-2022 Chronic Attention-deficit, conduct, and disruptive behavior disorders (20 sources) Oppositional defiant disorder; Translations: [Oppositional defiant [...] size-date discrepancy, unspecified trimester] 04-13-2024 Episodic Other complications of (2 sources) Urinary tract infection in ; Translations: [Unspecified infection of urinary tract in , third trimester] 04-27-2024 Episodic Other female genital disorders (1 source) Vaginal bleeding Onset: 02-22-2024 Chronic Other and delivery including normal (20 sources) ; Translations: [Encounter for supervision of normal , unspecified, unspecified trimester] Onset: 02-07-2024 12-09-2023 Episodic Residual codes; unclassified (2 sources) Gestation period, 12 weeks; Translations: [12 weeks gestation of ] 01-10-2024 Episodic Residual codes; unclassified (2 sources) Gestation period, 22 weeks; Translations: [22 weeks gestation of ] 03-15-2024 Episodic Residual codes; unclassified (2 sources) Gestation period, 26 weeks; Translations: [26 weeks gestation of ] 04-13-2024 Episodic Residual codes; unclassified (2 sources) Gestation period, 28 weeks; Translations: [28 weeks gestation of ] 04-27-2024 Episodic Residual codes; unclassified (2 sources) Gestation period, 30 weeks; Translations: [30 weeks gestation of ] 05-11-2024 Episodic Unclassified (1 source) Ill Onset: 12-28-2023 Past or Other Problems Problem Classification Problem Date Documented Da te Episodic/Chronic Nonspecific chest pain (1 source) Chest pain, unspecified; Translations: [Chest pain, unspecified] Onset: 12-28-2023 Episodic Other screening for suspected conditions (not mental disorders or infectious disease) (20 sources) Patient encounter status; Translations: [Encounter for other specified screening] Onset: 02-07-2024 02-07-2024 Episodic Poisoning by nonmedicinal substances (20 sources) Toxic effect of ethyl alcohol; Translations: [Toxic effect of ethanol, accidental (unintentional), initial encounter] Onset: 07-08-2022 07-08-2022 Episodic Residual codes; unclassified (20 sources) Gestation period, 16 weeks; Translations: [16 weeks gestation of ] Onset: 02-07-2024 02-07-2024 Episodic Residual codes; unclassified (1 source) 11 weeks gestation of ; Translations: [11 weeks gestation of ] Onset: 12-28-2023 Episodic Substance-related disorders (20 sources) Cannabis-induced organic mental disorder; 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, unspecified with unspecified cannabis-induced disorder] Onset: 07-08-2022 07-08-2022 Episodic Syncope (2 sources) Syncope and collapse; Translations: [Syncope] Onset: 12-28-2023 Episodic Results Test Name Value Interpretation Reference Range Facility [facility] 04-27-2024 [place] [address] Ultrasound Report Signed Patient: EVELYN BRADLEY MR#: [id number] : 2000 Acct:[id number] Age/Sex: 23 / F ADM Date: 04/27/24 Loc: US Attending Dr: Daphnie Kemp Ordering Physician: Daphnie Kemp Date of Service: 04/27/24 Procedure(s): OB growth Accession Number(s): [id number] cc: Daphnie Kemp; CARY TURNER [address] [address] Patient Name: EVELYN BRADLEY MRN: [facility]:[id number] date: 2000 Sex: F Assigned Patient Location: US Current Patient Location: US Accession/Order Number: [id number] Exam Date: 04/27/2024 11:30 Report Date: 04/27/2024 11:35 At the request of: DAPHNIE KEMP Procedure: US OB growth ULTRASOUND OB GROWTH COMPARISON: 12/10/2023 CLINICAL DATA: size and consistent with dates There is a single live intrauterine gestation in breech presentation. There is cardiac and somatic activity with heart rate of 148 bpm. Amniotic fluid index measures 13.4 cm which is in low-normal range. The following measurements were obtained: Biparietal diameter 7.2 cm 28 weeks 5 days 52% Head circumference 26.6 cm 29 weeks 0 days 40% Abdominal circumference 24.5 cm 28 weeks 5 days 56% Femur length 5.1 cm 27 weeks 3 days 13% The composite ultrasound age based on these measurements is 28 weeks 3 days +/- 2 weeks 0 days. This correlates with dates based on last menstrual period. The ratios are normal range. US/US OB growth IMPRESSION: SINGLE LIVE INTRAUTERINE GESTATION WITH ULTRASOUND AGE OF 28 WEEKS 3 DAYS. NORMAL INTERVAL GROWTH. Impression dictated by: Ml Hoyt M.D.04/27/2024 11:35 AM Dictation Location: [place] [address] Electronically authenticated by: [id number] Y Date: 04/27/2024 11:35 Dictated By: Ml Hoyt M.D. Signed By: 04/27/24 1137 DD/ 1135 TD/TT: Electronic Equipment Trades Worker: [facility] Radiology, Radiologist, MD - 04/27/2024 [place] [address] Ultrasound Report Signed Patient: EVELYN BRADLEY MR#: [id number] : 2000 Acct:[id number] Age/Sex: 23 / F ADM Date: 04/27/24 Loc: US Attending Dr: Daphnie eKmp Ordering Physician: Daphnie Kemp Date of Service: 04/27/24 Procedure(s): US OB growth Accession Number(s): [id number] cc: Daphnie Kemp; CARY TURNER [place] [id number] Patient Name: EVELYN BRADLEY MRN: [facility]:[id number] date: 2000 Sex: F Assigned Patient Location: Current Patient Location: Accession/Order Number: [id number] Exam Date: 04/27/2024 11:30 Report Date: 04/27/2024 11:35 At the request of: DAPHNIE KEMP Procedure: US OB growth ULTRASOUND OB GROWTH COMPARISON: 12/10/2023 CLINICAL DATA: size and consistent with dates There is a single live intrauterine gestation in breech presentation. There is cardiac and somatic activity with heart rate of 148 bpm. Amniotic fluid index measures 13.4 cm which is in low-normal range. The following measurements were obtained: Biparietal diameter 7.2 cm 28 weeks 5 days 52% Head circumference 26.6 cm 29 weeks 0 days 40% Abdominal circumference 24.5 cm 28 weeks 5 days 56% Femur length 5.1 cm 27 weeks 3 days 13% The composite ultrasound age based on these measurements is 28 weeks 3 days +/- 2 weeks 0 days. This correlates with dates based on last menstrual period. The ratios are normal range. US/US OB growth IMPRESSION: SINGLE LIVE INTRAUTERINE GESTATION WITH ULTRASOUND AGE OF 28 WEEKS 3 DAYS. NORMAL INTERVAL GROWTH. Impression dictated by: Ml Hoyt M.D.04/27/2024 11:35 AM Dictation Location: [place] [address] Electronically authenticated by: [id number] Y Date: 04/27/2024 11:35 Dictated By: Ml Hoyt M.D. Signed By: 04/27/24 1137 DD/ 1135 TD/TT: Electronic Equipment Trades Worker: [facility] Radiology Study observation (narrative) [facility] US OB GROWTHOrdered By: Radi ologist Radiology on 04-27-2024 [facility] Work Phone: Urinalysis macro (dipstick) panel (U)on 04-27-2024 Bilirubin, UA Negative Negative - 4(70) +++ mg/dL [facility] Blood, UA Negative Negative - 50 Haroon/mcL [facility] Clarity, UA Cloudy [facility] Color, UA Yellow [facility] Glucose, UA Negative Negative - 2000(110) ++++ mg/dL [facility] Interpretation and review of laboratory results Abnormal [facility] Ketones, UA Negative Negative - 160(16) ++++ mg/dL [facility] Leukocytes, UA Positive Negative - 500+++ Robert/mcL [facility] Comment on above: small Nitrite, UA Negative Negative - Positive [facility] pH, UA 7 5 - 9 [facility] Protein, UA Positive Negative - 1999(20) ++++ mg/dL [facility] Comment on above: 30mg/dL Spec Grav, UA 1.02 1 - 1.03 [facility] Urobilinogen, UA 1.0 0.2 - 12 mg/dL [facility] ALL CBC WITH AUTO DIFFon BASOPHILS ABSOLUTE AUTO 0.1 [facility] Basophils/100 WBC (Bld) 0.5 % 0.2 - 2.0 % [facility] Eosinophils/100 WBC (Bld) 0.9 % 0.9 - 7.0 % [facility] Erythrocyte distribution width (RBC) [Ratio] 11.9 % 11.0 - 15.0 % [facility] Hematocrit (Bld) [Volume fraction] 36 % 36.0 - 48.0 % [facility] Hemoglobin (Bld) [Mass/Vol] 12.7 g/dL 12.0 - 16.0 g/dL [facility] IMMATURE GRANULOCYTES ABS AUTO 0.07 High [facility] Immature granulocytes/100 WBC (Bld) 0.7 % High 0.0 - 0.5 % [facility] Interpretation and review of laboratory results Abnormal [facility] LYMPHOCYTES ABSOLUTE AUTO 1.6 [facility] Lymphocytes/100 WBC (Bld) 15.4 % Low 20.5 - 60.0 % [facility] MCH (RBC) [Entitic mass] 33.1 pg 26.7 - 34.0 pg [facility] MCHC (RBC) [Mass/Vol] 35.3 g/dL High 29.9 - 35.2 g/dL [facility] MCV (RBC) [Entitic vol] 93.8 fL 81.0 - 99.0 fL [facility] MONOCYTES ABSOLUTE AUTO 0.4 [facility] Monocytes/100 WBC (Bld) 3.5 % 1.7 - 12.0 % [facility] NEUTROPHILS ABSOLUTE AUTO 8.4 High [facility] Neutrophils/100 WBC (Bld) 79 % High 43.0 - 75.0 % [facility] Platelet mean volume (Bld) [Entitic vol] 10 fL 9.5 - 13.[address] [facility] EO # 0.[address] [facility] PLT [address] [facility] RBC 3.[address] [facility] WBC 10.6 [facility] US OB 14+ WEEKS ANATOMY SCAN on [...] report is generated using voice recognition reporting (Silvigene). On occasion Oreecribe erroneously drops words from the report or [...] UA Negative Negative - 4(70) +++ mg/dL [facility] Blood, UA Negative Negative - 50 Haroon/mcL [facility] Clarity, UA Clear [facility] Color, UA Yellow [facility] Glucose, UA Negative Negative - 1999(110) ++++ mg/dL [facility] Interpretation and review of laboratory results Abnormal [facility] Ketones, UA Negative Negative - 160(16) ++++ mg/dL [facility] Leukocytes, UA Positive Negative - 500+++ Robert/mcL [facility] Comment on above: small Nitrite, UA Negative Negative - Positive [facility] pH, UA 7.5 5 - 9 [facility] Protein, UA Negative Negative - 1999(20) ++++ mg/dL [facility] Spec Grav, UA 1.02 1 - 1.03 [facility] Urobilinogen, UA 1.0 0.2 - 12 mg/dL [facility] UA (CLEAN/CATCH) JALOUSIE INSTALLER/FABIOLA RO IF IND.on 03-13-2024 BILIRUBIN URINE Negative NEGATIVE [facility] BLOOD URINE TRACE-I NEGATIVE [facility] Clarity (U) CLEAR CLEAR [facility] Color (U) LT. YELLOW YELLOW [facility] GLUCOSE URINE UA Negative NEGATIVE mg/dL [facility] Interpretation and review of laboratory results Abnormal [facility] Ketones Ql (U) TRACE Abnormal NEGATIVE mg/dL [facility] Leukocyte esterase Test strip Ql (U) LARGE Abnormal NEGATIVE [facility] NITRITE URINE Negative NEGATIVE [facility] pH (U) 6.0 [pH] 5.0 - 9.0 [facility] PROTEIN URINE Negative NEG/TRACE mg/dL [facility] SPECIFIC GRAVITY URINE 1.020 1.005 - 1.025 [facility] URINE MICROSCOPIC INDICATED YES [facility] UROBILINOGEN URINE 0.2 EU/dL 0.2 - 1.0 EU/dL [facility] URN MACROSCOPIC NURon 2024 BILIRUBIN DANIEL Negative Normal NEG [facility] Comment on above: Performed By: #### N UM #### [facility] ([id number]) [address] [place] [address], [place] [address] BLOOD/HGB DANIEL Trace Abnormal NEG [facility] Comment on above: Performed By: #### N UM #### [facility] ([id number]) [address] [place] [address] GLUCOSE DANIEL Negative Normal NEG [facility] Comment on above: Performed By: #### N UM #### [facility] ([id number]) [address] [place] [address] KETONES DANIEL 15 mg/dL Abnormal NEG [facility] Comment on above: Performed By: #### N UM #### [facility] ([id number]) [address] [place] [address] LEUKOCYTE ESTERASE DANIEL Negative Normal NEG [facility] Comment on above: Performed By: #### N UM #### [facility] ([id number]) [address] [place] [address] NITRITE DANIEL Negative Normal NEG [facility] Comment on above: Performed By: #### N UM #### [facility] ([id number]) [address] [place] [address] PH DANIEL 6.0 Normal 5.0-8.5 [facility] Comment on above: Performed By: #### N UM #### [facility] ([id number]) [address] [place] [address] PROTEIN DANIEL Negative Normal NEG [facility] Comment on above: Performed By: #### N UM #### [facility] ([id number]) [address] [place] [address] [place] [address] SPECIFIC GRAVITY DANIEL 1.025 Normal 1.003-1.035 [facility] Comment on above: Performed By: #### N UM #### [facility] ([id number]) [address] [place] [address] [place] [address] UROBILINOGEN DANIEL 0.2 eu/dL Normal <1.1 [facility] Comment on above: Performed By: #### N UM #### [facility] ([id number]) [address], [place] [address] IGP,APTIMA HPV,AGE GDLNon AGE GDLN ACOG TESTING Note . [facility] Comment on above: TESTS RESULT FLAG UN ITS REF RANGE LAB Clinician Provided Cytology Information Source.............Cervix No. of containers..01 ThinPrep Vial Age Algo ACOG Mariam... FLAG LEGEND: L-Low Normal,H-High Normal,LL-Alert Low,HH-Alert High <-Panic Low,>-Panic High,A-Abnormal,AA-Critical Abnormal Performed at: 01 =[address] [facility] [address] Yael Field MD, IGP, RFX APTIMA HPV ASCU Note . [facility] Comment on above: TESTS RESULT FLAG UN ITS REF RANGE LAB DIAGNOSIS: 02 NEGATIVE FOR INTRAEPITHELIAL LESION OR MALIGNANCY. REACTIVE CELLULAR CHANGES AND/OR REPAIR ARE PRESENT. Specimen adequacy: 02 Satisfactory for evaluation. No endocervical component is identified. Performed by: 02 Lenin Walters, Vocational Technical Education Teacher (ASCP) Electronically si... 02 Yael Field MD, Pathologist [...] <-Panic Low,>-Panic High,A-Abnormal,AA-Critical Abnormal Performed at: 02 WB [facility] [address] [place] [address] Yael Field MD, Performed at: =G - [facility] [address] [id number] Church Warden: Yael Field MD, Phone: [phone] Performed at: WB - [facility] [address] [id number] Church Warden: Yael Field MD, Phone: [phone] SPATULA-ALONE CERVIX [facility] AFP, SERUM, OPEN SPINA BIFID Aon 02-13-2024 AFP MOM 0.91 . [facility] AFP VALUE 37.9 ng/mL . [facility] COMMENT: Comment . [facility] Comment on above: Giana Tenorio , Ph.D., [facility] Director References: Available Upon Request. Multiples Of Median Cutoffs For AFP Elevations Mares 2.5 Black 2.8 IDD 2.0 Twins 4.5 Abbreviation Definitions IDD - Insulin Dep Diabetes OSBR - Open Spina Bifida Risk For further inquiries contact [facility] at [phone]. This test was developed and its performance characteristics determined by [facility]. It has not been cleared or approved by the Food and Drug Administration. Performed at: [facility] [address] [place], [place] [id number] Church Warden: Junior Munoz [facility], Phone: [phone] GEST. AGE ON COLLECTION DATE 17.4 . weeks [facility] GESTAT. AGE BASED ON LMP . [facility] Comment on above: Recalculations are n ot recommended when gestational dating by LMP and ultrasound are within 10 days. INSULIN DEP DIABETES No . [facility] INTERPRETATION Comment . [facility] Comment on above: Interpretation: Scre en Negative [...] Customer Services to discuss available options. The [place] recommends amniocentesis be offered to women age 35 and older. [age] [facility] MULTIPLE GESTATION No . [facility] OS[place] [place] [id number] . [facility] RACE . [facility] RESULTS Report . [facility] TEST RESULTS: Negative . [facility] WEIGHT 139 . lbs [facility] N N LMP [id number] 6 16 N 1 Y 139 N N N N N White/ [facility] RECURRENT VAGINITIS (HTRX)on 02-11-2024 ATOPOBIUM VAGINAE 0 [facility] ATOPOBIUM VAGINAE Not detected [facility] BVAB 2,3 (BACTERIAL VAGINOSIS ASSOCIATED BACTERIA 2, 3); MOBILUNCUS SPP 0 [facility] BVAB 2,3 (BACTERIAL VAGINOSIS ASSOCIATED BACTERIA 2, 3); MOBILUNCUS SPP Not detected [facility] ROGELIO ALBICANS, PARAPSILOSIS, TROPICALIS 0 [facility] ROGELIO ALBICANS, PARAPSILOSIS, TROPICALIS Not detected [facility] ROGELIO GLABRATA 0 [facility] ROGELIO GLABRATA Not detected [facility] ROGELIO [...] TRICHOMONAS VAGINALIS Not detected [facility] Urinalysis macro (dipstick) panel (U)Ordered By: Kal Vera on 02-07-2024 Bilirubin, UA Negative Negative - 4(70) +++ mg/dL [facility] Work Phone: Blood, UA Negative Negative - 50 Haroon/mcL [facility] Work Phone: Clarity, UA Clear [facility] Work Phone: Color, UA Yellow [facility] Work Phone: Glucose, UA Negative Negative - 1999(110) ++++ mg/dL [facility] Work Phone: Interpretation and review of laboratory results Normal [facility] Work Phone: Ketones, UA Negative Negative - 160(16) ++++ mg/dL [facility] Work Phone: Leukocytes, UA Negative Negative - 500+++ Robert/mcL [facility] Work Phone: Nitrite, UA Negative Negative - Positive [facility] Work Phone: pH, UA 7.5 5 - 9 [facility] Work Phone: Protein, UA Negative Negative - 2000(20) ++++ mg/dL [facility] Work Phone: Spec Grav, UA 1.02 1 - 1.03 [facility] Work Phone: Urobilinogen, UA 1.0 0.2 - 12 mg/dL [facility] Work Phone: [facility] Work Phone: Urinalysis macro (dipstick) panel (U)on 01-10-2024 Bilirubin, UA Negative Negative - 4(70) +++ mg/dL [facility] Blood, UA Positive Negative - 50 Haroon/mcL [facility] Comment on above: trace Clarity, UA Clear [facility] Color, UA Yellow [facility] Glucose, UA Negative Negative - 1999(110) ++++ mg/dL [facility] Interpretation and review of laboratory results Abnormal [facility] Ketones, UA Negative Negative - 160(16) ++++ mg/dL [facility] Leukocytes, UA Negative Negative - 500+++ Robert/mcL [facility] Nitrite, UA Negative Negative - Positive [facility] pH, UA 7 5 - 9 [facility] Protein, UA Negative Negative - 1999(20) ++++ mg/dL [facility] Spec Grav, UA 1.025 1 - 1.03 [facility] Urobilinogen, UA 0.2 0.2 - 12 mg/dL [facility] CANNABINOID CONF, MS, URon 1 03-09-2023 CANNABINOID Positive Abnormal . [facility] CARBOXY THC CONF, MS, UR 446 ng/mL Cutoff=10 [facility] Comment on above: Performed at: [employer] [facility] [address] [place], [place] [id number] Church Warden: Bala Carpenter PhD, Phone: [phone] Interpretation and review of laboratory results Abnormal [facility] ALL RUBELLA IGG ABon 024 RUBELLA ANTIBODIES, IGG 2.02 Immune >0.99 index [facility] Comment on above: Non-immune <0.90 Equivocal 0.90 - 0.99 Immune >0.99 Performed at: [facility] [id number] Church Warden: Colten Caceres PhD, Phone: [phone] HBSAG SCREENon 01-04-2024 HBSAG SCREEN Negative Negative [facility] Comment on above: Performed at: [employer] [address] [id number] Church Warden: Colten Caceres PhD, Phone: [phone] HCV ANTIBODY RFX TO QUANT PC Kevin 01-04-2024 HCV AB Non-Reactive Non Reactive [facility] INTERPRETATION: Comment . [facility] Comment on above: Not infected with HC V unless early or acute infection is suspected (which may be delayed in an immunocompromised individual), or other evidence exists to indicate HCV infection. HIV AB/P24 AG WITH REFLEXon 01-04-2024 HIV AB/P24 AG SCREEN Non-Reactive Non Reactive [facility] Comment on above: HIV-1/HIV-2 antibodi es and HIV-1 p24 antigen were NOT detected. There is no laboratory evidence of HIV infection. HIV Negative Performed at: [address] [id number] Church Warden: Colten Caceres PhD, Phone: [phone] No Panel Informationon 01-03 [facility] RAPID PLASMA REAGIN, QUANTon 01-04-2024 RAPID PLASMA REAGIN, QUANT Non-Reactive NonRea<1:1 titer [facility] Comment on above: Please Note: This te st does not meet current guidelines for screening and diagnosis of syphilis. This test is intended for following treatment response in patients being treated for syphilis infection. To screen for syphilis infection, a reflex cascade that includes both RPR and a treponema-specific assay should be utilized, such as Treponema pallidum (Syphilis) Screening [place] (215799) or Rapid Plasma Reagin (RPR) Test With Reflex to Quantitative RPR and Confirmatory Treponema pallidum Antibodies (694349). Performed at: [address] [id number] Church Warden: Colten Caceres PhD, Phone: [phone] URINE CULTURE, ROUTINEon Bacteria identified Cx Nom (U) Urine Culture, Routine [facility] Bacteria identified Cx Nom (U) Mixed urogenital татьяна [facility] Bacteria identified Cx Nom (U) Less than 10,000 colonies/mL [facility] Bacteria identified Cx Nom (U) Performed at: [facility] Bacteria identified Cx Nom (U) [address] [place] [phone] [facility] Bacteria identified Cx Nom (U) Church Warden: Colten Caceres PhD, Phone: [phone] [facility] ALL CBC WITH AUTO DIFFon BASOPHILS ABSOLUTE AUTO 0 [facility] Basophils/100 WBC (Bld) 0.3 % 0.2 - 2.0 % [facility] Eosinophils/100 WBC (Bld) 2.2 % 0.9 - 7.0 % [facility] Erythrocyte distribution width (RBC) [Ratio] 11.9 % 11.0 - 15.0 % [facility] Hematocrit (Bld) [Volume fraction] 37 % 36.0 - 48.0 % [facility] Hemoglobin (Bld) [Mass/Vol] 13 g/dL 12.0 - 16.0 g/dL [facility] IMMATURE GRANULOCYTES ABS AUTO 0.04 High [facility] Immature granulocytes/100 WBC (Bld) 0.3 % 0.0 - 0.5 % [facility] Interpretation and review of laboratory results Abnormal [facility] LYMPHOCYTES ABSOLUTE AUTO 1.4 [facility] Lymphocytes/100 WBC (Bld) 11.9 % Low 20.5 - 60.0 % [facility] MCH (RBC) [Entitic mass] 32.9 pg 26.7 - 34.0 pg [facility] MCHC (RBC) [Mass/Vol] 35.1 g/dL 29.9 - 35.2 g/dL [facility] MCV (RBC) [Entitic vol] 93.7 fL 81.0 - 99.0 fL [facility] MONOCYTES ABSOLUTE AUTO 0.4 [facility] Monocytes/100 WBC (Bld) 3.4 % 1.7 - 12.0 % [facility] NEUTROPHILS ABSOLUTE AUTO 9.5 High [facility] Neutrophils/100 WBC (Bld) 81.9 % High 43.0 - 75.0 % [facility] Platelet mean volume (Bld) [Entitic vol] 10.9 fL 9.5 - 13.5 fL [facility] EO # 0.3 [facility] PLT 232 [facility] TB RBC 3.95 Low [facility] WBC 11.7 High [facility] ALL TYPE AND SCREENon 2023 ABO and Rh group Nom (Bld) Blood group O Rh(D) positive [facility] [facility] BOX TESTon 01-03-2024 BOX TEST SENT OUT [facility] BOX1 [facility] BOX2 01/03/24 [facility] HEMOGLOBIN A1Con 024 Glucose [Mass/Vol] 82 mg/dL [facility] HbA1c (Bld) [Mass fraction] 4.5 % 4.5 - 6.2 % [facility] Comment on above: ADA RECOMMENDED LIMI T 4.0 - 6.0 ADA THERAPEUTIC TARGET < 7.0 ACTION SUGGESTED > 7.[facility]ID (URINE )on 01-03-2024 AMPHETAMINE SCREEN URINE Negative NEGATIVE [facility] BARBITURATES SCREEN URINE Negative NEGATIVE [facility] BENZODIAZEPINES SCREEN URINE Negative NEGATIVE [facility] BUPRENORPHINE SCREEN URINE Negative NEGATIVE [facility] Comment on above: DRUG CLASS TEST [...] ng/mL CANNABINOID SCREEN URINE Positive Abnormal NEGATIVE [facility] COCAINE SCREEN URINE Negative NEGATIVE [facility] Interpretation and review of laboratory results Abnormal [facility] METHADONE SCREEN URINE Negative NEGATIVE [facility] METHAMPHETAMINES SCREEN URINE Negative NEGATIVE [facility] OPIATE SCREEN URINE Negative NEGATIVE [facility] OXYCODONE SCREEN URINE Negative NEGATIVE [facility] PHENCYCLIDINE SCREEN URINE Negative NEGATIVE [facility] TRICYCLIC ANTIDEPRESSANT URINE Negative NEGATIVE [facility] BASIC METABOLIC PANLon 12-27 Anion gap [Moles/Vol] 8 mmol/L Normal 5-15 [facility] Comment on above: Performed By: #### C SHWETA BRODY, 84270-2 #### [facility] ([id number]) [address] [place] [address], [place] [address] Calcium [Mass/Vol] 8.4 mg/dL Low 8.5-10.5 [facility] Comment on above: Performed By: #### C SHWETA BRODY, 97114-9 #### [facility] ([id number]) [address] [place] [address] 20922 Chloride [Moles/Vol] 107 mmol/L Normal 98-109 [facility] Comment on above: Performed By: #### C SHWETA BRODY, 56469-4 #### [facility] ([id number]) [address] [place] [address] 15967 CO2 [Moles/Vol] 22 mmol/L Normal 22-32 [facility] Comment on above: Performed By: #### C SHWETA BRODY, 39269-2 #### [facility] ([id number]) [address] [place] [address] 78813 Creatinine [Mass/Vol] 0.38 mg/dL Low 0.40-1.00 [facility] Comment on above: Result Comment: METH OD TRACEABLE TO IDMS STANDARD Performed By: #### C SHWETA BRODY, 32497-0 #### [facility] ([id number]) [address] [place] [address] 85215 eGFR (CKD-EPI) NON-RACE DEPENDENT >90 Normal >59 [facility] Comment on above: Result Comment: Reported eGFR is based on the CKD-EPI 2021 equation that does not use a race coefficient. Performed By: #### C SHWETA BRODY, 65417-1 #### [facility] ([id number]) [address] [place] [address] 88349 Glucose [Mass/Vol] 67 mg/dL Normal 65-99 [facility] Comment on above: Performed By: #### C SHWETA BRODY, 12272-1 #### [facility] ([id number]) [address] [place] [address] 05948 Potassium [Moles/Vol] 3.3 mmol/L Low 3.5-5.0 [facility] Comment on above: Performed By: #### C SHWETA BRODY, 79218-9 #### [facility] ([id number]) [address] [place] [address] 81405 Sodium [Moles/Vol] 137 mmol/L Normal 134-146 [facility] Comment on above: Performed By: #### SHWETA De La Cruz BCA, 56126-1 #### [facility] ([id number]) [address] [place] [address] 57891 Urea nitrogen [Mass/Vol] 11 mg/dL Normal 5-23 [facility] Comment on above: Performed By: #### SHWETA De La Cruz BCA, 24399-7 #### [facility] ([id number]) [address] [place] [address] 41896 CBC AND AUTO DIFFon 12-28-19 24 ABSOLUTE BASOPHIL 0.0 X10E9/L Normal 0.0-0.2 [facility] Comment on above: Performed By: #### SHWETA De La Cruz BCA, 19313-0 #### [facility] ([id number]) [address] [place] [address] 45138 ABSOLUTE NEUTROPHIL 5.6 X10E9/L Normal 1.5-6.6 [facility] Comment on above: Performed By: #### SHWETA De La Cruz BCA, 16171-0 #### [facility] ([id number]) [address] [place] [address] 59476 Basophils/100 WBC (Bld) 0.6 % Normal [facility] Comment on above: Performed By: #### SHWETA De La Cruz BCA, 09791-9 #### [facility] ([id number]) [address] [place] [address] 76598 Eosinophils (Bld) [#/Vol] 0.1 10*3/uL Normal 0.0-0.4 [facility] Comment on above: Performed By: #### C MARY GRACE [facility], 35299-5 #### [facility] ([id number]) [address] [place] [address] 29089 Eosinophils/100 WBC (Bld) 0.8 % Normal [facility] Comment on above: Performed By: #### Dorothy BRODY [facility], 76217-7 #### [facility] ([id number]) [address] [place] [address] 02985 Erythrocyte distribution width (RBC) [Ratio] 12.4 % Normal 11.5-15.0 [facility] Comment on above: Performed By: #### Dorothy BRODY [facility], 40919-3 #### [facility] ([id number]) [address] [place] [address] 62444 Hematocrit (Bld) [Volume fraction] 33.5 % Low 35-47 [facility] Comment on above: Performed By: #### Dorothy BRODY [facility], 02136-3 #### [facility] ([id number]) [address] [place] [address] 01973 Hemoglobin (Bld) [Mass/Vol] 11.7 g/dL Normal 11.7-15.5 [facility] Comment on above: Performed By: #### Dorothy BRODY [facility], 40138-0 #### [facility] ([id number]) [address] [place] [address] 34929 Lymphocytes (Bld) [#/Vol] 1.5 10*3/uL Normal 1.0-3.5 [facility] Comment on above: Performed By: #### SHWETA De La Cruz BCA, 12332-5 #### [facility] ([id number]) [address] [place] [address] 14555 Lymphocytes/100 WBC (Bld) 19.7 % Normal [facility] Comment on above: Performed By: #### SHWETA De La Cruz BCA, 17662-9 #### [facility] ([id number]) [address] [place] [address] 79147 MCH (RBC) [Entitic mass] 32.9 pg Normal 27-34 [facility] Comment on above: Performed By: #### C SHWETA BRODY, 40300-0 #### [facility] ([id number]) [address] [place] [address] 94084 MCHC (RBC) [Mass/Vol] 35.1 g/dL Normal 32-36 [facility] Comment on above: Performed By: #### Dorothy BRODY BMP, 66753-2 #### [facility] ([id number]) [address] [place] [address] 75864 MCV (RBC) [Entitic vol] 94 fL Normal 80-100 [facility] Comment on above: Performed By: #### SHWETA De La Cruz BCA, 10009-8 #### [facility] ([id number]) [address] [place] [address] 76095 Monocytes (Bld) [#/Vol] 0.3 10*3/uL Normal 0-0.9 [facility] Comment on above: Performed By: #### SHWETA De La Cruz BCA, 36045-9 #### [facility] ([id number]) [address] [place] [address] 35518 Monocytes/100 WBC (Bld) 4.2 % Normal [facility] Comment on above: Performed By: #### Dorothy BRODY, BMP, 46571-4 #### [facility] ([id number]) [address] [place] [address] 19672 Neutrophils/100 WBC (Bld) 74.7 % Normal [facility] Comment on above: Performed By: #### Dorothy BRODY, BMP, 23982-2 #### [facility] ([id number]) [address] [place] [address], [place] [address] Platelet mean volume (Bld) [Entitic vol] 9.1 fL Normal 7-12 [facility] Comment on above: Performed By: #### C SHWETA BRODY, 40585-0 #### [facility] ([id number]) [address] [place] [address] 29758 Platelets (Bld) [#/Vol] 195 10*3/uL Normal 150-450 [facility] Comment on above: Performed By: #### C SHWETA BRODY, 73235-3 #### [facility] ([id number]) [address] [place] [address] 67495 RBC COUNT 3.57 X10E12/L Low 3.80-5.20 [facility] Comment on above: Performed By: #### SHWETA De La Cruz BCA, 54907-0 #### [facility] ([id number]) [address] [place] [address] 61448 WBC (Bld) [#/Vol] 7.5 10*3/uL Normal 4.0-11.0 [facility] Comment on above: Performed By: #### Dorothy BRODY [facility], 83057-6 #### [facility] ([id number]) [address] [place] [address] 61180 Troponin I.cardiac High sens itivity method [Mass/Vol]on 12-28-2023 1 HOUR TROP I, HIGH SENSITIVITY <2 Normal <16 [facility] Comment on above: Performed By: #### 8 9579-7 #### [facility] ([id number]) [address] [place] [address] 37941 TROPONIN I, HIGH SENSITIVITY <2 Normal <16 [facility] Comment on above: Performed By: #### SHWETA De La Cruz BCA, 66226-0 #### [facility] ([id number]) [address] [place] [address] 46424 HCG ( test) Ql (U)o n 12-09-2023 Interpretation and review of laboratory results Abnormal [facility] Preg Test, Ur Positive [facility] Urinalysis macro (dipstick) panel (U)on 12-09-2023 Bilirubin, UA Negative Negative - 4(70) +++ mg/dL [facility] Blood, UA Negative Negative - 50 Haroon/mcL [facility] Clarity, UA Clear [facility] Color, UA Yellow [facility] Glucose, UA Negative Negative - 1999(110) ++++ mg/dL [facility] Interpretation and review of laboratory results Normal [facility] Ketones, UA Negative Negative - 160(16) ++++ mg/dL [facility] Leukocytes, UA Negative Negative - 500+++ Robert/mcL [facility] Nitrite, UA Negative Negative - Positive [facility] pH, UA 7.5 5 - 9 [facility] Protein, UA Negative Negative - 1999(20) ++++ mg/dL [facility] Spec Grav, UA 1.015 1 - 1.03 [facility] Urobilinogen, UA 0.2 0.2 - 12 mg/dL [facility] ACETAMINOPHENon 01-23-2019 Acetaminophen [Mass/Vol] <1.0 Critically low 10.1-30.[address] [facility] Comment on above: Performed By: #### A CET #### [facility] [address] [place] [address] 82248 Lou Ml CBC AUTO DIFFon 01-23-2019 Basophils (Bld) [#/Vol] 0.1 103/ul Normal 0.0-0.[address] [facility] Comment on above: Performed By: #### C BC #### [facility] [address] [place] [address] 96637 Lou Ml Basophils/100 WBC (Bld) 0.7 % Normal 0.2-2.[address] [facility] Comment on above: Performed By: #### C BC #### [facility] [address] [place] [address] 44981 Lou Ml Eosinophils (Bld) [#/Vol] 0.1 103/ul Normal 0.0-0.[address] [facility] Comment on above: Performed By: #### C BC #### [facility] [address] [place], [place] [address] Lou Ml Eosinophils/100 WBC (Bld) 1.0 % Normal 0.9-7.[address] [facility] Comment on above: Performed By: #### C BC #### [facility] [address] [place], [place] [address] Lou Ml Erythrocyte distribution width (RBC) [Ratio] 12.2 % Normal 11.0-15.[address] [facility] Comment on above: Performed By: #### C BC #### [facility] [address] [place], [place] [address] Lou Ml Hematocrit (Bld) [Volume fraction] 37.6 % Normal 36.0-48.[address] [facility] Comment on above: Performed By: #### C BC #### [facility] [address] [place], [place] [address] Lou Ml Hemoglobin (Bld) [Mass/Vol] 13.0 g/dL Normal 12.0-16.[address] [facility] Comment on above: Performed By: #### C BC #### [facility] [address] [place], [place] [address] Lou Ml IG # 0.03 10e3/ul Normal 0.00-0.[address] [facility] Comment on above: Performed By: #### C BC #### [facility] [address] [place], [place] [address] Lou Ml IG % 0.3 % Normal 0.0-0.[address] [facility] Comment on above: Performed By: #### C BC #### [facility] [address] [place], [place] [address] Lou Ml Lymphocytes (Bld) [#/Vol] 2.9 103/ul Normal 1.2-3.[address] [facility] Comment on above: Performed By: #### C BC #### [facility] [address] [place], [place] [address] Lou Ml Lymphocytes/100 WBC (Bld) 32.3 % Normal 20.5-60.[address] [facility] Comment on above: Performed By: #### C BC #### [facility] [address] [id number] Lou Bull MANUAL DIFF REQ NO Normal [facility] Comment on above: Performed By: #### C BC #### [facility] [address] [id number] Lourex Bull MCH (RBC) [Entitic mass] 31.6 pg Normal 26.7-34.[address] [facility] Comment on above: Performed By: #### C BC #### [facility] [address] [id number] Lourex Bull MCHC (RBC) [Mass/Vol] 34.6 g/dL Normal 29.9-35.[address] [facility] Comment on above: Performed By: #### C BC #### [facility] [address] [place], [place] [address] Lourex Bull MCV (RBC) [Entitic vol] 91.5 fL Normal 79.1-95.[address] [facility] Comment on above: Performed By: #### C BC #### [facility] [address] [place], [place] [address] Lou Ml Monocytes (Bld) [#/Vol] 0.6 103/ul Normal 0.3-0.[address] [facility] Comment on above: Performed By: #### C BC #### [facility] [address] [place], [place] [address] Lou Ml Monocytes/100 WBC (Bld) 6.4 % Normal 1.7-12.[address] [facility] Comment on above: Performed By: #### C BC #### [facility] [address] [place], [place] [address] Lou Ml Neutrophils (Bld) [#/Vol] 5.3 103/ul Normal 1.4-6.[address] [facility] Comment on above: Performed By: #### C BC #### [facility] [address] [place], [place] [address] Lou Ml Neutrophils/100 WBC (Bld) 59.3 % Normal 43.0-75.[address] [facility] Comment on above: Performed By: #### C BC #### [facility] [address] [id number] Lou Ml Platelet mean volume (Bld) [Entitic vol] 10.6 fL Normal 9.5-13.[address] [facility] Comment on above: Performed By: #### C BC #### [facility] [address] [id number] Lou Ml Platelets (Bld) [#/Vol] 220 103/ul Normal 150-[address] [facility] Comment on above: Performed By: #### C BC #### [facility] [address] [place], [place] [address] Lou Ml RBC (Bld) [#/Vol] 4.11 106/ul Normal 3.40-5.[address] [facility] Comment on above: Performed By: #### C BC #### [facility] [address] [place], [place] [address] Lou Ml WBC (Bld) [#/Vol] 8.9 103/ul Normal 4.0-11.0 [facility] Comment on above: Performed By: #### C BC #### [facility] [address] [place], [place] [address] Lou Ml DRUG SCREEN RAPID (URINE)on 01-23-2019 AMP Negative Normal NEGATIVE [facility] Comment on above: Performed By: #### D RUGRPD #### [facility] [address] [place], [place] [address] Lou Lm BAR Negative Normal NEGATIVE [facility] Comment on above: Performed By: #### D RUGRPD #### [facility] [address] [place], [place] [address] Lou Ml BUP Negative Normal NEGATIVE [facility] Comment on above: Performed By: #### D RUGRPD #### [facility] [address] [place], [place] [address] Lou Ml BZO Negative Normal NEGATIVE [facility] Comment on above: Performed By: #### D RUGRPD #### [facility] [address] [place], [place] [address] Lou Ml BRITTON Negative Normal NEGATIVE [facility] Comment on above: Performed By: #### D RUGRPD #### [facility] [address] [place] [address] Lou Ml CUT-OFFS SEE BELOW Normal [facility] Comment on above: Result Comment: AMP [...] RUGRPD #### [facility] [address] [place] [address] DRUG CUT HEADER DRUG CLASS TEST SYST EM CUT-OFF CONCENTRATIONS ARE FOLLOWS: Normal [facility] Comment on above: Performed By: #### D RUGRPD #### [facility] [address] [place] [address] Lou Ml mAMP Negative Normal NEGATIVE [facility] Comment on above: Performed By: #### D RUGRPD #### [facility] [address] [place] [address] Lou Ml MTD Negative Normal NEGATIVE [facility] Comment on above: Performed By: #### D RUGRPD #### [facility] [address] [place] [address] Lou Ml OPI Negative Normal NEGATIVE [facility] Comment on above: Performed By: #### D RUGRPD #### [facility] [address] [place] [address] Lou Ml OXY Negative Normal NEGATIVE [facility] Comment on above: Performed By: #### D RUGRPD #### [facility] [address] [place] [address] Lou Ml PCP Negative Normal NEGATIVE [facility] Comment on above: Performed By: #### D RUGRPD #### [facility] [address] [place] [address] Lou Bull PPX Negative Normal NEGATIVE [facility] Comment on above: Performed By: #### D RUGRPD #### [facility] [address] [place] [address] Lourex Bull TCA Negative Normal NEGATIVE [facility] Comment on above: Performed By: #### D RUGRPD #### [facility] [address] [place] [address] Lou Ml THC Positive Normal NEGATIVE [facility] Comment on above: Performed By: #### D RUGRPD #### [facility] [address] [place] [address] Lou Bull ETHANOL (BLD ALC)on 01-24-20 19 Ethanol [Mass/Vol] mg/dL Normal [facility] Comment on above: Performed By: #### E TH #### [facility] [address] [place] [address] Lou Ml Ethanol [Mass/Vol] NOTE: 80 mg/dl is th e legal limit for a blood alcohol level Normal [facility] Comment on above: Performed By: #### E TH #### [facility] [address] [place] [address] Lourex Bull URon 01-23-2019 , QUAL Negative Normal NEGATIVE [facility] Comment on above: Performed By: #### P REGU #### [facility] [address] [place] [address] Lou Bull PROF 14(COMP METB)on 019 Age - Reported Normal [facility] Comment on above: Performed By: #### C MP #### [facility] [address] [place] [address] Lou Ml Albumin [Mass/Vol] 4.3 g/dL Normal 3.5-5.0 [facility] Comment on above: Performed By: #### C MP #### [facility] [address] [place] [address] Lourex Bull Albumin/Globulin [Mass ratio] 1.6 {ratio} Normal [facility] Comment on above: Performed By: #### C MP #### [facility] [address] [id number] Lou Ml ALP [Catalytic activity/Vol] 66 U/L Normal 65-260 [facility] Comment on above: Performed By: #### C MP #### [facility] [address] [phone] Lou Ml ALT [Catalytic activity/Vol] 22 U/L Normal 9-52 [facility] Comment on above: Performed By: #### C MP #### [facility] [address] [id number] Lou Ml Anion gap [Moles/Vol] 11.4 mmol/L Normal [facility] Comment on above: Performed By: #### C MP #### [facility] [address] [place] [address] Lou Ml AST [Catalytic activity/Vol] 16 U/L Normal 14-36 [facility] Comment on above: Performed By: #### C MP #### [facility] [address] [place], [place] [address] Lou Ml Bilirubin Ql (U) 0.6 mg/dL Normal 0.2-1.3 [facility] Comment on above: Performed By: #### C MP #### [facility] [address] [place], [place] [address] Lou Ml Calcium [Mass/Vol] 9.7 mg/dL Normal 8.4-10.2 [facility] Comment on above: Performed By: #### C MP #### [facility] [address] [place], [place] [address] Lou Ml Chloride [Moles/Vol] 103 mmol/L Normal 98-107 [facility] Comment on above: Performed By: #### C MP #### [facility] [address] [place], [place] [address] Lou Ml CO2 [Moles/Vol] 27.2 mmol/L Normal 22.0-30.0 [facility] Comment on above: Performed By: #### C MP #### [facility] [address] [place], [place] [address] Lou Ml Creatinine [Mass/Vol] 0.59 mg/dL Normal 0.52-1.[address] [facility] Comment on above: Performed By: #### C MP #### [facility] [address] [place], [place] [address] Lou Ml EGFR-AF PARAGUAYAN Normal >=60 [facility] Comment on above: Performed By: #### C MP #### [facility] [address] [id number] Lou Ml EGFR-NON AF PARAGUAYAN Normal >=[address] [facility] Comment on above: Performed By: #### C MP #### [facility] [address] [place], [place] [address] Lou Ml Globulin (S) [Mass/Vol] 2.7 g/dL Normal [facility] Comment on above: Performed By: #### C MP #### [facility] [address] [place] [address] Lou Ml Glucose [Mass/Vol] 90 mg/dL Normal 74-[address] [facility] Comment on above: Performed By: #### C MP #### [facility] [address] [place], [place] [address] Lou Ml Potassium [Moles/Vol] 3.6 mmol/L Normal 3.4-5.0 [facility] Comment on above: Performed By: #### C MP #### [facility] [address] [place], [place] [address] Lou Ml Protein [Mass/Vol] 7.0 g/dL Normal 6.1-8.[address] [facility] Comment on above: Performed By: #### C MP #### [facility] [address] [place], [place] [address] Lou Ml Sodium [Moles/Vol] 138 mmol/L Normal 137-[address] [facility] Comment on above: Performed By: #### C MP #### [facility] [address] [place], [place] [address] Lou Ml Urea nitrogen [Mass/Vol] 16.0 mg/dL Normal 6.4-19.3 [facility] Comment on above: Performed By: #### C MP #### [facility] [address] [address] Lou Bull Urea nitrogen/Creatinine [Mass ratio] 27.1 mg/mg Normal [facility] Comment on above: Performed By: #### C MP #### [facility] [address] [id number] Lou Bull SALICYLATEon 01-23-2019 SALICYLATE 6.5 mg/dL Normal <=20.0 [facility] Comment on above: Performed By: #### S ALYC #### [facility] [address] [id number] Lou Bull Vital Signs Date Time Vital Sign Value Performing Clinician Cynthia mayen 05-11-2024 08:30-0400 Body mass index (BMI) [Ratio] 27.2 kg/m2 Ebony Luz Elena DO Work Phone: [facility] 05-11-2024 08:30-0400 Body weight 75.3 kg Ebony Luz Elena DO Work Phone: [facility] 05-11-2024 08:30-0400 Diastolic blood pressure 60 mm[Hg] Ebony Luz Elena DO Work Phone: [facility] 05-11-2024 08:30-0400 Systolic blood pressure 108 mm[Hg] Ebony Luz Elena DO Work Phone: [facility] 04-27-2024 13:35-0400 Body mass index (BMI) [Ratio] 26.52 kg/m2 Daphnie VANCE Work Phone: [facility] 04-27-2024 13:35-0400 Body weight 73.39 kg Daphnie VANCE Work Phone: [facility] 04-27-2024 13:35-0400 Diastolic blood pressure 60 mm[Hg] Daphnie VANCE Work Phone: [facility] 04-27-2024 13:35-0400 Systolic blood pressure 110 mm[Hg] Daphnie VANCE Work Phone: [facility] 04-13-2024 09:42-0500 Body mass index (BMI) [Ratio] 26.01 kg/m2 Daphnie Cristhian PA Work Phone: [facility] 04-13-2024 09:42-0500 Body weight 71.99 kg Daphnie Lagrange PA Work Phone: [facility] 04-13-2024 09:42-0500 Diastolic blood pressure 66 mm[Hg] Daphnie Lagrange PA Work Phone: [facility] 04-13-2024 09:42-0500 Systolic blood pressure 108 mm[Hg] Daphnie Lagrange PA Work Phone: [facility] 03-15-2024 15:58-0500 Body mass index (BMI) [Ratio] 24.81 kg/m2 Ebony Luz Elena DO Work Phone: [facility] 03-15-2024 15:58-0500 Body weight 68.67 kg Ebony Luz Elena DO Work Phone: [facility] 03-15-2024 15:58-0500 Diastolic blood pressure 64 mm[Hg] Ebony Luz Elena DO Work Phone: [facility] 03-15-2024 15:58-0500 Systolic blood pressure 104 mm[Hg] Ebony Luz Elena DO Work Phone: [facility] 02-07-2024 10:59-0500 Body mass index (BMI) [Ratio] 22.84 kg/m2 Daphnie Cristhian PA Work Phone: [facility] 02-07-2024 10:59-0500 Body weight 63.23 kg Daphnie Lagrange PA Work Phone: [facility] 02-07-2024 10:59-0500 Diastolic blood pressure 70 mm[Hg] Daphnie Lagrange PA Work Phone: [facility] 02-07-2024 10:59-0500 Systolic blood pressure 110 mm[Hg] Daphnie Lagrange PA Work Phone: [facility] 12-09-2023 14:51-0400 Body mass index (BMI) [Ratio] 22.12 kg/m2 [facility] 12-09-2023 14:51-0400 Body weight 61.24 kg Noms Nurse [facility] 12-09-2023 14:51-0400 Diastolic blood pressure 66 mm[Hg] [facility] Nurse [facility] 12-09-2023 14:51-0400 Systolic blood pressure 100 mm[Hg] [facility] Nurse [facility] Encounters Encounter Date Encounter Type Care Provider Facility Start: 05-11-2024 End: 05-11-2024 Bamboo flowsheet Ebony Luz Elena DO Work Phone: [facility] Start: 05-11-2024 End: 05-11-2024 Bamboo flowsheet Ebony Luz Elena DO Work Phone: [facility] Start: 05-11-2024 End: 05-11-2024 flow sheet Ebony Luz Elena DO Work Phone: [facility] Comment on above: Third trimester preg carlos alberto; 30 weeks gestation of Start: 05-11-2024 End: 05-11-2024 ambulatory EBONY LUZ ELENA Not Available Start: 04-27-2024 End: 04-27-2024 Clinisync Result Encounter Generic External Data Provider [facility] External [facility] Unsolicited Start: 04-27-2024 End: 04-27-2024 Clinisync Result Encounter Generic External Data Provider [facility] External Department Unsolicited Start: 04-27-2024 End: 04-27-2024 flow sheet Daphnie Kemp PA Work Phone: [facility] Comment on above: Third trimester preg carlos alberto; 28 weeks gestation of ; Urinary tract infection in mother during third trimester of Start: 04-27-2024 End: 04-27-2024 ambulatory DAPHNIE KEMP Not Available Start: 04-24-2024 End: 04-24-2024 ambulatory SANDIE R [facility] Start: 04-18-2024 End: 04-18-2024 Clinisync Result Encounter Generic External Data Provider [facility] External Department Unsolicited Start: 04-18-2024 End: 04-18-2024 Clinisync Result Encounter Generic External Data Provider [facility] External Department Unsolicited Start: 04-13-2024 End: 04-13-2024 Bamboo flowsheet Daphnie VANCE Work Phone: [facility] Start: 04-13-2024 End: 04-13-2024 Bamboo flowsheet Daphnie VANCE Work Phone: [facility] Start: 04-13-2024 End: 04-13-2024 flow [...] mellitus screening Start: 03-15-2024 End: 03-15-2024 ambulatory EBONY LUZ ELENA Not Available Start: 03-13-2024 End: 03-13-2024 Clinisync Result Encounter Ebony Luz Elena DO Work Phone: [facility] Unsolicited Start: 03-13-2024 End: 03-13-2024 Clinisync Result Encounter Ebony Luz Elena DO Work Phone: [facility] Unsolicited Start: 02-22-2024 End: 02-22-2024 Emergency department patient visit NOT IN SYSTEM [facility] Start: 02-11-2024 End: 02-13-2024 Clinisync Result [...] patient visit NOT IN SYSTEM PCP [facility] Start: 12-09-2023 End: 12-09-2023 ambulatory [facility] Luz Elena Nurse [facility] Comment on above: GA: 8w2d Start: 01-23-2019 End: 01-23-2019 Patient encounter procedure ELINOR PALOMO Facility:H1 Procedures Date Procedure Procedure Detail Performing Clinician Start: 04-27-2024 Urnls dip stick/tabl et rgnt non-auto w/o micrscp Daphnie VANCE Work Phone: Start: 04-27-2024 US OB GROWTH Generic Ex ternal Data Provider Start: 04-18-2024 ALL CBC WITH AUTO DIFF Ebony Luz Elena DO Work Phone: Start: 03-15-2024 Urnls dip stick/tabl et rgnt non-auto w/o micrscp Ebony Luz Elena DO Work Phone: Start: 03-13-2024 TBH UA (CLEAN/CATCH) JALOUSIE INSTALLER/MICRO IF IND. Ebony Luz Elena DO Work Phone: Start: 02-11-2024 AFP, SERUM, OPEN SPI NA BIFIDA Daphnie VANCE Work Phone: Start: 02-07-2024 RECURRENT VAGINITIS (HTRX) Daphnie VANCE Work Phone: Start: 02-07-2024 Urnls dip stick/tabl et rgnt non-auto w/o micrscp Daphnie VANCE Work Phone: Start: 02-07-2024 IGP,APTIMA HPV,AGE GDLN Daphnie AVNCE Work Phone: Start: 01-10-2024 Urnls dip stick/tabl [...] Treatment Date Care Activity Detail Author Start: 05-29-2024 End: 05-29-2024 Patient encounter procedure 05/29/2024 9:40 AM EDT Routine [facility] [address] [facility] [place] [address] Luz ElenaEbony, DO [address], [place] [address] [facility] Start: 05-29-2024 End: 05-29-2024 Professional / ancillary services management 05/29/2024 9:00 AM EDT Ancillary Procedure [facility] [address] [place] [address] [facility] Start: 05-11-2024 End: 05-11-2025 US for US OB follow up transabdominal approach Imaging Routine 30 weeks gestation of Expected: 05/11/2024, Expires: 05/11/2025 [facility] Work Phone: Comment on above: Expected: 05/11/2024 , Expires: 05/11/2025 Start: 05-11-2024 End: 05-11-2024 Patient encounter procedure [facility] Comment on above: Arrived Start: 04-27-2024 End: 04-27-2024 Patient encounter procedure 04/27/2024 1:30 PM EDT Routine [facility] [address] [place] [id number] Daphnie Kemp PA [address] [place], [place] [id number] [facility] Start: 04-13-2024 End: 04-13-2025 [...] PM EST Routine [facility] [address] [place] [id number] Ebony Laguna DO [address] [facility] [address] [place], [place] [id number] [facility] Start: 03-15-2024 End: 03-15-2024 Professional / ancillary services management 03/15/2024 2:30 PM EST Ancillary Procedure [facility] [address] [place] [id number] [facility] Start: 03-15-2024 End: 03-15-2025 [...] AM EST Routine [facility] [address] [place] [phone] Daphnie Kemp PA [address] [place] [address] [place] [address] [facility] Start: 02-07-2024 End: 03-09-2024 Alpha fetoprotein, maternal Alpha fetoprotein, maternal Lab Routine Second trimester Expected: 02/07/2024 (Approximate), Expires: 03/09/2024 [facility] Comment on above: Expected: 02/07/2024 (Approximate), Expires: 03/09/2024 Start: 02-07-2024 End: 02-06-2025 US for US OB ANATOMY SINGLE W US OB CERVICAL LENGTH Imaging Routine Second trimester Screening, , for anatomic survey Expected: 02/07/2024 (Approximate), Expires: 02/06/2025 [facility] Comment on above: Expected: 02/07/2024 (Approximate), Expires: 02/06/2025 Start: 02-07-2024 End: 02-07-2024 Patient encounter procedure 02/07/2024 10:20 AM EST Routine [facility] [address] [facility] [address] [place] [address] Daphnie Kemp PA [address] [place] [address] [place] [address] 16 weeks gestation of ; Second trimester ; Screening, , for anatomic survey; Well woman exam with routine gynecological exam [facility] Comment on above: 16 weeks gestation o f ; Second trimester ; Screening, , for anatomic survey; Well woman exam with routine gynecological exam Start: 01-10-2024 End: 01-10-2024 Patient encounter procedure 01/10/2024 1:40 PM EST Routine [facility] [address] [place] [phone] Ebony Laguna, [address] [facility] [place] [address] [facility] Start: 12-09-2023 End: 12-08-2024 ABO/Rh ABO/Rh Lab Routine Missed menses , unspecified gestational age Expected: 12/09/2023 (Approximate), Expires: 12/08/2024 [facility] Healthcare Comment on above: Expected: 12/09/2023 (Approximate), Expires: 12/08/2024 Start: 12-09-2023 End: 12-08-2024 Blood type and Indirect antibody screen panel - Blood Type and screen Lab Routine Missed menses , unspecified gestational age Expected: 12/09/2023 (Approximate), Expires: 12/08/2024 [facility] Work Phone: Comment on above: Expected: 12/09/2023 (Approximate), Expires: 12/08/2024 Start: 12-09-2023 End: 12-08-2024 Drugs of abuse panel - Urine by Screen method Rapid drug screen, urine Lab Routine , unspecified gestational age Encounter for supervision of normal first in first trimester Expected: 12/09/2023 (Approximate), Expires: 12/08/2024 [facility] Healthcare Comment on above: Expected: 12/09/2023 (Approximate), Expires: 12/08/2024 Start: 12-09-2023 End: 12-08-2024 US Pelvis transvaginal US OB transvaginal Imaging Routine Missed menses Expected: 12/09/2023 (Approximate), Expires: 12/08/2024 [facility] Comment on above: Expected: 12/09/2023 (Approximate), Expires: 12/08/2024 Start: 10-17-2023 Influenza vaccination Influenza Vacc ine (#1) [facility] Bacteria identified in Urine by Culture Urine culture Microbiology Routine Missed menses Ordered: 12/09/2023 [facility] Comment on above: Ordered: 12/09/2023 CBC W Auto Different ial panel - Blood CBC and differential Lab Routine Missed menses , unspecified gestational age Ordered: 12/09/2023 [facility] Comment on above: Ordered: 12/09/2023 CHLAMYDIA TRACHOMATI S (GENITO/STI) CHLAMYDIA TRACHOMATIS (GENITO/STI) Lab Routine 16 weeks gestation of Second trimester Well woman exam with routine gynecological exam Ordered: 02/07/2024 [facility] Comment on above: Ordered: 02/07/2024 Cytology Cervical or vaginal smear or scraping study Pap Smear Pathology and Cytology Routine 16 weeks gestation of Second trimester Well woman exam with routine gynecological exam Ordered: 02/07/2024 [facility] Work Phone: Comment on above: Ordered: 02/07/2024 Hemoglobin A1c/Hemoglobin.total in Blood Hemoglobin A1c Lab Routine Missed menses , unspecified gestational age Ordered: 12/09/2023 [facility] Comment on above: Ordered: 12/09/2023 Hepatitis B virus surface Ag [Presence] in Serum or Plasma by Immunoassay Hepatitis B surface antigen Lab Routine Missed menses , unspecified gestational age Ordered: 12/09/2023 [facility] Comment on above: Ordered: 12/09/2023 Hepatitis C virus Ab [Presence] in Serum or Plasma by Immunoassay Hepatitis C antibody Lab Routine Missed menses , unspecified gestational age Ordered: 12/09/2023 [facility] Comment on above: Ordered: 12/09/2023 HIV-1/HIV-2 antigen/antibody combination immunoassay HIV-1 and HIV-2 antibodies Lab Routine Missed menses , unspecified gestational age Ordered: 12/09/2023 [facility] Comment on above: Ordered: 12/09/2023 Neisseria gonorrhoea e DNA [Presence] in Unspecified specimen by NORRIS with probe detection Neisseria gonorrhea DNA probe, direct Lab Routine 16 weeks gestation of Second trimester Well woman exam with routine gynecological exam Ordered: 02/07/2024 [facility] Comment on above: Ordered: 02/07/2024 Reagin Ab [Presence] in Serum by RPR RPR Lab Routine Missed menses , unspecified gestational age Ordered: 12/09/2023 [facility] Comment on above: Ordered: 12/09/2023 Rubella antibody, IgG Rubella an tibody, IgG Lab Routine Missed menses , unspecified gestational age Ordered: 12/09/2023 [facility] Comment on above: Ordered: 12/09/2023 SURESWAB(R) ADVANCED VAGINITIS PLUS, TMA SURESWAB(R) ADVANCED VAGINITIS PLUS, TMA Pathology and Cytology Routine 16 weeks gestation of Second trimester Well woman exam with routine gynecological exam Ordered: 02/07/2024 [facility] Comment on above: Ordered: 02/07/2024 Payers Date Payer Category Payer [facility] [id number] 2019 Unknown [id number] 2001 Unknown [id number] 2001 Unknown [id number] 2001 Unknown [id number] 2001 Unknown [id number] .9 2001 Unknown [id number] .9 2001 Unknown [id number] [id number] .9 2001 Unknown [id number] [id number] .1259 2001 Unknown [id number] [id number] .9 2001 Unknown [id number] [id number] .9 2001 Unknown [id number] [id number] .9 2001 Unknown [id number] 1978 Unknown [id number] 1959 Unknown [id number] Social History Date Type Detail Facility Start: 01-19-2023 Tobacco smoking stat [facility] Smokes tobacco daily [facility] History of [...] Identifies as female gender (finding) [facility] Clinical Notes 12-09-2023 to 05-11-2024 Sandie Caldwell LPN - 05/11/2024 8:30 AM RAJIV Mills - 04/27/2024 1:30 PM RAJIV Mills - 04/13/2024 9:30 AM Dayne Laguna DO - 03/15/2024 3:40 PM RAJIV Abraham - 02/07/2024 10:20 AM EST Note Date & Type Note Facility 05-11-2024 History of Presen t illness Narrative Reason [...] Cannabis use, 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[facility]) 07/08/2022 Moderate episode of recurrent major depressive disorder ([facility]) 07/08/2022 Oppositional defiant disorder ([facility]) 07/08/2022 Other atopic dermatitis 07/08/2022 Toxic effect of ethyl alcohol ([facility]) 07/08/2022 16 weeks gestation of 02/07/2024 Second [...] Grandfather Bipolar disorder Mother's Sister SURGICAL HISTORY No past surgical history on file. REVIEW OF SYSTEMS Review of Systems: Review [...] nursing note reviewed. Exam conducted with a water pumping station engineer present. Vitals: Estimated body mass index is 27.2 kg/m as calculated from the following: Height as of 07/08/22: 5' 5.5 . Weight as of this encounter: 166 lb. BP: 108/60 Patient's last menstrual period was 10/12/2023. ASSESSMENT & PLAN ICD-10-CM 1. Third trimester Z34.93 2. 30 weeks gestation of Z3A.30 Patient presents today for a routine obstetrics appointment. Patient is currently 30w2d with a Estimated Date of Delivery: 07/18/24. Patient is setup for 3 hour gtt on May 25. Patient given another growth scan to have done in a few weeks and requested EFW in grams with %tile noted on report. Patient voiced that fetus was breech at last scan and this was confirmed by report. Patient to return to clinic in 2 weeks for routine OB appointment. Documented by Sandie Caldwell LPN on behalf of: Ebony Laguna DO documented in this encounter [facility] 04-27-2024 History of Presen t illness Narrative Reason [...] Grandfather Bipolar disorder Mother's Sister SURGICAL HISTORY No past surgical history on file. REVIEW OF SYSTEMS Review of Systems: Review [...] reviewed. Vitals: Estimated body mass index is 26.52 kg/m as calculated from the following: Height as of 07/08/22: 5' 5.5 . Weight as of this encounter: 161 lb 12.8 oz. BP: 110/60 Patient's last menstrual period was 10/12/2023. ASSESSMENT & PLAN ICD-10-CM 1. Third trimester Z34.93 2. 28 weeks gestation of Z3A.28 3. Urinary tract infection in mother during third trimester of O23.43 POCT urinalysis dipstick manually resulted Return OB: Patient presents today for a routine obstetrics appointment. Patient is currently 28w2d . Patient states she is doing well but has complaints of being tired due to current . Patient has verbalizes frequent movement. labor precautions was discussed/given and patient was instructed to perform kick counts three times a day. Orders Placed This Encounter Procedures POCT urinalysis dipstick manually resulted Follow Up: Patient is to return to office in 2 week for routine OB appointment. Documented by RAJIV Hernandez on behalf of: RAJIV Hernandez documented in this encounter [facility] 04-13-2024 History of Presen t illness Narrative Reason for Appointment: Patient ID: Evelyn Bradley is a 23 y.o. female who presents for Routine Visit Patient presents today for Return OB appointment. MEDICATIONS Current Outpatient Medications Medication Instructions vitamin (Prenatabs Rx) 29-1 MG tablet 1 tablet, Oral, Daily ALLERGIES No Known Allergies PROBLEMS Active Ambulatory Problems Diagnosis Date Noted Anxiety disorder 07/08/2022 Mood disorder ([facility]) 07/08/2022 Cannabis use, 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[facility]) 07/08/2022 Moderate episode of recurrent major depressive disorder ([facility]) 07/08/2022 Oppositional defiant disorder ([facility]) 07/08/2022 Other atopic dermatitis 07/08/2022 Toxic effect [...] of: RAJIV Hernandez documented in this encounter [facility] 03-15-2024 History of Presen t illness Narrative Reason for Appointment: Patient ID: Evelyn Bradley is a 23 y.o. female who presents for Routine Visit Patient presents today for Return OB appointment. Current Medications: has a current medication list which includes the following prescription(s): nitrofurantoin (macrocrystal-monohydrate) and vitamin. Medical History: Active Ambulatory Problems Diagnosis Date Noted Anxiety disorder 07/08/2022 Mood disorder ([facility]) 07/08/2022 Cannabis use, 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[facility]) 07/08/2022 Moderate episode of recurrent major depressive disorder ([facility]) 07/08/2022 Oppositional defiant disorder ([facility]) 07/08/2022 Other atopic dermatitis 07/08/2022 Toxic effect [...] nursing note reviewed. Exam conducted with a water pumping station engineer present. Vitals: Estimated body mass index is [...] Ebony Laguna DO documented in this encounter [facility] 02-07-2024 History of Presen t illness Narrative [...] Date Noted Anxiety disorder 07/08/2022 Mood disorder ([facility]) 07/08/2022 Cannabis use, 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[facility]) 07/08/2022 Moderate episode of recurrent major depressive disorder ([facility]) 07/08/2022 Oppositional defiant disorder ([facility]) 07/08/2022 Other atopic dermatitis 07/08/2022 Toxic effect of ethyl alcohol ([facility]) 07/08/2022 16 weeks gestation of 02/07/2024 Second [...] nursing note reviewed. Exam conducted with a water pumping station engineer present. Vitals: Estimated body mass index is [...] obtained without difficulty and patient was given [facility] order to have obtained. Orders Placed This Encounter Procedures US OB ANATOMY SINGLE W US OB CERVICAL LENGTH CHLAMYDIA TRACHOMATIS (GENITO/STI) Neisseria gonorrhea DNA probe, direct Alpha fetoprotein, maternal POCT urinalysis dipstick manually resulted Follow Up: Patient is to return to our office in 4 weeks for routine OB appointment Documented by RAJIV Hernandez on behalf of: RAJIV Hernandez documented in this encounter [facility] 01-10-2024 History of Presen t illness Narrative [...] Date Noted Anxiety disorder 07/08/2022 Mood disorder ([facility]) 07/08/2022 Cannabis use, 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[facility]) 07/08/2022 Moderate episode of recurrent major depressive disorder ([facility]) 07/08/2022 Oppositional defiant disorder ([facility]) 07/08/2022 Other atopic dermatitis 07/08/2022 Toxic effect of ethyl alcohol ([facility]) 07/08/2022 Resolved Ambulatory Problems Diagnosis Date Noted [...] nursing note reviewed. Exam conducted with a water pumping station engineer present. Vitals: Estimated body mass index is [...] or undercooked meat, and stay away from [facility]. Patient has been consulted regarding any [...] Ebony Laguna DO documented in this encounter [facility] 12-09-2023 History of Presen t illness Narrative [...] Date Noted Anxiety disorder 07/08/2022 Mood disorder ([facility]) 07/08/2022 Cannabis use, 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[facility]) 07/08/2022 Moderate episode of recurrent major depressive disorder ([facility]) 07/08/2022 Oppositional defiant disorder ([facility]) 07/08/2022 Other atopic dermatitis 07/08/2022 Toxic effect of ethyl alcohol ([facility]) 07/08/2022 Resolved Ambulatory Problems Diagnosis Date Noted [...] Pt will contemplate if she will do [place] [employer]. Pt was advised if she does want [place] [address] to have it done w/ labs [...] Meaghan Prado MA documented in this encounter [facility] Evaluation note Diagnosis Missed menses , unspecified gestational age Encounter for supervision of normal first in first trimester Nausea and vomiting in Unspecified vomiting of , unspecified as to episode of care documented [facility] Diagnosis First trimester state, incidental 12 weeks gestation of Nausea and vomiting in Unspecified vomiting of , unspecified as to episode of care [facility] Diagnosis 16 weeks gestation of Second trimester state, incidental Screening, , for anatomic survey Encounter for anatomic survey Well woman exam with routine gynecological exam Routine gynecological examination documented in this [facility]* Diagnosis 22 weeks gestation of Second trimester state, incidental Diabetes mellitus screening Screening for diabetes mellitus documented in [facility]* Diagnosis Second trimester state, incidental 26 weeks gestation of size inconsistent with dates documented in this encounter [facility]* Diagnosis Third trimester state, incidental 28 weeks gestation of Urinary tract infection in mother during third trimester of documented in this encounter [facility]* Diagnosis Third trimester state, incidental 30 weeks gestation of documented in this encounter [facility] Summary Purpose Family History No Family History Records FoundNo Family History Records FoundNo Family History Records Found Advance Directives No Advanced Directives Records FoundNo Advanced Directives Records FoundNo Advanced Directives Records Found Additional Source Comments INFORMATION SOURCE (unrecogn ized section and content) DATE CREATED AUTHOR [facility]/2019 [facility] DATE CREATED AUTHOR AUTHOR'S ORGANIZ ATION 04/26/2024 [facility] DATE CREATED AUTHOR AUTHOR'S ORGANIZ ATION 05/12/2024 [facility] d[facility] Specialists EPIC Reason for Visit (unrecogniz ed section and content) Reason Comments Amenorrhea Reason Comments Routine Visit Care Teams (unrecognized sec tion and content) Manager Government Relationship Specialty Start Date End Date Cary Turner MD [address] [place] [address] PCP - General Family Medicine 07/07/22 Manager Government Relationship Specialty Start Date End Date Cary Turner MD [address] [place] [address] PCP - General Family Medicine 07/07/22 Manager Government Relationship Specialty Start Date End Date Cary Turner MD [address] [place] [address] PCP - General Family Medicine 07/07/22 Manager Government Relationship Specialty Start Date End Date Cary Turner MD [address] [place] [address] PCP - General Family Medicine 07/07/22 Manager Government Relationship Specialty Start Date End Date Cary Turner MD [address] [place] [address] PCP - General Family Medicine 07/07/22 Manager Government Relationship Specialty Start Date End Date Cary Turner MD [address] [place] [address] PCP - General Family Medicine 07/07/22 Manager Government Relationship Specialty Start Date End Date Cary Turner MD [address] [facility] [place] [address] PCP - General Family Medicine 07/07/22 Manager Government Relationship Specialty Start Date End Date Cary Turner MD [address] [facility] [place] [address] PCP - General Family Medicine 07/07/22 Manager Government Relationship Specialty Start Date End Date Cary Turner MD [address] [place] [address] PCP - General Family Medicine 07/07/22 FOR [...] PRIMARY CLINICAL RECORDS. [facility] [employer] [facility]. provides no warranty or guarantee of the accuracy or completeness of information in this document.
[2024-05-25 09:40] LABS: Glucose Fasting 81 mg/dL (<95)
[2024-05-25 10:37] LABS: Glucose 1 Hour 114 mg/dL (<180)
[2024-05-25 11:41] LABS: Glucose 2 Hour 102 mg/dL (<155)
[2024-05-25 11:56] LABS: Glucose 3 Hour 72 mg/dL (<140)
== END 2024-05-25 07:50 | disposition home or self-care (01) ==
LOC: LAB 07:49
PROVIDERS: PCP Family Medicine; Visit Provider Obstetrics & Gynecology
DX: R73.09 Other abnormal glucose (principal)
CPT/HCPCS: 36415; 82951; 82952

== ENCOUNTER 2024-06-21 19:46 | Outpatient (REF) | payer BC, SELFPAY | END 2024-06-21 19:47 | disposition home or self-care (01) | LOC: LAB 19:46 | PROVIDERS: PCP Family Medicine; Visit Provider Obstetrics & Gynecology | DX: Z34.93 Encounter for supervision of normal pregnancy, unspecified, third trimester (principal) | CPT/HCPCS: 87081 ==

== ENCOUNTER 2024-07-12 05:19 | Inpatient (IN) | payer BC, MEDICAID, SELFPAY ==
--- OUTSIDE RECORDS SUMMARY | 2024-06-28 14:00 | XMS_ITS | Encounter Summary ---
Author Organization [facility] Address [address] [place] [address] Care Team Providers Care Turf Farmer Name Role Phone Cary Ocasio MD Primary Care Provider [phone] Reason for Visit * Reason Comments Routine Visit Encounter Details Date Type Department Care Team (Late st Contact Info) Description 06/28/2024 2:00 PM EDT Routine [facility] OB [address] [place] [address] Laura Guardado, HAND BOOTMAKER [address] [facility] [place] [address] Third trimester ; 37 weeks gestation of Social History Tobacco Use Types Packs/Day Years Used Date Smoking Tobacco: Every Day Cigarettes Smokeless Tobacco: Never Alcohol Use Standard Drinks/Week Comments Yes 0 (1 standard drink = 0.6 oz pur e alcohol) once a month PHQ-2 Answer Date Recorded Patient Health Questionnaire-2 Score 0 07/08/2022 Estimated Date of Delivery Comme nts Yes 07/18/2024 Based on last me nstrual period of 10/12/2023 Sex and Gender Information Value Date Recorded Sex Assigned at Not on file Legal Sex Female 7:13 PM EDT Gender Identity Female 04/29/2022 7:13 PM EDT Sexual Orientation Not on file documented as of this encounter Last Filed Vital Signs Vital Sign Reading Time Taken Comments Blood Pressure 124/78 06/28/2024 2:14 PM EDT Pulse - - Temperature - - Respiratory Rate - - Oxygen Saturation - - Inhaled Oxygen Concentration - - Weight 79.8 kg (176 lb) 06/28/2024 2:14 PM EDT Height - - Body Mass Index 28.84 07/08/2022 3:21 PM EDT documented in this encounter Progress Notes * Laura Guardado NP - 06/28/2024 2:00 PM EDT Reason for Appointment: Patient ID: Felipe Carranza is a 23 y.o. female who presents for Routine Visit Patient presents today for Return OB appointment. MEDICATIONS Current Outpatient Medications Medication Instructions vitamin (Prenatabs Rx) 29-1 MG tablet 1 tablet, Oral, Daily ALLERGIES No Known Allergies PROBLEMS Active Ambulatory Problems Diagnosis Date Noted Anxiety disorder 07/08/2022 Mood disorder (CMS/HCC) 07/08/2022 Cannabis use, 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[facility]/HCC) 07/08/2022 Moderate episode of recurrent major depressive disorder ([facility]/HCC) 07/08/2022 Oppositional defiant disorder ([facility]) 07/08/2022 Other atopic dermatitis 07/08/2022 Toxic effect of ethyl alcohol ([facility]/HCC) 07/08/2022 16 weeks gestation of 02/07/2024 Second [...] nursing note reviewed. Exam conducted with a air bag builder present. Vitals: Estimated body mass index is 28.68 kg/m?? as calculated from the following: Height as of 07/08/22: 5' 5.5 . Weight as of 06/21/24: 175 lb. BP: Patient's last menstrual period was 10/12/2023. ASSESSMENT & PLAN ICD-10-CM 1. Third trimester Z34.93 CANCELED: POCT urinalysis dipstick manually resulted 2. 37 weeks gestation of Z3A.37 Return OB: Patient presents today for a routine obstetrics appointment. Patient is currently 37w1d . Patient states she is doing well but has complaints of being tired due to current and having mild contractions. Patient would like for Laura to check her cervix to see if she has any dilation. Patient has verbalizes frequent movement. labor precautions was discussed/given and patient was instructed to perform kick counts three times a day. No orders of the defined types were placed in this encounter. Follow Up: Patient is to return to office in 1 week for routine OB appointment. Documented by Meaghan Prado MA on behalf of: Laura Guardado NP documented in this encounter Plan of Treatment Not on file documented as of this encounter Visit Diagnoses Diagnosis Third trimester state, incidental 37 weeks gestation of documented in this encounter Care Teams Turf Farmer Relationship Specialty Start Date End Date Cary Ocasio MD [address] [place] [address] PCP - General Family Medicine 07/07/22 documented as of this encounter
--- OUTSIDE RECORDS SUMMARY | 2024-07-06 10:50 | XMS_ITS | Encounter Summary ---
Author Organization [facility] Address [address] [place] [address] Care Team Providers Care Tip Finisher Name Role Phone Cary Ocasio MD Primary Care Provider [phone] Reason for Visit * Reason Comments Routine Visit Encounter Details Date Type Department Care Team (Late st Contact Info) Description 07/06/2024 10:50 AM EDT Routine [facility] OB [address] [place] [id number] Daphnie Morrow PA [address] [place] [address] Third trimester ; 38 weeks gestation of Social History Tobacco Use [...] Sign Reading Time Taken Comments Blood Pressure 120/80 07/06/2024 11:25 AM EDT Pulse - - Temperature - - Respiratory Rate - - Oxygen Saturation - - Inhaled Oxygen Concentration - - Weight 81.8 kg (180 lb 4 oz) 07/06/2024 11:25 AM EDT Height - - Body Mass Index 29.54 07/08/2022 3:21 PM EDT documented in this encounter Progress Notes * RAJIV Hernandez - 07/06/2024 10:50 AM EDT Reason for Appointment: Patient ID: Felipe Carranza is a 23 y.o. female who presents for Routine Visit Patient presents today for Return OB appointment. MEDICATIONS Current Outpatient Medications Medication Instructions vitamin (Prenatabs Rx) 29-1 MG tablet 1 tablet, Oral, Daily ALLERGIES No Known Allergies PROBLEMS Active Ambulatory Problems Diagnosis Date Noted Anxiety disorder 07/08/2022 Mood disorder ([facility]/HCC) 07/08/2022 Cannabis use, 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[facility]) 07/08/2022 Moderate episode of recurrent major depressive disorder ([facility]) 07/08/2022 Oppositional defiant disorder ([facility]) 07/08/2022 Other atopic dermatitis 07/08/2022 Toxic effect of ethyl alcohol ([facility]) 07/08/2022 16 weeks gestation of 02/07/2024 Second [...] reviewed. Vitals: Estimated body mass index is 29.54 kg/m?? as calculated from the following: Height as of 07/08/22: 5' 5.5 . Weight as of this encounter: 180 lb 4 oz. BP: 120/80 Patient's last menstrual period was 10/12/2023. ASSESSMENT & PLAN ICD-10-CM 1. Third trimester Z34.93 POCT urinalysis dipstick manually resulted 2. 38 weeks gestation of Z3A.38 Return OB: Patient presents today for a routine obstetrics appointment. Patient is currently 38w2d . Patient states she is doing well [...] of: RAJIV Hernandez documented in this encounter Plan of Treatment Not on file documented as of this encounter Procedures Procedure Name Priority Date/Time Associated Diagnosis Comments POCT URINALYSIS DIPSTICK Routine 07/06/2024 12:00 PM EDT Third trimester documented in this encounter Results * POCT urinalysis dipstick manually resulted (07/06/2024 12:00 PM EDT) Color, UA Yellow Clarity, UA Clear Glucose, UA Negative Negative - 2000(110) ++++ mg/dL Bilirubin, UA Negative Negative - 4(70) +++ mg/dL Ketones, UA Negative Negative - 160(16) ++++ mg/dL Spec Grav, UA 1.020 1 - 1.03 Blood, UA Negative Negative - 50 Haroon/mcL pH, UA 7.0 5 - 9 Protein, UA Negative Negative - 1999(20) ++++ mg/dL Urobilinogen, UA 2.0 0.2 - 12 mg/dL Leukocytes, UA Positive Negative - 500+++ Robert/mcL Nitrite, UA Negative Negative - Positive Urine 07/06/2024 12:0 0 PM EDT Daphnie VANCE POINT OF CARE TEST ENTER/EDIT OR DERABLES Final Result documented in this encounter Visit Diagnoses Diagnosis Third trimester state, incidental 38 weeks gestation of documented in this encounter Care Teams Tip Finisher Relationship Specialty Start Date End Date Cary Ocasio MD [address] [place] [address] PCP - General Family Medicine 07/07/22 documented as of this encounter
[2024-07-12] VITALS (41 sets, daily range): BP systolic 89–142; BP diastolic 47–85; PULSE 67–116; TEMP 36.3–36.6
--- OUTSIDE RECORDS SUMMARY | 2024-07-12 05:22 | XMS_ITS | Encounter Summary ---
Author Organization [facility] Address [address] [facility] [place] [address] Care Team Providers Care Community Life Director Name Role Phone Cary Ocasio MD Primary Care Provider Encounter Details Date Type Department Care Team (Late st Contact Info) Description 06/28/2024 Bamboo flowsheet [facility] OB [address] [address] Laura Guardado, APPLICATIONS SYSTEMS ANALYST [address] [place] [address] Social History Tobacco Use Types Packs/Day Years [...] on file documented as of this encounter Plan of Treatment Not on file documented as of this encounter Visit Diagnoses Not on filedocumented in this encounter Care Teams Community Life Director Relationship Specialty Start Date End Date Cary Ocasio MD [address] [facility] [place], [place] [id number] PCP - General Family Medicine 07/07/22 documented as of this encounter
--- OUTSIDE RECORDS SUMMARY | 2024-07-12 05:22 | XMS_ITS | Encounter Summary ---
Author Organization [facility] Address [address] [facility] [place] [address] Care Team Providers Care Product Developer Name Role Phone Cary Ocasio MD Primary Care Provider Encounter Details Date Type Department Care Team (Late st Contact Info) Description 12/09/2023 Abstract [facility] OB [address] [place] [phone] Chino Laguna, DO [address] [place] [address] Social History Tobacco Use Types Packs/Day Years [...] on filedocumented in this encounter Care Teams Product Developer Relationship Specialty Start Date End Date Cary Ocasio MD [address] [facility] [place], [place] [id number] PCP - General Family Medicine 07/07/22 documented as of this encounter
--- OUTSIDE RECORDS SUMMARY | 2024-07-12 05:22 | XMS_ITS | Clinical Summary ---
Author Organization [facility] Address [address] [place] [address] Care Team Providers Care Vp Product Marketing Name Role Phone Cary Shaw MD Primary Care Pr ovider Allergies No known active allergies Medications No known medications Active Problems Problem Noted Date Diagnosed Date Recurrent UTI Social History Tobacco Use Types Packs/Day Years Used Date Smoking Tobacco: Never Assessed Comments Unknown Sex and Gender Information Value Date Recorded Sex Assigned at Not on file Legal Sex Female 9:20 AM EST Gender Identity Not on file Sexual Orientation Not on file Last Filed Vital Signs Vital Sign Reading Time Taken Comments Blood Pressure 110/59 10/21/2011 10:09 AM EDT Pulse 95 10/21/2011 10:09 AM EDT Temperature 36.8 C (98.2 F) 10/21/2011 10:09 AM EDT Respiratory Rate - - Oxygen Saturation - - Inhaled Oxygen Concentration - - Weight 31.3 kg (69 lb) 10/21/2011 10:09 AM EDT Height 141 cm (4' 7.51 ) 10/21/2011 10:09 AM EDT Body Mass Index 15.74 10/21/2011 10:09 AM EDT Plan of Treatment Not on file Insurance MD BCBS Care Teams Vp Product Marketing Relationship Specialty Start Date End Date Cary Shaw MD PCP - General 10/13/11
--- OUTSIDE RECORDS SUMMARY | 2024-07-12 05:22 | XMS_ITS | Clinical Summary ---
Author Organization [facility] Address [id number] [place] [address] Care Team Providers Care Associate Financial Representative Name Role Phone Pcp, Not In System Primary Care Provider Unavail able Allergies No known active allergies Medications ondansetron ODT (ZOFRAN ODT) 4 mg disintegrating tablet Dissolve 1 tablet (4 mg total) on tongue every 8 (eight) hours as needed for nausea for up to 10 doses. 10 tablet 09/26/19 Active Additional Information Patient not taking.Reported on 04/24/2024 CEPHalexin (KEFLEX) 250 mg capsule Take 1 capsule (250 mg total) by mouth 3 (three) times a day. Urinary tract infection diagnosed at another facility Active Active Problems Problem Noted Date Diagnosed Date Vaginal bleeding in 04/24/2024 Non-intractable vomiting 09/25/2021 Gastroenteritis 09/25/2021 Cannabinoid hyperemesis syndrome 09/25/2021 Estimated Date of Delivery Comme nts Yes 07/18/2024 Date entered lucy or to episode creation Encounters Date Type Department Care Team Description 04/24/2024 8:15 PM EDT - 04/24/2024 9:36 PM EDT Hospital Encounter [facility] [address] [place] [address] Sandie Antonio, TWILA-JONNY Discharge Disposition: Home 04/24/2024 Travel from Last 3 Months Social History Tobacco Use Types Packs/Day Years Used Date Smoking Tobacco: Former Vaping/E-cigarettes Quit: 12/2023 Smokeless Tobacco: Never Tobacco Cessation:Counseling Given: Not Answered Alcohol Use Standard Drinks/Week Comments Not Currently 0 (1 standard drink = 0.6 oz pur e alcohol) Overall Financial Resource Strain (CARDIA) Answe r Date Recorded How hard is it for you to pa y for the very basics like food, housing, medical care, and heating? Not very hard 04/24/2024 PRAPARE - Transportation Answer Date Re corded In the past 12 months, has l ack of transportation kept you from medical appointments or from getting medications? No 04/15 In the past 12 months, has l ack of transportation kept you from meetings, work, or from getting things needed for daily living? No 04/24/2024 Housing Instability Answer Date Recorde d Are you worried or concerned that in the next two months you may not have stable housing that you own, rent or stay in as a part of a household? No 04/24/2024 Childcare Answer Date Recorded Childcare Unknown 07/27/2018 Employment Answer Date Recorded Employment Unknown 07/27/2018 Hunger Screening Answer Date Recorded Within the past 12 months we worried whether our food would run out before we got money to buy more. Never True 04/24/2024 Within the past 12 months th e food we bought just didn't last and we didn't have money to get more. Never True 04/24/2024 Estimated Date of Delivery Comme nts Yes 07/18/2024 Date entered lucy or to episode creation Sex and Gender Information Value Date Recorded Sex Assigned at Not on file Legal Sex Female 12:01 PM EDT Gender Identity Not on file Sexual Orientation Not on file Last Filed Vital Signs Vital Sign Reading Time Taken Comments Blood Pressure 113/69 04/24/2024 8:28 PM EDT Pulse 99 04/24/2024 8:28 PM EDT Temperature 37.1 C (98.8 F) 04/24/2024 8:28 PM EDT Respiratory Rate 16 04/24/2024 8:28 PM EDT Oxygen Saturation 97% 04/24/2024 8:28 PM EDT Inhaled Oxygen Concentration - - Weight 71.7 kg (158 lb) 04/24/2024 8:53 PM EDT Height 167.6 cm (5' 6 ) 04/24/2024 8:53 PM EDT Body Mass Index 25.5 04/24/2024 8:53 PM EDT Plan of Treatment Not on file Medical Devices Not on file Insurance * Guarantor: Felipe Carranza Account Type Relation to Patient Date of Phone Billing Address Personal/Family Self 2000 [address] [place] [address] [employer] Member Subscriber Plan / Payer (Ef fective 2019-Present) Name:Felipe Carranza Relation to Subscriber:Child Name:MIRNAVIANCA Date of :1978 (Home) Address: [address] [place] [address] Payer ID:[id number] (NAIC) Type:Not on file Address: [facility] [address] [place] [address] Care Teams Associate Financial Representative Relationship Specialty Start Date End Date Pcp, [place] [address] PCP - General Family Medicine 09/25/21
--- OUTSIDE RECORDS SUMMARY | 2024-07-12 05:22 | XMS_ITS | Encounter Summary ---
Author Organization [facility] Address [address] [facility] [place] [address] Care Team Providers Care Agriculture Specialist Name Role Phone Cary Ocasio MD Primary Care Provider Encounter Details Date Type Department Care Team (Late st Contact Info) Description 01/10/2024 Abstract [facility] OB [address] [place] [phone] Chino Laguna, DO [address] [place] [address] Social History Tobacco Use Types Packs/Day Years [...] on filedocumented in this encounter Care Teams Agriculture Specialist Relationship Specialty Start Date End Date Cary Ocasio MD [address] [facility] [place], [place] [phone] PCP - General Family Medicine 07/07/22 documented as of this encounter
--- OUTSIDE RECORDS SUMMARY | 2024-07-12 05:22 | XMS_ITS | Encounter Summary ---
Author Organization [facility] Address [address] [facility] [place] [address] Care Team Providers Care Title I Assistant Name Role Phone Cary Ocasio MD Primary Care Provider [phone] Encounter Details Date Type Department Care Team (Late st Contact Info) Description 07/06/2024 Bamboo flowsheet [facility] OB [address] [facility] [place] [address] Daphnie Morrow PA [address] [facility] [address] [place], [facility] Social History Tobacco Use Types Packs/Day Years [...] on filedocumented in this encounter Care Teams Title I Assistant Relationship Specialty Start Date End Date Cary Ocasio MD [address] [facility] [place], [place] [id number] PCP - General Family Medicine 07/07/22 documented as of this encounter
--- OUTSIDE RECORDS SUMMARY | 2024-07-12 05:22 | XMS_ITS | CCD ---
Author Organization [facility] CliniSyri Care Team Providers Care [employer] Client [employer] Consultant Name Role Phone ELINOR PALOMO Consulting ELINOR Ford Admitting Unavailable ELINOR PALOMO Attending Unavailable Cary Turner MD Primary Care Provider PCP, NOT IN SYSTEM Primary Care Unavailable HELLEN VERDIN Attending Unavailable PCP, NOT IN SYSTEM Primary Care Unavailable SANDIE RIOS Admitting Unavailable SANDIE RIOS Attending Unavailable PCP, NOT IN SYSTEM Primary Care Unavailable EBONY LAGUNA Attending Unavailable LUZ ELENA, EBONY Attending Unavailable GEO, LAURA Attending Unavailable GEOLAURA JAIMES Attending Unavailable JUSTO, DAPHNIE Attending Unavailable LUZ ELENA, EBONY Referring Unavailable JUSTO DAPHNIE Attending Unavailable LUZ ELENA, EBONY Attending Unavailable LUZ ELENA, EBONY Attending Unavailable JUSTO, DAPHNIE Attending Unavailable LUZ ELENA, EBONY Attending Unavailable Medications Current Medications Medication Drug [...] [30 weeks gestation of ] 05-11-2024 Episodic Residual codes; unclassified (2 sources) Gestation period, 33 weeks; Translations: [33 weeks gestation of ] 05-31-2024 Episodic Residual codes; unclassified (2 sources) Gestation period, 35 weeks; Translations: [35 weeks gestation of ] 06-15-2024 Episodic Residual codes; unclassified (2 sources) Gestation period, 36 weeks; Translations: [36 weeks gestation of ] 06-21-2024 Episodic Residual codes; unclassified (2 sources) Gestation period, 37 weeks; Translations: [37 weeks gestation of ] 06-28-2024 Episodic Unclassified (1 source) Ill Onset: 12-28-2023 [...] Test Name Value Interpretation Reference Range Facility STREP GP B CULTURE+RFLXon STREP GP B CULTURE+RFLX Strep Gp B Culture+Rflx [facility] STREP GP B CULTURE+RFLX Negative [facility] STREP GP B CULTURE+RFLX Centers for Disease Control and Prevention (CDC) and [facility] STREP GP B CULTURE+RFLX [employer] [facility] STREP GP B CULTURE+RFLX (ACOG) guidelines for prevention of group B [facility] STREP GP B CULTURE+RFLX streptococcal (GBS) disease specify co-collection of [facility] STREP GP B CULTURE+RFLX a vaginal and rectal swab specimen to maximize [facility] STREP GP B CULTURE+RFLX sensitivity of GBS detection. Per the CDC and ACOG, [facility] STREP GP B CULTURE+RFLX swabbing both the lower vagina and rectum [facility] STREP GP B CULTURE+RFLX substantially increases the yield of detection [facility] STREP GP B CULTURE+RFLX compared with sampling the vagina alone. [facility] STREP GP B CULTURE+RFLX Penicillin G, ampicillin, or cefazolin are indicated [facility] STREP GP B CULTURE+RFLX for intrapartum prophylaxis of GBS [facility] STREP GP B CULTURE+RFLX colonization. Reflex susceptibility testing should be [facility] STREP GP B CULTURE+RFLX performed prior to use of clindamycin only on GBS [facility] STREP GP B CULTURE+RFLX isolates from penicillin-allergic women who are [facility] STREP GP B CULTURE+RFLX considered a high risk for anaphylaxis. Treatment with [facility] STREP GP B CULTURE+RFLX vancomycin without additional testing is warranted if [facility] STREP GP B CULTURE+RFLX resistance to clindamycin is noted. [facility] STREP GP B CULTURE+RFLX Performed at: - [facility] STREP GP B CULTURE+RFLX [address] [place], [place] [id number] [facility] STREP GP B CULTURE+RFLX Nozzle Worker: Colten Caceres PhD, Phone: [phone] [facility] Urinalysis macro (dipstick) panel (U)on 06-15-2024 Bilirubin, UA Negative Negative - 4(70) +++ mg/dL [facility] Blood, UA Negative Negative - 50 [place]/mcL [facility] Clarity, UA Clear [facility] Color, UA Yellow [facility] Glucose, UA Negative Negative - 2000(110) ++++ mg/dL [facility] Interpretation and review of laboratory results Abnormal [facility] Ketones, UA Positive Negative - 160(16) ++++ mg/dL [facility] Comment on above: Trace Leukocytes, UA Negative Negative - 500+++ Robert/mcL [facility] Nitrite, UA Negative Negative - Positive [facility] pH, UA 7 5 - 9 [facility] Protein, UA Positive Negative - 2000(20) ++++ mg/dL [facility] Comment on above: 30mg/dL Spec Grav, UA 1.025 1 - 1.03 [facility] Urobilinogen, UA 2.0 0.2 - 12 mg/dL [facility] US OB FOLLOW UP TRANSABDOMIN AL APPROACHon 05-31-2024 US OB FOLLOW UP TRANSABDOMINAL APPROACH EXAM: US OB FOLLOW UP TRANSABDOMINAL APPROACH HISTORY: Inconsistent size. COMPARISON: Ob ultrasound 03/15/2024. TECHNIQUE: Two-dimensional transabdominal grayscale ultrasound imaging of the pelvis was performed. FINDINGS: Gestation: Single Presentation: Cephalic Cardiac Activity: 122 beats per minute Placental Location: Posterior with no sonographic abnormalities identified. Cervical canal: Not visualized Amniotic Fluid Index: 11.6 cm MEASUREMENTS: BPD: 8.2 cm EGA: 33 weeks 0 days HC: 30.3 cm EGA: 33 weeks 5 days AC: 29.3 cm EGA: 33 weeks 2 days FL: 6.5 cm EGA: 33 weeks 3 days HC/AC Ratio: 1.04 The gestational age by today's ultrasound is 33 weeks 3 days (+/- 16 days gestation). Estimated Weight: 2170 grams, +/- 326 grams ( 4 lb 13 oz). Weight Percentile for gestational age: 47 % IMPRESSION: 1. Single, live intrauterine gestation 33 weeks, 1 days by LMP. Today's ultrasound measurements correlate with a gestational age of 33 weeks 3 days. Estimated weight is 2170 grams, +/- 326 grams ( 4 lb 13 oz) which correlates to 47 %. ROD is 07/16/2024. Interpreted by: Electronically signed by DARIEN MCCLELLAND II, MD, PHD at 31-May-2024 11:26:04 PM [facility] Normal Not Available Comment on above: Order Comment: US OB SCAN FOR GROWTH Estimated Date of Delivery: 07/18/24 Gestational Age as of 05/11/2024: 33w0d Urinalysis macro (dipstick) panel (U)on 05-31-2024 Bilirubin, UA Negative Negative - 4(70) +++ mg/dL [facility] Blood, UA Negative Negative - 50 Haroon/mcL [facility] Clarity, UA Clear [facility] Color, UA Yellow [facility] Glucose, UA Negative Negative - 1999(110) ++++ mg/dL [facility] Interpretation and review of laboratory results Normal [facility] Ketones, UA Positive Negative - 160(16) ++++ mg/dL [facility] Comment on above: trace Leukocytes, UA Negative Negative - 500+++ Robert/mcL [facility] Nitrite, UA Negative Negative - Positive [facility] pH, UA 5.5 5 - 9 [facility] Protein, UA Trace Negative - 2000(20) ++++ mg/dL [facility] Spec Grav, UA 1.03 1 - 1.03 [facility] Urobilinogen, UA 0.2 0.2 - 12 mg/dL [facility] GLUCOSE TOLERANCE 3 HOURon 0 05-25-2024 GLUCOSE TOLERANCE 3 HOUR mg/dL [facility] Comment on above: GLU FAST 81 (<95) Co l: 05/25/24 0754 GLU 1HR 114 (<180) Col: 05/25/24 0858 GLU 2HR 102 (<155) Col: 05/25/24 0958 GLU 3HR 72 (<140) Col: 05/25/24 1058 [facility] OB GROWTHon 04-27-2024 [place] [id number] Ultrasound Report Signed Patient: EVELYN BRADLEY MR#: [id number] : 2000 Acct:[id number] Age/Sex: 23 / F ADM Date: 04/27/24 Loc: US Attending Dr: Daphnie Kemp Ordering Physician: Daphnie Kemp Date of Service: 04/27/24 Procedure(s): US OB growth Accession Number(s): [id number] cc: Daphnie Kemp; CARY TURNER [address] [address] Patient Name: EVELYN BRADLEY MRN: [id number] date: 2000 Sex: F Assigned Patient Location: US Current Patient Location: US Accession/Order Number: [id number] Exam Date: 04/27/2024 11:30 Report Date: 04/27/2024 [...] Ml Hoyt M.D.04/27/2024 11:35 AM Dictation Location: [place] [address] Electronically authenticated by: [id number] Y Date: 04/27/2024 11:35 Dictated By: Ml Hoyt M.D. Signed By: 04/27/24 1137 DD/ 1135 TD/TT: Bid Clerk: [facility] Radiology, Radiologist, MD - 04/27/2024 [place] [address] Ultrasound Report Signed Patient: EVELYN BRADLEY MR#: [id number] : 2000 Acct:[id number] Age/Sex: 23 / F ADM Date: 04/27/24 Loc: US Attending Dr: Daphnie Kemp Ordering Physician: Daphnie Kemp Date of Service: 04/27/24 Procedure(s): US OB growth Accession Number(s): [id number] cc: Daphnie Kemp; CARY TURNER [place] [id number] Patient Name: EVELYN BRADLEY MRN: [facility]:[id number] date: 2000 Sex: F Assigned Patient Location: US Current Patient Location: US Accession/Order Number: [id number] Exam Date: 04/27/2024 11:30 Report Date: 04/27/2024 [...] Ml Hoyt M.D.04/27/2024 11:35 AM Dictation Location: [place] [address] Electronically authenticated by: [id number] Y Date: 04/27/2024 11:35 Dictated By: Ml Hoyt M.D. Signed By: 04/27/24 1137 DD/ 1135 TD/TT: Bid Clerk: [facility] Radiology Study observation (narrative) [facility] OB GROWTHOrdered By: Yaakov [email or web address] Radiology on 04-27-2024 [facility] Work Phone: Urinalysis macro (dipstick) panel (U)on 04-27-2024 Bilirubin, UA Negative Negative - 4(70) +++ mg/dL [facility] Blood, UA Negative Negative - 50 [place]/mcL [facility] Clarity, UA Cloudy [facility] Color, UA Yellow [facility] Glucose, UA Negative Negative - 2000(110) ++++ mg/dL [facility] Interpretation and review of laboratory results Abnormal [facility] Ketones, UA Negative Negative - 160(16) ++++ mg/dL [facility] Leukocytes, UA Positive Negative - 500+++ Robert/mcL [facility] Comment on above: small Nitrite, UA Negative Negative - Positive [facility] pH, UA 7 5 - 9 [facility] Protein, UA Positive Negative - 2000(20) ++++ mg/dL [facility] Comment on above: 30mg/dL Spec Grav, UA 1.02 1 - 1.03 [facility] Urobilinogen, UA 1.0 0.2 - 12 mg/dL [facility] ALL CBC WITH AUTO DIFFon BASOPHILS ABSOLUTE AUTO 0.1 [facility] Basophils/100 WBC (Bld) 0.5 % 0.2 - 2.0 % [facility] Eosinophils/100 WBC (Bld) 0.9 % 0.9 - 7.0 % [facility] Erythrocyte distribution width (RBC) [Ratio] 11.9 % 11.0 - 15.0 % [facility] Hematocrit (Bld) [Volume fraction] 36 % 36.0 - 48.0 % [facility] Hemoglobin (Bld) [Mass/Vol] 12.7 g/dL 12.0 - 16.0 g/dL [facility] IMMATURE GRANULOCYTES ABS AUTO 0.07 High [facility] Immature granulocytes/100 WBC (Bld) 0.7 % High 0.0 - 0.5 % [facility] Interpretation and review of laboratory results Abnormal [facility] LYMPHOCYTES ABSOLUTE AUTO 1.6 [facility] Lymphocytes/100 WBC (Bld) 15.4 % Low 20.5 - 60.0 % [facility] MCH (RBC) [Entitic mass] 33.1 pg 26.7 - 34.0 pg [facility] MCHC (RBC) [Mass/Vol] 35.3 g/dL High 29.9 - 35.2 g/dL [facility] MCV (RBC) [Entitic vol] 93.8 fL 81.0 - 99.0 fL [facility] MONOCYTES ABSOLUTE AUTO 0.4 [facility] Monocytes/100 WBC (Bld) 3.5 % 1.7 - 12.0 % [facility] NEUTROPHILS ABSOLUTE AUTO 8.4 High [facility] Neutrophils/100 WBC (Bld) 79 % High 43.0 - 75.0 % [facility] Platelet mean volume (Bld) [Entitic vol] 10 fL 9.5 - 13.5 fL [facility] EO # 0.1 [facility] PLT 212 [facility] RBC 3.84 Low [facility] WBC 10.6 [facility] US OB 14+ WEEKS ANATOMY SCAN on [...] report is generated using voice recognition reporting ([employer]). On occasion [employer] erroneously drops words from the report or [...] UA Negative Negative - 4(70) +++ mg/dL [facility] Blood, UA Negative Negative - 50 [place]/mcL [facility] Clarity, UA Clear [facility] Color, UA Yellow [facility] Glucose, UA Negative Negative - 1999(110) ++++ mg/dL [facility] Interpretation and review of laboratory results Abnormal [facility] Ketones, UA Negative Negative - 160(16) ++++ mg/dL [facility] Leukocytes, UA Positive Negative - 500+++ Robert/mcL [facility] Comment on above: small Nitrite, UA Negative Negative - Positive [facility] pH, UA 7.5 5 - 9 [facility] Protein, UA Negative Negative - 2000(20) ++++ mg/dL [facility] Spec Grav, UA 1.02 1 - 1.03 [facility] Urobilinogen, UA 1.0 0.2 - 12 mg/dL [facility] UA (CLEAN/CATCH) CEMENT SIDE LASTER/FABIOLA RO IF IND.on 03-13-2024 BILIRUBIN URINE Negative NEGATIVE [facility] BLOOD URINE TRACE-I NEGATIVE [facility] Clarity (U) CLEAR CLEAR [facility] Color (U) LT. YELLOW YELLOW [facility] GLUCOSE URINE UA Negative NEGATIVE mg/dL [facility] Interpretation and review of laboratory results Abnormal [facility] Ketones Ql (U) TRACE Abnormal NEGATIVE mg/dL [facility] Leukocyte esterase Test strip Ql (U) LARGE Abnormal NEGATIVE [facility] NITRITE URINE Negative NEGATIVE [facility] pH (U) 6.0 [pH] 5.0 - 9.0 [facility] PROTEIN URINE Negative NEG/TRACE mg/dL [facility] SPECIFIC GRAVITY URINE 1.020 1.005 - 1.025 [facility] URINE MICROSCOPIC INDICATED YES [facility] UROBILINOGEN URINE 0.2 EU/dL 0.2 - 1.0 EU/dL [facility] URN MACROSCOPIC NURon 2024 BILIRUBIN DANIEL Negative Normal NEG [facility] Comment on above: Performed By: #### N UM #### [facility] ([id number]) [address] [place] [address], [place] [address] BLOOD/HGB DANIEL Trace Abnormal NEG [facility] Comment on above: Performed By: #### N UM #### [facility] ([id number]) [address] [place] [address] GLUCOSE DANIEL Negative Normal NEG [facility] Comment on above: Performed By: #### N UM #### [facility] ([id number]) [address] [place] [address] KETONES DANIEL 15 mg/dL Abnormal NEG [facility] Comment on above: Performed By: #### N UM #### [facility] ([id number]) [address] [place] [address] LEUKOCYTE ESTERASE DANIEL Negative Normal NEG [facility] Comment on above: Performed By: #### N UM #### [facility] ([id number]) [address] [place] [address] NITRITE DANIEL Negative Normal NEG [facility] Comment on above: Performed By: #### N UM #### [facility] ([id number]) [address] [place] [address] PH DANIEL 6.0 Normal 5.0-8.5 [facility] Comment on above: Performed By: #### N UM #### [facility] ([id number]) [address] [place] [address] PROTEIN DANIEL Negative Normal NEG [facility] Comment on above: Performed By: #### N UM #### [facility] ([id number]) [address] [place] [address] SPECIFIC GRAVITY DANIEL 1.025 Normal 1.003-1.035 [facility] Comment on above: Performed By: #### N UM #### [facility] ([id number]) [address] [place] [address] UROBILINOGEN DANIEL 0.2 eu/dL Normal <1.1 [facility] Comment on above: Performed By: #### N #### [facility] ([id number]) [address] [place] [address], [place] [address] IGP,APTIMA HPV,AGE GDLNon AGE GDLN ACOG TESTING Note . [facility] Comment on above: TESTS RESULT FLAG UN ITS REF RANGE LAB Clinician Provided Cytology Information Source.............Cervix No. of containers..01 ThinPrep Vial Age Algo ACOG Mariam... FLAG LEGEND: L-Low Normal,H-High Normal,LL-Alert Low,HH-Alert High <-Panic Low,>-Panic High,A-Abnormal,AA-Critical Abnormal Performed at: 01 =G [address] [address] Yael Field MD, IGP, RFX APTIMA HPV ASCU Note . [facility] Comment on above: TESTS RESULT FLAG U NITS REF RANGE LAB DIAGNOSIS: 02 NEGATIVE FOR INTRAEPITHELIAL LESION OR MALIGNANCY. REACTIVE CELLULAR CHANGES AND/OR REPAIR ARE PRESENT. Specimen adequacy: 02 Satisfactory for evaluation. No endocervical component is identified. Performed by: 02 Lenin Walters, Copper Plate Printer (ASC) Electronically si... 02 Yael Field MD, [...] <-Panic Low,>-Panic High,A-Abnormal,AA-Critical Abnormal Performed at: [address] [place] [address] Yael Field MD, Performed at: =G - [facility] [address], [place] [id number] Nozzle Worker: Yael Field MD, Phone: [phone] Performed at: - [facility] [id number] Nozzle Worker: Yael Field MD, Phone: [phone] SPATULA-ALONE CERVIX [facility] AFP, SERUM, OPEN SPINA BIFID Aon 02-13-2024 AFP MOM 0.91 . [facility] AFP VALUE 37.9 ng/mL . [facility] COMMENT: Comment . [facility] Comment on above: Giana Tenorio , Ph.D., [facility] Director References: Available Upon Request. Multiples Of Median Cutoffs For AFP Elevations Mares 2.5 Black 2.8 IDD 2.0 Twins 4.5 Abbreviation Definitions IDD - Insulin Dep Diabetes OSBR - Open Spina Bifida Risk For further inquiries contact [facility] at [phone]. This test was developed and its performance characteristics determined by [employer]. It has not been cleared or approved by the Food and Drug Administration. Performed at: [facility] [address] [facility], [place], [place] [id number] Nozzle Worker: Junior Munoz [facility], Phone: [phone] GEST. AGE ON COLLECTION DATE 17.4 . weeks [facility] GESTAT. AGE BASED ON LMP . [facility] Comment on above: Recalculations are n ot recommended when gestational dating by LMP and ultrasound are within 10 days. INSULIN DEP DIABETES No . [facility] INTERPRETATION Comment . [facility] Comment on above: Interpretation: [...] Customer Services to discuss available options. The [employer] recommends amniocentesis be offered to women age 35 and older. [age] [facility] MULTIPLE GESTATION No . [facility] [place] [phone] . [facility] RACE . [facility] RESULTS Report . [facility] TEST RESULTS: Negative . [facility] WEIGHT 139 . lbs [facility] N N LMP [id number] 16 N 1 Y 139 N N N N N White/ [facility] RECURRENT VAGINITIS (HTRX)on 02-11-2024 ATOPOBIUM VAGINAE 0 [facility] ATOPOBIUM VAGINAE Not detected [facility] BVAB 2,3 (BACTERIAL VAGINOSIS ASSOCIATED BACTERIA 2, 3); MOBILUNCUS SPP 0 [facility] BVAB 2,3 (BACTERIAL VAGINOSIS [...] UA Negative Negative - 4(70) +++ mg/dL [facility] Work Phone: Blood, UA Negative Negative - 50 [place]/mcL [facility] Work Phone: Clarity, UA Clear [facility] Work Phone: Color, UA Yellow [facility] Work Phone: Glucose, UA Negative Negative - 1999(110) ++++ mg/dL [facility] Work Phone: Interpretation and review of laboratory results Normal [facility] Work Phone: Ketones, UA Negative Negative - 160(16) ++++ mg/dL [facility] Work Phone: Leukocytes, UA Negative Negative - 500+++ Robert/mcL [facility] Work Phone: Nitrite, UA Negative Negative - Positive [facility] Work Phone: pH, UA 7.5 5 - 9 [facility] Work Phone: Protein, UA Negative Negative - 2000(20) ++++ mg/dL [facility] Work Phone: Spec Grav, UA 1.02 1 - 1.03 [facility] Work Phone: Urobilinogen, UA 1.0 0.2 - 12 mg/dL [facility] Work Phone: [facility] Work Phone: Urinalysis macro (dipstick) panel (U)on 01-10-2024 Bilirubin, UA Negative Negative - 4(70) +++ mg/dL [facility] Blood, UA Positive Negative - 50 [place]/mcL [facility] Comment on above: trace Clarity, UA Clear [facility] Color, UA Yellow [facility] Glucose, UA Negative Negative - 1999(110) ++++ mg/dL [facility] Interpretation and review of laboratory results Abnormal [facility] Ketones, UA Negative Negative - 160(16) ++++ mg/dL [facility] Leukocytes, UA Negative Negative - 500+++ Robert/mcL [facility] Nitrite, UA Negative Negative - Positive [facility] pH, UA 7 5 - 9 [facility] Protein, UA Negative Negative - 1999(20) ++++ mg/dL [facility] Spec Grav, UA 1.025 1 - 1.03 [facility] Urobilinogen, UA 0.2 0.2 - 12 mg/dL [facility] CANNABINOID CONF, MS, URon 1 03-09-2023 CANNABINOID Positive Abnormal . [facility] CARBOXY THC CONF, MS, UR 446 ng/mL Cutoff=10 [facility] Comment on above: Performed at: [facility] [address] [place], [place] [id number] Nozzle Worker: Bala Carpenter PhD, Phone: [phone] Interpretation and review of laboratory results Abnormal [facility] ALL RUBELLA IGG ABon 024 RUBELLA ANTIBODIES, IGG 2.02 Immune >0.99 index [facility] Comment on above: Non-immune <0.90 Equivocal 0.90 - 0.99 Immune >0.99 Performed at: [facility] [address] [id number] Nozzle Worker: Colten Caceres PhD, Phone: [phone] HBSAG SCREENon 01-04-2024 HBSAG SCREEN Negative Negative [facility] Comment on above: Performed at: [address] [id number] Nozzle Worker: Colten Caceres PhD, Phone: [phone] HCV ANTIBODY RFX TO QUANT PC Kevin 01-04-2024 HCV AB Non-Reactive Non Reactive [facility] INTERPRETATION: Comment . [facility] Comment on above: Not infected with HC V unless early or acute infection is suspected (which may be delayed in an immunocompromised individual), or other evidence exists to indicate HCV infection. HIV AB/P24 AG WITH REFLEXon 01-04-2024 HIV AB/P24 AG SCREEN Non-Reactive Non Reactive [facility] Comment on above: HIV-1/HIV-2 antibodi es and HIV-1 p24 antigen were NOT detected. There is no laboratory evidence of HIV infection. HIV Negative Performed at: [address] [id number] Nozzle Worker: Colten Caceres PhD, Phone: [phone] No Panel Informationon 01-03 [facility] RAPID PLASMA REAGIN, QUANTon 01-04-2024 RAPID PLASMA REAGIN, QUANT Non-Reactive NonRea<1:1 titer [facility] Comment on above: Please Note: This te st does not meet current guidelines for screening and diagnosis of syphilis. This test is intended for following treatment response in patients being treated for syphilis infection. To screen for syphilis infection, a reflex cascade that includes both RPR and a treponema-specific assay should be utilized, such as Treponema pallidum (Syphilis) Screening [place] (643722) or Rapid Plasma Reagin (RPR) Test With Reflex to Quantitative RPR and Confirmatory Treponema pallidum Antibodies (192898). Performed at: [address] [id number] Nozzle Worker: Colten Caceres PhD, Phone: [phone] URINE CULTURE, ROUTINEon Bacteria identified Cx Nom (U) Urine Culture, Routine [facility] Bacteria identified Cx Nom (U) Mixed urogenital татьяна [facility] Bacteria identified Cx Nom (U) Less than 10,000 colonies/mL [facility] Bacteria identified Cx Nom (U) Performed at: [facility] Bacteria identified Cx Nom (U) [address] [place], [place] [id number] [facility] Bacteria identified Cx Nom (U) Nozzle Worker: Colten Caceres PhD, Phone: [phone] [facility] WITH AUTO DIFFon BASOPHILS ABSOLUTE AUTO 0 [facility] Basophils/100 WBC (Bld) 0.3 % 0.2 - 2.0 % [facility] Eosinophils/100 WBC (Bld) 2.2 % 0.9 - 7.0 % [facility] Erythrocyte distribution width (RBC) [Ratio] 11.9 % 11.0 - 15.0 % [facility] Hematocrit (Bld) [Volume fraction] 37 % 36.0 - 48.0 % [facility] Hemoglobin (Bld) [Mass/Vol] 13 g/dL 12.0 - 16.0 g/dL [facility] IMMATURE GRANULOCYTES ABS AUTO 0.04 High [facility] Immature granulocytes/100 WBC (Bld) 0.3 % 0.0 - 0.5 % [facility] Interpretation and review of laboratory results Abnormal [facility] LYMPHOCYTES ABSOLUTE AUTO 1.4 [facility] Lymphocytes/100 WBC (Bld) 11.9 % Low 20.5 - 60.0 % [facility] MCH (RBC) [Entitic mass] 32.9 pg 26.7 - 34.0 pg [facility] MCHC (RBC) [Mass/Vol] 35.1 g/dL 29.9 - 35.2 g/dL [facility] MCV (RBC) [Entitic vol] 93.7 fL 81.0 - 99.0 fL [facility] MONOCYTES ABSOLUTE AUTO 0.4 [facility] Monocytes/100 WBC (Bld) 3.4 % 1.7 - 12.0 % [facility] NEUTROPHILS ABSOLUTE AUTO 9.5 High [facility] Neutrophils/100 WBC (Bld) 81.9 % High 43.0 - 75.0 % [facility] Platelet mean volume (Bld) [Entitic vol] 10.9 fL 9.5 - 13.5 fL [facility] TBH EO # 0.3 [facility] PLT 232 [facility] RBC 3.95 Low [facility]H WBC 11.7 High [facility] ALL TYPE AND SCREENon 2023 ABO and Rh group Nom (Bld) Blood group O Rh(D) positive [facility] BOX TESTon 01-03-2024 BOX TEST SENT OUT [facility] BOX1 [facility] BOX2 01/03/24 [facility] HEMOGLOBIN A1Con 024 Glucose [Mass/Vol] 82 mg/dL [facility] HbA1c (Bld) [Mass fraction] 4.5 % 4.5 - 6.2 % [facility] Comment on above: ADA RECOMMENDED LIMI T 4.0 - 6.0 ADA THERAPEUTIC TARGET < 7.0 ACTION SUGGESTED > 7.0 [facility] RAPID (URINE )on 01-03-2024 AMPHETAMINE SCREEN URINE Negative NEGATIVE [facility] BARBITURATES SCREEN URINE Negative NEGATIVE [facility] BENZODIAZEPINES SCREEN URINE Negative NEGATIVE [facility] BUPRENORPHINE SCREEN URINE Negative NEGATIVE [facility] Comment on above: DRUG [...] ng/mL CANNABINOID SCREEN URINE Positive Abnormal NEGATIVE [facility] COCAINE SCREEN URINE Negative NEGATIVE [facility] Interpretation and review of laboratory results Abnormal [facility] METHADONE SCREEN URINE Negative NEGATIVE [facility] METHAMPHETAMINES SCREEN URINE Negative NEGATIVE [facility] OPIATE SCREEN URINE Negative NEGATIVE [facility] OXYCODONE SCREEN URINE Negative NEGATIVE [facility] PHENCYCLIDINE SCREEN URINE Negative NEGATIVE [facility] TRICYCLIC ANTIDEPRESSANT URINE Negative NEGATIVE [facility] BASIC METABOLIC PANLon 12-27 Anion gap [Moles/Vol] 8 mmol/L Normal 5-15 [facility] Comment on above: Performed By: #### C MARY GRACE, SHWETA, 46196-4 #### [facility] ([id number]) [address] [place] [address]26 Calcium [Mass/Vol] 8.4 mg/dL Low 8.5-10.5 [facility] Comment on above: Performed By: #### C SHWETA BRODY, 21031-0 #### [facility] ([id number]) [address] [place] [address]388 Chloride [Moles/Vol] 107 mmol/L Normal 98-109 [facility] Comment on above: Performed By: #### C SHWETA BRODY, 22477-4 #### [facility] ([id number]) [address] [place] [address] 29357 CO2 [Moles/Vol] 22 mmol/L Normal 22-32 [facility] Comment on above: Performed By: #### C SHWETA BRODY, 01760-9 #### [facility] ([id number]) [address] [place] [address] 02815 Creatinine [Mass/Vol] 0.38 mg/dL Low 0.40-1.00 [facility] Comment on above: Result Comment: METH OD TRACEABLE TO IDMS STANDARD Performed By: #### C SHWETA BRODY, 53569-6 #### [facility] ([id number]) [address] [place] [address]229 eGFR (CKD-EPI) NON-RACE DEPENDENT >90 Normal >59 [facility] Comment on above: Result Comment: Reported eGFR is based on the CKD-EPI 2021 equation that does not use a race coefficient. Performed By: #### C SHWETA BRODY, 76061-1 #### [facility] ([id number]) [address] [place] [address] 81527 Glucose [Mass/Vol] 67 mg/dL Normal 65-99 [facility] Comment on above: Performed By: #### C SHWETA BRODY, 88876-1 #### [facility] ([id number]) [address] [place] [address] 04218 Potassium [Moles/Vol] 3.3 mmol/L Low 3.5-5.0 [facility] Comment on above: Performed By: #### SHWETA De La Cruz BCA, 43848-3 #### [facility] ([id number]) [address] [place] [address]33 Sodium [Moles/Vol] 137 mmol/L Normal 134-146 [facility] Comment on above: Performed By: #### SHWETA De La Cruz BCA, 09373-1 #### [facility] ([id number]) [address] [place] [address] 72324 Urea nitrogen [Mass/Vol] 11 mg/dL Normal 5-23 [facility] Comment on above: Performed By: #### SHWETA De La Cruz BCA, 16525-3 #### [facility] ([id number]) [address] [place] [address] 97915 CBC AND AUTO DIFFon 12-28-19 24 ABSOLUTE BASOPHIL 0.0 X10E9/L Normal 0.0-0.2 [facility] Comment on above: Performed By: #### SHWETA De La Cruz BCA, 29964-9 #### [facility] ([id number]) [address] [place] [address] 89774 ABSOLUTE NEUTROPHIL 5.6 X10E9/L Normal 1.5-6.6 [facility] Comment on above: Performed By: #### SHWETA De La Cruz BCA, 50876-6 #### [facility] ([id number]) [address] [place] [address] 30472 Basophils/100 WBC (Bld) 0.6 % Normal [facility] Comment on above: Performed By: #### SHWETA De La Cruz BCA, 00510-9 #### [facility] ([id number]) [address] [place] [address] 71645 Eosinophils (Bld) [#/Vol] 0.1 10*3/uL Normal 0.0-0.4 [facility] Comment on above: Performed By: #### SHWETA De La Cruz BCA, 10943-6 #### [facility] ([id number]) [address] [place] [address] 59775 Eosinophils/100 WBC (Bld) 0.8 % Normal [facility] Comment on above: Performed By: #### Dorothy BRODY [facility], 24581-3 #### [facility] ([id number]) [address] [place] [address] 09384 Erythrocyte distribution width (RBC) [Ratio] 12.4 % Normal 11.5-15.0 [facility] Comment on above: Performed By: #### SHWETA De La Cruz BCA, 68730-1 #### [facility] ([id number]) [address] [place] [address]0728 Hematocrit (Bld) [Volume fraction] 33.5 % Low 35-47 [facility] Comment on above: Performed By: #### Dorothy BRODY [facility], 36076-4 #### [facility] ([id number]) [address] [place] [address]109 Hemoglobin (Bld) [Mass/Vol] 11.7 g/dL Normal 11.7-15.5 [facility] Comment on above: Performed By: #### SHWETA De La Cruz BCA, 96679-8 #### [facility] ([id number]) [address] [place] [address] 87007 Lymphocytes (Bld) [#/Vol] 1.5 10*3/uL Normal 1.0-3.5 [facility] Comment on above: Performed By: #### SHWETA De La Cruz BCA, 01414-8 #### [facility] ([id number]) [address] [place] [address] 29052 Lymphocytes/100 WBC (Bld) 19.7 % Normal [facility] Comment on above: Performed By: #### SHWETA De La Cruz BCA, 12020-4 #### [facility] ([id number]) [address] [place] [address] 51243 MCH (RBC) [Entitic mass] 32.9 pg Normal 27-34 [facility] Comment on above: Performed By: #### SHWETA De La Cruz BCA, 87438-9 #### [facility] ([id number]) [address] [place] [address] 85146 MCHC (RBC) [Mass/Vol] 35.1 g/dL Normal 32-36 [facility] Comment on above: Performed By: #### SHWETA De La Cruz BCA, 30261-6 #### [facility] ([id number]) [address] [place] [address] 23370 MCV (RBC) [Entitic vol] 94 fL Normal 80-100 [facility] Comment on above: Performed By: #### SHWETA De La Cruz BCA, 93215-4 #### [facility] ([id number]) [address] [place] [address] 29634 Monocytes (Bld) [#/Vol] 0.3 10*3/uL Normal 0-0.9 [facility] Comment on above: Performed By: #### SHWETA De La Cruz BCA, 98075-9 #### [facility] ([id number]) [address] [place] [address] 97948 Monocytes/100 WBC (Bld) 4.2 % Normal [facility] Comment on above: Performed By: #### SHWETA De La Cruz BCA, 29674-5 #### [facility] ([id number]) [address] [place] [address] 81741 Neutrophils/100 WBC (Bld) 74.7 % Normal [facility] Comment on above: Performed By: #### SHWETA De La Cruz BCA, 59944-7 #### [facility] ([id number]) [address] [place] [address] 71548 Platelet mean volume (Bld) [Entitic vol] 9.1 fL Normal 7-12 [facility] Comment on above: Performed By: #### SHWETA De La Cruz BCA, 54629-5 #### [facility] ([id number]) [address] [place] [address] 46332 Platelets (Bld) [#/Vol] 195 10*3/uL Normal 150-450 [facility] Comment on above: Performed By: #### SHWETA De La Cruz BCA, 54130-9 #### [facility] ([id number]) [address] [place] [address] 56919 RBC COUNT 3.57 X10E12/L Low 3.80-5.20 [facility] Comment on above: Performed By: #### SHWETA De La Cruz BCA, 43315-3 #### [facility] ([id number]) [address] [place] [address] 61254 WBC (Bld) [#/Vol] 7.5 10*3/uL Normal 4.0-11.0 [facility] Comment on above: Performed By: #### SHWETA De La Cruz BCA, 10413-4 #### [facility] ([id number]) [address] [place] [address] 33537 Troponin I.cardiac High sens itivity method [Mass/Vol]on 12-28-2023 1 HOUR TROP I, HIGH SENSITIVITY <2 Normal <16 [facility] Comment on above: Performed By: #### 8 9579-7 #### [facility] ([id number]) [address] [place] [address] 41813 TROPONIN I, HIGH SENSITIVITY <2 Normal <16 [facility] Comment on above: Performed By: #### SHWETA De La Cruz BCA, 22891-4 #### [facility] ([id number]) [address] [place] [address], [place] [address] HCG ( test) Ql (U)o n 12-09-2023 Interpretation and review of laboratory results Abnormal [facility] Preg Test, Ur Positive [facility] Urinalysis macro (dipstick) panel (U)on 12-09-2023 Bilirubin, UA Negative Negative - 4(70) +++ mg/dL [facility] Blood, UA Negative Negative - 50 Haroon/mcL [facility] Clarity, UA Clear [facility] Color, UA Yellow [facility] Glucose, UA Negative Negative - 1999(110) ++++ mg/dL [facility] Interpretation and review of laboratory results Normal [facility] Ketones, UA Negative Negative - 160(16) ++++ mg/dL [facility] Leukocytes, UA Negative Negative - 500+++ Robert/mcL [facility] Nitrite, UA Negative Negative - Positive [facility] pH, UA 7.5 5 - 9 [facility] Protein, UA Negative Negative - 1999(20) ++++ mg/dL [facility] Spec Grav, UA 1.015 1 - 1.03 [facility] Urobilinogen, UA 0.2 0.2 - 12 mg/dL [facility] ACETAMINOPHENon 01-23-2019 Acetaminophen [Mass/Vol] <1.0 Critically low 10.1-30.0 [facility] Comment on above: Performed By: #### A CET #### [facility] [address] [place], [place] [address] Lou Ml CBC AUTO DIFFon 01-23-2019 Basophils (Bld) [#/Vol] 0.1 103/ul Normal 0.0-0.1 [facility] Comment on above: Performed By: #### C BC #### [facility] [address] [place], [place] [address] Lou Ml Basophils/100 WBC (Bld) 0.7 % Normal 0.2-2.0 [facility] Comment on above: Performed By: #### C BC #### [facility] [address] [place], [place] [address] Lou Ml Eosinophils (Bld) [#/Vol] 0.1 103/ul Normal 0.0-0.7 [facility] Comment on above: Performed By: #### C BC #### [facility] [address] [place], [place] [address] Lou Ml Eosinophils/100 WBC (Bld) 1.0 % Normal 0.9-7.0 [facility] Comment on above: Performed By: #### C BC #### [facility] [address] [place], [place] [address] Lou Ml Erythrocyte distribution width (RBC) [Ratio] 12.2 % Normal 11.0-15.0 [facility] Comment on above: Performed By: #### C BC #### [facility] [address] [place], [place] [address] Lou Ml Hematocrit (Bld) [Volume fraction] 37.6 % Normal 36.0-48.0 [facility] Comment on above: Performed By: #### C BC #### [facility] [address] [place] [address] Lou Ml Hemoglobin (Bld) [Mass/Vol] 13.0 g/dL Normal 12.0-16.0 [facility] Comment on above: Performed By: #### C BC #### [facility] [address] [place], [place] [address] Lou Ml IG # 0.03 10e3/ul Normal 0.00-0.03 [facility] Comment on above: Performed By: #### C BC #### [facility] [address] [place] [address] Lou Ml IG % 0.3 % Normal 0.0-0.5 [facility] Comment on above: Performed By: #### C BC #### [facility] [address] [place], [place] [phone] Lou Ml Lymphocytes (Bld) [#/Vol] 2.9 103/ul Normal 1.2-3.8 [facility] Comment on above: Performed By: #### C BC #### [facility] [address] [place] [address] Lou Ml Lymphocytes/100 WBC (Bld) 32.3 % Normal 20.5-60.0 [facility] Comment on above: Performed By: #### C BC #### [facility] [address] [place], [place] [address] Lou Ml MANUAL DIFF REQ NO Normal [facility] Comment on above: Performed By: #### C BC #### [facility] [address] [place], [place] [address] Lou Ml MCH (RBC) [Entitic mass] 31.6 pg Normal 26.7-34.0 [facility] Comment on above: Performed By: #### C BC #### [facility] [address] [place], [place] [address] Lou Ml MCHC (RBC) [Mass/Vol] 34.6 g/dL Normal 29.9-35.2 [facility] Comment on above: Performed By: #### C BC #### [facility] [address] [place], [place] [phone] Lou Ml MCV (RBC) [Entitic vol] 91.5 fL Normal 79.1-95.6 [facility] Comment on above: Performed By: #### C BC #### [facility] [address] [place] [address] Lou Ml Monocytes (Bld) [#/Vol] 0.6 103/ul Normal 0.3-0.8 [facility] Comment on above: Performed By: #### C BC #### [facility] [address] [place] [address] Lou Ml Monocytes/100 WBC (Bld) 6.4 % Normal 1.7-12.0 [facility] Comment on above: Performed By: #### C BC #### [facility] [address] [place] [address] Lou Ml Neutrophils (Bld) [#/Vol] 5.3 103/ul Normal 1.4-6.5 [facility] Comment on above: Performed By: #### C BC #### [facility] [address] [place] [address] Lou Ml Neutrophils/100 WBC (Bld) 59.3 % Normal 43.0-75.0 [facility] Comment on above: Performed By: #### C BC #### [facility] [address] [place] [phone] Lou Ml Platelet mean volume (Bld) [Entitic vol] 10.6 fL Normal 9.5-13.5 [facility] Comment on above: Performed By: #### C BC #### [facility] [address] [place] [phone] Lou Ml Platelets (Bld) [#/Vol] 220 103/ul Normal 150-450 [facility] Comment on above: Performed By: #### C BC #### [facility] [address] [place], [place] [address] Lou Ml RBC (Bld) [#/Vol] 4.11 106/ul Normal 3.40-5.30 [facility] Comment on above: Performed By: #### C BC #### [facility] [address] [place], [place] [address] Lou Ml WBC (Bld) [#/Vol] 8.9 103/ul Normal 4.0-11.0 [facility] Comment on above: Performed By: #### C BC #### [facility] [address] [place], [place] [address] Lou Bull DRUG SCREEN RAPID (URINE)on 01-23-2019 AMP Negative Normal NEGATIVE [facility] Comment on above: Performed By: #### D RUGRPD #### [facility] [address] [place], [place] [address] Lou Ml BAR Negative Normal NEGATIVE [facility] Comment on above: Performed By: #### D RUGRPD #### [facility] [address] [place], [place] [address] Luo Ml BUP Negative Normal NEGATIVE [facility] Comment on above: Performed By: #### D RUGRPD #### [facility] [address] [place] [address] Lou Ml BZO Negative Normal NEGATIVE [facility] Comment on above: Performed By: #### D RUGRPD #### [facility] [address] [place], [place] [address] Lou Ml BRITTON Negative Normal NEGATIVE [facility] Comment on above: Performed By: #### D RUGRPD #### [facility] [address] [place] [address] Lou Ml CUT-OFFS SEE BELOW Normal [facility] Comment on above: Result Comment: AMP (Amphetamine): [...] ng/mL Performed By: #### D RUGRPD #### [facility] [address] [place] [address] DRUG CUT HEADER DRUG CLASS TEST SYST EM CUT-OFF CONCENTRATIONS ARE FOLLOWS: Normal [facility] Comment on above: Performed By: #### D RUGRPD #### [facility] [address] [place] [address] Lou Ml mAMP Negative Normal NEGATIVE [facility] Comment on above: Performed By: #### D RUGRPD #### [facility] [address] [place] [address] Lou Ml MTD Negative Normal NEGATIVE [facility] Comment on above: Performed By: #### D RUGRPD #### [facility] [address] [place] [address] Lou Ml OPI Negative Normal NEGATIVE [facility] Comment on above: Performed By: #### D RUGRPD #### [facility] [address] [place] [address] Lou Ml OXY Negative Normal NEGATIVE [facility] Comment on above: Performed By: #### D RUGRPD #### [facility] [address] [place], [place] [phone] Lou Bull PCP Negative Normal NEGATIVE [facility] Comment on above: Performed By: #### D RUGRPD #### [facility] [address] [place] [address] Lou Bull PPX Negative Normal NEGATIVE [facility] Comment on above: Performed By: #### D RUGRPD #### [facility] Laboratory [address] [place], [place] [id number] Lourex Bull TCA Negative Normal NEGATIVE [facility] Comment on above: Performed By: #### D RUGRPD #### [facility] Laboratory [address] [place] [address] Lourex Bull THC Positive Normal NEGATIVE [facility] Comment on above: Performed By: #### D RUGRPD #### [facility] Laboratory [address] [place] [address] Lou Bull ETHANOL (BLD ALC)on 01-24-20 19 Ethanol [Mass/Vol] mg/dL Normal [facility] Comment on above: Performed By: #### E TH #### [facility] Laboratory [address] [place], [place] [id number] Lou Ml Ethanol [Mass/Vol] NOTE: 80 mg/dl is th e legal limit for a blood alcohol level Normal [facility] Comment on above: Performed By: #### E TH #### [facility] Laboratory [address] [place] [address] Lou Bull URon 01-23-2019 , QUAL Negative Normal NEGATIVE [facility] Comment on above: Performed By: #### P REGU #### [facility] Laboratory [address] [place], [place] [id number] Lou Bull PROF 14(COMP METB)on 019 Age - Reported Normal [facility] Comment on above: Performed By: #### C MP #### [facility] Laboratory [address] [place], [place] [phone] Lou Ml Albumin [Mass/Vol] 4.3 g/dL Normal 3.5-5.0 [facility] Comment on above: Performed By: #### C MP #### [facility] Laboratory [address] [place] [address] Lou Ml Albumin/Globulin [Mass ratio] 1.6 {ratio} Normal [facility] Comment on above: Performed By: #### C MP #### [facility] Laboratory [address] [place], [place] [id number] Lou Ml ALP [Catalytic activity/Vol] 66 U/L Normal 65-260 [facility] Comment on above: Performed By: #### C MP #### [facility] Laboratory [address] [id number] Lou Ml ALT [Catalytic activity/Vol] 22 U/L Normal 9-52 [facility] Comment on above: Performed By: #### C MP #### [facility] Laboratory [address] [place], [place] [phone] Lou Ml Anion gap [Moles/Vol] 11.4 mmol/L Normal [facility] Comment on above: Performed By: #### C MP #### [facility] Laboratory [address] [place], [place] [phone] Lou Ml AST [Catalytic activity/Vol] 16 U/L Normal 14-36 [facility] Comment on above: Performed By: #### C MP #### [facility] Laboratory [address] [place], [place] [phone] Lou Ml Bilirubin Ql (U) 0.6 mg/dL Normal 0.2-1.3 [facility] Comment on above: Performed By: #### C MP #### [facility] Laboratory [address] [place], [place] [phone] Lou Ml Calcium [Mass/Vol] 9.7 mg/dL Normal 8.4-10.2 [facility] Comment on above: Performed By: #### C MP #### [facility] Laboratory [address] [place], [place] [address] Lou Ml Chloride [Moles/Vol] 103 mmol/L Normal 98-107 [facility] Comment on above: Performed By: #### C MP #### [facility] Laboratory [address] [place], [place] [address] Lou Ml CO2 [Moles/Vol] 27.2 mmol/L Normal 22.0-30.0 [facility] Comment on above: Performed By: #### C MP #### [facility] Laboratory [address] [phone] Lou Ml Creatinine [Mass/Vol] 0.59 mg/dL Normal 0.52-1.04 [facility] Comment on above: Performed By: #### C MP #### [facility] Laboratory [address] [id number] Lou Ml EGFR-AF IRAQI Normal >=60 [facility] Comment on above: Performed By: #### C MP #### [facility] Laboratory [address] [address] Lou Ml EGFR-NON AF IRAQI Normal >=60 [facility] Comment on above: Performed By: #### C MP #### [facility] Laboratory [address] [place] [address] Lou Ml Globulin (S) [Mass/Vol] 2.7 g/dL Normal [facility] Comment on above: Performed By: #### C MP #### [facility] Laboratory [address] [place] [address] Lou Ml Glucose [Mass/Vol] 90 mg/dL Normal 74-106 [facility] Comment on above: Performed By: #### C MP #### [facility] Laboratory [address] [place] [address] Lou Ml Potassium [Moles/Vol] 3.6 mmol/L Normal 3.4-5.0 [facility] Comment on above: Performed By: #### C MP #### [facility] Laboratory [address] [place] [address] Lou Ml Protein [Mass/Vol] 7.0 g/dL Normal 6.1-8.2 [facility] Comment on above: Performed By: #### C MP #### [facility] Laboratory [address] [place], [place] [phone] Lou Ml Sodium [Moles/Vol] 138 mmol/L Normal 137-145 [facility] Comment on above: Performed By: #### C MP #### [facility] Laboratory [address] [place] [address] Lou Bull Urea nitrogen [Mass/Vol] 16.0 mg/dL Normal 6.4-19.3 [facility] Comment on above: Performed By: #### C MP #### [facility] Laboratory [address] [address] Lou Bull Urea nitrogen/Creatinine [Mass ratio] 27.1 mg/mg Normal [facility] Comment on above: Performed By: #### C MP #### [facility] Laboratory [address] [address] Lou Bull SALICYLATEon 01-23-2019 SALICYLATE 6.5 mg/dL Normal <=20.0 [facility] Comment on above: Performed By: #### S ALYC #### [facility] Laboratory [address] [address] Lou Bull Vital Signs Date Time Vital Sign Value Performing Clinician Cynthia mayen 06-28-2024 14:14-0400 Body mass index (BMI) [Ratio] 28.84 kg/m2 Laura Guardado INSULATION EXTRUDER OPERATOR Work Phone: [facility] 06-28-2024 14:14-0400 Body weight 79.83 kg Laura Guardado INSULATION EXTRUDER OPERATOR Work Phone: [facility] 06-28-2024 14:14-0400 Diastolic blood pressure 78 mm[Hg] Laura Guardado INSULATION EXTRUDER OPERATOR Work Phone: [facility] 06-28-2024 14:14-0400 Systolic blood pressure 124 mm[Hg] Laura Guardado INSULATION EXTRUDER OPERATOR Work Phone: [facility] 06-21-2024 14:35-0400 Body mass index (BMI) [Ratio] 28.68 kg/m2 Ebony Luz Elena DO Work Phone: [facility] 06-21-2024 14:35-0400 Body weight 79.38 kg Ebony Luz Elena DO Work Phone: [facility] 06-21-2024 14:35-0400 Diastolic blood pressure 84 mm[Hg] Ebony Luz Elena DO Work Phone: [facility] 06-21-2024 14:35-0400 Systolic blood pressure 130 mm[Hg] Ebony Luz Elena DO Work Phone: [facility] 06-15-2024 14:47-0400 Body mass index (BMI) [Ratio] 28.74 kg/m2 Laurakeith Guardado INSULATION EXTRUDER OPERATOR Work Phone: [facility] 06-15-2024 14:47-0400 Body weight 79.55 kg Laura Guardado INSULATION EXTRUDER OPERATOR Work Phone: [facility] 06-15-2024 14:47-0400 Diastolic blood pressure 64 mm[Hg] Laura Geo INSULATION EXTRUDER OPERATOR Work Phone: [facility] 06-15-2024 14:47-0400 Systolic blood pressure 100 mm[Hg] Laura Geo INSULATION EXTRUDER OPERATOR Work Phone: [facility] 05-31-2024 14:54-0400 Body mass index (BMI) [Ratio] 28.35 kg/m2 Ebony Luz Elena DO Work Phone: [facility] 05-31-2024 14:54-0400 Body weight 78.47 kg Ebony Luz Elena DO Work Phone: [facility] 05-31-2024 14:54-0400 Diastolic blood pressure 70 mm[Hg] Ebony Luz Elena DO Work Phone: [facility] 05-31-2024 14:54-0400 Systolic blood pressure 118 mm[Hg] Ebony Luz Elena DO Work Phone: [facility] 05-11-2024 08:30-0400 Body mass index (BMI) [Ratio] 27.2 kg/m2 Ebony Luz Elena DO Work Phone: [facility] 05-11-2024 08:30-0400 Body weight 75.3 kg Ebony Luz Elena DO Work Phone: [facility] 05-11-2024 08:30-0400 Diastolic blood pressure 60 mm[Hg] Ebony Luz Elena DO Work Phone: [facility] 05-11-2024 08:30-0400 Systolic blood pressure 108 mm[Hg] Ebony Luz Elena DO Work Phone: [facility] 04-27-2024 13:35-0400 Body mass index (BMI) [Ratio] 26.52 kg/m2 Daphnie Justo PA Work Phone: [facility] 04-27-2024 13:35-0400 Body weight 73.39 kg Daphnie Justo PA Work Phone: [facility] 04-27-2024 13:35-0400 Diastolic blood pressure 60 mm[Hg] Daphnie Coalgate PA Work Phone: [facility] 04-27-2024 13:35-0400 Systolic blood pressure 110 mm[Hg] Daphnie Justo PA Work Phone: [facility] 04-13-2024 09:42-0500 Body mass index (BMI) [Ratio] 26.01 kg/m2 Daphnie Coalgate PA Work Phone: [facility] 04-13-2024 09:42-0500 Body weight 71.99 kg Daphnie Justo PA Work Phone: [facility] 04-13-2024 09:42-0500 Diastolic blood pressure 66 mm[Hg] Daphnie Justo PA Work Phone: [facility] 04-13-2024 09:42-0500 Systolic blood pressure 108 mm[Hg] Daphnie Justo PA Work Phone: [facility] 03-15-2024 15:58-0500 Body mass index (BMI) [Ratio] 24.81 kg/m2 Ebony Luz Elena DO Work Phone: [facility] 03-15-2024 15:58-0500 Body weight 68.67 kg Ebony Luz Elena DO Work Phone: [facility] 03-15-2024 15:58-0500 Diastolic blood pressure 64 mm[Hg] Ebony Luz Elena DO Work Phone: [facility] 03-15-2024 15:58-0500 Systolic blood pressure 104 mm[Hg] Ebony Luz Elena DO Work Phone: [facility] 02-07-2024 10:59-0500 Body mass index (BMI) [Ratio] 22.84 kg/m2 Daphnie VANCE Work Phone: [facility] 02-07-2024 10:59-0500 Body weight 63.23 kg Daphnie Jeronimoog VANCE Work Phone: [facility] 02-07-2024 10:59-0500 Diastolic blood pressure 70 mm[Hg] Daphnie Jeronimoey PA Work Phone: [facility] 02-07-2024 10:59-0500 Systolic blood pressure 110 mm[Hg] Daphnie Coalgate PA Work Phone: [facility] 12-09-2023 14:51-0400 Body mass index (BMI) [Ratio] 22.12 kg/m2 Noms Nurse [facility] 12-09-2023 14:51-0400 Body weight 61.24 kg Noms Nurse [facility] 12-09-2023 14:51-0400 Diastolic blood pressure 66 mm[Hg] Noms Nurse [facility] 12-09-2023 14:51-0400 Systolic blood pressure 100 mm[Hg] Nom Nurse [facility] Healthcare Encounters Encounter Date Encounter Type Care Provider Facility Start: 06-28-2024 End: 06-28-2024 Bamboo flowsheet Laura Guardado INSULATION EXTRUDER OPERATOR Work Phone: [facility] Start: 06-28-2024 End: 06-28-2024 Bamboo flowsheet Laura Guardado INSULATION EXTRUDER OPERATOR Work Phone: [facility] Start: 06-28-2024 End: 06-28-2024 flow sheet Laura Guardado INSULATION EXTRUDER OPERATOR Work Phone: [facility] Comment on above: Third trimester preg carlos alberto; 37 weeks gestation of Start: 06-28-2024 End: 06-28-2024 ambulatory LAURA GUARDADO Not Available Start: 06-21-2024 End: 06-21-2024 Bamboo flowsheet Ebony Luz Elena DO Work Phone: [facility] Start: 06-21-2024 End: 06-26-2024 Bamboo flowsheet Ebony Luz Elena DO Work Phone: [facility] Start: 06-21-2024 End: 06-26-2024 Clinisync Result Encounter Generic External Data Provider [facility] Unsolicited Start: 06-21-2024 End: 06-21-2024 flow sheet Ebony Luz Elena DO Work Phone: [facility] Comment on above: Third trimester preg carlos alberto; 36 weeks gestation of Start: 06-21-2024 End: 06-21-2024 ambulatory EBONY LUZ ELENA Not Available Start: 06-15-2024 End: 06-15-2024 flow sheet Laura Geo INSULATION EXTRUDER OPERATOR Work Phone: [facility] Comment on above: 35 weeks gestation o f ; Third trimester Start: 06-15-2024 End: 06-15-2024 ambulatory LAURA GEO Not Available Start: 06-15-2024 End: 06-15-2024 Bamboo flowsheet Laura Geo INSULATION EXTRUDER OPERATOR Work Phone: [facility] Start: 06-15-2024 End: 06-15-2024 Bamboo flowsheet Laura Geo INSULATION EXTRUDER OPERATOR Work Phone: [facility] Start: 05-31-2024 End: 05-31-2024 flow sheet Ebony Luz Elena DO Work Phone: [facility] Comment on above: Third trimester preg carlos alberto; 33 weeks gestation of Start: 05-31-2024 End: 05-31-2024 ambulatory EBONY LUZ ELENA Not Available Start: 05-25-2024 End: 05-25-2024 Clinisync Result Encounter Ebony Luz Elena DO Work Phone: [facility] Unsolicited Start: 05-25-2024 End: 05-25-2024 Clinisync Result Encounter Ebony Luz Elena DO Work Phone: [facility] Unsolicited Start: 05-11-2024 End: 05-11-2024 Bamboo flowsheet Ebony Luz Elena DO Work Phone: [facility] Start: 05-11-2024 End: 05-11-2024 Bamboo flowsheet Ebony Luz Elena DO Work Phone: [facility] Start: 05-11-2024 End: 05-11-2024 flow sheet Ebony Luz Elena DO Work Phone: [facility] Comment on above: Third trimester preg carlos alberto; 30 weeks gestation of Start: 05-11-2024 End: 05-11-2024 ambulatory EBONY LUZ ELENA Not Available Start: 04-27-2024 End: 04-27-2024 Clinisync Result Encounter Generic External Data Provider [facility] Unsolicited Start: 04-27-2024 End: 04-27-2024 Clinisync Result Encounter Generic External Data Provider [facility] Unsolicited Start: 04-27-2024 End: 04-27-2024 flow sheet Daphnie VANCE Work Phone: [facility] Comment on above: Third trimester preg carlos alberto; 28 weeks gestation of ; Urinary tract infection in mother during third trimester of Start: 04-27-2024 End: 04-27-2024 ambulatory DAPHNIE KEMP Not Available Start: 04-24-2024 End: 04-24-2024 ambulatory [facility] Start: 04-18-2024 End: 04-18-2024 Clinisync Result [...] Emergency department patient visit NOT IN SYSTEM [facility] Start: 02-11-2024 End: 02-13-2024 Clinisync Result Encounter [...] department patient visit NOT IN SYSTEM PCP [facility] Start: 12-09-2023 End: 12-09-2023 ambulatory [facility] Luz Elena Nurse [facility] Comment on above: GA: 8w2d Start: 01-23-2019 End: 01-23-2019 Patient encounter procedure ELINOR PALOMO Facility:[facility] Procedures Date Procedure Procedure Detail Performing Clinician Start: 06-21-2024 STREP GP B CULTURE+RFLX Generic External Data Provider Start: 06-15-2024 Urnls dip stick/tabl et rgnt non-auto w/o micrscp Laura Guardado NP Work Phone: Start: 05-31-2024 Urnls dip stick/tabl et rgnt non-auto w/o micrscp Ebony Luz Elena DO Work Phone: Start: 05-25-2024 GLUCOSE TOLERANCE 3 HOUR Generic External Data Provider Start: 04-27-2024 Urnls dip stick/tabl et rgnt non-auto w/o micrscp Daphnie VANCE Work Phone: Start: 04-27-2024 US OB GROWTH Generic Ex ternal Data Provider Start: 04-18-2024 ALL CBC WITH AUTO DIFF Ebony Luz Elena DO Work Phone: Start: 03-15-2024 Urnls dip stick/tabl et rgnt non-auto w/o micrscp Ebony Luz Elena DO Work Phone: Start: 03-13-2024 [facility] UA (CLEAN/CATCH) CEMENT SIDE LASTER/MICRO IF IND. Ebony Luz Elena DO Work [...] ALL TYPE AND SCREEN Cor ey Luz Eelna DO Work Phone: Start: 01-03-2024 BOX TEST [...] [facility] DRUG SCREEN RAPI D (URINE) Ebony Totsy DO Work Phone: Start: 12-09-2023 Urnls dip stick/tabl et rgnt non-auto w/o micrscp Ebony Totsy DO Work Phone: Plan of Treatment Date Care Activity Detail Author Start: 10-16-2024 Influenza vaccination Influenz a Vaccine (Season Ended) [facility] Start: 06-28-2024 End: 06-28-2024 Patient encounter procedure [facility] Comment on above: Arrived Start: 06-21-2024 End: 06-21-2025 CULTURE, GROUP B STREP WITH SUSCEPTIBLITY CULTURE, GROUP B STREP WITH SUSCEPTIBLITY Lab Routine Third trimester Expected: 06/21/2024, Expires: 06/21/2025 [facility] Work Phone: Comment on above: Expected: 06/21/2024 , Expires: 06/21/2025 Start: 06-21-2024 End: 06-21-2024 Patient encounter procedure [facility] Comment on above: Arrived Start: 06-15-2024 End: 06-15-2024 Patient encounter procedure [facility] Comment on above: Arrived Start: 05-31-2024 End: 05-31-2024 Patient encounter procedure 05/31/2024 2:40 PM EDT Routine [facility] [address] [place] [phone] Ebony Laguna, DO [address] [place] [address] [facility] Start: 05-31-2024 End: 05-31-2024 Professional / ancillary services management 05/31/2024 2:00 PM EDT Ancillary Procedure [facility] [address] [phone] [facility] Start: 05-29-2024 End: 05-29-2024 Patient encounter procedure 05/29/2024 9:40 AM EDT Routine [facility] [address] [place] [address] Ebony Laguna DO [address] [facility] [place] [address] [facility] Start: 05-29-2024 End: 05-29-2024 Professional / ancillary services management 05/29/2024 9:00 AM EDT Ancillary Procedure [facility] [address] [place] [phone] [facility] Start: 05-11-2024 End: 05-11-2025 [...] PM EDT Routine [facility] [address] [facility] [phone] Daphnie Kemp PA [address] [place] [address] [facility] Start: 04-13-2024 End: 02-27-2026 US for US OB follow up transabdominal approach Imaging Routine size inconsistent with dates Expected: 04/13/2024, Expires: 04/13/2025 [facility] Work Phone: Comment on above: Expected: 04/13/2024 , Expires: 04/13/2025 Start: 04-13-2024 End: 04-13-2024 Patient encounter procedure [facility] Comment on above: Arrived Start: 03-15-2024 End: 03-15-2024 Patient encounter procedure 03/15/2024 3:40 PM EST Routine [facility] [address] [place] [address] Ebony Laguna DO [address] [place], [place] [id number] [facility] Start: 03-15-2024 End: 03-15-2024 Professional / ancillary services management 03/15/2024 2:30 PM EST Ancillary Procedure [facility] [address] [place] [address] [facility] Start: 03-15-2024 End: [...] AM EST Routine [facility] [address] [facility] [address] Daphnie Kemp PA [address] [place] [address] [place] [address] [facility] Start: 02-07-2024 End: 03-09-2024 [...] AM EST Routine [facility] [address] [facility] [place] [address] Daphnie Kemp PA [address] [place] [address] [place] [address] 16 weeks gestation of ; Second trimester ; Screening, , for anatomic survey; Well woman exam with routine gynecological exam [facility] Comment on above: 16 weeks gestation o f ; Second trimester ; Screening, , for anatomic survey; Well woman exam with routine gynecological exam Start: 01-10-2024 End: 01-10-2024 Patient encounter procedure 01/10/2024 1:40 PM EST Routine [facility] [address] [place] [phone] Ebony Laguna DO [address] [facility] [place] [address] [facility] Start: 12-09-2023 End: 10-24-2025 ABO/Rh ABO/Rh Lab Routine Missed menses , unspecified gestational age Expected: 12/09/2023 (Approximate), Expires: 12/08/2024 [facility] Healthcare Comment on above: Expected: 12/09/2023 [...] first trimester Expected: 12/09/2023 (Approximate), Expires: 12/08/2024 [facility] Comment on above: Expected: 12/09/2023 (Approximate), Expires: 12/08/2024 Start: 12-09-2023 End: 12-08-2024 US Pelvis transvaginal US OB transvaginal Imaging Routine Missed menses Expected: 12/09/2023 (Approximate), Expires: 12/08/2024 [facility] Comment on above: Expected: 12/09/2023 (Approximate), Expires: 12/08/2024 Start: 10-17-2023 Influenza vaccination Influenza Vacc ine (#1) [facility] Bacteria identified in Urine by Culture Urine culture Microbiology Routine Missed menses Ordered: 12/09/2023 [facility] Comment on above: Ordered: 12/09/2023 CBC W Auto Different ial panel - Blood CBC and differential Lab Routine Missed menses , unspecified gestational age Ordered: 12/09/2023 [facility] Comment on above: Ordered: 12/09/2023 CHLAMYDIA TRACHOMATI S (GENITO/STI) CHLAMYDIA TRACHOMATIS (GENITO/STI) Lab Routine 16 weeks gestation of Second trimester Well woman exam with routine gynecological exam Ordered: 02/07/2024 [facility] Comment on above: Ordered: 02/07/2024 Cytology Cervical or vaginal smear or scraping study Pap Smear Pathology and Cytology Routine 16 weeks gestation of Second trimester Well woman exam with routine gynecological exam Ordered: 02/07/2024 [facility] Work Phone: Comment on above: Ordered: 02/07/2024 Hemoglobin A1c/Hemoglobin.total in Blood Hemoglobin A1c Lab Routine Missed menses , unspecified gestational age Ordered: 12/09/2023 [facility] Comment on above: Ordered: 12/09/2023 Hepatitis B virus surface Ag [Presence] in Serum or Plasma by Immunoassay Hepatitis B surface antigen Lab Routine Missed menses , unspecified gestational age Ordered: 12/09/2023 [facility] Comment on above: Ordered: 12/09/2023 Hepatitis C virus Ab [Presence] in Serum or Plasma by Immunoassay Hepatitis C antibody Lab Routine Missed menses , unspecified gestational age Ordered: 12/09/2023 [facility] Comment on above: Ordered: 12/09/2023 HIV-1/HIV-2 antigen/antibody combination immunoassay HIV-1 and HIV-2 antibodies Lab Routine Missed menses , unspecified gestational age Ordered: 12/09/2023 [facility] Comment on above: Ordered: 12/09/2023 Neisseria gonorrhoea e DNA [Presence] in Unspecified specimen by NORRIS with probe detection Neisseria gonorrhea DNA probe, direct Lab Routine 16 weeks gestation of Second trimester Well woman exam with routine gynecological exam Ordered: 02/07/2024 [facility] Comment on above: Ordered: 02/07/2024 Reagin Ab [Presence] in Serum by RPR RPR Lab Routine Missed menses , unspecified gestational age Ordered: 12/09/2023 [facility] Comment on above: Ordered: 12/09/2023 Rubella antibody, IgG Rubella an tibody, IgG Lab Routine Missed menses , unspecified gestational age Ordered: 12/09/2023 [facility] Comment on above: Ordered: 12/09/2023 SURESWAB(R) ADVANCED VAGINITIS PLUS, TMA SURESWAB(R) ADVANCED VAGINITIS PLUS, TMA Pathology and Cytology Routine 16 weeks gestation of Second trimester Well woman exam with routine gynecological exam Ordered: 02/07/2024 [facility] Comment on above: Ordered: 02/07/2024 Payers Date Payer Category Payer [facility] [id number] 2019 Unknown [id number] 2001 Unknown [id number] .[id number] 2001 Unknown [id number] [id number] .128 2001 Unknown [id number] 2.16.840.1.633882.3.579.2 .1285 2001 Unknown [id number] 2.16.840.1.017422.3.579.2 .9 2001 Unknown [id number] 2.16.840.1.222076.3.579.2 .1258 2001 Unknown [id number] 2.16.840.1.624135.3.579.2 .9 2001 Unknown [id number] 2.16.840.1.943408.3.579.2 .1258 2001 Unknown [id number] 2.16.840.1.369459.3.579.2 .9 2001 Unknown [id number] 2.16.840.1.339261.3.579.2 .9 2001 Unknown [id number] 2.16.840.1.663207.3.579.2 .1259 2001 Unknown [id number] 2.16.840.1.228224.3.579.2 .9 2001 Unknown [id number] 2.16.840.1.447243.3.579.2 .9 2001 Unknown [id number] 2.16.840.1.382432.3.579.2 .9 2001 Unknown [id number] 2.16.840.1.293677.3.579.2 .1259 2001 Unknown [id number] 2.16.840.1.412245.3.579.2 .9 2001 Unknown [id number] 2.16.840.1.465765.3.579.2 .1259 1978 Unknown [id number] 2.16.840.1.838343.3.579.2 .593 1959 Unknown [id number] Social History Date Type Detail Facility Start: 01-19-2023 Tobacco smoking stat [facility] Smokes tobacco daily [facility] History of tobacco use Cigarette Smoker [facility] Start: 01-19-2023 Tobacco use and exposure Smokeless t obacco non-user [facility] Start: 12-09-2023 End: 06-28-2024 Alcoholic beverage intake Current drinker of alcohol [...] Gender identity Identifies as female gender (finding) [facility] Clinical Notes 12-09-2023 to 06-28-2024 Laura Guardado NP - 06/28/2024 2:00 PM Isaiah Winn LPN - 06/21/2024 2:00 PM Violetta Guardado NP - 06/15/2024 2:50 PM Isaiah Winn LPN - 05/31/2024 2:40 PM EDT Note Date & Type Note Facility 06-28-2024 History of Presen t illness Narrative Reason for Appointment: Patient ID: Evelyn Bradley is a 23 y.o. female who presents for Routine Visit Patient presents today for Return OB appointment. MEDICATIONS Current Outpatient Medications Medication Instructions vitamin (Prenatabs Rx) 29-1 MG tablet 1 tablet, Oral, Daily ALLERGIES No Known Allergies PROBLEMS Active Ambulatory Problems Diagnosis Date Noted Anxiety disorder 07/08/2022 Mood disorder ([facility]/HCC) 07/08/2022 Cannabis use, 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[facility]/HCC) 07/08/2022 Moderate episode of recurrent major depressive disorder ([facility]/HCC) 07/08/2022 Oppositional defiant disorder ([facility]) 07/08/2022 Other atopic dermatitis [...] nursing note reviewed. Exam conducted with a clip on sunglasses assembler present. Vitals: Estimated body mass index is 28.68 kg/m as calculated from the following: Height [...] Laura Guardado NP documented in this encounter [facility] 06-21-2024 History of Presen t illness Narrative Reason for Appointment: Patient ID: Evelyn Bradley is a 23 y.o. female who presents for Routine Visit Patient presents today for Return OB appointment. MEDICATIONS Current Outpatient Medications Medication Instructions vitamin (Prenatabs Rx) 29-1 MG tablet 1 tablet, Oral, Daily ALLERGIES No Known Allergies PROBLEMS Active Ambulatory Problems Diagnosis Date Noted Anxiety disorder 07/08/2022 Mood disorder ([facility]/HCC) 07/08/2022 Cannabis use, 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[facility]/HCC) 07/08/2022 Moderate episode of recurrent major depressive disorder ([facility]/HCC) 07/08/2022 Oppositional defiant disorder ([facility]) 07/08/2022 Other atopic dermatitis 07/08/2022 Toxic effect of ethyl alcohol ([facility]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 She is well-developed. Genitourinary: Vulva normal. Cardiovascular: Rate and Rhythm: Normal rate and [...] nursing note reviewed. Exam conducted with a clip on sunglasses assembler present. Vitals: Estimated body mass index is 28.68 kg/m as calculated from the following: Height as of 07/08/22: 5' 5.5 . Weight as of this encounter: 175 lb. BP: 130/84 Patient's last menstrual period was 10/12/2023. ASSESSMENT & PLAN ICD-10-CM 1. Third trimester Z34.93 CULTURE, GROUP B STREP WITH SUSCEPTIBLITY 2. 36 weeks gestation of Z3A.36 Patient is doing well but has complaints of being tired and having maternal discomfort due to . Patient verbalized frequent movement and was instructed to perform kick counts three times per day. labor precautions were given, LARC consent was signed/declined, and GBS was obtained. Cervical check was performed and patient is 0cm dilated. Orders Placed This Encounter Procedures CULTURE, GROUP B STREP WITH SUSCEPTIBLITY Follow Up: Patient is to return to office in 1 week for routine OB appointment Documented by Ml Winn LPN on behalf of: Ebony Laguna DO documented in this encounter [facility] 06-15-2024 History of Presen t illness Narrative Reason [...] nursing note reviewed. Exam conducted with a clip on sunglasses assembler present. Vitals: Estimated body mass index is 28.74 kg/m as calculated from the following: Height as of 07/08/22: 5' 5.5 . Weight as of this encounter: 175 lb 6 oz. BP: 100/64 Patient's last menstrual period was 10/12/2023. ASSESSMENT & PLAN ICD-10-CM 1. 35 weeks gestation of Z3A.35 POCT urinalysis dipstick manually resulted 2. Third trimester Z34.93 Return OB: Patient presents today for a routine obstetrics appointment. Patient is currently 35w2d . Patient states she is doing well [...] week for routine OB appointment. Documented by Laura Guardado NP on behalf of: Laura Guardado NP documented in this encounter [facility] 05-31-2024 History of Presen t illness Narrative Reason for Appointment: Patient ID: Evelyn Bradley is a 23 y.o. female who presents for Routine Visit Patient presents today for Return OB appointment. MEDICATIONS Current Outpatient Medications Medication Instructions vitamin (Prenatabs Rx) 29-1 MG tablet 1 tablet, Oral, Daily ALLERGIES No Known Allergies PROBLEMS Active Ambulatory Problems Diagnosis Date Noted Anxiety disorder 07/08/2022 Mood disorder ([facility]) 07/08/2022 Cannabis use, 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CMS/HCC) 07/08/2022 Moderate episode of recurrent major depressive disorder (CMS/HCC) 07/08/2022 Oppositional defiant disorder ([facility]) 07/08/2022 Other atopic dermatitis 07/08/2022 Toxic effect of ethyl alcohol (CMS/[facility]) 07/08/2022 16 weeks gestation of 02/07/2024 [...] nursing note reviewed. Exam conducted with a clip on sunglasses assembler present. Vitals: Estimated body mass index is 28.35 kg/m as calculated from the following: Height as of 07/08/22: 5' 5.5 . Weight as of this encounter: 173 lb. BP: 118/70 Patient's last menstrual period was 10/12/2023. ASSESSMENT & PLAN ICD-10-CM 1. Third trimester Z34.93 POCT urinalysis dipstick manually resulted 2. 33 weeks gestation of Z3A.33 Return OB: Patient presents today for a routine obstetrics appointment. Patient is currently 33w1d . Patient states she is doing well [...] week for routine OB appointment. Documented by Ml Winn LPN on behalf of: Ebony Laguna DO documented in this encounter [facility] 05-11-2024 History of Presen t illness Narrative Reason for Appointment: Patient ID: Evelyn Bradley is a 23 y.o. female who presents for Routine Visit Patient presents today for Return OB appointment. MEDICATIONS Current Outpatient Medications Medication Instructions vitamin (Prenatabs Rx) 29-1 MG tablet 1 tablet, Oral, Daily ALLERGIES No Known Allergies PROBLEMS Active Ambulatory Problems Diagnosis Date Noted Anxiety disorder 07/08/2022 Mood disorder ([facility]/HCC) 07/08/2022 Cannabis use, 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[facility]/HCC) 07/08/2022 Moderate episode of recurrent major depressive disorder (CMS/HCC) 07/08/2022 Oppositional defiant disorder (CMS/[facility]) 07/08/2022 Other atopic dermatitis 07/08/2022 Toxic effect of ethyl alcohol ([facility]) 07/08/2022 16 weeks gestation of 02/07/2024 [...] nursing note reviewed. Exam conducted with a clip on sunglasses assembler present. Vitals: Estimated body mass index is [...] Ebony Laguna DO documented in this encounter [facility] 04-27-2024 History of Presen t illness Narrative Reason for Appointment: Patient ID: Evelyn Bradley is a 23 y.o. female who presents for Routine Visit Patient presents today for Return OB appointment. MEDICATIONS Current Outpatient Medications Medication Instructions vitamin (Prenatabs Rx) 29-1 MG tablet 1 tablet, Oral, Daily ALLERGIES No Known Allergies PROBLEMS Active Ambulatory Problems Diagnosis Date Noted Anxiety disorder 07/08/2022 Mood disorder ([facility]) 07/08/2022 Cannabis use, 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[facility]/HCC) 07/08/2022 Moderate episode of recurrent major depressive disorder ([facility]) 07/08/2022 Oppositional defiant disorder ([facility]) 07/08/2022 Other atopic dermatitis 07/08/2022 Toxic effect of ethyl alcohol ([facility]) 07/08/2022 16 weeks gestation of 02/07/2024 [...] of: RAJIV Hernandez documented in this encounter [facility] 04-13-2024 History of Presen t illness Narrative [...] of: RAJIV Hernandez documented in this encounter [facility] 03-15-2024 History of Presen t illness Narrative [...] Moderate episode of recurrent major depressive disorder ([facility]/HCC) 07/08/2022 Oppositional defiant disorder ([facility]) 07/08/2022 Other atopic dermatitis 07/08/2022 Toxic effect of ethyl alcohol ([facility]) 07/08/2022 16 weeks gestation of 02/07/2024 [...] nursing note reviewed. Exam conducted with a clip on sunglasses assembler present. Vitals: Estimated body mass index is [...] Ebony Laguna DO documented in this encounter [facility] 02-07-2024 History of Presen t illness Narrative [...] Date Noted Anxiety disorder 07/08/2022 Mood disorder ([facility]/HCC) 07/08/2022 Cannabis use, 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[facility]) 07/08/2022 Moderate episode of recurrent major depressive disorder ([facility]) 07/08/2022 Oppositional defiant disorder ([facility]) 07/08/2022 Other atopic dermatitis 07/08/2022 Toxic effect of ethyl alcohol ([facility]) 07/08/2022 16 weeks gestation of 02/07/2024 [...] nursing note reviewed. Exam conducted with a clip on sunglasses assembler present. Vitals: Estimated body mass index is [...] [facility]. Orders Placed This Encounter Procedures US OB ANATOMY SINGLE W US OB CERVICAL LENGTH CHLAMYDIA TRACHOMATIS (GENITO/STI) Neisseria gonorrhea DNA probe, direct Alpha fetoprotein, maternal POCT urinalysis dipstick manually resulted Follow Up: Patient is to return to our office in 4 weeks for routine OB appointment Documented by RAJIV Hernandez on behalf of: RAJIV Hernandez documented in this encounter [facility] 01-10-2024 History of Presen t illness Narrative [...] Date Noted Anxiety disorder 07/08/2022 Mood disorder ([facility]) 07/08/2022 Cannabis use, 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[facility]) 07/08/2022 Moderate episode of recurrent major depressive disorder ([facility]) 07/08/2022 Oppositional defiant disorder ([facility]) 07/08/2022 Other atopic dermatitis 07/08/2022 Toxic effect of ethyl alcohol ([facility]) 07/08/2022 Resolved Ambulatory Problems Diagnosis Date [...] nursing note reviewed. Exam conducted with a clip on sunglasses assembler present. Vitals: Estimated body mass index is [...] undercooked meat, and stay away from [facility]. Patient has been consulted regarding any [...] Ebony Laguna DO documented in this encounter [facility] 12-09-2023 History of Presen t illness Narrative [...] Date Noted Anxiety disorder 07/08/2022 Mood disorder ([facility]) 07/08/2022 Cannabis use, 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[facility]) 07/08/2022 Moderate episode of recurrent major depressive disorder ([facility]) 07/08/2022 Oppositional defiant disorder ([facility]) 07/08/2022 Other atopic dermatitis 07/08/2022 Toxic effect of ethyl alcohol ([facility]) 07/08/2022 Resolved Ambulatory Problems Diagnosis Date [...] Pt will contemplate if she will do [place] [facility]. Pt was advised if she does want [place] [facility] to have it done w/ labs [...] Meaghan Prado MA documented in this encounter [facility] Evaluation note Diagnosis Missed menses , [...] gestation of [facility]* Diagnosis Third trimester state, incidental 33 weeks gestation of [facility]* Diagnosis 35 weeks gestation of Third trimester state, incidental [facility]* Diagnosis Third trimester state, incidental 36 weeks gestation of [facility]* Diagnosis Third trimester state, incidental 37 weeks gestation of documented in this encounter [facility] Summary Purpose Family History No Family History Records FoundNo Family History Records FoundNo Family History Records Found Advance Directives No Advanced Directives Records FoundNo Advanced Directives Records FoundNo Advanced Directives Records Found Additional Source Comments INFORMATION SOURCE (unrecogn ized section and content) DATE CREATED AUTHOR 01/25/2019 [facility] DATE CREATED AUTHOR AUTHOR'S ORGANIZ ATION 04/26/2024 [facility] DATE CREATED AUTHOR AUTHOR'S ORGANIZ ATION 06/29/2024 [facility] EPIC Reason for Visit (unrecogniz ed section and content) Reason Comments Amenorrhea Reason Comments Routine Visit Care Teams (unrecognized sec tion and content) [employer] Consultant Relationship Specialty Start Date End Date Cary Turner MD [address] [place] [address] PCP - General Family Medicine 07/07/22 [employer] Consultant Relationship Specialty Start Date End Date Cary Turner MD [address] [place] [address] PCP - General Family Medicine 07/07/22 [employer] Consultant Relationship Specialty Start Date End Date Cary Turner MD [address] [place] [address] PCP - General Family Medicine 07/07/22 [employer] Consultant Relationship Specialty Start Date End Date Cary Turner MD [address] [place] [address] PCP - General Family Medicine 07/07/22 [employer] Consultant Relationship Specialty Start Date End Date Cary Turner MD [address] [place] [address] PCP - General Family Medicine 07/07/22 [employer] Consultant Relationship Specialty Start Date End Date Cary Turner MD [address] [place] [address] PCP - General Family Medicine 07/07/22 [employer] Consultant Relationship Specialty Start Date End Date Cary Turner MD [address] [place] [address] PCP - General Family Medicine 07/07/22 [employer] Consultant Relationship Specialty Start Date End Date Cary Turner MD [address] [place] [address] PCP - General Family Medicine 07/07/22 [employer] Consultant Relationship Specialty Start Date End Date Cary Turner MD [address] [place] [address] PCP - General Family Medicine 07/07/22 [employer] Consultant Relationship Specialty Start Date End Date Cary Turner MD [address] [place] [address] PCP - General Family Medicine 07/07/22 [employer] Consultant Relationship Specialty Start Date End Date Cary Turner MD [address] [place] [address] PCP - General Family Medicine 07/07/22 [employer] Consultant Relationship Specialty Start Date End Date Cary Turner MD [address] [place] [address] PCP - General Family Medicine 07/07/22 FOR [...] BE BASED ON THE PRIMARY CLINICAL RECORDS. [employer] [facility]. provides no warranty or guarantee of the accuracy or completeness of information in this document.
--- OUTSIDE RECORDS SUMMARY | 2024-07-12 05:22 | XMS_ITS | Clinical Summary ---
Author Organization [facility] Address [address] [place] [address] Care Team Providers Care Audiovisual Equipment Operator Name Role Phone Cary Turner MD Primary Care Provider [phone] Allergies No known active allergies Medications vitamin (Prenatabs Rx) 29-1 MG tabletIndication s:, unspecified gestational age Take 1 tablet by mouth Daily 360 tablet 12/09/2023 5 Active Active Problems Problem Noted Date Diagnosed Date 16 weeks gestation of 02/07/2024 Second trimester 02/07/2024 Screening, , for anatomic survey 02/07/2024 Well woman exam with routine gynecological exam 02/07/2024 Anxiety disorder 07/08/2022 Mood disorder 07/08/2022 Cannabis use, unspecified wi th unspecified cannabis-induced disorder 07/08/2022 Moderate episode of recurrent major depressive d isorder 07/08/2022 Oppositional defiant disorder 07/08/2022 Other atopic dermatitis 07/08/2022 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 [address] [place] [address] Daphnie Kemp PA Third trimester ; 38 weeks gestation of 07/06/[address] [facility] [address] [place] [address] Chino Laguna 07/06/2024 Bamboo flowsheet [facility] [address] [facility] [place] [address] Daphnie Kemp PA 06/28/2024 2:00 PM EDT Routine [facility] [address] [facility] [place] [address] Laura Guardado NP Third trimester ; 37 weeks gestation of 06/28/2024 Bamboo flowsheet [facility] [address] [facility] [place] [address] Laura Guardado NP 06/21/2024 2:00 PM EDT Routine [facility] [address] [facility] [place] [address] Chino Laguna, Third trimester ; 36 weeks gestation of 06/21/2024 Clinisync Result Encounter NOMS External Department Unsolicited Provider, Generic External Data 06/21/2024 Bamboo flowsheet [facility] [address] [facility] [place] [address] Chino Laguna, 06/15/2024 2:50 PM EDT Routine [facility] [address] [facility] [place] [address] Laura Guardado NP 35 weeks gestation of ; Third trimester 06/15/2024 Bamboo flowsheet [facility] [address] [place] [address] [place] [address] Laura Guardado NP 05/31/2024 2:40 PM EDT Routine [facility] [address] [facility] [place] [address] Chino Laguna, Third trimester ; 33 weeks gestation of 05/31/2024 2:00 PM EDT Ancillary Procedure [facility] [address] [facility] [place] [address] size inconsistent with dates; Short femur of fetus on ultrasound 05/25/2024 Clinisync Result Encounter [facility]OMS External Department Unsolicited Chino Laguna, 05/11/2024 8:30 AM EDT Routine [facility] [address] [place] [address] Chino Laguna, DO Third trimester ; 30 weeks gestation of ; size inconsistent with dates; Short femur of fetus on ultrasound 05/11/2024 Bamboo flowsheet [facility] [address] [place] [phone] Chino Laguna, 04/27/2024 1:30 PM EDT Routine [facility] [address] [place] [address] Daphnie Kemp PA Third trimester ; 28 weeks gestation of ; Urinary tract infection in mother during third trimester of 04/27/2024 Clinisync Result Encounter [facility]OMS External Department Unsolicited Provider, Generic External Data 04/18/[address] [address] [place] [address] Chino Laguna, 04/18/2024 Clinisync Result Encounter NOMS External Department Unsolicited Provider, Generic External Data 04/14/[address] [address] [place] [phone] Meaghan Prado MA from Last 3 Months Family History Medical History Relation Name Comments ADD / ADHD Brother Alcohol abuse Father Alcohol abuse Maternal Grandmother Cancer Maternal Grandmother Bipolar disorder Mother's Sister Alcohol abuse Paternal Grandfather Hypertension Paternal Grandfather Cancer Paternal Grandmother Relation Name Status Comments Brother Father Alive Maternal Grandmother Mother Alive Mother's Sister Paternal Grandfather Paternal Grandmother Social History Tobacco Use Types Packs/Day Years Used Date Smoking Tobacco: Every Day Cigarettes Smokeless Tobacco: Never Tobacco Cessation:Ready to Q uit: Not Asked; Counseling Given: Not Answered Alcohol Use Standard Drinks/Week Comments Yes 0 [...] PM EDT Sexual Orientation Not on file Last Filed Vital Signs Vital Sign Reading Time Taken Comments Blood Pressure 120/80 07/06/2024 11:25 AM EDT Pulse - - Temperature 36.4 C (97.5 F) 07/08/2022 3:21 PM EDT Respiratory Rate - - Oxygen Saturation - - Inhaled Oxygen Concentration - - Weight 81.8 kg (180 lb 4 oz) 07/06/2024 11:25 AM EDT Height 166.4 cm (5' 5.5 ) 07/08/2022 3:21 PM EDT Body Mass Index 29.54 07/08/2022 3:21 PM EDT Plan of Treatment Health Maintenance Due Date Last Done Comments Influenza Vaccine (Season Ended) 2024 Procedures Procedure Name Priority Date/Time Associated Diagnosis Comments POCT URINALYSIS DIPSTICK Routine 07/06/2024 12:00 PM EDT Third trimester STREP GP B CULTURE+RFLX Routine 06/21/2024 2:26 PM EDT POCT URINALYSIS DIPSTICK Routine 06/15/2024 4:01 PM EDT 35 weeks gestation of US OB FOLLOW UP TRANSABDOMINAL APPROACH Routine 05/31/2024 4:07 PM EDT size inconsistent with dates Short femur of fetus on ultrasound POCT URINALYSIS DIPSTICK Routine 05/31/2024 2:54 PM EDT Third trimester GLUCOSE TOLERANCE 3 HOUR Routine 05/25/2024 7:54 AM EDT POCT URINALYSIS DIPSTICK Routine 04/27/2024 1:49 PM EDT Urinary tract infection in mother during third trimester of US OB GROWTH 04/27/2024 11:35 AM EDT GLUCOSE 1 HOUR Routine 04/18/2024 11:01 AM EST ALL CBC WITH AUTO DIFF Routine 11:01 AM EST from Last 3 Months Results * POCT urinalysis dipstick manually resulted (07/06/2024 12:00 PM EDT) Only the most recent of4 resultswithin the time period is included. Color, UA Yellow Clarity, UA Clear Glucose, UA Negative Negative - 2000(110) ++++ mg/dL Bilirubin, UA Negative Negative - 4(70) +++ mg/dL Ketones, UA Negative Negative - 160(16) ++++ mg/dL Spec Grav, UA 1.020 1 - 1.03 Blood, UA Negative Negative - 50 Haroon/mcL pH, UA 7.0 5 - 9 Protein, UA Negative Negative - 2000(20) ++++ mg/dL Urobilinogen, UA 2.0 0.2 - 12 mg/dL Leukocytes, UA Positive Negative - 500+++ Robert/mcL Nitrite, UA Negative Negative - Positive Urine 07/06/2024 12:0 0 PM EDT Daphnie VANCE POINT OF CARE TEST ENTER/EDIT OR DERABLES Final Result * STREP GP B CULTURE+RFLX (06/21/2024 2:26 PM EDT) STREP GP B CULTURE+RFLX Strep Gp B Culture+Rflx TBH STREP GP B CULTURE+RFLX Negative TBH STREP GP B CULTURE+RFLX Centers for Disease Control and Prevention (CDC) and TBH STREP GP B CULTURE+RFLX [place] [employer] TBH STREP GP B CULTURE+RFLX (ACOG) guidelines for prevention of group B TBH STREP GP B CULTURE+RFLX streptococcal (GBS) disease specify co-collection of TBH STREP GP B CULTURE+RFLX a vaginal and rectal swab specimen to maximize TBH STREP GP B CULTURE+RFLX sensitivity of GBS detection. Per the CDC and ACOG, TBH STREP GP B CULTURE+RFLX swabbing both the lower vagina and rectum TBH STREP GP B CULTURE+RFLX substantially increases the yield of detection TBH STREP GP B CULTURE+RFLX compared with sampling the vagina alone. TBH STREP GP B CULTURE+RFLX Penicillin G, ampicillin, or cefazolin are indicated TBH STREP GP B CULTURE+RFLX for intrapartum prophylaxis of GBS TBH STREP GP B CULTURE+RFLX colonization. Reflex susceptibility testing should be TBH STREP GP B CULTURE+RFLX performed prior to use of clindamycin only on GBS TBH STREP GP B CULTURE+RFLX isolates from penicillin-allergi c women who are TBH STREP GP B CULTURE+RFLX considered a high risk for anaphylaxis. Treatment with TBH STREP GP B CULTURE+RFLX vancomycin without additional testing is warranted if TBH STREP GP B CULTURE+RFLX resistance to clindamycin is noted. TBH STREP GP B CULTURE+RFLX Performed at: [facility] TBH STREP GP B CULTURE+RFLX [address] [place], [place] [id number] TBH STREP GP B CULTURE+RFLX Insurance Solicitor: Colten Caceres PhD, Phone: [phone] [facility] 06/21/2024 2:26 PM EDT 06/21/2024 9:29 PM EDT Narrative PALLAVI - 06/26/2024 2:08 PM EDT us Generic External Data Provider LAB BLOOD ORDERAB LES Final Result [facility] * US OB follow up transabdominal approach (05/31/2024 4:07 PM EDT) Anatomical Region Laterality Modality Body Ultrasound 05/31/2024 11:2 7 PM EDT Narrative 05/31/2024 11:27 PM EDT EXAM: US OB FOLLOW UP TRANSABDOMINAL APPROACH [...] II, MD, PHD at 31-May-2024 11:26:04 PM [facility] Procedure Note Darien Mcclelland MD - 05/31/2024 EXAM: US OB FOLLOW UP TRANSABDOMINAL APPROACH HISTORY: Inconsistent size. COMPARISON: Ob ultrasound 03/15/2024. TECHNIQUE: Two-dimensional transabdominal grayscale ultrasound imaging ofthe pelvis was performed. FINDINGS: Gestation: Single Presentation: Cephalic Cardiac Activity: 122 beats per minute Placental Location: Posterior with no sonographic abnormalitiesidentified. Cervical canal: Not visualized Amniotic Fluid Index: 11.6 cm MEASUREMENTS: BPD: 8.2 cm EGA: 33 weeks 0 days HC: 30.3 cm EGA: 33 weeks 5 days AC: 29.3 cm EGA: 33 weeks 2 days FL: 6.5 cm EGA: 33 weeks 3 days HC/AC Ratio: 1.04 The gestational age by today's ultrasound is 33 weeks 3 days (+/- 16 daysgestation). Estimated Weight: 2170 grams, +/- 326 grams ( 4 lb 13 oz). Weight Percentile for gestational age: 47 % IMPRESSION: 1. Single, live intrauterine gestation 33 weeks, 1 days by LMP. Today'sultrasound measurements correlate with a gestational age of 33 weeks 3days. Estimated weight is 2170 grams, +/- 326 grams ( 4 lb 13 oz)which correlates to 47 %. ROD is 07/16/2024. Interpreted by: Electronically signed by DARIEN MCCLELLAND II, MD, PHD 11:26:04 PM [facility] us Chino Luz Elena DO IMG OB US PROCEDURES Final Resul t * GLUCOSE TOLERANCE 3 HOUR (05/25/2024 7:54 AM EDT) GLUCOSE TOLERANCE 3 HOUR mg/dL [facility] Comment: GLU FAST 81 (<95) Col: 05/25/24 0754 GLU 1HR 114 (<180) Col: 05/25/24 0858 GLU 2HR 102 (<155) Col: 05/25/24 0958 GLU 3HR 72 (<140) Col: 05/25/24 1058 05/25/2024 7:54 AM EDT 05/25/2024 7:55 AM EDT Narrative [facility] - 05/25/2024 12:14 PM EDT us Generic External Data Provider LAB BLOOD ORDERAB LES Final Result [facility] * US OB GROWTH (04/27/2024 11:35 AM EDT) Anatomical Region Laterality Modality Other 04/27/2024 11:3 5 AM EDT Narrative 04/27/2024 11:37 AM EDT [address] [address] Ultrasound Report Signed Patient: EVELYN BRADLEY MR#: [id number] : 2000 Acct:[id number] Age/Sex: 23 / F ADM Date: 04/27/24 Loc: US Attending Dr: Daphnie Kemp Ordering Physician: Daphnie Kemp Date of Service: 04/27/24 Procedure(s): US OB growth Accession Number(s): [id number] cc: Daphnie Kemp; CARY TURNER The [place] [id number] Patient Name: EVELYN BRADLEY MRN: [facility]:[id number] date: 2000 Sex: F Assigned Patient Location: US Current Patient Location: US Accession/Order Number: [id number] Exam Date: 04/27/2024 11:30 Report Date: 04/27/2024 [...] Ml Hoyt M.D.04/27/2024 11:35 AM Dictation Location: [place] [address] Electronically authenticated by: [id number] Y Date: 04/27/2024 11:35 Dictated By: Ml Hoyt M.D. Signed By: 04/27/24 1137 DD/ 1135 TD/TT: Special Effects Makeup Artist: Procedure Note Radiology, Radiologist, MD - 04/27/[address] [address] Ultrasound Report Signed Patient: EVELYN BRADLEY AMR#: [id number] : 2000Acct:[id number] Age/Sex: 23 / FADM Date: 04/27/24 Loc: US Attending Dr: Dpahnie Kemp Ordering Physician: Daphnie Kemp Date of Service: 04/27/24 Procedure(s): US OB growth Accession Number(s): [id number] cc: Daphnie Kemp; CARY TURNER [address] [address] Patient Name: EVELYN BRADLEY MRN: [facility]:[id number] date: 2000 Sex: F Assigned Patient Location: US Current Patient Location: US Accession/Order Number: [id number] Exam Date: 04/27/2024 11:30 Report Date: 04/27/2024 11:35 At the request of: DAPHNIE KEMP Procedure: US OB growth ULTRASOUND OB GROWTH COMPARISON: 12/10/2023 CLINICAL DATA: size and consistent with dates There is a single live intrauterine gestation in breech presentation.There is cardiac and somatic activity with heart rate of 148 bpm.Amniotic fluid index measures 13.4 cm which is in low-normal range. The following measurements were obtained: Biparietal diameter 7.2 cm 28 weeks 5 days 52% Head circumference 26.6 cm 29 weeks 0 days 40% Abdominal circumference 24.5 cm 28 weeks 5 days 56% Femur length 5.1 cm 27 weeks 3 days 13% The composite ultrasound age based on these measurements is 28 weeks 3days +/- 2 weeks 0 days. This correlates with dates based on last menstrual period. The ratios are normal range. US/US OB growth IMPRESSION: SINGLE LIVE INTRAUTERINE GESTATION WITH ULTRASOUND AGE OF 28 WEEKS 3 DAYS. NORMAL INTERVAL GROWTH. Impression dictated by: Ml Hoyt M.D.04/27/2024 11:35 AM Dictation Location: [place] [address] Electronically authenticated by: [id number] Y Date: 1:35 Dictated By: Ml Hoyt M.D. Signed By:04/27/24 1137 DD/ 1135 TD/TT: Special Effects Makeup Artist: us Generic External Data Provider [facility] Final Result * (ABNORMAL) GLUCOSE 1 HOUR (04/18/2024 11:01 AM EST) GLUCOSE 1 HOUR 137(H) <130 mg/dL TB 04/18/2024 11:0 1 AM EST 04/18/2024 11:02 AM EST Narrative PALLAVI - 04/18/2024 11:31 AM EST us Chino Laguna DO LAB BLOOD ORDERABLES Final Resul t [facility] * (ABNORMAL) ALL CBC WITH AUTO DIFF (04/18/2024 11:01 AM EST) TB WBC 10.6 4.0 - 11.0 10 3/uL TBH TBH RBC 3.84(L) 4.20 - 5.40 10 6/uL TBH TBH HGB 12.7 12.0 - 16.0 g/dL TBH TBH HCT 36.0 36.0 - 48.0 % TBH TBH MCV 93.8 81.0 - 99.0 fL TBH TBH MCH 33.1 26.7 - 34.0 pg TBH TBH MCHC 35.3(H) 29.9 - 35.2 g/dL TBH TBH RDW 11.9 11.0 - 15.0 % TBH TBH PLT 212 150 - 450 10 3/uL TBH TBH MPV 10.0 9.5 - 13.5 fL TBH NEUTROPHILS PERCENT AUTO 79.0(H) 43.0 - 75.0 % TBH LYMPHOCYTES PERCENT AUTO 15.4(L) 20.5 - 60.0 % TBH MONOCYTES PERCENT AUTO 3.5 1.7 - 12.0 % TBH TBH EO % 0.9 0.9 - 7.0 % TBH BASOPHILS PERCENT AUTO 0.5 0.2 - 2.0 % TBH IMMATURE GRANULOCYTES PCT AUTO 0.7(H) 0.0 - 0.5 % TBH NEUTROPHILS ABSOLUTE AUTO 8.4(H) 1.4 - 6.5 10 3/uL TBH LYMPHOCYTES ABSOLUTE AUTO 1.6 1.2 - 3.8 10 3/uL TBH MONOCYTES ABSOLUTE AUTO 0.4 0.3 - 0.8 10 3/uL TBH TBH EO # 0.1 0.0 - 0.7 10 3/uL TBH BASOPHILS ABSOLUTE AUTO 0.1 0.0 - 0.1 10 3/uL TBH IMMATURE GRANULOCYTES ABS AUTO 0.07(H) 0.00 - 0.03 10 3/uL TBH 04/18/2024 11:0 1 AM EST 04/18/2024 11:02 AM EST Narrative [facility] - 04/18/2024 11:11 AM EST us Chino Luz Elena DO [facility] Final Result [facility] from Last 3 Months Insurance * Guarantor: Evelyn Bradley Account Type Relation to Patient Date of Phone Billing Address Personal/Family Self 2000 [address] [place] [address] [facility] Care Teams Audiovisual Equipment Operator Relationship Specialty Start Date End Date Cary Turner MD [address] [place] [id number] PCP - General Family Medicine 07/07/22
--- OUTSIDE RECORDS SUMMARY | 2024-07-12 05:22 | XMS_ITS | Encounter Summary ---
Author Organization [facility] Address [address] [facility] [address] Care Team Providers Care Yard Pilot Name Role Phone Cary Ocasio MD Primary Care Provider [phone] Encounter Details Date Type Department Care Team (Late st Contact Info) Description 12/09/[address] [facility] [address] [place] [id number] Chino Laguna, DO [address] [place] [address] Social History Tobacco Use Types Packs/Day Years [...] on filedocumented in this encounter Care Teams Yard Pilot Relationship Specialty Start Date End Date Cary Ocasio MD [address] [facility] [place], [place] [id number] PCP - General Family Medicine 07/07/22 documented as of this encounter
--- OUTSIDE RECORDS SUMMARY | 2024-07-12 05:22 | XMS_ITS | Encounter Summary ---
Author Organization [facility] Address [address] [facility] [place] [address] Care Team Providers Care Director It Project Name Role Phone Cary Ocasio MD Primary Care Provider [phone] Encounter Details Date Type Department Care Team (Late st Contact Info) Description 07/06/2024 Abstract [facility] [address] [place] [phone] Chino Laguna, DO [address] [place] [address] Social History Tobacco Use Types Packs/Day Years [...] on filedocumented in this encounter Care Teams Director It Project Relationship Specialty Start Date End Date Cary Ocasio MD [address] [facility] [place], [place] [id number] PCP - General Family Medicine 07/07/22 documented as of this encounter
--- OUTSIDE RECORDS SUMMARY | 2024-07-12 05:22 | XMS_ITS | Encounter Summary ---
Author Organization [facility] Address [address] [place] [address] Care Team Providers Care Ultimate Hoops Trainer Name Role Phone Shruti Turner MD Primary Care Provider [phone] Encounter Details Date Type Department Care Team (Late st Contact Info) Description 12/10/2023 Clinisync Result Encounter [facility] External Department Unsolicited Provider, Generic External Data Social History Tobacco Use Types Packs/Day Years [...] Procedure Name Priority Date/Time Associated Diagnosis Comments US OB TRANSVAGINAL 12/10/2023 6: 25 AM EDT documented in this encounter Results * US OB TRANSVAGINAL (12/10/2023 6:25 AM EDT) Anatomical Region Laterality Modality Other 12/10/2023 6:25 AM EDT Narrative 12/10/2023 6:27 AM EDT The [address] [address] Ultrasound Report Signed Patient: EVELYN BRADLEY MR#: [id number] : 2000 Acct:[id number] Age/Sex: 23 / F ADM Date: 12/09/23 Loc: [facility] Attending Dr: Ebony Laguna D.O. Ordering Physician: Ebony Laguna D.O. Date of Service: 12/09/23 Procedure(s): US OB transvaginal Accession Number(s): [id number] cc: Ebony Laguna D.O.; SHRUTI TURNER The [address] [address] Patient Name: EVELYN BRADLEY MRN: [facility]:[id number] date: 2000 Sex: F Assigned Patient Location: [facility] Current Patient Location: Accession/Order Number: [id number] Exam Date: 12/09/2023 13:40 Report Date: 12/10/2023 06:25 At the request of: EBONY LAGUNA Procedure: US OB transvaginal EXAMINATION: US OB transvaginal HISTORY: MISSED MENSES COMPARISON: No relevant comparison available. FINDINGS: GESTATIONAL SAC: Present and normal appearing. YOLK SAC: Present and normal appearing. POLE: Present and normal appearing. CARDIAC: Present. UTERUS: Normal size and appearance. OVARIES: Right: Corpus lutein cyst. Left: Normal. CERVIX: 4.2 cm in length and closed. CUL-DE-SAC: Normal. OTHER: None. AGE BY LMP: 8 weeks 2 days ROD BY LMP: 07/18/2024 AGE BY US CRL: 8 weeks 0 days ROD BY US CRL: 07/20/2024 US/US OB transvaginal IMPRESSION: 1. Single live intrauterine . Electronically authenticated by: MATEUS TELLEZ Date: 12/10/2023 06:25 Dictated By: Mateus Tellez M.D. Signed By: 12/10/23626 DD/ 4 TD/TT: Technical Advisor: Procedure Note Radiology, Radiologist, MD - 12/10/2023 [place] [address] Ultrasound Report Signed Patient: EVELYN BRADLEY AMR#: [id number] : 2000Acct:[id number] Age/Sex: 23 / FADM Date: 12/09/23 Loc: [facility] Attending Dr: Ebony Laguna D.O. Ordering Physician: Ebony Laguna D.O. Date of Service: 12/09/23 Procedure(s): US OB transvaginal Accession Number(s): [id number] cc: Ebony Laguna D.O.; SHRUTI TURNER [place] [address] Patient Name: EVELYN BRADLEY MRN: [id number]:[id number] date: 2000 Sex: F Assigned Patient Location: [facility] Current Patient Location: Accession/Order Number: [id number] Exam Date: 12/09/2023 13:40 Report Date: 12/10/2023 06:25 At the request of: EBONY LAGUNA Procedure: US OB transvaginal EXAMINATION: US OB transvaginal HISTORY: MISSED MENSES COMPARISON: No relevant comparison available. FINDINGS: GESTATIONAL SAC: Present and normal appearing. YOLK SAC: Present and normal appearing. POLE: Present and normal appearing. CARDIAC: Present. UTERUS: Normal size and appearance. OVARIES: Right: Corpus lutein cyst. Left: Normal. CERVIX: 4.2 cm in length and closed. CUL-DE-SAC: Normal. OTHER: None. AGE BY LMP: 8 weeks 2 days ROD BY LMP: 07/18/2024 AGE BY US CRL: 8 weeks 0 days ROD BY US CRL: 07/20/2024 US/US OB transvaginal IMPRESSION: 1. Single live intrauterine . Electronically authenticated by: MATEUS TELLEZ Date: 12/10/2023 06:25 Dictated By: Mateus Tellez M.D. Signed By:12/10/23626 DD/ 4 TD/TT: Technical Advisor: us Generic External Data Provider [facility] Final Result documented in this encounter Visit Diagnoses Not on filedocumented in this encounter Care Teams Ultimate Hoops Trainer Relationship Specialty Start Date End Date Shruti Turner MD [address] [place] [address] PCP - General Family Medicine 07/07/22 documented as of this encounter
--- OUTSIDE RECORDS SUMMARY | 2024-07-12 05:23 | XMS_ITS | Encounter Summary ---
Author Organization [facility] Address [address] [place] [address] Care Team Providers Care Casino Cage Cashier Name Role Phone Shruti Turner MD Primary Care Provider [phone] Encounter Details Date Type Department Care Team (Late st Contact Info) Description 03/13/2024 Clinisync Result Encounter [facility] External Department Unsolicited Ebony Laguna, DO [address] [facility] [address] Esmer De La Cruz [place], [place] [id number] Social History Tobacco Use Types Packs/Day Years [...] Priority Date/Time Associated Diagnosis Comments US OB PLACENTA 03/13/2024 8:12 AM EST URINE CULTURE, ROUTINE Routine 03/13/2024 6:20 AM EST documented in this encounter Results * US OB PLACENTA (03/13/2024 8:12 AM EST) Anatomical Region Laterality Modality Other 03/13/2024 8:12 AM EST Narrative 03/13/2024 8:15 [place] [address] Ultrasound Report Signed Patient: EVELYN BRADLEY MR#: [id number] : 2000 Acct:[id number] Age/Sex: 23 / F ADM Date: Loc: [facility] 250-[address]: Ebony Laguna D.O. Ordering Physician: Ebony Laguna D.O. Date of Service: 03/13/24 Procedure(s): US OB placenta Accession Number(s): [id number] cc: Ebony Laguna D.O.; SHRUTI TURNER [place] [address] Patient Name: EVELYN BRADLEY MRN: [facility]:[id number] date: 2000 Sex: F Assigned Patient Location: [facility] Current Patient Location: [facility] Accession/Order Number: [id number] Exam Date: 03/13/2024 07:00 Report Date: 03/13/2024 08:12 At the request of: EBONY LAGUNA Procedure: US OB placenta EXAMINATION: US OB placenta, US OB cervical length HISTORY: vaginal bleeding COMPARISON: Ultrasound OB transvaginal 12/09/2023 FINDINGS: PLACENTA: Posterior-fundal, grade 0. No abruption or subchorionic hematoma. Lower margin is 6.2 cm from internal os. CERVIX LENGTH: 4.0 cm; closed. HEART RATE: 140 bpm OTHER: None. GA: 21 weeks 6 days ROD: 07/18/2024 US/US OB placenta IMPRESSION: 1. Single live intrauterine . 2. Posterior-fundal placenta without abruption or subchorionic hematoma. No previa. Electronically authenticated by: MATEUS TELLEZ Date: 03/13/2024 08:12 Dictated By: Mateus Tellez M.D. Signed By: 03/13/24814 DD/ 1 TD/TT: Body Art Technician: Procedure Note Radiology, Radiologist, - 03/13/2024 [place] [address] Ultrasound Report Signed Patient: EVELYN BRADLEY [facility]#: [id number] : 2000Acct:[id number] Age/Sex: 23 / FADM Date: Loc: [facility] 250-[address]: Ebony Laguna D.O. Ordering Physician: Ebony Laguna D.O. Date of Service: 03/13/24 Procedure(s): US OB placenta Accession Number(s): [id number] cc: Ebony Laguna D.O.; SHRUTI TURNER [place] [address] Patient Name: EVELYN BRADLEY MRN: [facility]:[id number] date: 2000 Sex: F Assigned Patient Location: [facility] Current Patient Location: [facility] Accession/Order Number: [id number] Exam Date: 03/13/2024 07:00 Report Date: 03/13/2024 08:12 At the request of: EBONY LAGUNA Procedure: US OB placenta EXAMINATION: US OB placenta, US OB cervical length HISTORY: vaginal bleeding COMPARISON: Ultrasound OB transvaginal 12/09/2023 FINDINGS: PLACENTA: Posterior-fundal, grade 0. No abruption or subchorionichematoma. Lower margin is 6.2 cm from internal os. CERVIX LENGTH: 4.0 cm; closed. HEART RATE: 140 bpm OTHER: None. GA: 21 weeks 6 days ROD: 07/18/2024 US/US OB placenta IMPRESSION: 1. Single live intrauterine . 2. Posterior-fundal placenta without abruption or subchorionic hematoma.No previa. Electronically authenticated by: MATEUS TELLEZ Date: 03/13/2024 08:12 Dictated By: Mateus Tellez M.D. Signed By:03/13/2415 DD/ 1 TD/TT: Body Art Technician: us Ebony Luz Elena DO [facility] Final Result * URINE CULTURE, ROUTINE (03/13/2024 6:20 AM EST) [facility] URINE CULTURE, ROUTINE Urine Culture, Routine Organism: Beta hemolytic Strep group B : [facility] URINE CULTURE, ROUTINE *ABNORMAL* TB URINE CULTURE, ROUTINE Penicillin and ampicillin are drugs of choice for [facility] URINE CULTURE, ROUTINE treatment of beta-hemolytic streptococcal infections. [facility] URINE CULTURE, ROUTINE Susceptibility testing of penicillins and other beta- [facility] URINE CULTURE, ROUTINE lactam agents approved by the FDA for treatment of [facility] URINE CULTURE, ROUTINE beta-hemolytic streptococcal infections need not be TB URINE CULTURE, ROUTINE performed routinely because nonsusceptible isolates TB URINE CULTURE, ROUTINE are extremely rare in any beta-hemolytic streptococcus TB URINE CULTURE, ROUTINE and have not been reported for Streptococcus pyogenes [facility] URINE CULTURE, ROUTINE (group A). (CLSI) [facility] URINE CULTURE, ROUTINE 50,000-100,000 colony forming units per mL [facility] URINE CULTURE, ROUTINE Beta hemolytic Strep group B TB URINE CULTURE, ROUTINE O:BETAGB Isolated TB URINE CULTURE, ROUTINE Performed at: [facility] URINE CULTURE, ROUTINE [address] [place] [id number] [facility] URINE CULTURE, ROUTINE Franchise Field Consultant: Colten Caceres PhD, Phone: [phone] [facility] 03/13/2024 6:20 AM EST 03/13/2024 7:32 AM EST Narrative [facility] - 03/15/2024 5:07 AM EST Generic External Data Provider LAB BLOOD ORDERAB LES Final Result [facility] documented in this encounter Visit Diagnoses Not on filedocumented in this encounter Care Teams Casino Cage Cashier Relationship Specialty Start Date End Date Shruti Turner MD [address] [place] [address] PCP - General Family Medicine 07/07/22 documented as of this encounter
--- OUTSIDE RECORDS SUMMARY | 2024-07-12 05:23 | XMS_ITS | Encounter Summary ---
Author Organization [facility] Address [address] [place] [address] Care Team Providers Care Bottoming Machine Operator Name Role Phone Shruti Turner MD Primary Care Provider [phone] Encounter Details Date Type Department Care Team (Late st Contact Info) Description 03/13/2024 Clinisync Result Encounter [facility] External Department Unsolicited Ebony Laguna, DO [address] [facility] [place] [address] Social History Tobacco Use Types Packs/Day Years [...] Priority Date/Time Associated Diagnosis Comments US OB CERVICAL LENGTH 03/13/2024 8:12 AM EST documented in this encounter Results * US OB CERVICAL LENGTH (03/13/2024 8:12 AM EST) Anatomical Region Laterality Modality Other 03/13/2024 8:12 AM EST Narrative 03/13/2024 8:15 [place] [address] Ultrasound Report Signed Patient: EVELYN BRADLEY MR#: [id number] : 2000 Acct:[id number] Age/Sex: 23 / F ADM Date: Loc: [facility] 250- Attending Dr: Ebony Laguna D.O. Ordering Physician: Ebony Laguna D.O. Date of Service: 03/13/24 Procedure(s): US OB cervical length Accession Number(s): [id number] cc: Ebony Laguna D.O.; SHRUTI TURNER [place] [address] Patient Name: EVELYN BRADLEY MRN: [facility]:[id number] date: 2000 Sex: F Assigned Patient Location: [facility] Current Patient Location: [facility] Accession/Order Number: [id number] Exam Date: 03/13/2024 07:00 Report Date: 03/13/2024 08:12 At the request of: EBONY LAGUNA Procedure: US OB cervical length EXAMINATION: US OB placenta, US OB cervical length HISTORY: vaginal bleeding COMPARISON: Ultrasound OB transvaginal 12/09/2023 FINDINGS: PLACENTA: Posterior-fundal, grade 0. No abruption or subchorionic hematoma. Lower margin is 6.2 cm from internal os. CERVIX LENGTH: 4.0 cm; closed. HEART RATE: 140 bpm OTHER: None. GA: 21 weeks 6 days ROD: 07/18/2024 US/US OB cervical length IMPRESSION: 1. Single live intrauterine . 2. Posterior-fundal placenta without abruption or subchorionic hematoma. No previa. Electronically authenticated by: MATEUS TELLEZ Date: 03/13/2024 08:12 Dictated By: Mateus Tellez M.D. Signed By: 03/13/24814 DD/ 1 TD/TT: Hide Examiner: Procedure Note Radiology, Radiologist, MD - 03/13/2024 [place] [address] Ultrasound Report Signed Patient: EVELYN BRADLEY [facility]#: [id number] : 2000Acct:[id number] Age/Sex: 23 / FADM Date: Loc: [facility] 250-[address]: Ebony Laguna D.O. Ordering Physician: Ebony Laguna D.O. Date of Service: 03/13/24 Procedure(s): US OB cervical length Accession Number(s): [id number] cc: Ebony Laguna D.O.; SHRUTI TURNER [place] [address] Patient Name: EVELYN BRADLEY MRN: [id number] date: 2000 Sex: F Assigned Patient Location: [facility] Current Patient Location: [facility] Accession/Order Number: [id number] Exam Date: 03/13/2024 07:00 Report Date: 03/13/2024 08:12 At the request of: EBONY LAGUNA Procedure: US OB cervical length EXAMINATION: US OB placenta, US OB cervical length HISTORY: vaginal bleeding COMPARISON: Ultrasound OB transvaginal 12/09/2023 FINDINGS: PLACENTA: Posterior-fundal, grade 0. No abruption or subchorionichematoma. Lower margin is 6.2 cm from internal os. CERVIX LENGTH: 4.0 cm; closed. HEART RATE: 140 bpm OTHER: None. GA: 21 weeks 6 days ROD: 07/18/2024 US/US OB cervical length IMPRESSION: 1. Single live intrauterine . 2. Posterior-fundal placenta without abruption or subchorionic hematoma.No previa. Electronically authenticated by: MATEUS TELLEZ Date: 03/13/2024 08:12 Dictated By: Mateus Tellez M.D. Signed By:03/13/24814 DD/ 1 TD/TT: Hide Examiner: us Ebony Laguna DO [facility] Final Result documented in this encounter Visit Diagnoses Not on filedocumented in this encounter Care Teams Bottoming Machine Operator Relationship Specialty Start Date End Date Shruti Turner MD [address] [place] [address] PCP - General Family Medicine 07/07/22 documented as of this encounter
[2024-07-12 06:05] LABS: Hematocrit 33.9 % (36.0-48.0); Mean Corpuscular HGB Conc 35.4 g/dL (29.9-35.2); Mean Corpuscular Hemoglobin 32.6 pg (26.7-34.0); Mean Corpuscular Volume 92.1 fL (81.0-99.0); Mean Platelet Volume 11.6 fL (9.5-13.5); Platelet Count 222 10^3/uL (150-450); Red Blood Count 3.68 10^6/uL (4.20-5.40); Red Cell Distribution Width 12.5 % (11.0-15.0)
[2024-07-12 06:15] LABS: Amphetamine Screen Urine NEGATIVE (NEGATIVE); Barbiturates Screen Urine NEGATIVE (NEGATIVE); Benzodiazepines Screen Urine NEGATIVE (NEGATIVE); Buprenorphine Screen Urine NEGATIVE (NEGATIVE); Cannabinoid Screen Urine NEGATIVE (NEGATIVE); Cocaine Screen Urine NEGATIVE (NEGATIVE); Methadone Screen Urine NEGATIVE (NEGATIVE); Methamphetamines Screen Urine NEGATIVE (NEGATIVE); Opiate Screen Urine NEGATIVE (NEGATIVE); Oxycodone Screen Urine NEGATIVE (NEGATIVE); Phencyclidine Screen Urine NEGATIVE (NEGATIVE); Tricyclic Antidepressant Urine NEGATIVE (NEGATIVE)
[2024-07-12] MEDS: 0.9 % SODIUM CHLORIDE 1,000 ML 125 ML IV (06:15)
[2024-07-12] MEDS: OXYTOCIN/0.9 % SODIUM CHLORIDE 10 UNITS/500 ML PLAST..BAG 6 UNIT IV (06:15)
[2024-07-12] MEDS: ROPIVACAINE HCL/PF 400 MG/200 ML PREMIX 6 MG EPIDURAL (10:12)
[2024-07-12] MEDS: 0.9 % SODIUM CHLORIDE 1,000 ML 1000 ML IV (10:13)
[2024-07-12] MEDS: ONDANSETRON 4 MG RAPDIS TABLET SL (10:38)
[2024-07-12] MEDS: LIDOCAINE HCL 1% 200 MG/20 ML MDV INJ (16:49)
[2024-07-12] MEDS: OXYTOCIN/0.9 % SODIUM CHLORIDE 20 UNITS/1,000 ML PLAST..BAG 125 UNIT IV (16:55)
--- NOTE | 2024-07-12 16:57 | PM.OBPRCVD ---
Procedure Intrapartal events: None Induction method: per pitocin protocol Delivery augmentation: rupture of membranes and pitocin Delivery monitor: external FHT and external uterine Route of delivery: Episiotomy Description: none L&D Laceration Description: periurethral - 1st degree Delivery repair: Vicryl Estimated blood loss (mL): 250 Anesthesia type: Epidural Disposition: floor Infant Delivery date: 07/12/24 Gender: male presentation: vertex Placental delivery description: Spontaneous cord description: 3 Vessels
[2024-07-12] MEDS: BENZOCAINE/MENTHOL 85 GRAM SPRAY BOTTLE 1 APPLIC TOPICAL (18:45)
[2024-07-12] MEDS: IBUPROFEN 600 MG TABLET PO (18:45)
[2024-07-13] VITALS (7 sets, daily range): BP systolic 91–132; BP diastolic 50–83; PULSE 77–90; TEMP 36–36.9
[2024-07-13] MEDS: IBUPROFEN 600 MG TABLET PO ×4 (01:55→23:36)
[2024-07-13 06:21] LABS: Basophils Absolute Auto 0.1 10^3/uL (0.0-0.1); Basophils Percent Auto 0.4 % (0.2-2.0); Eosinophils Absolute Auto 0.1 10^3/uL (0.0-0.7); Hematocrit 30.1 % (36.0-48.0); Hemoglobin 10.5 g/dL (12.0-16.0); Immature Granulocytes Pct Auto 0.7 % (0.0-0.5); Lymphocytes Absolute Auto 2.7 10^3/uL (1.2-3.8); Lymphocytes Percent Auto 18.9 % (20.5-60.0); Mean Corpuscular HGB Conc 34.9 g/dL (29.9-35.2); Mean Corpuscular Hemoglobin 32.3 pg (26.7-34.0); Mean Corpuscular Volume 92.6 fL (81.0-99.0); Mean Platelet Volume 11.4 fL (9.5-13.5); Monocytes Absolute Auto 0.8 10^3/uL (0.3-0.8); Monocytes Percent Auto 5.7 % (1.7-12.0); Neutrophils Absolute Auto 10.4 10^3/uL (1.4-6.5); Neutrophils Percent Auto 73.3 % (43.0-75.0); Platelet Count 187 10^3/uL (150-450); Red Blood Count 3.25 10^6/uL (4.20-5.40); Red Cell Distribution Width 12.4 % (11.0-15.0); White Blood Count 14.2 10^3/uL (4.0-11.0)
--- NOTE | 2024-07-13 08:09 | PM.OBPN ---
OB - PN: Subj Subjective Patient comments: no complaints and pain well controlled [place] status: doing well Exam Constitutional Vital Signs, click to edit/add: Last Vital Signs Temp 96.8 F L 07/13/24 01:50 Pulse 77 07/13/24 01:50 Resp 16 07/13/24 01:50 BP 100/55 07/13/24 01:50 O2 Del Method Room Air 07/13/24 01:50 Documenting provider has reviewed patient's vital signs: yes Common normals: no apparent distress Respiratory Common normals: normal respiratory effort and clear to auscultation bilaterally Cardio Common normals: regular rate and regular rhythm GI Common normals: Normal to inspection, nondistended, normoactive bowel sounds present Extremity Common normals: no clubbing, cyanosis or edema and no calf tenderness Results Labs Labs: Short CBC 07/13/24 Range/Units 06:09 WBC 14.2 H (4.0-11.0) 10^3/uL Hgb 10.5 L (12.0-16.0) g/dL Hct 30.1 L (36.0-48.0) % Plt Count 187 (150-450) 10^3/uL Urinary Catheter Management Urinary Catheter Management Urethral: Cath placed during this visit: yes, but has since been removed by the nurse Insertion date: 07/12/24 Insertion time: 10:30 Removal date: 07/12/24 Removal time: 14:30 OB - PN: A/P Plan - Vaginal Delivery day: 1 Plan: routine care Time Spent with Patient Time: Total time spent is greater than 50% in coordination of care (as documented) at patient's floor/unit and/or counseling patient: Total time spent with greater than 50% in coordination of care (as documented) at patient's floor/unit and/or counseling patient: less than 15 minutes
[2024-07-13] MEDS: DOCUSATE SODIUM 100 MG CAPSULE PO ×2 (08:37→23:38)
--- NOTE | 2024-07-13 13:29 | PC.NURSE ---
Given handout for Drying up milk supply for non breast feeding mother. Explained and discussed breast care with pt. Verbalized understanding.
[2024-07-13] MEDS: ACETAMINOPHEN 325 MG TABLET 650 MG PO ×2 (14:51→23:38)
--- NOTE | 2024-07-14 07:48 | PM.OBPN ---
OB - PN: Subj Subjective Patient comments: no complaints and pain well controlled [place] status: doing well Exam Constitutional Vital Signs, click to edit/add: Last Vital Signs Temp 97 F L 07/13/24 23:36 Pulse 86 07/13/24 23:36 Resp 18 07/13/24 23:36 BP 132/72 07/13/24 23:36 O2 Del Method Room Air 07/13/24 23:36 Documenting provider has reviewed patient's vital signs: yes Common normals: no apparent distress Respiratory Common normals: normal respiratory effort and clear to auscultation bilaterally Cardio Common normals: regular rate and regular rhythm GI Common normals: Normal to inspection, nondistended, normoactive bowel sounds present Extremity Common normals: no clubbing, cyanosis or edema and no calf tenderness Urinary Catheter Management Urinary Catheter Management Urethral: Cath placed during this visit: yes, but has since been removed by the nurse Insertion date: 07/12/24 Insertion time: 10:30 Removal date: 07/12/24 Removal time: 14:30 OB - PN: A/P Plan - Vaginal Delivery day: 2 Plan: routine care, discharge home and follow up 6 weeks Time Spent with Patient Time: Total time spent is greater than 50% in coordination of care (as documented) at patient's floor/unit and/or counseling patient: Total time spent with greater than 50% in coordination of care (as documented) at patient's floor/unit and/or counseling patient: less than 15 minutes
[2024-07-14] MEDS: IBUPROFEN 600 MG TABLET PO (09:04)
[2024-07-14] MEDS: ACETAMINOPHEN 325 MG TABLET 650 MG PO (09:05)
[2024-07-14] MEDS: DOCUSATE SODIUM 100 MG CAPSULE PO (09:05)
[2024-07-14 09:07] VITALS: BP 126/75; PULSE 80; TEMP 36.7
== END 2024-07-14 14:29 | disposition home or self-care (01) | DRG 807 ==
PROVIDERS: Admitting Provider Obstetrics & Gynecology; PCP Family Medicine; Visit Provider Obstetrics & Gynecology
DX: O99.334 Smoking (tobacco) complicating childbirth (principal); Z37.0 Single live birth; F17.210 Nicotine dependence, cigarettes, uncomplicated; O70.0 First degree perineal laceration during delivery; Z3A.39 39 weeks gestation of pregnancy; Z87.440 Personal history of urinary (tract) infections
CPT/HCPCS: 36415; 51702; 59050; 59410; 80307; 85025; 85027; 86850; 86900; 86901; J2795; Q0162